=== PATIENT | female | born 1940 | race Caucasian/White ===

== ENCOUNTER → 2017-11-16 11:04 | Outpatient (CLI) | payer MEDICARE, SELFPAY ==
[2017-11-16 13:13] LABS: Absolute Lymphocyte Count 2.13 X10^3/ul (0.83-4.51); Absolute Neutrophil Count 4.1 X10^3/uL (2.0-7.7); Basophil# 0.04 X10^3/uL; Basophil% 0.5 % (0-1); Eosinophil# 0.12 X10^3/uL; Eosinophils% 1.6 % (0-5); Hemoglobin 11.5 g/dl (12.0-15.0); Lymphocyte # 2.13 X10^3/ul (4.0); Lymphocyte % 29.1 % (19-41); Mean Corp Hgb Conc 32.9 g/gl (32-36); Mean Corpuscular Volume 97.5 fL (81-99); Mean Platelet Vol. 11.9 fl (6.2-12.0); Monocyte# 0.92 X10^3/uL; Monocyte% 12.6 % (0-10); Neutrophil # 4.11 X10^3/uL (2.7-7.7); Neutrophil % 56.1 % (47-70); POSITIVE COUNT NO; POSITIVE DIFFERENTIAL NO; POSITIVE MORPHOLOGY NO; Platelet Count 249 K/mm3 (150-450); RBC Distribution Width CV 14.3 % (11.6-14.6); RBC Distribution Width SD 48.7 fl (35.1-43.9); Red Blood Count 3.59 M/mm3 (4.2-5.4); White Blood Count 7.3 K/mm3 (4.4-11.0)
[2017-11-16 13:33] LABS: Vitamin D,25 Hydroxy 34.5 ng/mL (29.95-100.01)
[2017-11-16 13:54] LABS: ALB/GLOB Ratio 0.9 RATIO (0.9-2.4); AST(SGOT) 23 U/L (15-37); Alanine Aminotransfer ALT/SGPT 26 U/L (13-56); Alkaline Phosphatase 107 U/L (45-117); Anion Gap 9 (5-15); BUN 18 mg/dL (7-18); BUN/Creat Ratio 14.1 RATIO (10-20); Calcium,Total 9.4 mg/dL (8.5-10.1); Chloride 103 mmol/L (98-107); Creatinine, Serum 1.28 mg/dL (0.55-1.02); EST Glomerular Filtration Rate 43 mL/min (>60); Est Glom Filt Rate - Afr Amer 52 mL/min (>60); Globulin 3.3 g/dL (2.2-4.2); Glucose 96 mg/dL (74-106); Potassium 3.9 mmol/L (3.5-5.1); Protein, Total 6.3 g/dL (6.4-8.2); Sodium Level 137 mmol/L (136-145); Thyroid Stim Hormone (TSH) 0.59 uIU/mL (0.358-3.74); Uric Acid 3.8 mg/dL (2.6-6.0)
== END ==
PROVIDERS: Family Provider Family Medicine Geriatric Medicine; PCP Family Medicine Geriatric Medicine; Visit Provider Family Medicine Geriatric Medicine
DX: E55.9 Vitamin D deficiency, unspecified (principal); I10 Essential (primary) hypertension
CPT/HCPCS: 36415; 80053; 82306; 84443; 84550; 85025

== ENCOUNTER → 2017-12-21 09:26 | Outpatient (CLI) | payer MEDICARE, SELFPAY ==
--- NOTE | 2017-12-21 09:30 | BI_ITS ---
MAMMOGRAPHY - BILATERAL SCREENING REASON FOR EXAM: Female, 77 years old. Routine annual screening examination. PERTINENT HISTORY: Non-contributory. History of prior left stereotactic breast biopsy. TECHNIQUE: Digital bilateral breast christina (3D mammographic acquisition) in the CC and MLO projections. 2-D mediolateral oblique (MLO) and craniocaudad (CC) views of both breasts were obtained. CAD: Full Field Digital Mammography with Computer Added Detection was performed. COMPARISON: Comparison is made with prior study dated November 04, 2015 and October 30, 2013. FINDINGS: Breast Composition: There are scattered areas of fibroglandular density. There are no dominant masses or suspicious calcifications. Stable benign-appearing bilateral axillary lymph nodes. Stable bilateral calcifications. A tissue clip marker is seen in the upper lateral portion of the left breast. No other significant abnormalities are identified. There has been no significant change since the prior study. BI/SCREENING MAMM (CAD), BILAT IMPRESSION: Stable bilateral screening mammogram. Yearly follow-up mammogram recommended. (A) ASSESSMENT CATEGORY: BIRADS Category 2: Benign. A letter regarding these results will be sent to the patient by the facility within 30 days. Approximately 10% of breast cancers are not detected by mammography. A normal mammogram should not delay biopsy of a clinically suspicious abnormality. [id number] Electronically Signed: Xander Medina MD at 12:36 EDT Tel [phone], Service support ,
--- NOTE | 2017-12-21 09:34 | BD_ITS ---
STUDY: DUAL ENERGY X-RAY ABSORPTIOMETRY / DXA REASON FOR EXAM: Female, 77 years old. The patient is postmenopausal. Loss of height. Prior left total hip replacement. TECHNIQUE: Bone Mineral Density (BMD) measurements of lumbar spine and both forearms were obtained. COMPARISON: Comparison is made with prior study dated November 04, 2015. FINDINGS: Lumbar Spine (L1-L4): g/cm2 (1.130) / T-score (-0.3) / Z-score (1.5) Findings are suggestive of normal bone density with a low fracture risk. Right Forearm: g/cm2 (0.695) / T-score (-2.2) / Z-score (0.1) Left Forearm: g/cm2 (0.638) / T-score (-2.7) / Z-score (-0.4) The T-Scores on the most recent prior examination were: Lumbar Spine (L1-L4): There has been improvement of bone density since the previous examination. There has been worsening of the bone density at the level of both forearms. BD/Dexa Bone Density Study IMPRESSION: The patient is considered osteoporotic as outlined below according to World Mikey Organization (WHO) criteria with a high fracture risk. There has been worsening of bone density since the previous examination. Reference Information: The T-score is the number of standard deviations above or below the standard which is normal for young adults at their peak bone mineral density. The World Health Organization (WHO) interprets the T-scores as follows: Above -1 Normal bone density Between -1 and -2.5 Osteopenia Equal to / or below -2.5 Osteoporosis As a practical clinical guideline, osteopenia may be graded as follows: Mild -1 through -1.5 Moderate -1.6 through -2.0 Severe -2.1 through -2.4 The Z-score is the number of standard deviations above or below age-matched controls. A Z-score of less than -1.5 would be considered abnormal. References: 1. NIH Osteoporosis and Related Bone Diseases http://www.osteo.org 2. International Society for Clinical Densitometry http://www.iscd.org 3. National Osteoporosis Foundation http://www.nof.org Electronically Signed: Xander Medina MD at 9:23 EDT Tel [phone], Service support ,
== END ==
PROVIDERS: Family Provider Family Medicine Geriatric Medicine; PCP Family Medicine Geriatric Medicine; Visit Provider Family Medicine Geriatric Medicine
DX: Z12.31 Encounter for screening mammogram for malignant neoplasm of breast (principal); Z78.0 Asymptomatic menopausal state
CPT/HCPCS: 77063; 77067; 77080

== ENCOUNTER → 2018-05-18 10:24 | Outpatient (CLI) | payer MEDICARE, SELFPAY ==
[2018-05-18 11:22] LABS: Hemoglobin 10.4 g/dl (12.0-15.0)
[2018-05-18 11:25] LABS: Absolute Neutrophil Count 4.6 X10^3/uL (2.0-7.7); Basophil% 0.5 % (0-1); Eosinophil# 0.13 X10^3/uL; Eosinophils% 1.7 % (0-5); Lymphocyte % 32.4 % (19-41); Monocyte# 0.47 X10^3/uL; Monocyte% 6.1 % (0-10); Neutrophil # 4.57 X10^3/uL (2.7-7.7); Neutrophil % 59.2 % (47-70)
[2018-05-18 11:26] LABS: Mean Corp Hgb Conc 32.5 g/gl (32-36); Mean Corpuscular Hgb 30.9 pg (27.0-32.0); Mean Platelet Vol. 11.5 fl (6.2-12.0); POSITIVE COUNT NO; POSITIVE DIFFERENTIAL NO; POSITIVE MORPHOLOGY NO; Platelet Count 250 K/mm3 (150-450); RBC Distribution Width CV 15.1 % (11.6-14.6); RBC Distribution Width SD 51.5 fl (35.1-43.9); Red Blood Count 3.37 M/mm3 (4.2-5.4); White Blood Count 7.7 K/mm3 (4.4-11.0)
[2018-05-18 11:40] LABS: Vitamin D,25 Hydroxy 34.8 ng/mL (29.95-100.01)
[2018-05-18 11:42] LABS: AST(SGOT) 21 U/L (15-37); Alanine Aminotransfer ALT/SGPT 21 U/L (13-56); Albumin, Serum 3.2 g/dL (3.2-5.0); Alkaline Phosphatase 105 U/L (45-117); Anion Gap 7 (5-15); BUN 22 mg/dL (7-18); BUN/Creat Ratio 18.6 RATIO (10-20); Chloride 108 mmol/L (98-107); Creatinine, Serum 1.18 mg/dL (0.55-1.02); EST Glomerular Filtration Rate 47 mL/min (>60); Est Glom Filt Rate - Afr Amer 57 mL/min (>60); Globulin 3.2 g/dL (2.2-4.2); Glucose 103 mg/dL (74-106); Potassium 3.7 mmol/L (3.5-5.1); Protein, Total 6.4 g/dL (6.4-8.2); Sodium Level 141 mmol/L (136-145); Thyroid Stim Hormone (TSH) 1.68 uIU/mL (0.358-3.74); Uric Acid 3.4 mg/dL (2.6-6.0)
== END ==
PROVIDERS: Family Provider Family Medicine Geriatric Medicine; PCP Family Medicine Geriatric Medicine; Visit Provider Family Medicine Geriatric Medicine
DX: E55.9 Vitamin D deficiency, unspecified (principal); I10 Essential (primary) hypertension; M10.9 Gout, unspecified
CPT/HCPCS: 36415; 80053; 82306; 84443; 84550; 85025

== ENCOUNTER → 2018-05-24 08:57 | Outpatient (CLI) | payer MEDICARE, SELFPAY | PROVIDERS: Family Provider Family Medicine Geriatric Medicine; PCP Family Medicine Geriatric Medicine; Referring Provider Internal Medicine Medical Oncology; Visit Provider Internal Medicine Medical Oncology | DX: D64.9 Anemia, unspecified (principal) | CPT/HCPCS: 82274 ==

== ENCOUNTER 2018-05-26 10:00 | Outpatient (RCR) | payer MEDICARE, SELFPAY ==
--- NOTE | 2018-04-17 11:52 | HP.PTEVAL ---
Patient's Visit Information YAMIL MELGOZA is a 77 year old F referred to Physical Therapy by CHINYERE SAEED with a diagnosis of Gait Disturbance. Date of Evaluation: 04/17/18 Physical Therapist: Kaila Alcala - Visit Plan Frequency: 3x /Week Duration: 3 Weeks Plan: Focus on LE and core s/s with functional mobility. - Subjective Subjective: Dr. Alvarado ordered a bone density test- this one came back with severe osteoporosis- put her on a medication 1x a week- since she started taking it in December she has noticed different things. 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 She has noticed that she has decreased strength doing stairs and can't go very far with ambulation. She also has COPD which limits her. She does not exercises but does her own housework. She vaccums which causes LBP. She goes to the library 3x a week 4 hours and does geneology- she has muscle pain in the right shoulder. Has seen Dr. Lovett which is making her better but not 100% better. Left hip is more sore than anything else when she is walking. Can only walk .1 of a mile- she has to rest and then she can go on. Worst: 07/03 Agg: walking a distance, stairs Eases: laying in bed with a heating pad Best: 10/01. Describes the pain as shooting and dull. Feels like someone is squeezing her really hard. Sleep: distrurbed when she rolls over- hard to get comfortable. Fears falling when she does a sit to stand- and has to use her arms to get upright. PMHx: osteoporiss, gout, COPD, hysterectomy, recovering alcoholic, HTN, high cholesterol, cateracts. Meds: allopurinol, prevatstatin, famotyodine, magnesium, potassium chol, synthroid, vit b 1, folic acid, cardisam, cozar. - Objective Posture: FH, RS, Increased kyphosis- can correct but does not maintain. Gait: slight deviation- no assistive device- increased JOSE JUAN with poor heel/toe pattern- decreased trunk rotation and arm swing. Stairs: asc/desc 8 recip with 2 HR- more UE use on ascend but poor control with descent. Slow cirilo. HR/TR: able but reports discomfort. SLS: WS but unable to SLS without UE and pain left>right. Palpation: tender to touch throughout LE. ROM: WFL in all planes. Strength: Core: poor, Hip: 4-/5 throughout, Knee: 4+/5, Ankle: 4+/5 all with discomfort. 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: 7 with UE a on thighs - Goals Goal 1:: Patient will be I with HEP and progression Goal Time Frame: 4-6 Weeks Goal 2:: Patient will asc/desc 8 stairs recip with 1 HR and good control Goal Time Frame: 4-6 Weeks Goal 3:: Patient will demo 12 sit to stands to increase functional performance Goal Time Frame: 4-6 Weeks Goal 4:: Patient will ambualte >300 feet with a normalized gait pattern Goal Time Frame: 4-6 Weeks Goal 5:: Patient will SLS for 5 seconds bilateal without UE A Goal Time Frame: 4-6 Weeks - Rehabilitation Potential Physical Therapy Diagnosis: Patient presents with hypomobiliy- she has decreased strength and muscular endurance leading to poor posture and increased pain with ADL's. Rehabilitation Potential: Fair - Anticipated Interventions Patient/Client Instruction: Educate patient on: Benefits of Fitness Program Therapeutic Exercise to Include: Strength training, Endurance training, Balance training, Body mechanics, Postural training, Flexibilty training, Gait and locomotor training, Passive ROM, Active ROM, Dynamic Lumbar Stabilization For the Purpose of:: To improve muscle performance and motor function Functional Training to Include: Gait training Thermo therapy (hot pack): Yes Ultrasound (thermal/non thermal): No Thank you for the opportunity to evaluate your patient. For Medicare and Medicare HMO plans, please review the plan of care and approve it. It will need to be FAXED BACK to us at [phone] for Medicare purposes. Please let me know if there are questions or concerns regarding this plan of care. Physician Signature: Date:
--- NOTE | 2018-05-08 07:21 | HP.PTREVAL_ITS ---
Joe Chi Christiano, It has been my pleasure to treat YAMIL MELGOZA over the last 9 visits for Gait Disturbance. Please see the progress note below for an update on the physical therapy plan of care! Subjective: Overall there has been improvement, feeling good about it. Still want hip corrected so can walk greater distances. Cannot walk from front of [employer] to back. Still having pain, but legs are stronger and noticed can do more. Current pain 0/10, worst 7-8/10. Can walk 1/10th of mile before leg starts to hurt and need to rest, which has been this way for a few years. Pain in L hip where replaced. Described as sharp. As walking gradually feel it start. 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 Roommate does cooking normally. Laundry up and down stairs, vaccuum, dust, take time but able to get done. Get in to car have to sit in chair on R side first and physically L L leg into car. Driving and get out of car okay. Goals: walking assisted through [employer] without having stop. Pt. thinks reason cannot walk long distances is due to leg fatigue and painful. Pain spreads from hip to low back. Physician 6 month checkup May 19. Objective/Function: Gait: WFL. Stair: ascend/descend reciprocally 1 HR with good form and speed. AROM: LE WFL. Heel and toes raise with minimal UE support. Balance: SL on R 10 seconds, SL L 3 seconds. Strength: R hip flex. ext. 4+/5, L hip flex. ext. 3+/5 and pain, R knee 5/5 L knee ext 4/5 flex 3+/5, R IR/ER 4+/5, L ER hip 3+/5, IR 4/5. Sit to stand no UE 9 in 30 seconds Plan Plan: Cont with PT services 2 times a week for 3 weeks. Focus on endurance and pain free gait for greater than 600', continue to focus on LE strength. Goals Goal 1:: Patient will be I with HEP and progression Goal Time Frame: 4-6 Weeks Goal Progress: Goal Met Goal 2:: Patient will asc/desc 8 stairs recip with 1 HR and good control Goal Time Frame: 4-6 Weeks Goal Progress: Goal Met Goal 3:: Patient will demo 12 sit to stands to increase functional performance Goal Time Frame: 4-6 Weeks Goal Progress: Progressing Goal 4:: Patient will ambualte >300 feet with a normalized gait pattern Goal Time Frame: 4-6 Weeks Goal Progress: Goal Met Goal 5:: Patient will SLS for 5 seconds bilateal without UE A Goal Time Frame: 4-6 Weeks Goal Progress: Progressing Anticipated Interventions Patient/Client Instruction: Educate patient on: Benefits of Fitness Program Therapeutic Exercise to Include: Strength training, Endurance training, Balance training, Body mechanics, Postural training, Flexibilty training, Gait and locomotor training, Passive ROM, Active ROM, Dynamic Lumbar Stabilization For the Purpose of:: To improve muscle performance and motor function Functional Training to Include: Gait training Thermo therapy (hot pack): Yes Ultrasound (thermal/non thermal): No Please do not hesitate to contact me at [phone] by phone or if you have questions or concerns regarding this new plan of care! Sincerely, Kaila Alcala
--- NOTE | 2018-05-26 10:19 | HP.PTDCSUM ---
HP - PT D/C Summary It has been my pleasure to treat YAMIL MELGOZA under orders from Joe Alvarado, for the diagnosis of Gait Disturbance for a total of 18 visit(s). Discharge Date: Please see the following information for a summary of their discharge status. - Subjective Subjective: Patient reports that her legs are much better. If she walks any distance the left really bothers her. Does not have as much problems getting up/down. Not as wobbly in the shower- and does feel the therapy was helpful. Worst: 8/10 Best: painfree when sitting. - Pain left hip Pain Intensity (Out of 10): 6 - Overall Improvement % Improvement: 75 - Objective Objective/Function: Gait: decreased stance on the left LE. Stair: ascend/descend reciprocally 1 HR with good form and speed. AROM: LE WFL. Heel and toes raise with minimal UE support. Balance: SL on R 30 seconds, SL L 10 seconds. Strength: R hip flex. ext. 4+/5, L hip flex. ext. 4/5 and pain, R knee 5/5 L knee ext 4+/5 flex 4/5, R IR/ER 4+/5, L ER hip 4/5, IR 4/5. Sit to stand no UE 10 in 30 seconds - Goals Goal 1:: Patient will be I with HEP and progression Goal Progress: Goal Met Goal 2:: Patient will asc/desc 8 stairs recip with 1 HR and good control Goal Progress: Goal Met Goal 3:: Patient will demo 12 sit to stands to increase functional performance Goal Progress: Progressing Goal 4:: Patient will ambualte >300 feet with a normalized gait pattern Goal Progress: Goal Met Goal 5:: Patient will SLS for 5 seconds bilateal without UE A Goal Progress: Goal Met - Plan Plan: Discharge to HEP - D/C Information If there are questions or concerns regarding this patient's physical therapy, please feel free to call me at [phone]. Thank you for the referral of this patient. Sincerely, Kaila Alcala
== END 2018-05-26 19:00 | disposition home or self-care (01) ==
LOC: PT 10:00
PROVIDERS: Family Provider Family Medicine Geriatric Medicine; PCP Family Medicine Geriatric Medicine; Visit Provider Family Medicine Geriatric Medicine
DX: R26.9 Unspecified abnormalities of gait and mobility (principal)
CPT/HCPCS: 97110; 97161; 97164

== ENCOUNTER → 2018-07-05 14:46 | Outpatient (CLI) | payer MEDICARE, SELFPAY ==
[2018-05-30 11:28] VITALS: BMI 54.7
[2018-07-05 15:51] LABS: Absolute Lymphocyte Count 2.33 X10^3/ul (0.83-4.51); Absolute Neutrophil Count 4.6 X10^3/uL (2.0-7.7); Basophil# 0.04 X10^3/uL; Basophil% 0.5 % (0-1); Eosinophil# 0.08 X10^3/uL; Eosinophils% 1.1 % (0-5); Lymphocyte # 2.33 X10^3/ul (4.0); Lymphocyte % 30.6 % (19-41); Mean Corp Hgb Conc 32.4 g/gl (32-36); Mean Corpuscular Volume 95.8 fL (81-99); Mean Platelet Vol. 11.9 fl (6.2-12.0); Monocyte# 0.57 X10^3/uL; Monocyte% 7.5 % (0-10); Neutrophil # 4.58 X10^3/uL (2.7-7.7); Neutrophil % 60.2 % (47-70); Platelet Count 247 K/mm3 (150-450); RBC Distribution Width CV 14.7 % (11.6-14.6); RBC Distribution Width SD 51.5 fl (35.1-43.9); Red Blood Count 3.55 M/mm3 (4.2-5.4); White Blood Count 7.6 K/mm3 (4.4-11.0)
[2018-07-05 16:13] LABS: POSITIVE COUNT NO; POSITIVE DIFFERENTIAL NO; POSITIVE MORPHOLOGY NO
[2018-07-05 16:40] LABS: Anion Gap 8 (5-15); BUN 17 mg/dL (7-18); BUN/Creat Ratio 12.7 RATIO (10-20); Calcium,Total 9.6 mg/dL (8.5-10.1); Chloride 107 mmol/L (98-107); Creatinine, Serum 1.34 mg/dL (0.55-1.02); EST Glomerular Filtration Rate 41 mL/min (>60); Est Glom Filt Rate - Afr Amer 49 mL/min (>60); Glucose 100 mg/dL (74-106); Potassium 4.2 mmol/L (3.5-5.1); Sodium Level 139 mmol/L (136-145)
--- OUTSIDE RECORDS SUMMARY | 2018-08-21 19:53 | XMS RPT_ITS ---
:1940 Author Organization OHIP Support Name Relationship Address Phone TATE GAY Unavailable [address] + [place] [address] R Unavailable Unavailable Unavailable TATE, GAY Unavailable [address] + [place] [address] R Unavailable Unavailable Unavailable TATE GAY Unavailable [address] + [place] [address] R Unavailable Unavailable Unavailable TATE, GAY Unavailable [address] + [place] [address] R Unavailable Unavailable Unavailable TATE, GAY Unavailable [address] + [place] [address] R Unavailable Unavailable Unavailable TATE, GAY Unavailable [address] + [place] [address] R Unavailable Unavailable Unavailable TATE, GAY Unavailable [address] + [place] [address] R Unavailable Unavailable Unavailable TATE, GAY Unavailable [address] + [place] [address] R Unavailable Unavailable Unavailable TATE, GAY Unavailable [address] + [place] [address] R Unavailable Unavailable Unavailable TATE, GAY Unavailable [address] + [place] [address] R Unavailable Unavailable Unavailable TATE, GAY Unavailable [address] + [place] [address] R Unavailable Unavailable Unavailable TATE, GAY Unavailable [address] + [place] [address] R Unavailable Unavailable Unavailable TATE, GAY Unavailable [address] + [place] [address] R Unavailable Unavailable Unavailable TATE, GAY Unavailable [address] + [place] [address] R Unavailable Unavailable Unavailable TATE, GAY Unavailable [address] + [place] [address] R Unavailable Unavailable Unavailable TATEWILBERTE Unavailable [address] + [place] [address] R Unavailable Unavailable Unavailable TATEGAY Unavailable [address] + [place] [address] R Unavailable Unavailable Unavailable TATEWILBERTE Unavailable [address] + [place] [address] R Unavailable Unavailable Unavailable TATEGAY Unavailable [address] + [place] [address] R Unavailable Unavailable Unavailable TATEWILBERTE Unavailable [address] + [place] [address] R Unavailable Unavailable Unavailable GAY TATE Unavailable [address] + [place] [address] R Unavailable Unavailable Unavailable WILBERT TATEE Unavailable [address] + [place] [address] R Unavailable Unavailable Unavailable Care Team Providers Name Role Phone Christiano, Joe Chi Attending Unavailable Christiano, Joe Chi Primary Care Unavailable Christiano, Joe Chi Attending Unavailable Christiano, Joe Chi Referring Unavailable Christiano, Joe Chi Primary Care Unavailable Christiano, Joe Chi Attending Unavailable Christiano, Joe Chi Referring Unavailable Christiano, Joe Chi Primary Care Unavailable Cebul Nathan Attending Unavailable Christiano, Joe Chi Referring Unavailable Cebul Nathan Attending Unavailable Christiano, Joe Chi Referring Unavailable Cebul Nathan Attending Unavailable Cebul, Nathan Referring Unavailable Christiano, Joe Chi Primary Care Unavailable Adia Mcpherson Attending Unavailable Yefri Noe Attending Unavailable Christiano, Joe Chi Referring Unavailable Christiano, Joe Chi Primary Care Unavailable Dos[facility] Attending Unavailable Christiano, Joe Chi Referring Unavailable Christiano, Joe Chi Primary Care Unavailable [facility] Attending Unavailable Christiano, Joe Chi Referring Unavailable Christiano, Joe Chi Primary Care Unavailable Christiano, Joe Chi Attending Unavailable Christiano, Joe Chi Primary Care Unavailable Christiano, Jeo Chi Attending Unavailable Christiano, Joe Chi Referring Unavailable Christiano, Joe Chi Primary Care Unavailable Adia Mcpherson Attending Unavailable Adia Mcpherson Attending Unavailable Yefri Noe Attending Unavailable Christiano, Joe Chi Referring Unavailable Christiano, Joe Chi Primary Care Unavailable Christiano, Joe Chi Primary Care Unavailable ARIS ASHBY Consulting Unavailable Christiano, Joe Chi Attending Unavailable Christiano, Joe Chi Referring Unavailable Christiano, Joe Chi Attending Unavailable Christiano, Joe Chi Primary Care Unavailable Prah, Nicola Attending Unavailable Christiano, Joe Chi Primary Care Unavailable Prah, Nicola Attending Unavailable Christiano, Joe Chi Primary Care Unavailable Prah, Nicola Consulting Unavailable Prah, Nicola Attending Unavailable Prah, Nicola Referring Unavailable Christiano, Joe Chi Primary Care Unavailable Prajoe, [place] Attending Unavailable Christiano, Joe Chi Primary Care Unavailable Prajoe, Nciola Consulting Unavailable Christiano, Joe Chi Attending Unavailable Christiano, Joe Chi Referring Unavailable Christiano, Joe Chi Primary Care Unavailable PROBLEMS PROBLEMS DATE TYPE CONDITION / CODE ATTENDING STATUS SOURCE 08/09/2018 Unknown M79.10 - Myalgia, Christiano, Joe Chi Active [place] unspecified site / Community M79.10(ICD-10) Hospital Repository 08/09/2018 Unknown M25.519 - Pain in Christiano, Joe Chi Active [place] unspecified shoulder Community / M25.519(ICD-10) Hospital Repository 08/09/2018 Unknown H81.10 - Benign Christiano, Joe Chi Active [facility] paroxysmal vertigo, Community unspecified ear / Hospital H81.10(ICD-10) Repository 08/09/2018 Unknown 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, Nathan Active [facility] artery / Community I77.1(ICD-10) Hospital Repository 08/09/2018 Unknown I77.9 - Disorder of Cebul, Nathan Active [facility] arteries and Community arterioles, Hospital unspecified / Repository I77.9(ICD-10) 08/09/2018 Unknown I65.23 - Occlusion Cebul, Nathan Active [facility] and stenosis of Community bilateral carotid Hospital arteries / Repository I65.23(ICD-10) 08/09/2018 Unknown E04.2 - Nontoxic Cebul, Nathan Active [facility] multinodular goiter Community / E04.2(ICD-10) Hospital Repository 05/29/2018 Unknown D64.9 - Anemia, PraNicola diaz Active [place] unspecified / Community D64.9(ICD-10) Hospital Repository 05/30/2018 Unknown R26.9 - Unspecified Christiano, Joe Chi Active [place] abnormalities of Community gait and mobility / Hospital R26.9(ICD-10) Repository 04/10/2018 Unknown I51.7 - Cardiomegaly Noe, Yefri Active [facility] / I51.7(ICD-10) [facility] Repository 04/10/2018 Unknown E78.5 - Yefri Noe Active [place] Hyperlipidemia, Community unspecified / Hospital E78.5(ICD-10) Repository 12/21/2017 Unknown Z78.0 - Asymptomatic Christiano, Joe Chi Active [facility] menopausal state / Community Z78.0(ICD-10) Hospital Repository 12/21/2017 Unknown Z12.31 - Encounter Christiano, Joe Chi Active [facility] for screening Community mammogram for Hospital malignant neoplasm Repository of breast / Z12.31(ICD-10) 10/12/2017 Unknown M51.36 - Other Dossie, Dawn Active [place] intervertebral disc [facility]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 Community dysfunction of Hospital cervical region / Repository M99.01(ICD-10) 10/12/2017 Unknown M99.02 - Segmental Dossie, Dawn Active [place] and somatic [facility] Community dysfunction of Hospital thoracic region / Repository M99.02(ICD-10) 10/12/2017 Unknown M99.03 - Segmental Dossie, Dawn Active [place] and somatic [facility] 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 Community scoliosis, site Hospital unspecified / Repository M41.00(ICD-10) PROCEDURES PROCEDURES No Procedure Records FoundRESULTS RESULTS CTA NECK W/WO Observed: 08/09/2018 Status: F Source: [facility] CONTRAST 12:38 PM ON LICENSE OF [facility] REPOSITORY [facility] Imaging Services [address] [place] [address] CTA Neck W/WO Contrast MR#: [id number] Acct: [id number] Name: JESS MELGOZA Rep #: [id number] : 1940 F 78 From: Royer Nance MD PCP: Christiano WHITE,Joe Salas Status: REG CLI Study: CTA Neck W/WO Contrast Date of Exam: 08/09/18 Exam# [id number] Ordering Dr: Nathan Zapata MD STUDY: CTA NECK WITH AND WITHOUT CONTRAST REASON FOR EXAM: Female, 78 years old. Carotid stenosis, thyroid nodule, biopsy done today. RADIATION DOSAGE (If Supplied By Facility): CTDIvol = ( 15.20 ) mGy, DLP = ( 1121.24 ) mGycm TECHNIQUE: CT angiography with multi-detector data acquisition was performed from the aortic arch to the skull base prior to and after intravenous administration of 100 ml of Isovue 370 contrast. MIP images were reconstructed from the axial data set. Post-processing of the angiographic images was performed, with multiplanar reformation and 3D reconstruction. Individualized dose optimization techniques were used for this CT. COMPARISON: CTA chest same date. Carotid duplex imaging 07/12/2018. FINDINGS: Right dominant thyroid nodule with no evidence of biopsy consultation, no hematoma. Apical lungs acutely clear with features of centrilobular emphysema. There is evidence of coronary atherosclerosis. The central pulmonary arteries are dilated up to 3 cm. Nondilated aortic arch with moderate arch atherosclerosis with plaque extending into the brachiocephalic artery, common carotid artery on the left, subclavian artery bilaterally. Cervical facial, pharyngeal soft tissues and visualized portions of the brain parenchyma exhibits no acute process. Prominent multilevel cervical spondylosis with uncovertebral joint hypertrophy and facet hypertrophy contributing to multilevel mild to moderate foraminal stenosis. Right carotid artery: Moderately prominent multifocal calcification of the wall the common carotid artery. Difficult to discern if there may be some stenosis at the origin of the common carotid artery due to motion artifact. There is no other significant stenosis along its course. Moderate plaque of the carotid bulb without stenosis. Moderate calcified plaque of the origin of the external carotid artery with moderate stenosis. Dense plaque of the proximal ICA, least luminal diameter 2.5 mm, widening thereafter to a diameter of 3.5 mm, moderate stenosis. Moderate calcified plaque of the wall of the cavernous segment transcranial ICA. Left carotid artery: Patent origin, mild scattered calcified plaque of the common carotid artery without stenosis. Moderate calcified plaque in the wall of the bulb without stenosis. Mild calcified plaque at the origin of the ECA without significant stenosis. Minimal plaque proximal ICA without stenosis. Moderate calcified plaque of the wall of the transcranial left ICA. Vertebral arteries: Minimal calcified plaque of the cervical segment bilaterally, without stenosis or dissection. Trace plaque intracranial segments. Intracranial vasculature: Limited evaluation about the saxman of [place] reveals no acute abnormality. CT/CTA Neck W/WO Contrast IMPRESSION: 1. Severe calcified plaque of the proximal right ICA with stenosis. The density of the calcified plaque partially obscures the lumen, which measures a least caliber of approximately 2.5 mm but may be slightly smaller. Stenosis is estimated between 50 and 70%. 2. There is no apparent stenosis of the left internal carotid artery. 3. Normal vertebral arteries. 4. Centrilobular emphysema. 5. Prominent plaque of the aortic arch extending into the brachycephalic artery, subclavian arteries, and common carotid arteries. Difficult to discern if there may be some stenosis at the origin of the right common carotid artery due to motion artifact at the level. There is no apparent stenosis of the origin of the left common carotid artery. Carotid stenosis assessment: Type Disk Quality Control Supervisor H, et al. Quantitative Vascular Measurements in Arterial Occlusive Disease. [employer] 2005;25:0455-4748. The [place] Symptomatic Carotid Endarterectomy Trial (NASCET) Electronically Signed: Royer Nance MD at 17:54 EST Tel , Service support , CC: Nathan Zapata MD; Joe Alvarado MD Laboratory Administrative Director: Signed CTA CHEST W/WO Observed: 08/09/2018 Status: F Source: [facility] CONTRAST 12:38 PM ON LICENSE OF [facility] REPOSITORY [facility] Imaging Services [address] [place] [id number] CTA Chest W/WO Contrast MR#: [id number] Acct: [id number] Name: JESS MELGOZA Rep #: [id number] : 1940 F 78 From: Royer Nance MD PCP: Christiano WHITE,Joe Salas Status: REG CLI Study: CTA Chest W/WO Contrast Date of Exam: 08/09/18 Exam# [id number] Ordering Dr: Nathan Zapata MD STUDY: CTA CHEST REASON FOR EXAM: Female, 78 years old. Carotid stenosis. Thyroid nodule biopsy performed today. RADIATION DOSAGE (If Supplied By Facility): DLP = ( 1121.24 ) mGycm TECHNIQUE: The examination was performed with the intravenous administration of 100 ml of Isovue 370 contrast material. Post-processing of the angiographic images was performed, with multiplanar reformation and 3D reconstruction. Individualized dose optimization techniques were used for this CT. COMPARISON: CTA neck same date. Ultrasound carotid duplex 07/12/2018. FINDINGS: Supraclavicular: Dominant right thyroid nodule. No evidence of biopsy complication. No hematoma. Left thyroid unremarkable. No supraclavicular mass or lymphadenopathy. Body wall soft tissues: No acute process. Osseous structures: No acute process. Mild kyphoscoliosis. Minimal thoracic spondylosis. Within the right lateral recess of the spinal canal at the level of T11, there is a sharply circumscribed oval dense focus with a maximum dimension of 5 mm, likely calcified. Precise etiology unknown. Upper abdomen: No acute process in limited evaluation. There is severe calcification of the wall of the proximal abdominal aorta with prominent calcification at the origins of the celiac artery. 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 There are prominent calcifications at the origins of the renal arteries bilaterally. Mediastinum: Normal esophagus. There is no mediastinal or hilar mass or lymphadenopathy. Lungs: Moderate features of centrilobular emphysema. No visible pulmonary nodules. Unremarkable airways. Postsurgical changes left superior hilum. Cardiothoracic surgical history. Aorta: Nondilated aortic root. Nondilated aortic arch and descending thoracic aorta. Prominent calcified plaque of the aortic arch, prominently extending into the brachiocephalic artery which appears to be severely stenotic and may be proximally occluded over the 1st 19 mm from its origin. Occlusion is most likely. The origin of the right common carotid artery appears to be stenotic, constituted retrograde via the subclavian artery. The proximal right CCA is mildly stenotic with circumferential calcified plaque of the wall. The origin of the right vertebral artery is moderately stenotic with calcified plaque. There is gas 5 plaque in the mid right subclavian artery and right axillary and brachial arteries without stenosis. Callus by plaque at the origin of the left common carotid artery without stenosis. Calcified plaque at the origin of the left subclavian artery. Subclavian artery calcified and soft atheroma at the takeoff of the left internal mammary artery, less than 50% stenosis. There is no evidence of stenosis of the internal mammary artery. There is moderate calcified plaque of the descending aorta, with soft atheroma, without stenosis. There is no aortic dissection. Pulmonary arteries: Ectatic central pulmonary arteries, main pulmonary artery 3.1 cm. There is no large central pulmonary embolus. There is no evidence of peripheral pulmonary embolus. Heart: Moderate cardiomegaly, with ectasia in particular of the left ventricle. Three-vessel coronary calcifications. CT/CTA Chest W/WO Contrast IMPRESSION: 1. No acute cardiopulmonary process is evident. There is no evidence of pulmonary embolus. There is no evidence of aortic dissection. 2. 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 Likely reconstitution of flow into the right common carotid artery retrograde from the subclavian artery. The origin and proximal 2 cm of the right common carotid artery are stenotic, probably less than 50%. There is motion artifact partially tearing detail. 3. 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 4. Prominent calcified plaque of the proximal abdominal aorta with prominent plaque at the origins of the celiac trunk and renal arteries. Degree of stenosis not assessed. 5. Cardiomegaly with three-vessel coronary atherosclerosis, enlargement in particular of the left ventricle. 6. Dominant right thyroid nodule. Reported biopsy today. No evidence of biopsy complication. 7. There is a homogeneously dense sharply circumscribed oval nodule within the spinal canal right lateral recess at T11, uncertain etiology. This may be a small chronic calcified neurofibroma or schwannoma. The maximum dimension is 5 mm. Electronically Signed: Royer Nance MD at 18:36 EST Tel , Service support , CC: Nathan Zapata MD; Joe Alvarado MD Laboratory Administrative Director: Signed SURGERY VISIT REPORT Observed: 08/09/2018 Status: F Source: [facility] 9:27 AM [facility] REPOSITORY [facility] [address] [place], [place] [address] OFFICE VISIT Date of Service: 08/09/18 MR#: [id number] Acct: [id number] Name: JESS MELGOZA Rep #: [id number] : 1940 Provider: Nathan Zapata MD Age/Sex: 78/F Location: [facility] Status: Signed Intake Vital Signs08/09/18 Body Mass Index (BMI) 25.5 Intake Visit Reasons: bilateral thyroid FNA Chief Complaint: bilateral thyroid nodules Supervisor Vat House Required: No Is patient in pain?: No Allergies adhesive tape Allergy (Verified 07/29/18 09:54) blisters diclofenac [From Arthrotec] Adverse Reaction (Unknown, Verified 07/29/18 09:54) unknown misoprostol [From Arthrotec] Adverse Reaction (Unknown, Verified 07/29/18 09:54) unknown NSAIDS (Non-Steroidal Anti-Inflamma Adverse Reaction (Unknown, Verified 07/29/18 09:54) unknown Medications Allopurinol [Zyloprim] 300 mg PO DAILY 10/11/14 [History Confirmed 07/29/18] Famotidine [Pepcid] 20 mg PO QHS 10/11/14 [History Confirmed 07/29/18] Levothyroxine [Synthroid] 50 mcg PO DAILY 10/11/14 [History Confirmed 07/29/18] Multivitamins,Therapeutic [Multivitamin] 1 tab PO DAILY 10/11/14 [History Confirmed 07/29/18] Pravastatin [Pravachol] 40 mg PO QHS 10/11/14 [History Confirmed 07/29/18] magnesium oxide 400 mg (241.3 mg magnesium) tablet 400 mg PO QDAY tab 09/14/17 [History Confirmed 07/29/18] potassium chloride ER 20 mEq tablet,extended release 20 meq PO QDAY 09/14/17 [History Confirmed 07/29/18] ibuprofen 600 mg tablet 600 mg PO PRN tab 09/15/17 [History Confirmed 07/29/18] diltiazem 60 mg tablet 60 mg PO BID tab 02/06/18 [History Confirmed 07/29/18] albuterol sulfate HFA 90 mcg/actuation aerosol inhaler 1 puff INHALATION Q6H PRN 04/05/18 [History Confirmed 07/29/18] Calcium Carbonate/Vitamin D3 [Calcium 600 with Vit D Chew Tb] 05/23/18 [History Confirmed 07/29/18] Folic Acid 1 mg PO DAILY@0800 05/23/18 [History Confirmed 07/29/18] Losartan Potassium [Cozaar] 50 mg PO 05/23/18 [History Confirmed 07/29/18] Thiamine HCl [Vitamin B-1] 05/23/18 [History Confirmed 07/29/18] sodium chloride 0.9 % intravenous solution 500 ml/hr CONTINUOUS IV INFUSION ONCE 0.042 Days #500 ml 07/31/18 [Rx Confirmed 07/31/18] Is last menstrual period known: No Post menopausal: Yes Patient : No PFSH Medical History Bilateral carotid artery stenosis (Acute) Multiple thyroid nodules (Acute) Lung cancer (Chronic) COPD (chronic obstructive pulmonary disease) (Chronic) Premature ventricular beat (Chronic) PAC (premature atrial contraction) (Chronic) LVH (left ventricular hypertrophy) (Chronic) Hypomagnesemia (Chronic) Bradycardia (Chronic) Orthostatic hypotension (Chronic) Hypertension (Chronic) Hypothyroidism (Chronic) Renal insufficiency (Chronic) Hyponatremia (Chronic) Macrocytic anemia (Chronic) Hyperlipidemia (Chronic) History of hysterectomy (Chronic) Scoliosis (Chronic) Surgical History Status post biopsy of thyroid gland (Acute 07/2018) History of cataract surgery (Chronic) History of left hip replacement (Chronic) History of lobectomy of lung (Chronic) Hx of cholecystectomy (Chronic) Family History Brother CAD (coronary artery disease) Mother CAD (coronary artery disease) CVA (cerebral vascular accident) Social History Smoking Status: Former smoker pack-years: 35 alcohol intake: former year quit: 2014 HPI HPI HPI: JESS MELGOZA, is a 78 F who presents to the office today for ultrasound-guided bilateral thyroid final aspiration Office Procedures Fine Needle Aspiration Provider Documentation Details: Ultrasound-guided final aspiration bilateral thyroid nodules There is a 2.2 cm upper pole solid nodule in the right and a 1.1 cm solid nodule in the left I am not informed consent was obtained. 78-year-old female was taken to procedure room placed on the table of the neck was prepped with Betadine. Ultrasound was performed initially of the left side of the neck. The smaller 1 cm diameter nodule in the mid left thyroid was identified. It had microcalcifications present. Under ultrasound guidance 1% lidocaine mixed 50-50 with 0.5% Marcaine was used as local anesthetic. A total of 1 cc was injected under ultrasound guidance. Then a 25-gauge needle was advanced into the lesion under ultrasound guidance. A rapid oipn-lav-prwsl motion was performed. Specimen was obtained and smeared out on slides. 3 separate passes were performed. The slides were treated with fixative. Attention now was made to the right thyroid lesion. This was suggested to be solid however on my visualization the right thyroid lesion clearly was mostly a cystic with some solid component to it. Again under ultrasound guidance local was instilled. A 22-gauge needle was initially advanced into the lesion and a dark brownish material emanated there from. I then switched up to a 18-gauge needle to aspirate the vast majority of the remaining fluid and any additional solid component adjacent to it. That tissue was sent within a syringe. She tolerated the procedure well. Small Band-Aids were applied. She was given activity wound care instructions. No apparent complication Nathan Zapata M.D., F.A.C.S. Alert [place] Alert Billing: Yes FNA 00382 Thyroid (Bilateral -50) Procedure Time Out Time Out Informed consent given: Yes Consent signed: Yes Time out checklist: patient, procedure, site marked/identified, positioning of patient, supplies available, allergies confirmed, team agrees on procedure Time out staff in room: Yes Time out verified: Yes Time out date: 08/09/18 Time out time: 08:00 Assessment AND Plan Problems 1. Multiple thyroid nodules E04.2 Plan Successful bilateral thyroid final aspiration Clinically this area appears to be benign. We will await cytology. At this point I am anticipating likely follow-up thyroid ultrasound at 1 year Nathan Zapata M.D., F.A.C.S. 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 reading/computer work Coding Level of Care Code Attention [place] Diagnoses Multiple thyroid nodules E04.2 Additional Codes FNA - Fine Needle Aspiration: 48110 Thyroid (79461) 08/09/18 0927 <Electronically signed by Nathan Zapata MD> Date Nathan Zapata MD Cosigner Signature: Date (if applicable) CC: FLUID/WASHING Observed: 08/09/2018 Status: F Source: [facility] 12:00 AM [facility] REPOSITORY Patient: JESS MELGOZA : 1940 (78/F) Acct Num: [id number] Phys: Benny WHITE,Nathan Unit Num: [id number] Loc: CT Specimen: [id number] Received: 08/09/18 - 1308 Spec Type: Fluid TISSUES 1 TISSUES: B. Thyroid gland, NOS A. Thyroid gland, NOS - SLIDES X 6 CYTOLOGY GROSS A - Received are six smears labeled with the patient's name and designated per the requisition as right thyroid. Submitted for staining. B - Received is 1 ml of red cloudy fluid labeled with the patient's name and and designated per the requisition as thyroid. Submitted for cytology preparation including cell block. / 08/09/18 TC:5 CPT: 37800, 50070, 94187 CYTOLOGY STUDY Slides are reviewed. DIAGNOSIS CYTOLOGY A. Right thyroid nodule, FNA (smears): Consistent with benign colloid nodule. Adequate for evaluation. B. Thyroid fluid for cytology (cytospin and cell block): Consistent with benign cystic colloid nodule. Adequate for evaluation. SJ:mary 08/10/18 HEADER OPERATION: Bilateral thyroid FNA PRE-OP DIAGNOSIS: Bilateral thyroid nodules TISSUE SUBMITTED: A - Right thyroid 6 slides, B - Thyroid fluid for cytology Signed Javon Crawford MD 08/10/18 <signature on file> Performed By: #### PFLU #### [facility] [address] [place], [place], [address] PT D/C SUMMARY (2) Observed: 08/03/2018 Status: F Source: [place] 8:58 AM [facility] REPOSITORY [facility] [address] [place] [address] / REHABILITATION SERVICES DISCHARGE SUMMARY MR#: [id number] Acct: [id number] Name: JESS MELGOZA Rep #: [id number] : 1940 78 From: Ayush Billingsley DPT, JORGE, CSCS Referring Dr.: Joe Alvarado MD Status: REG RCR Insurance: MEDICARE PART A B SELF PAY INSURANCE HP - PT D/C Summary (2) It has been my pleasure to treat JESS MELGOZA under orders from Joe Alvarado MD, for the diagnosis of BPPV for a total of 2 visit(s). Discharge Date: 08/02/18 Please see the following information for a summary of their discharge status. - Subjective Subjective: Run ragged by painful roommate. I think my dizzyness is gone. None in last week. Getting out of bed is good. hasn't helped neck pain any...01/01 today. - Objective Objective/Function/Assessment: Balance is good. - B hallpike and - roll test. Walking well. - Goals Patient Goals: Other Other Goals: rid vertigo Goal 1:: abolish vertigo Goal Progress: Goal Met Goal 2:: Pt feel 100% back to normal with steadiness adn dizzyness Goal Progress: Goal Met - Plan Plan: D/C vestibular chart, to continue with neck chart. - D/C Information Discharge Comments: No further vestibular needed. Will continue with neck POC. If there are questions or concerns regarding this patient's physical therapy, please feel free to call me at [phone]. Thank you for the referral of this patient. Sincerely, Ayush Billingsley DPT, OCS, CSCS <Electronically signed by Ayush Billingsley DPT, JORGE, CSCS> 08/03/18 0858 CC: Joe Alvarado MD EBG Signed SURGERY VISIT REPORT Observed: 07/29/2018 Status: F Source: [place] 10:13 AM [facility] REPOSITORY [facility] [address] [place] [address] OFFICE VISIT Date of Service: 07/29/18 MR#: [id number] Acct: [id number] Name: JESS MELGOZA Rep #: [id number] : 1940 Provider: Nathan Zapata MD Age/Sex: 78/F Location: [facility] Status: Signed Intake Vital Signs07/29/18 Height 5 ft 1 in 07/29/18 Weight: 135 lb 2 oz 07/29/18 Body Mass Index (BMI) 25.5 07/29/18 Blood Pressure 145/54 H Intake Visit Reasons: R Side Thyroid Nodules US 07/26/17 Chief Complaint: bilateral thyroid nodules Supervisor Vat House Required: No Is patient in pain?: No Allergies adhesive tape Allergy (Verified 07/29/18 09:54) blisters diclofenac [From [employer]] Adverse Reaction (Unknown, Verified 07/29/18 09:54) unknown misoprostol [From [employer]] Adverse Reaction (Unknown, Verified 07/29/18 09:54) unknown NSAIDS (Non-Steroidal Anti-Inflamma Adverse Reaction (Unknown, Verified 07/29/18 09:54) unknown iodine contrast Allergy (Uncoded 05/30/18 11:26) rash Medications Allopurinol [Zyloprim] 300 mg PO DAILY 10/11/14 [History Confirmed 07/29/18] Famotidine [Pepcid] 20 mg PO QHS 10/11/14 [History Confirmed 07/29/18] Levothyroxine [Synthroid] 50 mcg PO DAILY 10/11/14 [History Confirmed 07/29/18] Multivitamins,Therapeutic [Multivitamin] 1 tab PO DAILY 10/11/14 [History Confirmed 07/29/18] Pravastatin [Pravachol] 40 mg PO QHS 10/11/14 [History Confirmed 07/29/18] magnesium oxide 400 mg (241.3 mg magnesium) tablet 400 mg PO QDAY tab 09/14/17 [History Confirmed 07/29/18] potassium chloride ER 20 mEq tablet,extended release 20 meq PO QDAY 09/14/17 [History Confirmed 07/29/18] ibuprofen 600 mg tablet 600 mg PO PRN tab 09/15/17 [History Confirmed 07/29/18] diltiazem 60 mg tablet 60 mg PO BID tab 02/06/18 [History Confirmed 07/29/18] albuterol sulfate HFA 90 mcg/actuation aerosol inhaler 1 puff INHALATION Q6H PRN 04/05/18 [History Confirmed 07/29/18] Calcium Carbonate/Vitamin D3 [Calcium 600 with Vit D Chew Tb] 05/23/18 [History Confirmed 07/29/18] Folic Acid 1 mg PO DAILY@0800 05/23/18 [History Confirmed 07/29/18] Losartan Potassium [Cozaar] 50 mg PO 05/23/18 [History Confirmed 07/29/18] Thiamine HCl [Vitamin B-1] 05/23/18 [History Confirmed 07/29/18] Is last menstrual period known: No Post menopausal: Yes Patient : No PFSH Medical History Lung cancer (Chronic) COPD (chronic obstructive pulmonary disease) (Chronic) Premature ventricular beat (Chronic) PAC (premature atrial contraction) (Chronic) LVH (left ventricular hypertrophy) (Chronic) Hypomagnesemia (Chronic) Bradycardia (Chronic) Orthostatic hypotension (Chronic) Hypertension (Chronic) Hypothyroidism (Chronic) Renal insufficiency (Chronic) Hyponatremia (Chronic) Macrocytic anemia (Chronic) Hyperlipidemia (Chronic) History of hysterectomy (Chronic) Scoliosis (Chronic) Surgical History History of cataract surgery (Chronic) History of left hip replacement (Chronic) History of lobectomy of lung (Chronic) Hx of cholecystectomy (Chronic) Family History Brother CAD (coronary artery disease) Mother CAD (coronary artery disease) CVA (cerebral vascular accident) Social History Smoking Status: Former smoker pack-years: 35 alcohol intake: former year quit: 2014 HPI HPI HPI: JESS MELGOZA, is a 78 F who presents to the office today for abnormal thyroid U/S. The patient states that for at least 20 years she has required thyroid replacement medicine. She states that she was in [place] had some problems with dizziness and hypertension and that imaging was obtained. She said a chest x-ray but I suspect it might have been a CT scan. Local laboratory on July 05, 2018 demonstrates a white count of 7.6 with hemoglobin 11 hematocrit of 34 platelet count 247,000. BUN of 17 and a creatinine of 1.34. To evaluate her thyroid on July 26, 2018 to that the thyroid ultrasound. The results are as below. There is a 2.2 cm upper pole solid nodule in the right and a 1.1 cm solid nodule in the left. Now in addition the patient tells me that she is scheduled to see Dr. Lauri Gomez for carotid disease. She had carotid duplex imaging performed on July 12, 2018. That report follows as well. 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 Nodule felt by TECHNIQUE: Ultrasound evaluation of the thyroid was performed with real-time and static madrid-scale imaging. COMPARISON: None. FINDINGS: RIGHT LOBE: The right lobe of the thyroid gland measures 4.5 x 2.6 cm. There is a homogeneous echotexture. Dominant mid to upper pole solid nodule measuring 2.2 x 1.6 x 1.5 cm. LEFT LOBE: The left lobe of the thyroid gland measures 4. 1.4 x 1.3 cm. There is a homogeneous echotexture. Single lower pole solid nodule measuring 1.1 x 0.6 x 0.4 cm ISTHMUS: The isthmus measures 3 mm. The regional lymph nodes are normal. US/Thyroid IMPRESSION: Nodules noted bilaterally, otherwise unremarkable thyroid. Largest is on the right. Electronically Signed: Curt Harman DO at 8:46 EST Tel , Service support , [facility] Cardiovascular Services [address] [place] [address] Carotid Duplex Ultrasound 07/12/18 1231 MR#: [id number] Name: JESS MELGOZA [facility] #:[id number] : 1940 78From: Nathan Zapata MD Attending Dr: Joe Alvarado MD, ChiStatus: REG CLI Ordering Dr: Joe Alvarado. MDDate: 07/12/18 Location:CVSSex:FC Admitted: Reason For Study: Carotid stenosis Rt. Velocities/BP Lt. Velocities/BP Prox CCA 38.1/14.3 cm/sec. Prox CCA 76.2/11.1 cm/sec. Mid CCA 29.5/11.9 cm/sec. Mid CCA 101.0/13.5 cm/sec. Dist CCA 29.5/12.9 cm/sec. Dist CCA 95.6/16.4 cm/sec. Prox ICA 70.4/22.9 cm/sec. Prox ICA 116.0/18.8 cm/sec. Mid ICA 65.7/22.9 cm/sec. Mid ICA 114.0/17.0 cm/sec. Dist ICA 52.8/20.5 cm/sec. Dist ICA 71.5/15.8 cm/sec. Rt. ICA/CCA = 2.4. Lt. ICA/CCA = 1.2. Prox ECA 82.1/7.0 cm/sec. Prox ECA 247.0/0.0 cm/sec. Rt. Brachial BP = 120./68 mmHg. Lt. Vert. 133.0/22.8 cm/sec. Lt. Brachial BP = 160/78 mmHg. Right Extracranial There is heterogeneous, irregular atherosclerotic plaque noted in the right common carotid artery. There is heterogeneous, irregular atherosclerotic plaque noted in the right internal carotid artery. There is heterogeneous, irregular atherosclerotic plaque noted in the right external carotid artery. Rt Vertebral flow is RETROGRADE. Left Extracranial There is heterogeneous, irregular atherosclerotic plaque noted in the left common carotid artery. There is heterogeneous, irregular atherosclerotic plaque noted in the left internal carotid artery. There is heterogeneous, irregular atherosclerotic plaque noted in the left external carotid artery. Antegrade flow is noted in the left vertebral artery. Procedure Carotid Duplex 58340. Exam performed in department. Interpretation Summary Irregular calcific plague within the right proximal, mid and distal common carotid Extensive irregular plague within the proximal right internal carotid with <50% stenosis. Retrograde flow right vertebral with lower right upper extremity BP compared to the left consistent with proximal right subclavian stenosis. Right thyroid 1.28 x 1.95cm solid cystic nodule Calcific irregular plague within the left proximal, mid, and distal common carotid. Irregular calcific plague within the proximal left internal carotid with <50% stenosis Moderate diseaes left external carotid Patent and antegrade bilateral vertebrals with increased velocity on the left Ordering Physician: Joe Alvarado Referring Physician: Yefri Noe Performed By: Debi Randle RVT 07/12/182058 Date Nathan Zapata MD ROS General General: No weight change, appetite, fatigue, colon cancer, breast cancer or weakness HEENT HEENT: No difficulty swallowing, eye injury, eye surgery, swollen glands or hoarseness Endo Endocrine: Yes thyroid disease; no diabetes mellitus, thyroid cancer, Hair loss, heat intolerance or cold intolerance Musc Musculoskeletal: No back problems, arthritis, rheumatoid arthritis, gout or joint pain Cardio Cardiovascular: Yes murmur and high blood pressure; no pacemaker, heart disease, atrial fibrillation, heart attack, heart stent, palpitations, shortness of breat with exertion or chest pain Resp Respiratory: Yes shortness of breath, No sleep apnea, No cough, Yes COPD, No asthma, No emphysema, No wheezing Gastro Gastrointestinal: No abdominal pain, No nausea or vomiting, No diarrhea, No constipation, No blood in stool, Yes acid reflux, Yes hemorrhoids, No ulcers, No gallbladder problem, No black,tarry stools Jeff Hematologic: No blood thinners, No blood disorders, No bleeding, Yes anemia, No blood clots Neuro Neurologic: No weakness Exam Const General: cooperative, healthy appearing, no acute distress Neck Other: Thyroid is partially retrosternal. I do not detect any adenopathy. No tenderness. chvostek is negative Resp Effort AND Inspection: normal respiratory effort Auscultation: clear to auscultation bilaterally Cardio Rate: regular rate Rhythm: regular rhythm Heart Sounds: murmur Other: Soft 1/6 systolic ejection murmur Bilateral carotids are 2+. 2/6 bruits bilaterally Assessment AND Plan Problems 1. Multiple thyroid nodules E04.2 2. Bilateral carotid artery stenosis I65.23 Plan Very pleasant 78-year-old female is referred by Dr. Alvarado for surgical consultation regarding bilateral thyroid nodules and a written compromise surgical consult recommendations will be returned to him. Her clinical exam is not remarkable. I do recommend to her an ultrasound-guided bilateral thyroid final aspiration. I discussed the technique, benefit, risks and alternatives. She has had an opting to ask and have questions answered. We will schedule and proceed at her discretion. Regarding the patient's bilateral extracranial carotid artery occlusive disease and vertebral disease. She would appear to have an innominate stenosis as well as subclavian stenosis on the right. She has retrograde within the right vertebral. There is diminished antegrade flow within the right common carotid. The left vertebral has increased velocity flow as well. I do recommend to her a CTA of the carotids. We will confirmed with her her allergy reaction to IV dye. The patient may require steroid prophylaxis prior to the CTA. The patient states that she has a already scheduled appointment to see Dr. Lauri Gomez and I concur and this imaging should facilitate her management. I appreciate the opportunity of assisting with her surgical care Nathan Zapata M.D., F.A.C.S. Plan Detail Goals Decrease pain and spasm Barriers DDD Prolonged reading/computer work Coding Level of Care Code Detailed, Low Diagnoses Multiple thyroid nodules E04.2 Bilateral carotid artery stenosis I65.23 07/29/18 1013 <Electronically signed by Nathan Zapaat MD> Date Nathan Zapata MD Cosigner Signature: Date (if applicable) CC: Joe Alvarado MD INITIAL EVALUATION (2) Observed: 07/27/2018 Status: F Source: [facility] 9:26 AM [facility] REPOSITORY [facility] [address] [place] [address] Rd[address] [place] [address] / REHABILITATION SERVICES INITIAL EVALUATION MR#: [id number] Acct: [id number] Name: JESS MELGOZA Rep #: [id number] : 1940 78 From: Ayush Billingsley DPT, OCS, CSCS Referring Dr.: Joe Alvarado MD Status: REG RCR Insurance: MEDICARE PART A B SELF PAY INSURANCE Patient's Visit Information JESS MELGOZA is a 78 year old F referred to Physical Therapy by Joe Alvarado MD with a diagnosis of BPPV. Date of Evaluation: 07/26/18 Physical Therapist: Ayush Billingsley DPT, OCS, CSCS - Visit Plan Frequency: 1-2x /Week Duration: 4-6 Weeks Plan: 1-2x/week for positional tests adn treatments. - Subjective Findings: When I was down in [place](Jul 08), got up at night and room went around upon standing and legs got weak/unstable. Went to ER and had x rays and EKG adn cardio gram and US and catscan on chest adn found growth on thyroid and blockage in carotid artery and possibly vertigo. Back to [place] next couple days and vertigo symptoms have lessened. Only happens once in a while(one time per day). Went to Dr. Elizondo for thyroid and vertigo. Said she has vertigo. Will see carotid artery specialist on August 16. Dr. Elizondo told her that the thyroid was not invasive. Dr. Alvarado got all these reports and ordered US of thyroid this morning. Daily vertigo lasts a minute or less and not pinpointed to any activitiy but possibly standing up. Not noticed it at noght when going to bathroom. Feels steady in between episodes, no falls, no AD needed although she has them at home. Sleeping OK/normal for her. - Objective Objective: Walks and transfers normal. - R hallpike. + L hallpike up torsional nystagmus. Treated ith Katarina then - HD. FGA is normal for age. romberg is good. - Balance Scores Functional Gait Assessment Score: 26 % Disability: 13.3400 CATSIB Score (Max score 120 seconds): 120 - Goals Goal 1:: abolish vertigo Goal Time Frame: 4-6 Weeks Goal 2:: Pt feel 100% back to normal with steadiness adn dizzyness Goal Time Frame: 4-6 Weeks - Rehabilitation Potential Physical Therapy Diagnosis: L BPPV Rehabilitation Potential: Good - Anticipated Interventions Patient/Client Instruction: Educate patient on: Condition, Plan of Care For the Purpose of:: To increase tolerance to activity/condition/position For the Purpose of:: To increase tolerance to activity/condition/position Thank you for the opportunity to evaluate your patient. For Medicare and Medicare HMO plans, please review the plan of care and approve it. It will need to be FAXED BACK to us at [phone] for Medicare purposes. For Medicare only, by signing this I certify the plan of care. Please let me know if there are questions or concerns regarding this plan of care. Physician Signature: Date: <Electronically signed by Ayush Jose Cruz DPT, OCS, CSCS> 07/27/18 0926 CC: Joe Alvarado MD EBG Signed THYROID Observed: 07/26/2018 Status: F Source: [place] 7:47 AM [facility] REPOSITORY [facility] Imaging Services [address] [place] [address] Thyroid MR#: [id number] Acct: [id number] Name: JESS MELGOZA Rep #: [id number] : 1940 F 78 From: Curt Harman DO PCP: Joe Alvarado MD, Chi Status: REG CLI Study: Thyroid Date of Exam: 07/26/18 Exam# [id number] Ordering Dr: Joe Alvarado MD STUDY: THYROID ULTRASOUND REASON FOR EXAM: Female, 78 years old. Nodule felt by TECHNIQUE: Ultrasound evaluation of the thyroid was performed with real-time and static madrid-scale imaging. COMPARISON: None. FINDINGS: RIGHT LOBE: The right lobe of the thyroid gland measures 4.5 x 2.6 cm. There is a homogeneous echotexture. Dominant mid to upper pole solid nodule measuring 2.2 x 1.6 x 1.5 cm. LEFT LOBE: The left lobe of the thyroid gland measures 4. 1.4 x 1.3 cm. There is a homogeneous echotexture. Single lower pole solid nodule measuring 1.1 x 0.6 x 0.4 cm ISTHMUS: The isthmus measures 3 mm. The regional lymph nodes are normal. US/Thyroid IMPRESSION: Nodules noted bilaterally, otherwise unremarkable thyroid. Largest is on the right. Electronically Signed: Curt Harman DO at 8:46 EST Tel , Service support , CC: Joe Alvarado MD Laboratory Administrative Director: Signed CAROTID DUPLEX Observed: 07/12/2018 Status: F Source: [place] ULTRASOUND 8:59 PM [facility] REPOSITORY [facility] Cardiovascular Services [address] [place] [address] Carotid Duplex Ultrasound 07/12/18 1231 MR#: [id number] Acct: [id number] Name: JESS MELGOZA Rep #: [id number] : 1940 78 From: Nathan Zapata MD Attending Dr: Joe Alvarado MD, Chi Status: REG CLI Ordering Dr: Joe Alvarado MD Date: 07/12/18 Location: CVS Sex: F C Admitted: Reason For Study: Carotid stenosis Rt. Velocities/BP Lt. Velocities/BP Prox CCA 38.1/14.3 cm/sec. Prox CCA 76.2/11.1 cm/sec. Mid CCA 29.5/11.9 cm/sec. Mid CCA 101.0/13.5 cm/sec. Dist CCA 29.5/12.9 cm/sec. Dist CCA 95.6/16.4 cm/sec. Prox ICA 70.4/22.9 cm/sec. Prox ICA 116.0/18.8 cm/sec. Mid ICA 65.7/22.9 cm/sec. Mid ICA 114.0/17.0 cm/sec. Dist ICA 52.8/20.5 cm/sec. Dist ICA 71.5/15.8 cm/sec. Rt. ICA/CCA = 2.4. Lt. ICA/CCA = 1.2. Prox ECA 82.1/7.0 cm/sec. Prox ECA 247.0/0.0 cm/sec. Rt. Brachial BP = 120./68 mmHg. Lt. Vert. 133.0/22.8 cm/sec. Lt. Brachial BP = 160/78 mmHg. Right Extracranial There is heterogeneous, irregular atherosclerotic plaque noted in the right common carotid artery. There is heterogeneous, irregular atherosclerotic plaque noted in the right internal carotid artery. There is heterogeneous, irregular atherosclerotic plaque noted in the right external carotid artery. Rt Vertebral flow is RETROGRADE. Left Extracranial There is heterogeneous, irregular atherosclerotic plaque noted in the left common carotid artery. There is heterogeneous, irregular atherosclerotic plaque noted in the left internal carotid artery. There is heterogeneous, irregular atherosclerotic plaque noted in the left external carotid artery. Antegrade flow is noted in the left vertebral artery. Procedure Carotid Duplex 21228. Exam performed in department. Interpretation Summary Irregular calcific plague within the right proximal, mid and distal common carotid Extensive irregular plague within the proximal right internal carotid with <50% stenosis. Retrograde flow right vertebral with lower right upper extremity BP compared to the left consistent with proximal right subclavian stenosis. Right thyroid 1.28 x 1.95cm solid cystic nodule Calcific irregular plague within the left proximal, mid, and distal common carotid. Irregular calcific plague within the proximal left internal carotid with <50% stenosis Moderate diseaes left external carotid Patent and antegrade bilateral vertebrals with increased velocity on the left Ordering Physician: Joe Alvarado Referring Physician: Yefri Noe Performed By: Debi Randle RVT 07/12/182058 Date Nathan Zapata MD CC: Joe Alvarado MD Date Dictated: 07/12/18 1231 Date Transcribed: 07/12/182058 Laboratory Administrative Director: Signed INITAL EVALUATION (1) Observed: 07/07/2018 Status: F Source: [place] - PT 2:18 PM [facility] REPOSITORY [facility] [address] [place] [address] Fax REHABILITATION SERVICES INITIAL EVALUATION MR#: [id number] Acct: [id number] Name: JESS MELGOZA Rep #: [id number] : 1940 78 From: Mirna Costa MPT Referring Dr.: Joe Alvarado MD Status: REG RCR Insurance: MEDICARE PART A B SELF PAY INSURANCE Patient's Visit Information JESS MELGOZA is a 78 year old F referred to Physical Therapy by Joe Alvarado with a diagnosis of Muscle tension pain and shoulder pain. Date of Evaluation: 07/07/18 Physical Therapist: DEBORA Leon - Visit Plan Frequency: 2x /Week Duration: 3 Weeks Plan: 2X/ week for 3 weeks for c-spine manual therapy (especiall right sided upper cervical paraspinals and B mid trap region), postural exercises, c- spine stretches, with HEP and MH as needed with HEP - Subjective Findings: Pt was hospitalized in May and had a growth on her thyroid, blockage of carotid arteries, and vertigo. Her vertigo symptoms are that when she stands up she gets dizzy. Pt took baclofen and had unusual effects from it....it did help with her muscle aches while sleeping but still has pain and discomfort this morning. Current symptoms: the neck muscles (she has done some neck exercises that help the last time that she was in here ( ER behind her head)). Dr yesterday said that there was a knot in her neck and gave her baclofen. She has had neck pain for the last 2 months and it has gotten worse. She has not had any x-rays. She has no pain into arms and fingers. She is having some neck pain when laying on R side and goes to turn over and she gets a pinching pain in her neck mostly on the R side from her occiput to her mid trap region. She has a thicker pillow that she uses. - Pain R sided c-spine pain Pain Intensity (Out of 10): 2 Pain Intensity Range: 8 Comment: with movement - Objective c-spine AROM: extension 25%, flexion 75%, SB B 25%, Rot L 50% and Rot R 75%. UE AROM: WFL. UE MMT: shld flex B 4-/5, shld abd B 4-/5, ER B 4/5 and IR B 4-/5. Palpation: tender R sided occiput and R sided paraspinals. Tender B mid trap regions and B serratus anterior. Observation: pt tends hold herself with shoulder elevation and has FW head. Pt felt better after sub occiptal relase and c-spine distraction. - Goals Goal 1:: I HEP Goal Time Frame: 2-4 Weeks Goal 2:: Increase c-spine AROM by 25% each plane (at time of eval: extension 25%, flexion 75%, SB B 25%, Rot L 50% and Rot R 75%) Goal Time Frame: 2-4 Weeks Goal 3:: Decrease neck pain with movement to 4/10 and no neck pain when sitting still Goal Time Frame: 2-4 Weeks Goal 4:: Sit with upright posture during treatment sessions Goal Time Frame: 2-4 Weeks - Rehabilitation Potential Rehabilitation Potential: Good - Anticipated Interventions Patient/Client Instruction: Educate patient on: Plan of Care For the Purpose of:: To decrease pain, To increase ROM, To improve nutrient delivery to tissue, To improve muscle performance and motor function, To improve ability to perform ADL's, To increase tolerance to activity/condition/position, To improve performance and independence with ADL's, To improve ability of physical actions for home/community/work/leisure, To improve health of tissue, To decrease soft tissue restriction, To increase flexibility/ROM Therapeutic Exercise to Include: Strength training, Postural training, Flexibilty training, Passive ROM, Active ROM, Scapular Strength/Stabilization For the Purpose of:: To decrease pain, To increase ROM, To improve nutrient delivery to tissue, To improve muscle performance and motor function, To improve ability to perform ADL's, To increase tolerance to activity/condition/position, To improve performance and independence with ADL's, To improve health of tissue, To decrease soft tissue restriction, To increase flexibility/ROM Manual Therapy Techniques to Include: Passive ROM, Soft tissue mobilization For the Purpose of:: To decrease pain, To increase ROM, To improve nutrient delivery to tissue, To improve muscle performance and motor function, To improve ability to perform ADL's, To increase tolerance to activity/condition/position, To improve health of tissue, To decrease soft tissue restriction, To increase flexibility/ROM Thermo therapy (hot pack): Yes Ultrasound (thermal/non thermal): Yes For the Purpose of:: To decrease pain, To increase ROM, To improve nutrient delivery to tissue Thank you for the opportunity to evaluate your patient. For Medicare and Medicare HMO plans, please review the plan of care and approve it. It will need to be FAXED BACK to us at [phone] for Medicare purposes. For Medicare only, by signing this I certify the plan of care. Please let me know if there are questions or concerns regarding this plan of care. Physician Signature: Date: <Electronically signed by Mirna Costa MPT> 07/07/18 1418 CC: Joe Alvarado MD Signed CBC W/DIFF, AUTOMATED Collected: 07/05/2018 Status: F Source: [place] 2:47 PM [facility] REPOSITORY TYPE CODE TESTS RESULT OUT OF RANGE REFERENCE UNITS LAB L100.1000 4.4-11.0 K/mm3 Normal WBC 7.6 LAB L100.1200 4.2-5.4 M/mm3 Low RBC 3.55 LAB L100.1300 12.0-15.0 g/dl Low HGB 11.0 LAB L100.1400 37-47 % Low HCT 34.0 LAB L100.1500 81-99 fL Normal MCV 95.8 LAB L100.1600 27.0-32.0 pg Normal MCH 31.0 LAB L100.1700 32-36 g/gl Normal MCHC 32.4 LAB L100.1810 11.6-14.6 % High RDW CV 14.7 LAB L100.1820 35.1-43.9 fl High RDW SD 51.5 LAB L100.1900 150-450 K/mm3 Normal PLT 247 LAB L100.2000 6.2-12.0 fl Normal MPV 11.9 LAB L100.2100 47-70 % Normal NEUT% 60.2 LAB L100.2200 19-41 % Normal LY% 30.6 LAB L100.2300 0-10 % Normal MONO% 7.5 LAB L100.2400 0-5 % Normal EO% 1.1 LAB L100.2500 0-1 % Normal BASO% 0.5 LAB L100.2550 0.0-0.9 % Normal IM GRAN % 0.100 Result Comment: IG% - Immature Granulocytes (promyelocytes, myelocytes and metamyelocytes) > 1% indicates that a LEFT SHIFT is Present. LAB L100.2620 2.0-7.7 X10 3/uL Normal Absolute Neut 4.6 LAB L100.2720 0.83-4.51 X10 3/ul Normal Absolute Lymph 2.33 Performed By: #### L100.0100 #### [facility] [address] [place], [place], [address] BASIC METABOLIC Collected: 07/05/2018 Status: F Source: [place] PROFILE (BMP) 2:47 PM [facility] REPOSITORY TYPE CODE TESTS RESULT OUT OF RANGE REFERENCE UNITS LAB L501.0100 74-106 mg/dL Normal GLU 100 Result Comment: Fasting Glucose result from 100 to 125 mg/dL suggests IMPAIRED HOMEOSTASIS per A.D.A. criteria. Please note revised GLUCOSE reference range effective 2017. LAB L501.1000 7-18 mg/dL Normal BUN 17 LAB L501.1100 0.55-1.02 mg/dL High CREAT,SERUM 1.34 Result Comment: The validity of the calculated GFR AND GFRAA in patients over 70 years has not been determined. Clinical correlation is essential. LAB L501.1110 >60 mL/min Low EST GFR 41 Result Comment: Non- GFR Calc LAB L501.1115 >60 mL/min Low EST GFR - AA 49 Result Comment: GFR Calc LAB L501.1300 10-20 RATIO Normal BUN/CRE 12.7 LAB L501.2200 8.5-10.1 mg/dL CA Normal 9.6 LAB L501.5300 136-145 mmol/L NA Normal 139 LAB L501.5600 3.5-5.1 mmol/L K Normal 4.2 LAB L501.5900 98-107 mmol/L CL Normal 107 LAB L501.6100 21.0-32.0 mmol/L Normal CO2 24.0 LAB L501.6200 5-15 Normal GAP 8 Performed By: #### L500.2500 #### [facility] [address] [place], [address] ONCOLOGY VISIT REPORT Observed: 05/30/2018 Status: F Source: [place] 12:22 PM [facility] REPOSITORY [facility] [address] [place] [address] OFFICE VISIT Date of Service: 05/30/18 1211 MR#: [id number] Acct: [id number] Name: JESS MELGOZA Rep #: [id number] : 1940 From: Nicola El MD Age/Sex: 78/F Location: OMD Status: Signed Subjective - Date of Service Date of Service:: 05/30/18 - Chief Complaint F/U for anemia. - History of Present Illness 78y.o.woman with HTN, Hypothyroidism, OA was found to have Hgb of 10.5 on 05/18/2018 and referred for evaluation and management. She feels well, denies blood in the stools, bruises, epistaxis. She is eating well. She had blood work and comes for follow up. - Past Medical/Social History Social History Smoking Status Former smoker Review of Systems Constitutional:: Denies: Fever, Sweats, Weight loss, Appetite change, Chills Cardiovascular:: Denies: Chest pain, Palpitations, Dyspnea on exertion, Orthopnea, PND, Shortness of breath Respiratory: Denies: Cough, Hemoptysis, Shortness of Breath, Wheezing Gastrointestinal:: Denies: Abdominal pain, Nausea, Vomiting, Diarrhea, Constipation, Hematochezia Genitourinary: Denies: Dysuria, Hematuria, 15, Flank pain Musculoskeletal:: Denies: Back pain, Myalgia, Arthralgia Skin: Denies: Rash, Skin Changes, Wounds Neurological:: Denies: Headache, Dizziness, Visual changes, Tinnitus, Hearing loss Psychiatric: Denies: Anxiety, Depression, Homicidal Ideations, Suicidal Ideations Vital Signs Height 5 ft 1.81 in Weight: 134.9 kg Weight in Pounds 297.4 lbs Pulse Ox 97 - Physical Exam General: Alert, Oriented x3, No apparent distress Laboratory Data: Laboratory Tests WBC 8.0 Hgb 11.0 L Hct 33.1 L Plt Count 229 05/24/2018 Stool occult blood negative. Laboratory Tests WBC 8.0 Hgb 11.0 L Hct 33.1 L Plt Count 229 Absolute Neuts (auto) 4.9 Absolute Lymphs (auto) 2.29 WBC Assessment and Plan Anemia, etiology is unclear at this time but improving. Fecal occult blood is negative. High blood Folate level. Plan is to decrease Folate supplement intake to avoid toxicity. Will reassess in 3 months. RTC 3 months with Labs. Medications: Prescriptions This Visit Medication Instructions Recorded Calcium Carbonate/Vitamin D3 05/23/18 Primary Care Provider: Joe Alvarado Referring Provider: - Problem List (1) Anemia Status: Chronic Qualifiers: Anemia type: unspecified type Qualified Code(s): D64.9 - Anemia, unspecified Code Visit Office Visits / Consults: 97115 OV L3 Est 05/30/18 1222 <Electronically signed by Nicola El MD> Date Nicola El MD Cosigner Signature: Date (if applicable) CC: Joe Alvarado MD PT D/C SUMMARY (1) Observed: 05/26/2018 Status: F Source: [place] 10:19 AM [facility] REPOSITORY [facility] [address] [place] [address] [address] [place], [place] [address] Fax REHABILITATION SERVICES DISCHARGE SUMMARY MR#: [id number] Acct: [id number] Name: JESS MELGOZA Rep #: [id number] : 1940 78 From: Kaila Alcala DPT Referring Dr.: Joe Alvarado MD Status: REG RCR Insurance: MEDICARE PART A B SELF PAY INSURANCE HP - PT D/C Summary It has been my pleasure to treat JESS MELGOZA under orders from Joe Alvarado, for the diagnosis of Gait Disturbance for a total of 18 visit(s). Discharge Date: Please see the following information for a summary of their discharge status. - Subjective Subjective: Patient reports that her legs are much better. If she walks any distance the left really bothers her. Does not have as much problems getting up/down. Not as wobbly in the shower- and does feel the therapy was helpful. Worst: 8/10 Best: painfree when sitting. - Pain left hip Pain Intensity (Out of 10): 6 - Overall Improvement % Improvement: 75 - Objective Objective/Function: Gait: decreased stance on the left LE. Stair: ascend/descend reciprocally 1 HR with good form and speed. AROM: LE WFL. Heel and toes raise with minimal UE support. Balance: SL on R 30 seconds, SL L 10 seconds. Strength: R hip flex. ext. 4+/5, L hip flex. ext. 4/5 and pain, R knee 5/5 L knee ext 4+/5 flex 4/5, R IR/ER 4+/5, L ER hip 4/5, IR 4/5. Sit to stand no UE 10 in 30 seconds - Goals Goal 1:: Patient will be I with HEP and progression Goal Progress: Goal Met Goal 2:: Patient will asc/desc 8 stairs recip with 1 HR and good control Goal Progress: Goal Met Goal 3:: Patient will demo 12 sit to stands to increase functional performance Goal Progress: Progressing Goal 4:: Patient will ambualte >300 feet with a normalized gait pattern Goal Progress: Goal Met Goal 5:: Patient will SLS for 5 seconds bilateal without UE A Goal Progress: Goal Met - Plan Plan: Discharge to I HEP - D/C Information If there are questions or concerns regarding this patient's physical therapy, please feel free to call me at [phone]. Thank you for the referral of this patient. Sincerely, Kaila Alcala <Electronically signed by Kaila Alcala DPT> 05/26/18 1019 CC: Joe Alvarado MD ELR Signed Observed: 05/24/2018 Status: F Source: [place] STOOL OCCULT BLOOD 9:00 AM [facility] IFOB REPOSITORY Reason for Laboratory Test . STOB iFOB Occult Blood Negative Performed By: #### M100.7900 #### [facility] [address] [place], [address] ONCOLOGY CONSULTATION Observed: 05/23/2018 Status: F Source: [place] 11:28 AM [facility] REPOSITORY [facility] [address] [place] [address] Oncology Consultation Date of Service: 05/23/18 1051 MR#: [id number] Acct: [id number] Name: JESS MELGOZA Rep #: [id number] : 1940 From: Nicola El MD Age/Sex: 78/F Location: D Status: Signed Consult Referring Physician: Dr. Alvarado Consult Results: Anemia Subjective Date of Service:: 05/23/18 Chief Complaint: Referred for anemia. History of Present Illness: 78y.o.woman with HTN, Hypothyroidism, OA was found to have Hgb of 10.5 on 05/18/2018 and referred for evaluation and management. She feels well, denies blood in the stools, bruises, epistaxis. She is eating well. 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 Living Will: Yes Health History: Past Medical History (Last Reviewed 05/23/18 @ 10:25 by Ayla Savage) Lung cancer (Chronic) COPD (chronic obstructive pulmonary disease) (Chronic) Premature ventricular beat (Chronic) PAC (premature atrial contraction) (Chronic) LVH (left ventricular hypertrophy) (Chronic) Hypomagnesemia (Chronic) Bradycardia (Chronic) Orthostatic hypotension (Chronic) Hypertension (Chronic) Hypothyroidism (Chronic) Renal insufficiency (Chronic) Hyponatremia (Chronic) Macrocytic anemia (Chronic) Hyperlipidemia (Chronic) History of hysterectomy (Chronic) Scoliosis (Chronic) Past Surgical History (Last Reviewed 05/23/18 @ 10:25 by Ayla Savage) History of cataract surgery (Chronic) History of left hip replacement (Chronic) History of lobectomy of lung (Chronic) Hx of cholecystectomy (Chronic) Family History (Last Reviewed 05/23/18 @ 10:25 by Ayla Savage) Brother CAD (coronary artery disease) Mother CAD (coronary artery disease) CVA (cerebral vascular accident) Allergies/Adverse Reactions: Allergy/AdvReac Type Severity Reaction Status Date / Time Review of Systems Constitutional:: Denies: Fever, Sweats, Weight loss, Appetite change, Chills Cardiovascular:: Denies: Chest pain, Palpitations, Dyspnea on exertion, Orthopnea, PND, Shortness of breath Respiratory: Denies: Cough, Hemoptysis, Shortness of Breath, Wheezing Gastrointestinal:: Denies: Abdominal pain, Nausea, Vomiting, Diarrhea, Constipation, Hematochezia Genitourinary: Denies: Dysuria, Hematuria, 15, Flank pain Musculoskeletal:: Denies: Back pain, Myalgia, Arthralgia Skin: Denies: Rash, Skin Changes, Wounds Neurological:: Denies: Headache, Dizziness, Visual changes, Tinnitus, Hearing loss Psychiatric: Denies: Anxiety, Depression, Homicidal Ideations, Suicidal Ideations Vital Signs Height 5 ft 1.81 in Weight: 61.235 kg Weight in Pounds 135.0 lbs Pulse Ox 97 - Physical Exam General: Alert, Oriented x3, No apparent distress HEENT: Atraumatic, PERRLA, EOMI, Normocephalic Oropharynx:: Dry mucosa Neck:: Supple, Trachea midline. Negative for: JVD, bilateral Cardiac:: Regular rate, Regular rhythm, Normal S1, Normal S2. Negative for: Murmur Lungs: Clear to auscultation, Excusion symmetrical. Negative for: Rhonchi, Wheezes Abdomen:: Bowel sounds x 4, Soft, Non-tender, Non-distended. Negative for: Hepatosplenomegaly Extremities:: Negative for: Cyanosis, Edema Neurological: Neuro grossly intact Skin:: Negative for: Lesions, Rash, Petechiae, Ecchymosis Psychiatric:: Appropriate affect, Euthymic Lymphatics:: Negative for: Cervical lymphadenopathy, Supraclavicular lymphadenopathy, Axillary lymphadenopathy Breast:: - - Deferred Assessment and Plan Anemia, etiology is unclear at this time. Needs further evaluation to determine cause. Plan is to obtain Iron studies, stool for occult blood, ESR, Erythropoietin level, CBC/CMP. RTC 1 week. Medications: Prescriptions This Visit Medication Instructions Recorded Calcium Carbonate/Vitamin D3 05/23/18 Primary Care Provider: Joe Alvarado Referring Provider: - Problem List (1) Anemia Status: Acute Qualifiers: Anemia type: unspecified type Qualified Code(s): D64.9 - Anemia, unspecified Code Visit Office Visits / Consults: 93328 OP Consult L5 05/23/18 1128 <Electronically signed by Nicola El MD> Date Nicola El MD Cosigner Signature: Date (if applicable) CC: Jeo Alvarado MD CBC W/DIFF, AUTOMATED Collected: 05/23/2018 Status: F Source: AV[place] 11:16 AM [facility] REPOSITORY Order Comment: Reason for Laboratory Test . TYPE CODE TESTS RESULT OUT OF RANGE REFERENCE UNITS LAB L100.1000 4.4-11.0 K/mm3 Normal WBC 8.0 LAB L100.1200 4.2-5.4 M/mm3 Low RBC 3.48 LAB L100.1300 12.0-15.0 g/dl Low HGB 11.0 LAB L100.1400 37-47 % Low HCT 33.1 LAB L100.1500 81-99 fL Normal MCV 95.1 LAB L100.1600 27.0-32.0 pg Normal MCH 31.6 LAB L100.1700 32-36 g/gl Normal MCHC 33.2 LAB L100.1810 11.6-14.6 % Normal RDW CV 14.5 LAB L100.1820 35.1-43.9 fl High RDW SD 47.5 LAB L100.1900 150-450 K/mm3 Normal PLT 229 LAB L100.2000 6.2-12.0 fl Normal MPV 11.1 LAB L100.2100 47-70 % Normal NEUT% 60.7 LAB L100.2200 19-41 % Normal LY% 28.7 LAB L100.2300 0-10 % Normal MONO% 8.8 LAB L100.2400 0-5 % Normal EO% 1.3 LAB L100.2500 0-1 % Normal BASO% 0.4 LAB L100.2550 0.0-0.9 % Normal IM GRAN % 0.100 Result Comment: IG% - Immature Granulocytes (promyelocytes, myelocytes and metamyelocytes) > 1% indicates that a LEFT SHIFT is Present. LAB L100.2620 2.0-7.7 X10 3/uL Normal Absolute Neut 4.9 LAB L100.2720 0.83-4.51 X10 3/ul Normal Absolute Lymph 2.29 Performed By: #### L100.0100, L101.9900 #### [facility] [address] [place], [address] ERYTHROCYTE SED RATE Collected: 05/23/2018 Status: F Source: [place] 11:16 AM [facility] REPOSITORY Order Comment: Reason for Laboratory Test . TYPE CODE TESTS RESULT OUT OF RANGE REFERENCE UNITS LAB L102.0000 0-30 mm/hr Normal SED RATE 28 Performed By: #### L100.0100, L101.9900 #### [facility] [address] [place], [address] VITAMIN B12 Collected: 05/23/2018 Status: F Source: [place] 11:16 AM [facility] REPOSITORY Order Comment: Reason for Laboratory Test . TYPE CODE TESTS RESULT OUT OF RANGE REFERENCE UNITS LAB L503.0105 211-911 pg/mL Normal Vitamin B12 687 Performed By: #### L503.0105 #### [facility] [address] [place], [address] COMPREHENSIVE METABOLIC Collected: 05/23/2018 Status: F Source: [facility] 11:16 AM [facility] REPOSITORY Order Comment: Reason for Laboratory Test . Is Patient Taking Vitamins or Folic Acid Supplements? N TYPE CODE TESTS RESULT OUT OF RANGE REFERENCE UNITS LAB L501.0100 74-106 mg/dL Normal GLU 91 Result Comment: Please note revised GLUCOSE reference range effective 2017. LAB L501.1000 7-18 mg/dL High BUN 21 LAB L501.1100 0.55-1.02 mg/dL High CREAT,SERUM 1.31 Result Comment: The validity of the calculated GFR AND GFRAA in patients over 70 years has not been determined. Clinical correlation is essential. LAB L501.1110 >60 mL/min Low EST GFR 42 Result Comment: Non- GFR Calc LAB L501.1115 >60 mL/min Low EST GFR - AA 51 Result Comment: GFR Calc LAB L501.1255 ml/min Normal Estimated CRCL 27.57 LAB L501.1300 10-20 RATIO Normal BUN/CRE 16.0 LAB L501.1500 6.4-8. g/dL Normal 2 T PROT 7.1 LAB L501.1800 3.2-5. g/dL Normal 0 ALB 3.6 LAB L501.1950 2.2-4. g/dL Normal 2 GLOB 3.5 LAB L501.2000 0.9-2. RATIO Normal 4 A/G 1.0 LAB L501.2200 8.5-10 mg/dL Normal .1 CA 9.4 LAB L501.4100 15-37 U/L Normal AST 25 LAB L501.4305 45-117 U/L Normal ALK P 113 LAB L501.4405 13-56 U/L Normal ALT 18 LAB L501.4600 0.20-1 mg/dL Normal .00 T BILI 0.60 LAB L501.5300 136-14 mmol/L Normal 5 NA 139 LAB L501.5600 3.5-5. mmol/L Normal 1 K 3.8 LAB L501.5900 98-107 mmol/L Normal CL 104 LAB L501.6100 21.0-3 mmol/L Normal 2.0 CO2 26.0 LAB L501.6200 5-15 Normal GAP 9 Performed By: #### L500.4050, L503.6030, L503.6550, L506.0250 #### [facility] [address] [place], [place], [address] IRON+IRON BINDING Collected: 05/23/2018 Status: F Source: [facility] 11:16 AM [facility] REPOSITORY Order Comment: Reason for Laboratory Test . Is Patient Taking Vitamins or Folic Acid Supplements? N TYPE CODE TESTS RESULT OUT OF RANGE REFERENCE UNITS LAB L503.6075 250-450 ug/dL TIBC Normal 336 LAB L503.6150 50-170 ug/dL IRON Normal 85 LAB L503.6250 15.0-55.0 % IRON Normal SATURATION 25.3 Performed By: #### L500.4050, L503.6030, L503.6550, L506.0250 #### [facility] [address] [place], [place], [address] FERRITIN Collected: 05/23/2018 Status: F Source: [place] 11:16 AM [facility] REPOSITORY Order Comment: Reason for Laboratory Test . Is Patient Taking Vitamins or Folic Acid Supplements? N TYPE CODE TESTS RESULT OUT OF RANGE REFERENCE UNITS LAB L503.6550 8-252 ng/mL Normal FERRITIN 84 Performed By: #### L500.4050, L503.6030, L503.6550, L506.0250 #### [facility] [address] [place], [place], [address] FOLATES, (FOLIC ACID) Collected: 05/23/2018 Status: F Source: [place] 11:16 AM [facility] REPOSITORY Order Comment: Reason for Laboratory Test . Is Patient Taking Vitamins or Folic Acid Supplements? N TYPE CODE TESTS RESULT OUT OF REFERENCE UNITS RANGE LAB L506.0250 3.1-55.4 ng/mL High FOLATES > 100.00 Performed By: #### L500.4050, L503.6030, L503.6550, L506.0250 #### [facility] [address] [place], [place], [address] ERYTHROPOIETIN Collected: 05/23/2018 Status: F Source: [place] 11:16 AM [facility] REPOSITORY Order Comment: Reason for Laboratory Test . TYPE CODE TESTS RESULT OUT OF RANGE REFERENCE UNITS LAB L3100.1350 2.6-18.5 mIU/mL Normal ERYTHROP 11.9 [id number] Result Comment: [facility] DxI 800 Immunoassay System Performed at: [facility] [id number] [employer] Leader: Aneudy Willis PhD, Phone: [phone] Performed By: #### L3100.1350 #### [facility] (refer to report for specific site) refer to report for address and phone number CBC W/DIFF, AUTOMATED Collected: 05/18/2018 Status: F Source: [place] 10:26 AM [facility] REPOSITORY TYPE CODE TESTS RESULT OUT OF RANGE REFERENCE UNITS LAB L100.1000 4.4-11.0 K/mm3 Normal WBC 7.7 LAB L100.1200 4.2-5.4 M/mm3 Low RBC 3.37 LAB L100.1300 12.0-15.0 g/dl Low HGB 10.4 LAB L100.1400 37-47 % Low HCT 32.0 LAB L100.1500 81-99 fL Normal MCV 95.0 LAB L100.1600 27.0-32.0 pg Normal MCH 30.9 LAB L100.1700 32-36 g/gl Normal MCHC 32.5 LAB L100.1810 11.6-14.6 % High RDW CV 15.1 LAB L100.1820 35.1-43.9 fl High RDW SD 51.5 LAB L100.1900 150-450 K/mm3 Normal PLT 250 LAB L100.2000 6.2-12.0 fl Normal MPV 11.5 LAB L100.2100 47-70 % Normal NEUT% 59.2 LAB L100.2200 19-41 % Normal LY% 32.4 LAB L100.2300 0-10 % Normal MONO% 6.1 LAB L100.2400 0-5 % Normal EO% 1.7 LAB L100.2500 0-1 % Normal BASO% 0.5 LAB L100.2550 0.0-0.9 % Normal IM GRAN % 0.100 Result Comment: IG% - Immature Granulocytes (promyelocytes, myelocytes and metamyelocytes) > 1% indicates that a LEFT SHIFT is Present. LAB L100.2620 2.0-7.7 X10 3/uL Normal Absolute Neut 4.6 LAB L100.2720 0.83-4.51 X10 3/ul Normal Absolute Lymph 2.50 Performed By: #### L100.0100 #### [facility] [address] [place] [address], [address] VITAMIN D,25 HYDROXY Collected: 05/18/2018 Status: F Source: [place] 10:26 AM [facility] REPOSITORY TYPE CODE TESTS RESULT OUT OF RANGE REFERENCE UNITS LAB L506.1000 29.95-100.01 ng/mL Normal Vitamin D 34.8 25-OH Result Comment: Vitamin D 25(OH) Status Range Deficiency <20 ng/mL (50nmol/L) Insuffciency 20 - 30 ng/mL (50 - 75 nmol/L) Sufficiency 30 - 100 ng/mL (75 - 250 nmol/L) Toxicity >100 ng/mL (>250 nmol/L) Performed By: #### L506.1000 #### [facility] [address] [place], [place], [address] COMPREHENSIVE METABOLIC Collected: 05/18/2018 Status: F Source: [place] 10:26 AM [facility] REPOSITORY TYPE CODE TESTS RESULT OUT OF RANGE REFERENCE UNITS LAB L501.0100 74-106 mg/dL Normal GLU 103 Result Comment: Fasting Glucose result from 100 to 125 mg/dL suggests IMPAIRED HOMEOSTASIS per A.D.A. criteria. Please note revised GLUCOSE reference range effective 2017. LAB L501.1000 7-18 mg/dL High BUN 22 LAB L501.1100 0.55-1.02 mg/dL High CREAT,SERUM 1.18 Result Comment: The validity of the calculated GFR AND GFRAA in patients over 70 years has not been determined. Clinical correlation is essential. LAB L501.1110 >60 mL/min Low EST GFR 47 Result Comment: Non- GFR Calc LAB L501.1115 >60 mL/min Low EST GFR - AA 57 Result Comment: GFR Calc LAB L501.1300 10-20 RATIO Normal BUN/CRE 18.6 LAB L501.1500 6.4-8.2 g/dL T Normal PROT 6.4 LAB L501.1800 3.2-5.0 g/dL Normal ALB 3.2 LAB L501.1950 2.2-4.2 g/dL Normal GLOB 3.2 LAB L501.2000 0.9-2.4 RATIO Normal A/G 1.0 LAB L501.2200 8.5-10.1 mg/dL CA Normal 9.0 LAB L501.4100 15-37 U/L Normal AST 21 LAB L501.4305 45-117 U/L Normal ALK P 105 LAB L501.4405 13-56 U/L Normal ALT 21 LAB L501.4600 0.20-1.00 mg/dL T Normal BILI 0.60 LAB L501.5300 136-145 mmol/L NA Normal 141 LAB L501.5600 3.5-5.1 mmol/L K Normal 3.7 LAB L501.5900 98-107 mmol/L High CL 108 LAB L501.6100 21.0-32.0 mmol/L Normal CO2 26.0 LAB L501.6200 5-15 Normal GAP 7 Performed By: #### L500.4050, L501.1400, L501.9520 #### [facility] [address] [place], [address] URIC ACID Collected: 05/18/2018 Status: F Source: [place] 10:26 AM [facility] REPOSITORY TYPE CODE TESTS RESULT OUT OF RANGE REFERENCE UNITS LAB L501.1400 2.6-6.0 mg/dL Normal URIC 3.4 Result Comment: The drugs N-Acetylcysteine and Metamizole may falsely depress this assay. Performed By: #### L500.4050, L501.1400, L501.9520 #### [facility] [address] [place], [address] THYROID STIM HORMONE Collected: 05/18/2018 Status: F Source: [place] (TSH) 10:26 AM [facility] REPOSITORY TYPE CODE TESTS RESULT OUT OF RANGE REFERENCE UNITS LAB L501.9520 0.358-3.74 uIU/mL Normal TSH 1.68 Performed By: #### L500.4050, L501.1400, L501.9520 #### [facility] [address] [place], [address] RE-EVALUATION - PT (1) Observed: 05/08/2018 Status: F Source: [place] 7:21 AM [facility] REPOSITORY [facility] [address] [place] [address] Fax REEVALUATION / MEDICARE RECERTIFICATION PHYSICAL THERAPY MR#: [id number] Acct: [id number] Name: JESS MELGOZA Rep #: [id number] : 1940 78 From: Kaila MCINTOSHT Referring Dr.: Joe Alvarado MD Status: REG RCR Insurance: MEDICARE PART A B SELF PAY INSURANCE Joe Alvarado, It has been my pleasure to treat JESS MELGOZA over the last 9 visits for Gait Disturbance. Please see the progress note below for an update on the physical therapy plan of care! Subjective: Overall there has been improvement, feeling good about it. Still want hip corrected so can walk greater distances. Cannot walk from front of [employer] to back. Still having pain, but legs are stronger and noticed can do more. Current pain 0/10, worst 7-8/10. Can walk 1/10th of mile before leg starts to hurt and need to rest, which has been this way for a few years. Pain in L hip where replaced. Described as sharp. As walking gradually feel it start. 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 Roommate does cooking normally. Laundry up and down stairs, vaccuum, dust, take time but able to get done. Get in to car have to sit in chair on R side first and physically L L leg into car. Driving and get out of car okay. Goals: walking group home through [facility] without having stop. Pt. thinks reason cannot walk long distances is due to leg fatigue and painful. Pain spreads from hip to low back. Physician 6 month checkup May 19. Objective/Function: Gait: WFL. Stair: ascend/descend reciprocally 1 HR with good form and speed. AROM: LE WFL. Heel and toes raise with minimal UE support. Balance: SL on R 10 seconds, SL L 3 seconds. Strength: R hip flex. ext. 4+/5, L hip flex. ext. 3+/5 and pain, R knee 5/5 L knee ext 4/5 flex 3+/5, R IR/ER 4+/5, L ER hip 3+/5, IR 4/5. Sit to stand no UE 9 in 30 seconds Plan Plan: Cont with PT services 2 times a week for 3 weeks. Focus on endurance and pain free gait for greater than 600', continue to focus on LE strength. Goals Goal 1:: Patient will be I with HEP and progression Goal Time Frame: 4-6 Weeks Goal Progress: Goal Met Goal 2:: Patient will asc/desc 8 stairs recip with 1 HR and good control Goal Time Frame: 4-6 Weeks Goal Progress: Goal Met Goal 3:: Patient will demo 12 sit to stands to increase functional performance Goal Time Frame: 4-6 Weeks Goal Progress: Progressing Goal 4:: Patient will ambualte >300 feet with a normalized gait pattern Goal Time Frame: 4-6 Weeks Goal Progress: Goal Met Goal 5:: Patient will SLS for 5 seconds bilateal without UE A Goal Time Frame: 4-6 Weeks Goal Progress: Progressing Anticipated Interventions Patient/Client Instruction: Educate patient on: Benefits of Fitness Program Therapeutic Exercise to Include: Strength training, Endurance training, Balance training, Body mechanics, Postural training, Flexibilty training, Gait and locomotor training, Passive ROM, Active ROM, Dynamic Lumbar Stabilization For the Purpose of:: To improve muscle performance and motor function Functional Training to Include: Gait training Thermo therapy (hot pack): Yes Ultrasound (thermal/non thermal): No Please do not hesitate to contact me at [phone] by phone or if you have questions or concerns regarding this new plan of care! Sincerely, Kaila Alcala <Electronically signed by Kaila Alcala DPT> 05/08/18 0721 CC: Joe Alvarado MD ELR Signed For Medicare only, by signing this I certify the plan of care. Physicians Signature Date INITAL EVALUATION (1) Observed: 04/17/2018 Status: F Source: [place] - PT 11:52 AM [facility] [place] REPOSITORY [facility] [address] [place] [address]. [address] [place] [address] Fax REHABILITATION SERVICES INITIAL EVALUATION MR#: [id number] Acct: [id number] Name: JESS MELGOZA Rep #: [id number] : 1940 77 From: Kaila Alcala DPT Referring : Status: REG RCR Insurance: MEDICARE PART A B SELF PAY INSURANCE Patient's Visit Information JESS MELGOZA is a 77 year old F referred to Physical Therapy by CHINYERE SAEED with a diagnosis of Gait Disturbance. Date of Evaluation: 04/17/18 Physical Therapist: Kaila Alcala - Visit Plan Frequency: 3x /Week Duration: 3 Weeks Plan: Focus on LE and core s/s with functional mobility. - Subjective Subjective: Dr. Alvarado ordered a bone density test- this one came back with severe osteoporosis- put her on a medication 1x a week- since she started taking it in December she has noticed different things. 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 She has noticed that she has decreased strength doing stairs and can't go very far with ambulation. She also has COPD which limits her. She does not exercises but does her own housework. She vaccums which causes LBP. She goes to the library 3x a week 4 hours and does geneology- she has muscle pain in the right shoulder. Has seen Dr. Lovett which is making her better but not 100% better. Left hip is more sore than anything else when she is walking. Can only walk .1 of a mile- she has to rest and then she can go on. Worst: 07/03 Agg: walking a distance, stairs Eases: laying in bed with a heating pad Best: 10/01. Describes the pain as shooting and dull. Feels like someone is squeezing her really hard. Sleep: distrurbed when she rolls over- hard to get comfortable. Fears falling when she does a sit to stand- and has to use her arms to get upright. PMHx: osteoporiss, gout, COPD, hysterectomy, recovering alcoholic, HTN, high cholesterol, cateracts. Meds: allopurinol, prevatstatin, famotyodine, magnesium, potassium chol, synthroid, vit b 1, folic acid, cardisam, cozar. - Objective Posture: FH, RS, Increased kyphosis- can correct but does not maintain. Gait: slight deviation- no assistive device- increased JOSE JUAN with poor heel/toe pattern- decreased trunk rotation and arm swing. Stairs: asc/desc 8 recip with 2 HR- more UE use on ascend but poor control with descent. Slow cirilo. HR/TR: able but reports discomfort. SLS: WS but unable to SLS without UE and pain left>right. Palpation: tender to touch throughout LE. ROM: WFL in all planes. Strength: Core: poor, Hip: 4-/5 throughout, Knee: 4+/5, Ankle: 4+/5 all with discomfort. Sit to business applications manager 30 seconds: 7 with UE a on thighs - Goals Goal 1:: Patient will be I with HEP and progression Goal Time Frame: 4-6 Weeks Goal 2:: Patient will asc/desc 8 stairs recip with 1 HR and good control Goal Time Frame: 4-6 Weeks Goal 3:: Patient will demo 12 sit to stands to increase functional performance Goal Time Frame: 4-6 Weeks Goal 4:: Patient will ambualte >300 feet with a normalized gait pattern Goal Time Frame: 4-6 Weeks Goal 5:: Patient will SLS for 5 seconds bilateal without UE A Goal Time Frame: 4-6 Weeks - Rehabilitation Potential Physical Therapy Diagnosis: Patient presents with hypomobiliy- she has decreased strength and muscular endurance leading to poor posture and increased pain with ADL's. Rehabilitation Potential: Fair - Anticipated Interventions Patient/Client Instruction: Educate patient on: Benefits of Fitness Program Therapeutic Exercise to Include: Strength training, Endurance training, Balance training, Body mechanics, Postural training, Flexibilty training, Gait and locomotor training, Passive ROM, Active ROM, Dynamic Lumbar Stabilization For the Purpose of:: To improve muscle performance and motor function Functional Training to Include: Gait training Thermo therapy (hot pack): Yes Ultrasound (thermal/non thermal): No Thank you for the opportunity to evaluate your patient. For Medicare and Medicare HMO plans, please review the plan of care and approve it. It will need to be FAXED BACK to us at [phone] for Medicare purposes. Please let me know if there are questions or concerns regarding this plan of care. Physician Signature: Date: <Electronically signed by Kaila Alcala DPT> 04/17/18 1152 CC: OUT OF TOWN DOCTOR; Joe Alvarado MD ELR Signed For Medicare only, by signing this I certify the plan of care. Physicians Signature Date CARDIOLOGY VISIT Observed: 04/10/2018 Status: F Source: [place] REPORT 1:30 PM [facility] [place] REPOSITORY [facility] [address] [place] [address] OFFICE VISIT Date of Service: 04/10/18 MR#: [id number] Acct: [id number] Name: JESS MELGOZA Rep #: [id number] : 1940 Provider: Yefri Noe MD Age/Sex: 77/F [place] [facility] [place] Status: Signed HPI HPI Chief Complaint: Routine f/u Details: is a very pleasant 77-year-old female with a history of hypertension, apparently nonobstructive coronary disease by previous catheterization 2003, hyperlipidemia, degenerative joint disease status post hip replacement surgery in 2009. She also has a history of tobacco abuse and quit in 1994 after a 25-kylk-ommg smoking history. The patient was originally referred to our office after developing lightheadedness and dizziness in seeking medical attention her PCPs office. At that time she was found to have significant bradycardia and hypotension. She was brought to the emergency room where she was found to be orthostatic. Potassium was low at 3.2 and her mag was very low at 0.8. Her HCTZ was discontinued, and her beta jeffery was changed to Cardizem CD 180mg mouth daily. Her symptoms completely resolved and she is here in follow-up. In addition she underwent a 2-D echo with Doppler which demonstrated normal LV function, trivial pericardial effusion, no evidence of tamponade. She had moderate concentric LVH as well. In addition she underwent a noninvasive stress on 11/21/14 which was negative for inducible ischemia. She has known moderate COPD by pulmonary function tests in 2011, and recently underwent repeat PFTs in 08/2014 which demonstrated mild COPD, and severe DLCO reduction. Patient returns today for routine follow-up and is doing fairly well. She expressed concern about possibly stopping her Cozaar, and reduced her Cardizem to 60 mg p.o. twice daily due to cost. Patient was recently diagnosed with osteoporosis and has recently been placed on alendronate. Ever since then she has had generalized bone aches, and some weakness getting up from a sitting position. she denies any chest pain, angina, shortness of breath or dyspnea on exertion. In our office today her blood pressure is 130/60, and pulse is 60 and regular. Her physical exam is a from 10/13/14 showing LDL of 52 and an HDL of 75. Intake Vital Signs04/10/18 Height 5 ft 0.5 in 04/10/18 Weight: 140 lb 04/10/18 Body Mass Index (BMI) 26.9 04/10/18 Blood Pressure 130/60 Intake Visit Reasons: 6 M Supervisor Vat House Required: No Is patient in pain?: Yes (states a 12 joint pain) Pain scale (1-10): 12 Allergies adhesive tape Allergy (Verified 04/10/18 13:19) blisters diclofenac [From [employer]] Adverse Reaction (Unknown, Verified 04/10/18 13:19) unknown misoprostol [From [employer]th[employer]] Adverse Reaction (Unknown, Verified 04/10/18 13:19) unknown NSAIDS (Non-Steroidal Anti-Inflamma Adverse Reaction (Unknown, Verified 04/10/18 13:19) unknown iodine contrast Allergy (Uncoded 09/15/17 15:22) rash Medications Allopurinol [Zyloprim] 300 mg PO DAILY 10/11/14 [History Confirmed 04/05/18] Famotidine [Pepcid] 20 mg PO QHS 10/11/14 [History Confirmed 04/05/18] Levothyroxine [Synthroid] 50 mcg PO DAILY 10/11/14 [History Confirmed 04/05/18] Multivitamins,Therapeutic [Multivitamin] 1 tab PO DAILY 10/11/14 [History Confirmed 04/05/18] Pravastatin [Pravachol] 40 mg PO QHS 10/11/14 [History Confirmed 04/05/18] magnesium oxide 400 mg tablet 400 mg PO QDAY tab 09/14/17 [History Confirmed 04/05/18] potassium chloride ER 20 mEq tablet,extended release 20 meq PO QDAY 09/14/17 [History Confirmed 04/05/18] ibuprofen 600 mg tablet 600 mg PO PRN tab 09/15/17 [History Confirmed 04/05/18] diltiazem 60 mg tablet 60 mg PO BID tab 02/06/18 [History Confirmed 04/05/18] losartan 25 mg tablet 25 mg PO QDAY #30 tab 02/06/18 [Rx Confirmed 04/05/18] albuterol sulfate HFA 90 mcg/actuation aerosol inhaler 1 puff INHALATION Q6H PRN 04/05/18 [History Confirmed 04/05/18] budesonide-formoterol HFA 160 mcg-4.5 mcg/actuation aerosol inhaler 2 puff INHALATION BID 04/05/18 [History Confirmed 04/05/18] alendronate 70 mg tablet 70 mg PO QWEEK 04/10/18 [History Confirmed 04/10/18] [facility] Medical History Lung cancer (Chronic) COPD (chronic obstructive pulmonary disease) (Chronic) Premature ventricular beat (Chronic) PAC (premature atrial contraction) (Chronic) LVH (left ventricular hypertrophy) (Chronic) Hypomagnesemia (Chronic) Bradycardia (Chronic) Orthostatic hypotension (Chronic) Hypertension (Chronic) Hypothyroidism (Chronic) Renal insufficiency (Chronic) Hyponatremia (Chronic) Macrocytic anemia (Chronic) Hyperlipidemia (Chronic) History of lobectomy of lung (Chronic) Scoliosis (Chronic) Surgical History History of cataract surgery (Chronic) History of hysterectomy (Chronic) History of left hip replacement (Chronic) Hx of cholecystectomy (Chronic) Family History Brother CAD (coronary artery disease) Mother CAD (coronary artery disease) CVA (cerebral vascular accident) Social History Smoking Status: Former smoker pack-years: 35 alcohol intake: former year quit: 2014 ROS Const Const: Positive for other (Found out has very low bone density from Dr. Alvarado. Feels well otherwise); negative for fatigue, weakness, body ache, fever(s), headache(s), chills, frequent falls, night sweats, daytime sleepiness, difficulty sleeping, excessive sweating, weight gain, weight loss, increased appetite, poor appetite or anorexia Eyes Eyes: Negative for blind spots, loss of peripheral vision, transient loss of vision, blurry vision, change in vision, double vision, floaters, tunnel vision or other ENT ENT: Negative for headache(s), dizziness, hearing loss, tinnitus, Nosebleed/epistaxis, balance problems, post nasal drip, lip swelling, tongue swelling, bleeding gums, hoarseness, neck pain, dry mouth or other Cardio Chest Pain: No Resp Respiratory: Negative for SOB with activity, SOB at rest, SOB orthopnea\SOB lying down, Coughing up blood/hemoptysis, chest congestion, pain on inspiration, snoring, stridor, wheezing, crackles, paroxysmal nocturnal dyspnea or other GI GI: Negative nausea, vomiting, heartburn, constipation, belching, bloating, cramping, vomiting blood/hematemesis, bright, red blood in stools, black,tarry stools, loose stools, Difficulty Swallowing or other : Negative for hematuria, frequent nighttime urination/ nocturia, erectile dysfunction or abnormal vaginal bleeding Musc Musc: Negative for balance problems, muscle aches/ myalgia, muscle weakness or joint pain Skin Skin: Negative redness, non-healing lesions, rash, unusual bruising, skin ulcer, wounds, jaundice or other Neuro Neuro: Negative for weakness, headache(s), frequent falls, blurry vision, double vision, dizziness, lightheadedness, near syncope, syncope, orthostatic symptoms, confusion, memory loss, restless legs, vertigo, seizures, lack of coordination or other Jeff Hematologic/Lymphatic: Negative for easy bleeding, easy bruising, enlarged lymph nodes or other Endo Endo: Negative for fatigue, excessive sweating, cold intolerance, heat intolerance, flushing, increased thirst/drinking, increased hunger, hair loss, hair growth or other Psych Psych: Negative for anxiety, depression, thoughts of harming anyone, thoughts of harming yourself, visual hallucinations, panic attacks or audible hallucinations Allergy Allergy/Immunology: Negative for lip swelling, Negative for tongue swelling, Negative for rash, Negative for throat swelling, Negative for hives Cardiology Exam Const Appearance: cooperative, healthy appearing and no acute distress Nutritional Appearance: well nourished Orientation: alert, oriented x3 and oriented to person Head Head: normal to inspection, atraumatic and normocephalic Nose: external nose normal Face and Sinus: face symmetric Mouth: oral mucosae normal Eyes General: appearance normal, both eyes and all related structures Eyelids: eyelids normal Conjunctivae: conjunctivae normal Pupils: PERRL and normal by confrontation EOM: EOM intact bilaterally Neck Neck: normal visual inspection and full ROM Carotids: normal carotid upstroke Chest Chest inspection: normal inspection of the chest Auscultation: Bilateral: Clear to Auscultation Cardio Palpation: normal PMI Rate: regular rate Rhythm: regular rhythm Heart sounds: S1 normal and S2 normal GI GI: normal to inspection, no hepatosplenomegaly and bowel sounds present Neuro General: alert, oriented x3, awake, CN's II-XI intact bilaterally and moves all extremities Skin Skin: no rashes or lesions noted Extremities Pulses: Normal: Right Femoral Pulse, Left Femoral Pulse, Right Dorsalis Pedis Pulse, Left Dorsalis Pedis Pulse, Right Posterior Tibial Pulse, Left Posterior Tibial Pulse, Right Radial Pulse, Left Radial Pulse Lower Extremity Edema: None: Bilateral Psych Psychological: normal affect Assessment AND Plan 1. LVH (left ventricular hypertrophy) I51.7 Plan 1. Left ventricular hypertrophy: Patient denies any chest pain, angina, shortness of breath or dyspnea on exertion. She is taking and tolerating her medicines well. No indication for repeat stress test or echo at this time. Her blood pressure is fairly well controlled. I recommended that she continue her diltiazem 60 mg p.o. twice daily and her losartan. She will also continue her magnesium and potassium. 2. Hyperlipidemia E78.5 Plan 2. Hyperlipidemia: This is managed by Dr. Sousa. Continue Pravachol. Repeat lipids are pending. 3. Return office in 6-month This note was generated using a voice recognition system and there may be incorrect words, spelling or punctuation that were not noted when reviewing the office note prior to saving. Plan Detail Other Medications New: Goals Decrease pain and spasm Barriers DDD Prolonged reading/computer work Follow Up +6M (Hasmukh) Coding Level of Care Code Off vis,est,level 3 Diagnoses LVH (left ventricular hypertrophy) I51.7 Hyperlipidemia E78.5 Coding Level of Care Code Off vis,est,level 3 Diagnoses LVH (left ventricular hypertrophy) I51.7 Hyperlipidemia E78.5 04/10/18 1330 <Electronically signed by Yefri Noe MD> Date Yefri Noe MD Cosigner Signature: Date (if applicable) CC: Joe Alvarado MD SCREENING MAMM (CAD), Observed: 12/21/2017 Status: F Source: [place] 9:30 AM [facility] [place] REPOSITORY [facility] Imaging Services [address] [place] [address] SCREENING MAMM (CAD), BILAT MR#: [id number] Acct: [id number] Name: JESS MELGOZA Rep #: [id number] : 1940 F 77 From: Xander Medina MD PCP: Joe Alvarado MD, Chi Status: REG CLI Study: SCREENING MAMM (CAD), BILAT Date of Exam: 12/21/17 Exam# [id number] Ordering Dr: Joe Alvarado MD MAMMOGRAPHY - BILATERAL SCREENING REASON FOR EXAM: Female, 77 years old. Routine annual screening examination. PERTINENT HISTORY: Non-contributory. History of prior left stereotactic breast biopsy. TECHNIQUE: Digital bilateral breast christina (3D mammographic acquisition) in the CC and MLO projections. 2-D mediolateral oblique (MLO) and craniocaudad (CC) views of both breasts were obtained. CAD: Full Field Digital Mammography with Computer Added Detection was performed. COMPARISON: Comparison is made with prior study dated November 04, 2015 and October 30, 2013. FINDINGS: Breast Composition: There are scattered areas of fibroglandular density. There are no dominant masses or suspicious calcifications. Stable benign-appearing bilateral axillary lymph nodes. Stable bilateral calcifications. A tissue clip marker is seen in the upper lateral portion of the left breast. No other significant abnormalities are identified. There has been no significant change since the prior study. BI/SCREENING MAMM (CAD), BILAT IMPRESSION: Stable bilateral screening mammogram. Yearly follow-up mammogram recommended. (A) ASSESSMENT CATEGORY: BIRADS Category 2: Benign. A letter regarding these results will be sent to the patient by the facility within 30 days. Approximately 10% of breast cancers are not detected by mammography. A normal mammogram should not delay biopsy of a clinically suspicious abnormality. [id number] Electronically Signed: Xander Medina MD at 12:36 EDT Tel [phone], Service support , CC: Joe Alvarado MD Laboratory Administrative Director: Signed DEXA BONE DENSITY Observed: 12/21/2017 Status: F Source: [place] STUDY 9:30 AM [facility] [place] REPOSITORY [facility] Imaging Services [address] [place] [address] Dexa Bone Density Study MR#: [id number] Acct: [id number] Name: JESS MELGOZA Rep #: [id number] : 1940 F 77 From: Xander Medina MD PCP: Joe Alvarado MD, Chi Status: REG CLI Study: Dexa Bone Density Study Date of Exam: 12/21/17 Exam# [id number] Ordering Dr: Joe Alvarado MD STUDY: DUAL ENERGY X-RAY ABSORPTIOMETRY / DXA REASON FOR EXAM: Female, 77 years old. The patient is postmenopausal. Loss of height. Prior left total hip replacement. TECHNIQUE: Bone Mineral Density (BMD) measurements of lumbar spine and both forearms were obtained. COMPARISON: Comparison is made with prior study dated November 04, 2015. FINDINGS: Lumbar Spine (L1-L4): g/cm2 (1.130) / T-score (-0.3) / Z-score (1.5) Findings are suggestive of normal bone density with a low fracture risk. Right Forearm: g/cm2 (0.695) / T-score (-2.2) / Z-score (0.1) Left Forearm: g/cm2 (0.638) / T-score (-2.7) / Z-score (-0.4) The T-Scores on the most recent prior examination were: Lumbar Spine (L1-L4): There has been improvement of bone density since the previous examination. There has been worsening of the bone density at the level of both forearms. BD/Dexa Bone Density Study IMPRESSION: The patient is considered osteoporotic as outlined below according to World Mikey Organization (WHO) criteria with a high fracture risk. There has been worsening of bone density since the previous examination. Reference Information: The T-score is the number of standard deviations above or below the standard which is normal for young adults at their peak bone mineral density. The World Health Organization (WHO) interprets the T-scores as follows: Above -1 Normal bone density Between -1 and -2.5 Osteopenia Equal to / or below -2.5 Osteoporosis As a practical clinical guideline, osteopenia may be graded as follows: Mild -1 through -1.5 Moderate -1.6 through -2.0 Severe -2.1 through -2.4 The Z-score is the number of standard deviations above or below age-matched controls. A Z-score of less than -1.5 would be considered abnormal. References: 1. NIH Osteoporosis and Related Bone Diseases http://www.osteo.org 2. International Society for Clinical Densitometry http://www.iscd.org 3. National Osteoporosis Foundation http://www.nof.org Electronically Signed: Xander Medina MD at 9:23 EDT Tel [phone], Service support , CC: Joe Alvarado MD Laboratory Administrative Director: Signed CBC W/DIFF, AUTOMATED Collected: 11/16/2017 Status: F Source: [place] 11:05 AM [facility] [place] REPOSITORY TYPE CODE TESTS RESULT OUT OF RANGE REFERENCE UNITS LAB L100.1000 4.4-11.0 K/mm3 Normal WBC 7.3 LAB L100.1200 4.2-5.4 M/mm3 Low RBC 3.59 LAB L100.1300 12.0-15.0 g/dl Low HGB 11.5 LAB L100.1400 37-47 % Low HCT 35.0 LAB L100.1500 81-99 fL Normal MCV 97.5 LAB L100.1600 27.0-32.0 pg Normal MCH 32.0 LAB L100.1700 32-36 g/gl Normal MCHC 32.9 LAB L100.1810 11.6-14.6 % Normal RDW CV 14.3 LAB L100.1820 35.1-43.9 fl High RDW SD 48.7 LAB L100.1900 150-450 K/mm3 Normal PLT 249 LAB L100.2000 6.2-12.0 fl Normal MPV 11.9 LAB L100.2100 47-70 % Normal NEUT% 56.1 LAB L100.2200 19-41 % Normal LY% 29.1 LAB L100.2300 0-10 % High MONO% 12.6 LAB L100.2400 0-5 % Normal EO% 1.6 LAB L100.2500 0-1 % Normal BASO% 0.5 LAB L100.2550 0.0-0.9 % Normal IM GRAN % 0.100 Result Comment: IG% - Immature Granulocytes (promyelocytes, myelocytes and metamyelocytes) > 1% indicates that a LEFT SHIFT is Present. LAB L100.2620 2.0-7.7 X10 3/uL Normal Absolute Neut 4.1 LAB L100.2720 0.83-4.51 X10 3/ul Normal Absolute Lymph 2.13 Performed By: #### L100.0100 #### [facility] [address] [place], [place], [address] VITAMIN D,25 HYDROXY Collected: 11/16/2017 Status: F Source: [place] 11:05 AM [facility] [place] REPOSITORY TYPE CODE TESTS RESULT OUT OF RANGE REFERENCE UNITS LAB L506.1000 29.95-100.01 ng/mL Normal Vitamin D 34.5 25-OH Result Comment: Vitamin D 25(OH) Status Range Deficiency <20 ng/mL (50nmol/L) Insuffciency 20 - 30 ng/mL (50 - 75 nmol/L) Sufficiency 30 - 100 ng/mL (75 - 250 nmol/L) Toxicity >100 ng/mL (>250 nmol/L) Performed By: #### L506.1000 #### [facility] [address] [place], [address] COMPREHENSIVE METABOLIC Collected: 11/16/2017 Status: F Source: [place] BU[place] 11:05 AM [facility] [place] REPOSITORY TYPE CODE TESTS RESULT OUT OF RANGE REFERENCE UNITS LAB L501.0100 74-106 mg/dL Normal GLU 96 Result Comment: Please note revised GLUCOSE reference range effective 2017. LAB L501.1000 7-18 mg/dL Normal BUN 18 LAB L501.1100 0.55-1.02 mg/dL High CREAT,SERUM 1.28 Result Comment: The validity of the calculated GFR AND GFRAA in patients over 70 years has not been determined. Clinical correlation is essential. LAB L501.1110 >60 mL/min Low EST GFR 43 Result Comment: Non- GFR Calc LAB L501.1115 >60 mL/min Low EST GFR - AA 52 Result Comment: GFR Calc LAB L501.1300 10-20 RATIO Normal BUN/CRE 14.1 LAB L501.1500 6.4-8.2 g/dL Low T PROT 6.3 LAB L501.1800 3.2-5.0 g/dL Low ALB 3.0 LAB L501.1950 2.2-4.2 g/dL Normal GLOB 3.3 LAB L501.2000 0.9-2.4 RATIO Normal A/G 0.9 LAB L501.2200 8.5-10.1 mg/dL CA Normal 9.4 LAB L501.4100 15-37 U/L Normal AST 23 LAB L501.4305 45-117 U/L Normal ALK P 107 LAB L501.4405 13-56 U/L Normal ALT 26 LAB L501.4600 0.20-1.00 mg/dL T Normal BILI 0.50 LAB L501.5300 136-145 mmol/L NA Normal 137 LAB L501.5600 3.5-5.1 mmol/L K Normal 3.9 LAB L501.5900 98-107 mmol/L CL Normal 103 LAB L501.6100 21.0-32.0 mmol/L Normal CO2 25.0 LAB L501.6200 5-15 Normal GAP 9 Performed By: #### L500.4050, L501.1400, L501.9520 #### [facility] [address] [place], [address] URIC ACID Collected: 11/16/2017 Status: F Source: AVERY 11:05 AM [facility] REPOSITORY TYPE CODE TESTS RESULT OUT OF RANGE REFERENCE UNITS LAB L501.1400 2.6-6.0 mg/dL Normal URIC 3.8 Result Comment: The drugs N-Acetylcysteine and Metamizole may falsely depress this assay. Performed By: #### L500.4050, L501.1400, L501.9520 #### [facility] [address] [place], [address] THYROID STIM HORMONE Collected: 11/16/2017 Status: F Source: AVERY (TSH) 11:05 AM [facility] [place] REPOSITORY TYPE CODE TESTS RESULT OUT OF RANGE REFERENCE UNITS LAB L501.9520 0.358-3.74 uIU/mL Normal TSH 0.59 Performed By: #### L500.4050, L501.1400, L501.9520 #### [facility] [address] [place], [address] CHIROPRACTIC REPORT Observed: 10/13/2017 Status: F Source: AVERY 11:23 AM [facility] [place] REPOSITORY [facility] [address] [place] [address] OFFICE VISIT Date of Service: 10/11/17 MR#: [id number] Acct: [id number] Name: SUZANNEKEIRAJESS Rep #: [id number] : 1940 Provider: Dawn Lovett D.C. Age/Sex: 77/F [place] [facility] [place]: Signed Intake Vital Signs10/11/17 Height 5 ft 10/11/17 Weight: 137 lb 10/11/17 Body Mass Index (BMI) 26.7 Intake Visit Reasons: back pain Chief Complaint: Routine F/u Is patient in pain?: Yes Allergies adhesive tape Allergy (Verified 09/15/17 15:23) blisters iodine contrast Allergy (Uncoded 09/15/17 15:22) rash Medications Allopurinol [Zyloprim] 300 mg PO DAILY 10/11/14 [History Confirmed 09/15/17] Famotidine [Pepcid] 20 mg PO QHS 10/11/14 [History Confirmed 09/15/17] Levothyroxine [Synthroid] 50 mcg PO DAILY 10/11/14 [History Confirmed 09/15/17] Multivitamins,Therapeutic [Multivitamin] 1 tab PO DAILY 10/11/14 [History Confirmed 09/15/17] Pravastatin [Pravachol] 40 mg PO QHS 10/11/14 [History Confirmed 09/15/17] losartan 25 mg tablet 25 mg PO QDAY 09/14/17 [History Confirmed 09/15/17] magnesium oxide 400 mg tablet 400 mg PO QDAY tab 09/14/17 [History Confirmed 09/15/17] potassium chloride ER 20 mEq tablet,extended release 20 meq PO QDAY 09/14/17 [History Confirmed 09/15/17] diltiazem 60 mg tablet 60 mg PO BID tab 09/15/17 [History Confirmed 09/15/17] ibuprofen 600 mg tablet 600 mg PO PRN tab 09/15/17 [History Confirmed 09/15/17] [facility] Medical History Premature ventricular beat (Chronic) PAC (premature atrial contraction) (Chronic) LVH (left ventricular hypertrophy) (Chronic) Hypomagnesemia (Chronic) Bradycardia (Chronic) Orthostatic hypotension (Chronic) Hypertension (Chronic) Hypothyroidism (Chronic) Renal insufficiency (Chronic) Hyponatremia (Chronic) Macrocytic anemia (Chronic) Hyperlipidemia (Chronic) COPD (chronic obstructive pulmonary disease) (Chronic) History of lobectomy of lung (Chronic) Lung cancer (Chronic) Scoliosis (Chronic) Surgical History History of cataract surgery (Chronic) History of hysterectomy (Chronic) History of left hip replacement (Chronic) Hx of cholecystectomy (Chronic) Family History Brother CAD (coronary artery disease) Mother CAD (coronary artery disease) CVA (cerebral vascular accident) Social History Smoking Status: Former smoker pack-years: 35 alcohol intake: former year quit: 2014 HPI back pain : Chief Complaint: back pain Visit Number: 2 Details: JESS MELGOZA is a 77 year old F who presents with low back pain. She states that after her last treatment her pain greatly decreased, although today she was very active causing increased pain. The patient rates her pain a 3/10 and describes it as a dull ache that comes and goes although it can be intense. Bending, lifting, and twisting at the waist increases the pain although she denies any numbness, tingling, or radiculopathy. Location: low back pain Duration: intermittant Aggravating or associated factors: bending, lifting, and twisting Pain Quality: aching, dull Exam Musc General: Yes joint tenderness (C4-C7, T1-T3, L3-L5) and decreased ROM; no normal posture (anterior head carriage) Cervical Spine: loss of normal cervical lordosis, pain with cervical ROM with lateral flexion to right, with lateral flexion to left, with rotation to left and with extension, cervical spasm left lower: trapezius and paracervical muscles, cervical ROM abnormal lateral flexion to the right decreased, lateral flexion to the left decreased, rotation to left decreased and extension decreased Thoracic/Lumbar Spine: thoracic and lumbar spine normal to inspection, pain with thoraco-lumbar ROM with forward flexion, with lateral flexion to the right and with lateral flexion to the left, paraspinal tenderness bilaterally in the mid lumbar, thoraco-lumbar ROM limited with forward flexion, with lateral flexion to the right and with lateral flexion to the left, thoraco-lumbar spasm bilaterally in the mid lumbar (QL) Sacroiliac joints: bilaterally Office Procedures Chiropractic Treatments Procedures Manipulation: 3-4 regions (C4, C7, T1,T3, L3, L5) Assessment AND Plan 1. Other intervertebral disc degeneration, lumbar region M51.36 Orders Orders: 2. Segmental and somatic dysfunction of cervical region M99.01 Orders Orders: 3. Segmental and somatic dysfunction of thoracic region M99.02 Orders Orders: 4. Segmental and somatic dysfunction of lumbar region M99.03 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 reading/computer work Follow Up PRN Coding Level of Care Code No Charge Diagnoses Other intervertebral disc degeneration, lumbar region M51.36 Segmental and somatic dysfunction of cervical region M99.01 Segmental and somatic dysfunction of thoracic region M99.02 Segmental and somatic dysfunction of lumbar region M99.03 Additional Codes Procedures - Manipulation: 3-4 regions (82497) 10/13/17 1123 <Electronically signed by Dawn Lovett D.C.> Date Dawn Lovett D.C. Cosigner Signature: Date (if applicable) CC: CHIROPRACTIC REPORT Observed: 10/06/2017 Status: F Source: [place] 9:14 AM [facility] [address] [place] [address] OFFICE VISIT Date of Service: 10/04/17 MR#: [id number] Acct: [id number] Name: JESS MELGOZA Shavonne Rep #: [id number] : 1940 Provider: Dawn Lovett D.C. Age/Sex: 77/F [place] [facility] [place] Status: Signed Intake Vital Signs10/04/17 Height 5 ft 10/04/17 Weight: 137 lb 10/04/17 Body Mass Index (BMI) 26.7 Intake Visit Reasons: low back pain Chief Complaint: Routine F/u Is patient in pain?: Yes Allergies adhesive tape Allergy (Verified 09/15/17 15:23) blisters iodine contrast Allergy (Uncoded 09/15/17 15:22) rash Medications Allopurinol [Zyloprim] 300 mg PO DAILY 10/11/14 [History Confirmed 09/15/17] Famotidine [Pepcid] 20 mg PO QHS 10/11/14 [History Confirmed 09/15/17] Levothyroxine [Synthroid] 50 mcg PO DAILY 10/11/14 [History Confirmed 09/15/17] Multivitamins,Therapeutic [Multivitamin] 1 tab PO DAILY 10/11/14 [History Confirmed 09/15/17] Pravastatin [Pravachol] 40 mg PO QHS 10/11/14 [History Confirmed 09/15/17] losartan 25 mg tablet 25 mg PO QDAY 09/14/17 [History Confirmed 09/15/17] magnesium oxide 400 mg tablet 400 mg PO QDAY tab 09/14/17 [History Confirmed 09/15/17] potassium chloride ER 20 mEq tablet,extended release 20 meq PO QDAY 09/14/17 [History Confirmed 09/15/17] diltiazem 60 mg tablet 60 mg PO BID tab 09/15/17 [History Confirmed 09/15/17] ibuprofen 600 mg tablet 600 mg PO PRN tab 09/15/17 [History Confirmed 09/15/17] [facility] Medical History Premature ventricular beat (Chronic) PAC (premature atrial contraction) (Chronic) LVH (left ventricular hypertrophy) (Chronic) Hypomagnesemia (Chronic) Bradycardia (Chronic) Orthostatic hypotension (Chronic) Hypertension (Chronic) Hypothyroidism (Chronic) Renal insufficiency (Chronic) Hyponatremia (Chronic) Macrocytic anemia (Chronic) Hyperlipidemia (Chronic) COPD (chronic obstructive pulmonary disease) (Chronic) History of lobectomy of lung (Chronic) Lung cancer (Chronic) Scoliosis (Chronic) Surgical History History of cataract surgery (Chronic) History of hysterectomy (Chronic) History of left hip replacement (Chronic) Hx of cholecystectomy (Chronic) Family History Brother CAD (coronary artery disease) Mother CAD (coronary artery disease) CVA (cerebral vascular accident) Social History Smoking Status: Former smoker pack-years: 35 alcohol intake: former year quit: 2014 HPI low back pain : Chief Complaint: back pain Visit Number: 1 Referral source: previous patient Details: JESS MELGOZA is a 77 year old F who presents with low back and R sided neck pain. The patient states that recently she has noticed a dull ache in the low back, with a catching sensation when transitioning from sitting to standing. Jess rates the pain a 4/10 and describes it as a tight ache. The patient also complains of R sided neck pain that radiates into the shoulder, the pain is described as a tight sharp ache that is constant. Raising the arm and lifting all cause increased pain, although she denies any numbness or tingling. Onset: 09/22/17 Location: neck and low back Duration: constant Aggravating or associated factors: transitioning to standing, raising the arm, and lifting Pain Quality: aching, dull, sharp Exam Musc General: Yes joint tenderness (C4-C7, T1-T3, L3-L5) and decreased ROM; no normal posture (anterior head carriage) Cervical Spine: loss of normal cervical lordosis, pain with cervical ROM with lateral flexion to right, with lateral flexion to left, with rotation to left and with extension, cervical spasm left lower: trapezius and paracervical muscles, cervical ROM abnormal lateral flexion to the right decreased, lateral flexion to the left decreased, rotation to left decreased and extension decreased Thoracic/Lumbar Spine: thoracic and lumbar spine normal to inspection, pain with thoraco-lumbar ROM with forward flexion, with lateral flexion to the right and with lateral flexion to the left, paraspinal tenderness bilaterally in the mid lumbar, thoraco-lumbar ROM limited with forward flexion, with lateral flexion to the right and with lateral flexion to the left, thoraco-lumbar spasm bilaterally in the mid lumbar (QL) Sacroiliac joints: bilaterally Neuro General: alert, awake, oriented x3, gait normal, normal light touch, pain and propioception, no focal motor deficits Ortho Test CERVICAL Compression pain: Negative Distraction pain: relief Davon's pain: Negative Valsalvas: Negative Shoulder depression pain: Right (bilateral) THORACIC Kemps: Negative Schepelmanns pain: Negative Noguera: Negative LUMBAR Kemps: Positive Valsalvas: Negative SLR: Negative Iliac Compression: Positive (bilateral) Office Procedures Chiropractic Treatments Procedures Manipulation: 3-4 regions (C5, T1, T3, L3, L5) Assessment AND Plan 1. Other intervertebral disc degeneration, lumbar region M51.36 Orders Orders: 2. Segmental and somatic dysfunction of cervical region M99.01 Orders Orders: 3. Segmental and somatic dysfunction of thoracic region M99.02 Orders Orders: 4. Segmental and somatic dysfunction of lumbar region M99.03 Orders Orders: Plan Detail Other Orders Orders: Goals Decrease pain and spasm Barriers DDD Prolonged reading/computer work Follow Up PRN Coding Level of Care Code Off vis,est,level 1 Diagnoses Other intervertebral disc degeneration, lumbar region M51.36 Segmental and somatic dysfunction of cervical region M99.01 Segmental and somatic dysfunction of thoracic region M99.02 Segmental and somatic dysfunction of lumbar region M99.03 Additional Codes Procedures - Manipulation: 3-4 regions (55220) 10/06/17 0914 <Electronically signed by Dawn Lovett D.C.> Date Dawn Dinhigner Signature: Date (if applicable) CC: CARDIOLOGY VISIT Observed: 09/15/2017 Status: F Source: [place] REPORT 3:43 PM [facility] [place] REPOSITORY [facility] [place] [address] OFFICE VISIT Date of Service: 09/15/17 MR#: [id number] Acct: [id number] Name: JESS MELGOZA Rep #: [id number] : 1940 Provider: Yefri Noe MD Age/Sex: 77/F Location: [facility] [place] Status: Signed HPI HPI Chief Complaint: Routine F/u Details: HPI Referring physician: Dr. Alvarado is a very pleasant 77-year-old female with a history of hypertension, apparently nonobstructive coronary disease by last catheterization 2003, hyperlipidemia, degenerative joint disease status post hip replacement surgery in 2009. She also has a history of tobacco abuse and quit in 1994 after a 23-cyim-wmnw smoking history. The patient was originally referred to our office after developing lightheadedness and dizziness in seeking medical attention her PCPs office. At that time she was found to have significant bradycardia and hypotension. She was brought to the emergency room where she was found to be orthostatic. Potassium was low at 3.2 and her mag was very low at 0.8. Her HCTZ was discontinued, and her beta jeffery was changed to Cardizem CD 180mg mouth daily. Her symptoms completely resolved and she is here in follow-up. In addition she underwent a 2-D echo with Doppler which demonstrated normal LV function, trivial pericardial effusion, no evidence of tamponade. She had moderate concentric LVH as well. In addition she underwent a noninvasive stress on 11/21/14 which was negative for inducible ischemia. She has known moderate COPD by pulmonary function tests in 2011, and recently underwent repeat PFTs in 08/2014 which demonstrated mild COPD, and severe DLCO reduction. Patient returns today for routine follow-up and is doing fairly well. She expressed concern about possibly stopping her Cozaar, and reduced her Cardizem to 60 mg p.o. twice daily due to cost. she denies any chest pain, angina, shortness of breath or dyspnea on exertion. In our office today her blood pressure is 132/70, and pulse is 80 and regular. Her physical exam is a from 10/13/14 showing LDL of 52 and an HDL of 75. Intake Vital Signs09/15/17 Height 5 ft 09/15/17 Weight: 137 lb 09/15/17 Body Mass Index (BMI) 26.7 09/15/17 Blood Pressure 132/70 09/15/17 Respiratory Rate 18 09/15/17 Pulse Rate 80 09/15/17 Pulse Ox 96 Intake Visit Reasons: 6 M FU Allergies adhesive tape Allergy (Verified 09/15/17 15:23) blisters iodine contrast Allergy (Uncoded 09/15/17 15:22) rash Medications Allopurinol [Zyloprim] 300 mg PO DAILY 10/11/14 [History Confirmed 09/15/17] Famotidine [Pepcid] 20 mg PO QHS 10/11/14 [History Confirmed 09/15/17] Levothyroxine [Synthroid] 50 mcg PO DAILY 10/11/14 [History Confirmed 09/15/17] Multivitamins,Therapeutic [Multivitamin] 1 tab PO DAILY 10/11/14 [History Confirmed 09/15/17] Pravastatin [Pravachol] 40 mg PO QHS 10/11/14 [History Confirmed 09/15/17] losartan 25 mg tablet 25 mg PO QDAY 09/14/17 [History Confirmed 09/15/17] magnesium oxide 400 mg tablet 400 mg PO QDAY tab 09/14/17 [History Confirmed 09/15/17] potassium chloride ER 20 mEq tablet,extended release 20 meq PO QDAY 09/14/17 [History Confirmed 09/15/17] diltiazem 60 mg tablet 60 mg PO BID tab 09/15/17 [History Confirmed 09/15/17] ibuprofen 600 mg tablet 600 mg PO PRN tab 09/15/17 [History Confirmed 09/15/17] [facility] Medical History Premature ventricular beat (Chronic) PAC (premature atrial contraction) (Chronic) LVH (left ventricular hypertrophy) (Chronic) Hypomagnesemia (Chronic) Bradycardia (Chronic) Orthostatic hypotension (Chronic) Hypertension (Chronic) Hypothyroidism (Chronic) Renal insufficiency (Chronic) Hyponatremia (Chronic) Macrocytic anemia (Chronic) Hyperlipidemia (Chronic) COPD (chronic obstructive pulmonary disease) (Chronic) History of lobectomy of lung (Chronic) Lung cancer (Chronic) Scoliosis (Chronic) Surgical History History of cataract surgery (Chronic) History of hysterectomy (Chronic) History of left hip replacement (Chronic) Hx of cholecystectomy (Chronic) Family History Brother CAD (coronary artery disease) Mother CAD (coronary artery disease) CVA (cerebral vascular accident) Social History Smoking Status: Former smoker pack-years: 35 alcohol intake: former year quit: 2014 ROS Const Const: Negative for fatigue, weakness, difficulty sleeping, frequent falls, headache(s) or excessive sweating Eyes Eyes: Negative for loss of peripheral vision, transient loss of vision, blurry vision or double vision ENT ENT: Negative for headache(s), Negative for dizziness, Negative for Nosebleed/epistaxis, Negative for balance problems Cardio Chest Pain: No Edema: None Muscle aches with walking: None Resp Respiratory: Positive for SOB with activity (When climbing stairs); negative for SOB at rest, SOB orthopnea\SOB lying down or paroxysmal nocturnal dyspnea GI GI: Negative nausea or heartburn : Negative for hematuria Musc Musc: Negative for muscle aches/ myalgia, muscle weakness, joint pain or balance problems Skin Skin: Negative non-healing lesions, unusual bruising or rash Neuro Neuro: Negative for weakness, Negative for frequent falls, Negative for blurry vision, Negative for headache(s), Negative for dizziness, Negative for lightheadedness, Negative for orthostatic symptoms, Negative for double vision Jeff Hematologic/Lymphatic: Negative for easy bruising Endo Endo: Negative for fatigue, excessive sweating or increased thirst/drinking Psych Psych: Negative for anxiety or depression Allergy Allergy/Immunology: Negative for hives, Negative for rash Cardiology Exam Const Appearance: cooperative, healthy appearing and no acute distress Nutritional Appearance: well nourished Orientation: alert, oriented x3 and oriented to person Head Head: normal to inspection, atraumatic and normocephalic Nose: external nose normal Face and Sinus: face symmetric Mouth: oral mucosae normal Eyes General: appearance normal, both eyes and all related structures Eyelids: eyelids normal Conjunctivae: conjunctivae normal Pupils: PERRL and normal by confrontation EOM: EOM intact bilaterally Neck Neck: normal visual inspection and full ROM Carotids: normal carotid upstroke Chest Chest inspection: normal inspection of the chest Auscultation: Bilateral: Clear to Auscultation Cardio Palpation: normal PMI Rate: regular rate Rhythm: regular rhythm Heart sounds: S1 normal and S2 normal GI GI: normal to inspection, no hepatosplenomegaly and bowel sounds present Neuro General: alert, oriented x3, awake, CN's II-XI intact bilaterally and moves all extremities Skin Skin: no rashes or lesions noted Extremities Pulses: Normal: Right Femoral Pulse, Left Femoral Pulse, Right Dorsalis Pedis Pulse, Left Dorsalis Pedis Pulse, Right Posterior Tibial Pulse, Left Posterior Tibial Pulse, Right Radial Pulse, Left Radial Pulse Lower Extremity Edema: None: Bilateral Psych Psychological: normal affect Assessment AND Plan Problems 1. Essential hypertension I10 2. Hyperlipidemia E78.5 Plan 1. Hypertension: Her blood pressure is much better controlled on combination Cardizem therapy and Cozaar. Recommend that she continue her Cardizem, and Cozaar. No indication for any additional testing at this time. 2. Hyperlipidemia: Her lipids are managed by her PCP. Continue Pravachol therapy. 3. Return office in 6 months. This note was generated using a voice recognition system and there may be incorrect words, spelling or punctuation that were not noted when reviewing the office note prior to saving. Plan Detail Follow Up 6 Months (Hasmukh) Coding Level of Care Code Off vis,est,level 3 Diagnoses Essential hypertension I10 Hypertension type: essential hypertension Hyperlipidemia E78.5 Coding Level of Care Code Off vis,est,level 3 Diagnoses Essential hypertension I10 Hypertension type: essential hypertension Hyperlipidemia E78.5 09/15/17 1543 <Electronically signed by Yefri Noe MD> Date Yefri Vargas Signature: Date (if applicable) CC: ALLERGIES ALLERGIES DATE TYPE / CODE NAME / CODE REACTION SEVERITY SOURCE 07/29/2018 Drug NSAIDS Unknown Unknown [place] Allergy/103066487(S (Non-Steroidal [facility] NOMED [facility]) Anti-Inflamma/F Hospital [id number](RXNOR Repository M) 07/29/2018 Drug misoprostol/F00 Unknown Unknown [place] [facility]/258339998(S 7177723(RXNORM) [facility]) Hospital Repository 07/29/2018 Drug adhesive blisters Unknown [place] [facility]/224490439(S tape/[id number] [facility]) (RXNORM) Hospital Repository 07/29/2018 Drug diclofenac/F006 Unknown Unknown [place] [facility]/867981654(S 787562(RXNORM) [facility]) Hospital Repository 05/30/2018 Miscellaneous iodine contrast Rash Unknown [place] [facility]505845477([facility] 10/11/2014 Drug diclofenac Upset Stomach Unknown [place] All[facility]/172364881(S sodium/[id number] [facility] 91(RXNORM) Hospital Repository 10/11/2014 Drug Iodine and Rash Unknown [place] Allergy/427351756(S Iodide [facility] Hospital Produc/[id number] Repository 75(RXNORM) 10/11/2014 Drug peanut/[id number] Diarrhea Unknown [place] Allergy/534265759(S 68(RXNORM) [facility] Repository 10/11/2014 Drug adhesive/M80071 Other Unknown [place] Allergy/745268223(S 3245(RXNORM) [facility] [place] Repository 10/11/2014 Drug corn/[id number] Upset Stomach Unknown [place] Allergy/461776678(S (RXNORM) [facility] Repository ENCOUNTERS ENCOUNTERS ADMIT/DISCHARGE ACCOUNT ADMITTING ENCOUNTER LOCATION SOURCE NUMBER CLASS 08/09/2018 [id number] Amb[place] [facility] [facility] Repository 08/09/2018 [id number] Ambulatory [place] [facility] [facility] ing:PT Repository 08/09/2018/ [id number] Ambulatory [facility] [place] [facility] 4 [facility] Repository 07/29/2018/ [id number] Ambulatory [facility] [place] [facility] 2 [facility] Repository 07/26/2018 [id number] [place] 6 [facility] ing:[place] Repository 07/12/2018 [id number] [place] 8 [facility] Repository 07/05/2018 [id number] Ambulatory [place] 2 [facility] ing:POLAB3 Repository 05/30/2018 [id number] Ambulatory BMSBuilding:B [place] 6 [place].[facility] Hospital Repository 05/30/2018 [id number] Ambulatory [place] [facility] 5 [facility] ing:OMD Repository 05/26/2018/ [id number] Ambulatory [place] [facility] 8 7 [facility] ing:PT Repository 05/24/2018 [id number] Ambulatory [place] [facility] 1 [facility] ing:LABSPEC Repository 05/23/2018 [id number] Ambulatory BMSBuilding:B [place] 6 [place] Hospital Repository 05/18/2018 [id number] Ambulatory [place] 0 [facility] ing:POLAB3 Repository 04/10/2018/ [id number] Ambulatory BMSBuilding:B [place] 8 0 [facility] Hospital Repository 02/06/2018 [id number] Ambulatory BMSBuilding:B [place] 0 [facility] Hospital Repository 02/06/2018 [id number] Ambulatory BMSBuilding:B [place] 1 [facility] Hospital Repository 12/21/2017 [id number] Ambulatory [place] 0 [facility] ing:OPBD Repository 11/16/2017 [id number] Ambulatory [place] 6 [facility] ing:POLAB3 Repository 10/11/2017/ [id number] Ambulatory BMSBuilding:B [place] 8 1 [facility] Repository 10/04/2017/ [id number] Ambulatory BMSBuilding:B [place] 8 4 [facility] Repository 09/15/2017/ [id number] Ambulatory BMSBuilding:B [place] 8 1 [facility] Repository 09/14/2017 [id number] Ambulatory BMSBuilding:B [place] 8 [facility] Repository PAYERS PAYERS ENCOUNTER GUARANTOR PAYER SUBSCRIBER SOURCE 08/09/2018 JESS KIRK2 Primary JESS ZURITA [address]AP[address] Insurance:[facility] [facility] [facility] [facility] [facility] [id number] [id number]: (330) Number: Repository [phone] () [id number] Date:2018-07-31 08/09/2018 Secondary NOT GIVENUNK [place] Insurance:SELF PAY [facility] Number: Effective Repository Date:2018-07-31 08/09/2018 JESS MELGOZA582 Primary JESS ZURITA [address]AP[address] Insurance:[place]IC[place] [facility] [facility] [facility] [facility] [id number] [id number]: (330) Number: Repository [phone] () [id number] Date:2018-06-12 08/09/2018 Secondary NOT GIVENUNK [place] Insurance:SELF PAY [facility] Number: Effective Repository Date:2018-06-12 08/09/2018 JESS MELGOZA582 Primary JESS ZURITA [address]AP[address] Insurance:MEDICARE [place]: [place] PART [place] [facility] [id number] [address]Tel: (330) Number: Repository [phone] () [id number] Date:2018-07-29 08/09/2018 Secondary NOT GIVENUNK [place] Insurance:SELF PAY [facility] Number: Effective Repository Date:2018-08-07 07/29/2018 JESS MELGOZA582 Primary JESS Marvin Avery [address] Insurance:MEDICARE [place]: [place] PART [place] [facility] [id number] Hospital [address]Xml: (330) Number: Repository [phone] () [id number] Date:2018-07-27 07/29/2018 Secondary NOT GIVENUNK [place] Insurance:SELF PAY [facility] Number: Effective Repository Date:2018-07-27 07/26/2018 JESS KIRK2 Primary JESS Shavonne [address]URITA [address]AP[address] Insurance:MEDICARE [place]: [place] PART [place] [facility] [id number] Hospital 65359Zgt: (330) Number: Repository [phone] () [id number] Date:2018-07-21 07/26/2018 Secondary NOT GIVENUNK [place] Insurance:SELF PAY [facility] Number: Effective Repository Date:2018-07-21 07/12/2018 JESS [id number] Primary JESS Shavonne [address]URITA [address]AP[address] Insurance:MEDICARE [place]AM[place]: [place] PART [place] [facility] [id number] Hospital [address]Avq: (330) Number: Repository [phone] () [id number] Date:2018-07-05 07/12/2018 Secondary NOT GIVENUNK [place] Insurance:SELF PAY [facility] Number: Effective Repository Date:2018-07-05 07/05/2018 JESS MELGOZA582 Primary JESS Marvin [place] [address]ITA [address] Insurance:MEDICARE TAM[place]ENDOB: [place] PART [place] [facility] [id number] Hospital [address]Vmo: (330) Number: Repository [phone] () [id number] Date:2018-07-05 07/05/2018 Secondary NOT GIVENUNK [place] Insurance:SELF PAY [facility] Number: Effective Repository Date:2018-07-05 05/30/2018 JESS [id number] Primary JESS Shavonne [address]URITA [address]AP[address] Insurance:MEDICARE TAM[place]: [place] PART [place] [facility] [id number] Hospital [address]Gcw: (330) Number: Repository [phone] () [id number] Date:2018-05-22 05/30/2018 Secondary NOT GIVENUNK [place] Insurance:SELF PAY [facility] Number: Effective Repository Date:2018-05-30 05/30/2018 JESS KIRK2 Primary JESS ZURITA [address]AP[address] Insurance:MEDICARE TAM[place]OB: [place] PART [place] [facility] [id number] Hospital [address]Cmz: (330) Number: Repository [phone] () [id number] Date:2018-05-22 05/30/2018 Secondary NOT GIVENUNK [place] Insurance:SELF PAY [facility] Number: Effective Repository Date:2018-05-22 05/26/2018 JESS [id number] Primary JESS [address] Insurance:MEDICARE TAM[place]ENDOB: [place] PART [place] [facility] [id number] Hospital [address]Zzd: (330) Number: Repository [phone] () [id number] Date:2007-03-25 05/26/2018 Secondary NOT GIVENUNK [place] Insurance:SELF PAY [facility] Number: Effective Repository Date:2018-04-17 05/24/2018 JESS [id number] Primary JESS [address] Insurance:MEDICARE [place]: [place] PART [place] [facility] [id number] Hospital [address]Cwo: (330) Number: Repository [phone] () [id number] Date:2018-05-24 05/24/2018 Secondary NOT GIVENUNK [place] Insurance:SELF PAY [facility] Number: Effective Repository Date:2018-05-24 05/23/2018 JESS VILLANUEVA Primary JESS ZURITA [address]APT Insurance:MEDICARE TAMMENDOB: [facility], [place] PART A [facility] [id number] Hospital 114[address]Eew: (330) Number: Repository [phone] () [id number] Date:2018-05-22 05/23/2018 Secondary NOT GIVENUNK [place] Insurance:SELF PAY [facility] Number: Effective Repository Date:2018-05-23 05/18/2018 JESS KIRK2 Primary JESS Marvin [place] [address]URITA [address] Insurance:MEDICARE TAMMENDOB: [place] olic[place] [id number] Hospital [address]Oit: (330) Number: Repository [phone] () [id number] Date:2018-05-18 05/18/2018 Secondary NOT GIVENUNK [place] Insurance:SELF PAY [facility] Number: Effective Repository Date:2018-05-18 04/10/2018 JESS KIRK2 Primary JESS Shavonne ZURITA [address]AP[address] Insurance:MEDICARE TAMMENDOB: [facility] PART A [facility] [id number] Hospital [address]Dva: (330) Number: Repository [phone] () [id number] Date:2017-09-15 04/10/2018 Secondary NOT GIVENUNK [place] Insurance:SELF PAY [facility] Number: Effective Repository Date:2018-04-10 02/06/2018 JESS [id number] Primary JESS J [place] ZURITA [address] Insurance:MEDICARE TAMMENDOB: [place] [id number] Hospital [address]Oed: (330) Number: Repository [phone] () [id number] Date:2018-02-06 02/06/2018 Secondary NOT GIVENUNK [place] Insurance:SELF PAY [facility] Number: Effective Repository Date:2018-02-06 02/06/2018 JESS [id number] Primary JESS Shavonne ZURITA [address]AP[address] Insurance:MEDICARE TAMMENDOB: [facility] PART A [facility] [id number] Hospital [address]Fno: (330) Number: Repository [phone] () [id number] Date:2018-02-06 02/06/2018 Secondary NOT GIVENUNK [place] Insurance:SELF PAY [facility] Number: Effective Repository Date:2018-02-06 12/21/2017 JESS [id number] Primary [address]ESS [address] Insurance:MEDICARE TAMMENDOB: [place] [facility] [id number] Hospital [address]Yiz: (330) Number: Repository [phone] () [id number] Date:2017-11-16 12/21/2017 Secondary NOT GIVENUNK [place] Insurance:SELF PAY [facility] Number: Effective Repository Date:2017-11-16 11/16/2017 JESS [id number] Primary [address]ESS [address] Insurance:MEDICARE TAMMENDOB: [place] [facility] [id number] [place] [id number]: (330) Number: Repository [phone] () [id number] Date:2017-11-16 11/16/2017 Secondary NOT GIVENUNK [place] Insurance:SELF PAY [facility] Number: Effective Repository Date:2017-11-16 10/11/2017 JESS [id number] Primary JESS [address] Insurance:MEDICARE TAMMENDOB: [place] [facility] [id number] [place] [id number]: (330) Number: Repository [phone] () [id number] Date:2017-10-04 10/11/2017 Secondary NOT GIVENUNK [place] Insurance:SELF PAY [facility] Number: Effective Repository Date:2017-10-04 10/04/2017 JESS [id number] Primary [address]ESS [address] Insurance:MEDICARE TAMMENDOB: [place] [facility] [id number] Hospital [address]Tgk: (330) Number: Repository [phone] () [id number] Date:2017-10-03 10/04/2017 Secondary NOT GIVENUNK [place] Insurance:SELF PAY [facility] Number: Effective Repository Date:2017-10-03 09/15/2017 JESS MELGOZA582 Primary JESS Marvin A[place] [address]UR[address] Insurance:MEDICARE TAMMENDOB: [place] [facility] [id number] Hospital [address]Vmp: (330) Number: Repository [phone] () [id number] Date:2017-06-30 09/15/2017 Secondary NOT GIVENUNK [place] Insurance:SELF PAY [facility] Number: Effective Repository Date:2017-06-30 09/14/2017 Jess Melgoza[address] Insurance:MEDICARE TammenDOB: [place] PART A [facility] [id number] Hospital [address]Plk: (330) Number: Repository [phone] () [id number] Date:2017-09-14 09/14/2017 Secondary NOT GIVENUNK [place] Insurance:SELF PAY [facility] Number: Effective Repository Date:2017-09-14
== END ==
PROVIDERS: Family Provider Family Medicine Geriatric Medicine; PCP Family Medicine Geriatric Medicine; Visit Provider Family Medicine Geriatric Medicine
DX: R42 Dizziness and giddiness (principal)
CPT/HCPCS: 36415; 80048; 85025

== ENCOUNTER → 2018-07-12 12:26 | Outpatient (CLI) | payer MEDICARE, SELFPAY ==
[2018-05-30 11:28] VITALS: BMI 54.7
--- NOTE | 2018-07-12 12:28 | CDU_ITS ---
Reason For Study: Carotid stenosis Rt. Velocities/BP Lt. Velocities/BP Prox CCA 38.1/14.3 cm/sec. Prox CCA 76.2/11.1 cm/sec. Mid CCA 29.5/11.9 cm/sec. Mid CCA 101.0/13.5 cm/sec. Dist CCA 29.5/12.9 cm/sec. Dist CCA 95.6/16.4 cm/sec. Prox ICA 70.4/22.9 cm/sec. Prox ICA 116.0/18.8 cm/sec. Mid ICA 65.7/22.9 cm/sec. Mid ICA 114.0/17.0 cm/sec. Dist ICA 52.8/20.5 cm/sec. Dist ICA 71.5/15.8 cm/sec. Rt. ICA/CCA = 2.4. Lt. ICA/CCA = 1.2. Prox ECA 82.1/7.0 cm/sec. Prox ECA 247.0/0.0 cm/sec. Rt. Brachial BP = 120./68 mmHg. Lt. Vert. 133.0/22.8 cm/sec. Lt. Brachial BP = 160/78 mmHg. Right Extracranial There is heterogeneous, irregular atherosclerotic plaque noted in the right common carotid artery. There is heterogeneous, irregular atherosclerotic plaque noted in the right internal carotid artery. There is heterogeneous, irregular atherosclerotic plaque noted in the right external carotid artery. Rt Vertebral flow is RETROGRADE. Left Extracranial There is heterogeneous, irregular atherosclerotic plaque noted in the left common carotid artery. There is heterogeneous, irregular atherosclerotic plaque noted in the left internal carotid artery. There is heterogeneous, irregular atherosclerotic plaque noted in the left external carotid artery. Antegrade flow is noted in the left vertebral artery. Procedure Carotid Duplex [id number]. Exam performed in department. Interpretation Summary Irregular calcific plague within the right proximal, mid and distal common carotid Extensive irregular plague within the proximal right internal carotid with <50% stenosis. Retrograde flow right vertebral with lower right upper extremity BP compared to the left consistent with proximal right subclavian stenosis. Right thyroid 1.28 x 1.95cm solid cystic nodule Calcific irregular plague within the left proximal, mid, and distal common carotid. Irregular calcific plague within the proximal left internal carotid with <50% stenosis Moderate diseaes left external carotid Patent and antegrade bilateral vertebrals with increased velocity on the left Ordering Physician: Joe Alvarado Referring Physician: Yefri Noe Performed By: Debi Randle RVT
--- OUTSIDE RECORDS SUMMARY | 2018-10-13 17:36 | XMS RPT_ITS ---
:1940 Author Organization OHIP Support Name Relationship Address Phone TATE GAY Unavailable [address] + [place] [address] R Unavailable Unavailable Unavailable TATE, GAY Unavailable [address] + [place] [address] R Unavailable Unavailable Unavailable TATE GAY Unavailable [address] + [place] [address] R Unavailable Unavailable Unavailable TATE, GAY Unavailable [address] + [place] [address] R Unavailable Unavailable Unavailable TATE, GAY Unavailable [address] + [place] [address] R Unavailable Unavailable Unavailable TATE, GAY Unavailable [address] + [place] [address] R Unavailable Unavailable Unavailable TATE, GAY Unavailable [address] + [place] [address] R Unavailable Unavailable Unavailable TATE, GAY Unavailable [address] + [place] [address] R Unavailable Unavailable Unavailable TATE, GAY Unavailable [address] + [place] [address] R Unavailable Unavailable Unavailable TATE, GAY Unavailable [address] + [place] [address] R Unavailable Unavailable Unavailable TATE, GAY Unavailable [address] + [place] [address] R Unavailable Unavailable Unavailable TATE, GAY Unavailable [address] + [place] [address] R Unavailable Unavailable Unavailable TATE, GAY Unavailable [address] + [place] [address] R Unavailable Unavailable Unavailable TATE, GAY Unavailable [address] + [place] [address] R Unavailable Unavailable Unavailable TATE, GAY Unavailable [address] + [place] [address] R Unavailable Unavailable Unavailable TATEWILBERTE Unavailable [address] + [place] [address] R Unavailable Unavailable Unavailable TATEGAY Unavailable [address] + [place] [address] R Unavailable Unavailable Unavailable TATEWILBERTE Unavailable [address] + [place] [address] R Unavailable Unavailable Unavailable TATEGAY Unavailable [address] + [place] [address] R Unavailable Unavailable Unavailable TATEWILBERTE Unavailable [address] + [place] [address] R Unavailable Unavailable Unavailable GAY TATE Unavailable [address] + [place] [address] R Unavailable Unavailable Unavailable WILBERT TATEE Unavailable [address] + [place] [address] R Unavailable Unavailable Unavailable Care Team Providers [...] Christiano, Joe Chi Primary Care Unavailable Prajoe, Nicola Attending Unavailable Christiano, Joe Chi Primary Care Unavailable Prajoe, Nicola Consulting Unavailable Christiano, Joe Chi Attending Unavailable Christiano, Joe Chi Referring Unavailable Christiano, Joe Chi Primary Care Unavailable PROBLEMS PROBLEMS DATE TYPE CONDITION / CODE ATTENDING STATUS SOURCE 08/17/2018 Unknown M79.10 - Myalgia, Christiano, Joe Chi Active [facility] unspecified site / Community M79.10(ICD-10) Hospital Repository 08/17/2018 Unknown M25.519 - Pain in Christiano, Joe Chi Active [facility] unspecified shoulder Community / M25.519(ICD-10) Hospital Repository 08/17/2018 Unknown H81.10 - Benign Christiano, Joe Chi [...] Unknown D64.9 - Anemia, PraNicola diaz Active [facility] unspecified / Community D64.9(ICD-10) Hospital Repository 05/30/2018 Unknown R26.9 - Unspecified Christiano, Joe Chi Active [facility] abnormalities of Community gait and mobility / Hospital R26.9(ICD-10) Repository 04/10/2018 Unknown I51.7 - Cardiomegaly Noe, Yefri Active [facility] / I51.7(ICD-10) [facility] Hospital Repository 04/10/2018 Unknown E78.5 - Yefri Noe Active [facility] Hyperlipidemia, Community unspecified / Hospital E78.5(ICD-10) Repository 12/21/2017 Unknown Z78.0 - Asymptomatic ChristianoJoe andrade Chi Active [facility] menopausal state / Community Z78.0(ICD-10) Hospital Repository 12/21/2017 Unknown Z12.31 - Encounter Christiano, Joe Chi Active [facility] for screening Community mammogram for Hospital malignant neoplasm Repository of breast / Z12.31(ICD-10) 10/12/2017 Unknown 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 Community dysfunction of Hospital cervical region / Repository M99.01(ICD-10) 10/12/2017 Unknown M99.02 - Segmental Dossie, Dawn Active [facility] and somatic D.C. Community dysfunction of Hospital thoracic region / Repository M99.02(ICD-10) 10/12/2017 Unknown M99.03 - Segmental Dossie, Dawn Active [facility] and somatic D.C. 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 Community scoliosis, site Hospital unspecified / Repository M41.00(ICD-10) PROCEDURES PROCEDURES No Procedure Records FoundRESULTS RESULTS PT D/C SUMMARY (1) Observed: 08/16/2018 Status: F Source: [place] 6:51 PM [facility] REPOSITORY [facility] [place] [address] / REHABILITATION SERVICES DISCHARGE SUMMARY MR#: [id number] Acct: [id number] Name: JESS MELGZOA Rep #: [id number] : 1940 78 From: Mirna CAZARES Referring Dr.: Joe Alvarado MD Status: REG RCR Insurance: MEDICARE PART A B SELF PAY INSURANCE HP - PT D/C Summary It has been my pleasure to treat JESS MELGOZA under orders from Joe Alvarado MD, for the diagnosis of Muscle tension pain and shoulder pain for a total of 11 visit(s). Discharge Date: 08/09/18 Please see the following information for a summary of their discharge status. - Subjective Subjective: Pt feels that for the most part her tension is much better and Vicky has done a great job. It has decreased in size and intensity. She occ gets a twinge. She sleeps better at night. She is conscious when she turns over. It pulls when looking certain directions. Pt was given some exercises to do at home and showed her how to use the cane at home for the major knot in question. Pt has been working on her posture at home. Pt has a CT scan at 1:00 today. - Pain R sided c-spine pain Pain Intensity (Out of 10): 1 - Overall Improvement % Improvement: 95 - Objective Objective/Function: C-spine AROM: flex 80%, ext 75%, R rotation 70% and L rotation 75% - Goals Goal 1:: I HEP Goal Progress: Goal Met Goal 2:: Increase c-spine AROM by 25% each plane (at time of eval: extension 25%, flexion 75%, SB B 25%, Rot L 50% and Rot R 75%) Goal Progress: Goal Met Goal 3:: Decrease neck pain with movement to 4/10 and no neck pain when sitting still Goal Progress: Goal Met Goal 4:: Sit with upright posture during treatment sessions Goal Progress: Goal Met - Plan Plan: DC PT to HEP - D/C Information Discharge Comments: DC PT to HEP If there are questions or concerns regarding this patient's physical therapy, please feel free to call me at [phone]. Thank you for the referral of this patient. Sincerely, DEBORA Leon <Electronically signed by Mirna Costa MPT> 08/16/18 0919 CC: Joe Alvarado MD Signed CTA NECK W/WO Observed: 08/09/2018 Status: F Source: [place] CONTRAST 12:38 PM [facility] REPOSITORY [facility] Imaging Services [address] [place] [address] CTA Neck W/WO Contrast MR#: [id number] Acct: [id number] Name: JESS MELGOZA Rep #: [id number] : 1940 F 78 From: Royer Nance MD PCP: Christiano WHITE,Joe Salas Status: REG CLI Study: CTA Neck W/WO Contrast Date of Exam: 08/09/18 Exam# [id number] Ordering Dr: Nathan Zapata MD STUDY: CTA [...] segments. Intracranial vasculature: Limited evaluation about the [place] of [place] reveals no acute abnormality. CT/CTA [...] left common carotid artery. Carotid stenosis assessment: Tay H, et al. Quantitative Vascular Measurements in Arterial Occlusive Disease. [employer] 2005;25:5937-5789. The [place] Symptomatic Carotid Endarterectomy Trial (NASCET) Electronically Signed: Royer Nance MD at 17:54 EST Tel , Service support , CC: Nathan Zapata MD; Joe Alvarado MD Outside Salesman: Signed CTA CHEST W/WO Observed: 08/09/2018 Status: F Source: [place] CONTRAST 12:38 PM [facility] REPOSITORY [facility] Imaging Services [address] [place] [address] CTA Chest W/WO Contrast MR#: [id number] Acct: [id number] Name: JESS MELGOZA Rep #: [id number] : 1940 F 78 From: Royer Nance MD PCP: Christiano WHITE,Joe Salas Status: REG CLI Study: CTA Chest W/WO Contrast Date of Exam: 08/09/18 Exam# [id number] Ordering Dr: Nathan Zapata MD STUDY: CTA [...] CC: Nathan Zapata MD; Joe Alvarado MD Outside Salesman: Signed SURGERY VISIT REPORT Observed: 08/09/2018 Status: F Source: [place] 9:27 AM [facility] [address] [place] [address]. [address] [place] [address] OFFICE VISIT Date of Service: 08/09/18 MR#: [id number] Acct: [id number] Name: JESS MELGOZA Rep #: [id number] : 1940 Provider: Nathna Zapata MD Age/Sex: 78/F Location: [facility] Status: Signed Intake Vital Signs08/09/18 Body Mass Index (BMI) 25.5 Intake Visit Reasons: bilateral thyroid FNA Chief Complaint: bilateral thyroid nodules Embedded Linux Developer Required: No Is patient in pain?: No [...] the lesion under ultrasound guidance. A rapid qovz-sfv-rgsiv motion was performed. Specimen was obtained and [...] F.A.C.S. 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 / 08/09/18 TC:5 CPT: 88356, 49669, 49486 CYTOLOGY STUDY Slides are reviewed. DIAGNOSIS CYTOLOGY [...] on file> Performed By: #### PFLU #### [facility] [address] [place], [address] PT D/C SUMMARY (2) Observed: 08/03/2018 Status: F Source: [place] 8:58 AM [facility] REPOSITORY [facility] [address] [place] [address]. [address] [place] [address] / REHABILITATION SERVICES DISCHARGE SUMMARY MR#: [id number] Acct: [id number] Name: JESS MELGOZA Rep #: [id number] : 1940 78 From: Ayush Billingsley DPT, [...] please feel free to call me at [phone]. Thank you for the referral of this patient. Sincerely, Ayush Billingsley, DPT, OCS, CSCS <Electronically signed by Ayush Billingsley DPT, OCS, CSCS> 08/03/18 0858 CC: Jeo Alvarado MD EBG Signed SURGERY VISIT REPORT Observed: 07/29/2018 Status: F Source: [place] 10:13 AM [facility] [address] [facility] [place] [address] OFFICE VISIT Date of Service: 07/29/18 MR#: [id number] Acct: [id number] Name: JESS MELGOZA Rep #: [id number] : 1940 Provider: Nathan Zapata MD Age/Sex: 78/F Location: [facility] Status: Signed Intake Vital Signs07/29/18 Height 5 ft 1 in 07/29/18 Weight: 135 lb 2 oz 07/29/18 Body Mass Index (BMI) 25.5 07/29/18 Blood Pressure 145/54 H Intake Visit Reasons: R Side Thyroid Nodules US 07/26/17 Chief Complaint: bilateral thyroid nodules Embedded Linux Developer Required: No Is patient in pain?: No [...] medicine. She states that she was in [place] had some problems with dizziness and hypertension [...] subclavian stenosis as well on the right [facility] Imaging Services [address] [place] [address] Thyroid MR#: [id number] Name: JESS MELGOZA JRep #:[id number] : 1940F 78 From: Curt Harman DO PCP:Joe Alvarado MD, Chi Status:REG CLI Study:Thyroid Date of Exam:07/26/18 Exam#[id number] Ordering Dr: Joe Alvarado MD STUDY: THYROID [...] 8:46 EST Tel , Service support , [facility] Cardiovascular Services [address] [place] [address] Carotid Duplex Ultrasound 07/12/18 1231 MR#: [id number]:[id number] Name: JESS MELGOZA [facility] #:[id number] : 1940 78From: Nathan Zapata MD Attending Dr: Christiano WHITE,Joe SalasStatus: REG CLI Ordering Dr: Joe Alvarado MDDate: 07/12/18 Location:CVSSex:FC Admitted: Reason For Study: [...] the left vertebral artery. Procedure Carotid Duplex 18163. Exam performed in department. Interpretation Summary Irregular [...] I65.23 07/29/18 1013 <Electronically signed by Nathan Zapata MD> Date Nathan Zapata MD Cosigner Signature: Date (if applicable) CC: Joe Alvarado MD INITIAL EVALUATION (2) Observed: 07/27/2018 Status: F Source: [facility] 9:26 AM [facility] Physical Therapy Health[address] [place] [address] / REHABILITATION SERVICES INITIAL EVALUATION MR#: [id number] Acct: [id number] Name: JESS MELGOZA Rep #: [id number] : 1940 78 From: Ayush Billingsley DPT, OCS, CSCS Referring Dr.: Joe Alvarado MD Status: REG RCR Insurance: MEDICARE PART A B SELF PAY INSURANCE Patient's Visit Information JESS MELGOZA is a 78 year old F referred to Physical Therapy by Joe Alvarado MD with a diagnosis of BPPV. Date of Evaluation: 01/02/19 Physical Therapist: Ayush Jsoe Cruz, DPT, OCS, CSCS - Visit Plan Frequency: [...] carotid artery and possibly vertigo. Back to [place] next couple days and vertigo symptoms have [...] + L hallpike up torsional nystagmus. Treated balbina Bray then - ROSALEE. FGA is normal for age. romberg is [...] to be FAXED BACK to us at [phone] for Medicare purposes. For Medicare only, by signing this I certify the plan of care. Please let me know if there are questions or concerns regarding this plan of care. Physician Signature: Date: <Electronically signed by Ayush Billingsley DPT, OCS, CSCS> 07/27/18 0926 CC: Joe Alvarado MD EBG Signed THYROID Observed: 07/26/2018 Status: F Source: [place] 7:47 AM [facility] REPOSITORY [facility] Imaging Services [address] [place] [address] [place] [address] Thyroid MR#: [id number] Acct: [id number] Name: JESS MELGOZA Rep #: [id number] : 1940 F 78 From: Curt Harman DO PCP: Joe Alvarado MD, Chi Status: REG CLI Study: Thyroid Date of Exam: 07/26/18 Exam# [id number] Ordering Dr: Joe Alvarado MD STUDY: THYROID [...] Service support , CC: Joe Alvarado MD Outside Salesman: Signed CAROTID DUPLEX Observed: 07/12/2018 Status: F Source: [place] ULTRASOUND 8:59 PM [facility] REPOSITORY [facility] Cardiovascular Services [address] [place] [address] Carotid Duplex Ultrasound 07/12/18 1231 MR#: [id number] Acct: [id number] Name: JESS MELGOZA Rep #: [id number] : 1940 78 From: Nathan Zapata MD Attending Dr: Christiano WHITE,Joe Salas Status: REG CLI Ordering Dr: Joe Alvarado [...] the left vertebral artery. Procedure Carotid Duplex 52166. Exam performed in department. Interpretation Summary Irregular [...] Date Dictated: 07/12/18 1231 Date Transcribed: 07/12/182058 Outside Salesman: Signed INITAL EVALUATION (1) Observed: 07/07/2018 Status: F Source: [place] - PT 2:18 PM [facility] REPOSITORY [facility] [address] [place] [address] Fax REHABILITATION SERVICES INITIAL EVALUATION MR#: [id number] Acct: [id number] Name: JESS MELGOZA Rep #: [id number] : 1940 78 From: Mirna CAZARES Referring Dr.: Joe Alvarado MD Status: REG [...] in here ( ER behind her head)). yesterday said that there was a knot [...] to be FAXED BACK to us at [phone] for Medicare purposes. For Medicare only, by signing this I certify the plan of care. Please let me know if there are questions or concerns regarding this plan of care. Physician Signature: Date: <Electronically signed by Mirna Costa MPT> 07/07/18 1418 CC: Joe Alvarado MD Signed CBC W/DIFF, AUTOMATED Collected: 07/05/2018 Status: F Source: [place] 2:47 PM [facility] REPOSITORY TYPE CODE TESTS RESULT OUT OF [...] Lymph 2.33 Performed By: #### L100.0100 #### [facility] [address] [place], [address] BASIC METABOLIC Collected: 07/05/2018 Status: F Source: [place] PROFILE ([facility]) 2:47 PM [facility] REPOSITORY TYPE CODE TESTS RESULT OUT OF [...] GAP 8 Performed By: #### L500.2500 #### [facility] [address] [place], [address] ONCOLOGY VISIT REPORT Observed: 05/30/2018 Status: F Source: [place] 12:22 PM [facility] REPOSITORY [facility] [address] [place] [address] OFFICE VISIT Date of Service: 05/30/18 1211 MR#: [id number] Acct: [id number] Name: JESS MELGOZA Rep #: [id number] : 1940 From: Nicola El MD Age/Sex: [...] unspecified Code Visit Office Visits / Consults: 89727 OV L3 Est 05/30/18 1222 <Electronically signed by Nicola El MD> Date Nicola El MD Cosigner Signature: Date (if applicable) CC: Joe Alvarado MD PT D/C SUMMARY (1) Observed: 05/26/2018 Status: F Source: [place] 10:19 AM [facility] REPOSITORY [facility] [place], [place] [address] Fax REHABILITATION SERVICES DISCHARGE SUMMARY MR#: [id number] Acct: [id number] Name: JESS MELGOZA Rep #: [id number] : 1940 78 From: Kaila Alcala DPNae Referring Dr.: Joe Alvarado MD Status: REG [...] please feel free to call me at [phone]. Thank you for the referral of this patient. Sincerely, Kaila Alcala <Electronically signed by Kaila Alcala DPT> 05/26/18 1019 CC: Joe Alvarado MD ELR Signed Observed: 05/24/2018 Status: F Source: [place] STOOL OCCULT BLOOD 9:00 AM [facility] IFOB REPOSITORY Reason for Laboratory Test . STOB iFOB Occult Blood Negative Performed By: #### M100.7900 #### [facility] [address] [place], [address] ONCOLOGY CONSULTATION Observed: 05/23/2018 Status: F Source: [place] 11:28 AM [facility] REPOSITORY [facility] [address] [place] [address] Oncology Consultation Date of Service: 05/23/18 1051 MR#: [id number] Acct: [id number] Name: JESS MELGOZA Rep #: [id number] : 1940 From: Nicola El MD Age/Sex: 78/F Location: [facility] Status: Signed Consult Referring Physician: Dr. Alvarado Consult Results: Anemia Subjective Date of Service:: 05/23/18 Chief Complaint: Referred for anemia. History of Present Illness: 78y.o.woman with HTN, Hypothyroidism, OA was found to have Hgb of 10.5 on 05/18/2018 and referred for evaluation and management. She feels well, denies blood in the stools, bruises, epistaxis. She is eating well. Power of Business Affairs Manager: Yes Living Will: Yes Health History: Past [...] unspecified Code Visit Office Visits / Consults: 31702 OP Consult L5 05/23/18 1128 <Electronically signed by Nicola El MD> Date Nicola El MD Cosigner Signature: Date (if applicable) CC: Joe Alvarado MD CBC W/DIFF, AUTOMATED Collected: 05/23/2018 Status: F Source: [place] 11:16 AM [facility] REPOSITORY Order Comment: Reason for Laboratory Test [...] 2.29 Performed By: #### L100.0100, L101.9900 #### [facility] [address] [place], [address] ERYTHROCYTE SED RATE Collected: 05/23/2018 Status: F Source: [place] 11:16 AM [facility] REPOSITORY Order Comment: Reason for Laboratory Test . TYPE CODE TESTS RESULT OUT OF RANGE REFERENCE UNITS LAB L102.0000 0-30 mm/hr Normal SED RATE 28 Performed By: #### L100.0100, L101.9900 #### [facility] [address] [place], [address] VITAMIN B12 Collected: 05/23/2018 Status: F Source: [place] 11:16 AM [facility] REPOSITORY Order Comment: Reason for Laboratory Test . TYPE CODE TESTS RESULT OUT OF RANGE REFERENCE UNITS LAB L503.0105 211-911 pg/mL Normal Vitamin B12 687 Performed By: #### L503.0105 #### [facility] [address] [place], [address] COMPREHENSIVE METABOLIC Collected: 05/23/2018 Status: F Source: [facility] 11:16 AM [facility] REPOSITORY Order Comment: Reason for Laboratory Test [...] By: #### L500.4050, L503.6030, L503.6550, L506.0250 #### [facility] [address] [place], [address] IRON+IRON BINDING Collected: 05/23/2018 Status: F Source: [facility] 11:16 AM [facility] REPOSITORY Order Comment: Reason for Laboratory Test . Is Patient Taking Vitamins or Folic Acid Supplements? N TYPE CODE TESTS RESULT OUT OF RANGE REFERENCE UNITS LAB L503.6075 250-450 ug/dL TIBC Normal 336 LAB L503.6150 50-170 ug/dL IRON Normal 85 LAB L503.6250 15.0-55.0 % IRON Normal SATURATION 25.3 Performed By: #### L500.4050, L503.6030, L503.6550, L506.0250 #### [facility] [address] [place], [place], [address] FERRITIN Collected: 05/23/2018 Status: F Source: [place] 11:16 AM [facility] REPOSITORY Order Comment: Reason for Laboratory Test . Is Patient Taking Vitamins or Folic Acid Supplements? N TYPE CODE TESTS RESULT OUT OF RANGE REFERENCE UNITS LAB L503.6550 8-252 ng/mL Normal FERRITIN 84 Performed By: #### L500.4050, L503.6030, L503.6550, L506.0250 #### [facility] [address] [place], [place], [address] FOLATES, (FOLIC ACID) Collected: 05/23/2018 Status: F Source: [place] 11:16 AM [facility] REPOSITORY Order Comment: Reason for Laboratory Test . Is Patient Taking Vitamins or Folic Acid Supplements? N TYPE CODE TESTS RESULT OUT OF REFERENCE UNITS RANGE LAB L506.0250 3.1-55.4 ng/mL High FOLATES > 100.00 Performed By: #### L500.4050, L503.6030, L503.6550, L506.0250 #### [facility] [address] [place], [place], [address] ERYTHROPOIETIN Collected: 05/23/2018 Status: F Source: [place] 11:16 AM [facility] REPOSITORY Order Comment: Reason for Laboratory Test . TYPE CODE TESTS RESULT OUT OF RANGE REFERENCE UNITS LAB L3100.1350 2.6-18.5 mIU/mL Normal ERYTHROP 11.9 222104 Result Comment: 7billionideasel DxI 800 Immunoassay System Performed at: - [facility] [address] [id number] Professor Of Art History: Aneudy Willis PhD, Phone: [phone] Performed By: #### L3100.1350 #### [facility] (refer to report for specific site) refer to report for address and phone number CBC W/DIFF, AUTOMATED Collected: 05/18/2018 Status: F Source: [place] 10:26 AM [facility] REPOSITORY TYPE CODE TESTS RESULT OUT OF [...] Lymph 2.50 Performed By: #### L100.0100 #### [facility] [address] [place], [address] VITAMIN D,25 HYDROXY Collected: 05/18/2018 Status: F Source: [place] 10:26 AM [facility] REPOSITORY TYPE CODE TESTS RESULT OUT OF RANGE REFERENCE UNITS LAB L506.1000 29.95-100.01 ng/mL Normal Vitamin D 34.8 25-OH Result Comment: Vitamin D 25(OH) Status Range Deficiency <20 ng/mL (50nmol/L) Insuffciency 20 - 30 ng/mL (50 - 75 nmol/L) Sufficiency 30 - 100 ng/mL (75 - 250 nmol/L) Toxicity >100 ng/mL (>250 nmol/L) Performed By: #### L506.1000 #### [facility] [place], [address] COMPREHENSIVE METABOLIC Collected: 05/18/2018 Status: F Source: [place] [facility] 10:26 AM [facility] REPOSITORY TYPE CODE TESTS RESULT OUT OF [...] Performed By: #### L500.4050, L501.1400, L501.9520 #### [facility] [address] [place], [address] URIC ACID Collected: 05/18/2018 Status: F Source: [place] 10:26 AM [facility] REPOSITORY TYPE CODE TESTS RESULT OUT OF RANGE REFERENCE UNITS LAB L501.1400 2.6-6.0 mg/dL Normal URIC 3.4 Result Comment: The drugs N-Acetylcysteine and Metamizole may falsely depress this assay. Performed By: #### L500.4050, L501.1400, L501.9520 #### [facility] [facility] [address] [place], [address] THYROID STIM HORMONE Collected: 05/18/2018 Status: F Source: [place] (TSH) 10:26 AM [facility] REPOSITORY TYPE CODE TESTS RESULT OUT OF RANGE REFERENCE UNITS LAB L501.9520 0.358-3.74 uIU/mL Normal TSH 1.68 Performed By: #### L500.4050, L501.1400, L501.9520 #### [facility] [address] [place], [place], [address] RE-EVALUATION - PT (1) Observed: 05/08/2018 Status: F Source: [place] 7:21 AM [facility] REPOSITORY [facility] [address] [place], [place] [address] Fax REEVALUATION / MEDICARE RECERTIFICATION PHYSICAL THERAPY MR#: [id number] Acct: [id number] Name: JESS MELGOZA Rep #: [id number] : 1940 78 From: Kaila MCINTOSHT Referring DrIsrael: Joe Alvarado MD Status: REG RCR Insurance: [...] get out of car okay. Goals: walking retirement through [employer] without having stop. Pt. thinks reason cannot [...] do not hesitate to contact me at [phone] by phone or if you have questions or concerns regarding this new plan of care! Sincerely, Kaila Alcala <Electronically signed by Kaila Alcala DPT> 05/08/18 0721 CC: Joe Alvarado MD ELR Signed For Medicare only, by signing this I certify the plan of care. Physicians Signature Date INITAL EVALUATION (1) Observed: 04/17/2018 Status: F Source: AVERY - PT 11:52 AM [facility] REPOSITORY [facility] [address] [place], [place] [address] Fax REHABILITATION SERVICES INITIAL EVALUATION MR#: [id number] Acct: [id number] Name: JESS MELGOZA Rep #: [id number] : 1940 77 From: Kaila MCINTOSHT Referring DrIsrael: Status: REG RCR Insurance: MEDICARE PART A [...] different things. Creaking in her neck, decreased inspector hot forgings strength, aches all over like she has [...] in bed with a heating pad Best: 10. Describes the pain as shooting and dull. [...] Ankle: 4+/5 all with discomfort. 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 Please let me know if there are questions or concerns regarding this plan of care. Physician Signature: Date: <Electronically signed by Kaila Alcala DPT> 04/17/18 1154 CC: OUT OF TOWN DOCTOR; Joe Alvarado MD ELR Signed For Medicare only, by signing this I certify the plan of care. Physicians Signature Date CARDIOLOGY VISIT Observed: 04/10/2018 Status: F Source: [place] REPORT 1:30 PM [facility] REPOSITORY [facility] [address] [place] [address] OFFICE VISIT Date of Service: 04/10/18 MR#: [id number] Acct: [id number] Name: JESS MELGOZA Rep #: [id number] : 1940 Provider: Yefri Noe MD Age/Sex: 77/F Location: [facility] Status: Signed HPI HPI Chief Complaint: Routine f/u Details: is a very pleasant 77-year-old female with a history of hypertension, apparently nonobstructive coronary disease by previous catheterization 2003, hyperlipidemia, degenerative joint disease status post hip replacement surgery in 2009. She also has a history of tobacco abuse and quit in 1994 after a 18-rkcm-xtxp smoking history. 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 Is patient in pain?: Yes [...] mg PO QWEEK 04/10/18 [History Confirmed 04/10/18] [facility] Medical History Lung cancer (Chronic) COPD [...] Yefri Noe MD> Date Yefri Noe MD [facility] Signature: Date (if applicable) CC: Joe Alvarado MD SCREENING MAMM (CAD), Observed: 12/21/2017 Status: F Source: [place] BILAT 9:30 AM [facility] REPOSITORY [facility] Imaging Services [address] [place] [address] SCREENING MAMM (CAD), BILAT MR#: [id number] Acct: [id number] Name: JESS MELGOZA Rep #: [id number] : 1940 F 77 From: Xander Medina MD PCP: Joe Alvarado MD, Chi Status: REG CLI Study: SCREENING MAMM (CAD), BILAT Date of Exam: 12/21/17 Exam# [id number] Ordering Dr: Joe Alvarado MD MAMMOGRAPHY - [...] delay biopsy of a clinically suspicious abnormality. [id number] Electronically Signed: Xander Medina MD at 12:36 EDT Tel [phone], Service support , CC: Joe Alvarado MD Outside Salesman: Signed DEXA BONE DENSITY Observed: 12/21/2017 Status: F Source: [place] STUDY 9:30 AM [facility] REPOSITORY [facility] Imaging Services [address] [place] [address] Dexa Bone Density Study MR#: [id number] Acct: [id number] Name: JESS MELGOZA Rep #: [id number] : 1940 F 77 From: Xander Medina MD PCP: Joe Alvarado MD, Chi Status: REG CLI Study: Dexa Bone Density Study Date of Exam: 12/21/17 Exam# [id number] Ordering Dr: Joe Alvarado MD STUDY: DUAL [...] Xander Medina MD at 9:23 EDT Tel [phone], Service support , CC: Joe Alvarado MD Outside Salesman: Signed CBC W/DIFF, AUTOMATED Collected: 11/16/2017 Status: F Source: [place] 11:05 AM [facility] REPOSITORY TYPE CODE TESTS RESULT OUT OF [...] Lymph 2.13 Performed By: #### L100.0100 #### [facility] [address] [place], [place], [address] VITAMIN D,25 HYDROXY Collected: 11/16/2017 Status: F Source: [place] 11:05 AM [facility] REPOSITORY TYPE CODE TESTS RESULT OUT OF RANGE REFERENCE UNITS LAB L506.1000 29.95-100.01 ng/mL Normal Vitamin D 34.5 25-OH Result Comment: Vitamin D 25(OH) Status Range Deficiency <20 ng/mL (50nmol/L) Insuffciency 20 - 30 ng/mL (50 - 75 nmol/L) Sufficiency 30 - 100 ng/mL (75 - 250 nmol/L) Toxicity >100 ng/mL (>250 nmol/L) Performed By: #### L506.1000 #### [facility] [place], [address] COMPREHENSIVE METABOLIC Collected: 11/16/2017 Status: F Source: [facility] 11:05 AM [facility] REPOSITORY TYPE CODE TESTS RESULT OUT OF [...] Performed By: #### L500.4050, L501.1400, L501.9520 #### [facility] [address] [place], [address] URIC ACID Collected: 11/16/2017 Status: F Source: [place] 11:05 AM [facility] REPOSITORY TYPE CODE TESTS RESULT OUT OF RANGE REFERENCE UNITS LAB L501.1400 2.6-6.0 mg/dL Normal URIC 3.8 Result Comment: The drugs N-Acetylcysteine and Metamizole may falsely depress this assay. Performed By: #### L500.4050, L501.1400, L501.9520 #### [facility] [address] [place], [address] THYROID STIM HORMONE Collected: 11/16/2017 Status: F Source: [place] (TSH) 11:05 AM [facility] REPOSITORY TYPE CODE TESTS RESULT OUT OF RANGE REFERENCE UNITS LAB L501.9520 0.358-3.74 uIU/mL Normal TSH 0.59 Performed By: #### L500.4050, L501.1400, L501.9520 #### [facility] [address] [place], [address] CHIROPRACTIC REPORT Observed: 10/13/2017 Status: F Source: [place] 11:23 AM [facility] REPOSITORY [facility] [address] [place] [address]2441 OFFICE VISIT Date of Service: 10/11/17 MR#: [id number] Acct: [id number] Name: JESS MELGOZA Rep #: [id number] : 1940 Provider: Dawn Lovett D.C. Age/Sex: 77/F Location: [facility] Status: Signed Intake Vital Signs03/20/18 Height 5 ft 10/11/17 Weight: 137 lb [...] PO PRN tab 09/15/17 [History Confirmed 09/15/17] [facility] Medical History Premature ventricular beat (Chronic) [...] Additional Codes Procedures - Manipulation: 3-4 regions (75487) 10/13/17 1123 <Electronically signed by Dawn Lovett D.C.> Date Dawn Lovett D.C. Cosigner Signature: Date (if applicable) CC: CHIROPRACTIC REPORT Observed: 10/06/2017 Status: F Source: [place] 9:14 AM [facility] [address] [place] [address] OFFICE VISIT Date of Service: 10/04/17 MR#: [id number] Acct: [id number] Name: JESS MELGOZA Rep #: [id number] : 1940 Provider: Dawn Lovett D.C. Age/Sex: 77/F Location: [facility] Status: Signed Intake Vital Signs10/04/17 Height 5 [...] PO PRN tab 09/15/17 [History Confirmed 09/15/17] PFS Medical History Premature ventricular beat (Chronic) PAC [...] Additional Codes Procedures - Manipulation: 3-4 regions (23393) 10/06/17 0914 <Electronically signed by Dawn Lovtet D.C.> Date Dawn Lovett D.C. Cosigner Signature: Date (if applicable) CC: CARDIOLOGY VISIT Observed: 09/15/2017 Status: F Source: [place] REPORT 3:43 PM [facility] REPOSITORY [facility] [address] [place] [address] OFFICE VISIT Date of Service: 09/15/17 MR#: [id number] Acct: [id number] Name: JESS MELGOZA Rep #: [id number] : 1940 Provider: Yefri Noe MD Age/Sex: 77/F Location: [facility] Status: Signed HPI HPI Chief Complaint: Routine F/u Details: HPI Referring physician: Dr. Avlarado is a very pleasant 77-year-old female with a history of hypertension, apparently nonobstructive coronary disease by last catheterization 2003, hyperlipidemia, degenerative joint disease status post hip replacement surgery in 2009. She also has a history of tobacco abuse and quit in 1994 after a 50-omxa-vdgg smoking history. The patient was originally referred [...] PO PRN tab 09/15/17 [History Confirmed 09/15/17] [facility] Medical History Premature ventricular beat (Chronic) PAC [...] MD Cosigner Signature: Date (if applicable) CC: ALLERGIES ALLERGIES DATE TYPE / CODE NAME / CODE REACTION SEVERITY SOURCE 07/29/2018 Drug NSAIDS Unknown Unknown [place] [facility]/984021351(S [facility]F [facility] 044437754(RXNOR Repository M) 07/29/2018 Drug misoprostol/F00 Unknown Unknown [place] Allergy/106725393(S 5609313(RXNORM) [facility]) Hospital Repository 07/29/2018 Drug adhesive blisters Unknown [place] Allergy/005527640(S tape/[id number] [facility]) (RXNORM) Hospital Repository 07/29/2018 Drug diclofenac/F006 Unknown Unknown [place] Allergy/107663018(S 697597(RXNORM) [facility]) Hospital Repository 05/30/2018 Miscellaneous iodine contrast Rash Unknown [place] Allergy/416190534(S [facility]) Hospital Repository 10/11/2014 Drug diclofenac Upset Stomach Unknown [place] Allergy/513356392(S sodium/W5537199 [facility](RXNORM) Hospital Repository 10/11/2014 Drug Iodine and Rash Unknown [place] Allergy/062090173(S Iodide [facility]) [facility] Hospital Produc/P7103766 Repository 75(RXNORM) 10/11/2014 Drug peanut/H5649790 Diarrhea Unknown [place] Allergy/231053496(S 68(RXNORM) [facility]) Hospital Repository 10/11/2014 Drug adhesive/P66391 Other Unknown [place] Allergy/766783637(S 3245(RXNORM) [facility] NOMED CT) Hospital Repository 10/11/2014 Drug corn/[id number] Upset Stomach Unknown [place] Allergy/261302556(S (RXNORM) [facility] NOMED CT) Hospital Repository ENCOUNTERS ENCOUNTERS ADMIT/DISCHARGE ACCOUNT ADMITTING ENCOUNTER LOCATION SOURCE NUMBER CLASS 08/09/2018 [id number] Ambulatory [place] 3 [facility] Hospital ing:CT Repository 08/09/2018/ [id number] Ambulatory [place] 9 8 [facility] ing:PT Repository 08/09/2018/ [id number] Ambulatory BMSBuilding:B [place] 9 4 [facility] Repository 07/29/2018/ [id number] Ambulatory BMSBuilding:B [place] 9 2 [facility] Repository 07/26/2018 [id number] Ambulatory [place] 6 [facility] Hospital ing:US Repository 07/12/2018 [id number] Ambulatory [place] 8 [facility] Hospital ing:CVS Repository 07/05/2018 [id number] Ambulatory [place] 2 [facility] Hospital ing:POLAB3 Repository 05/30/2018 [id number] Ambulatory BMSBuilding:B [place] 6 [facility] Repository 05/30/2018 [id number] Ambulatory [place] 5 [facility] Hospital ing:OMD Repository 05/26/2018/ [id number] Ambulatory [place] 8 7 [facility] Hospital ing:PT Repository 05/24/2018 [id number] Ambulatory [place] 1 [facility] Hospital ing:LABSPEC Repository 05/23/2018 [id number] Ambulatory BMSBuilding:B [place] 6 [facility] Repository 05/18/2018 [id number] Ambulatory [place] 0 [facility] Hospital ing:POLAB3 Repository 04/10/2018/ [id number] Ambulatory BMSBuilding:B [place] 8 0 [facility] Repository 02/06/2018 [id number] Ambulatory BMSBuilding:B [place] 0 [facility] Repository 02/06/2018 [id number] Ambulatory BMSBuilding:B [place] 1 [facility] Repository 12/21/2017 [id number] Ambulatory [place] 0 [facility] Hospital ing:OPBD Repository 11/16/2017 [id number] Ambulatory [place] 6 [facility] ing:POLAB3 Repository 10/11/2017/ [id number] Ambulatory BMSBuilding:B [place] 8 [address] [facility] Repository 10/04/2017/ [id number] Ambulatory BMSBuilding:B [place] 8 [address] [facility] Repository 09/15/2017/ [id number] Ambulatory BMSBuilding:B [place] 8 1 [facility] Repository 09/14/2017 [id number] Ambulatory BMSBuilding:B [place] 8 [facility] Repository PAYERS PAYERS ENCOUNTER GUARANTOR PAYER SUBSCRIBER SOURCE 08/09/2018 JESS KIRK2 Primary JESS JETT CTAPT Insurance:MEDICARE TAMMENDOB: [place] PART A [facility] [id number] [address]Tel: (330) Number: Repository [phone] () [id number] Date:2018-07-31 08/09/2018 Secondary NOT GIVENUNK [place] Insurance:SELF PAY [facility] Number: Effective Repository Date:2018-07-31 08/09/2018 JESS MELGOZA582 Primary JESS JETT CTAPT Insurance:MEDICARE TAMMENDOB: [place] PART A [facility] [id number] Hospital [address]Seh: (330) Number: Repository [phone] (HP) [id number] Date:2018-06-12 08/09/2018 Secondary NOT GIVENUNK [place] Insurance:SELF PAY [facility] Number: Effective Repository Date:2018-06-12 08/09/2018 JESS MELGOZA582 Primary JESS JETT CTAPT Insurance:MEDICARE TAMMENDOB: [place] PART A olic [id number] Hospital [address]Exe: (330) Number: Repository [phone] () [id number] Date:2018-07-29 08/09/2018 Secondary NOT GIVENUNK [place] Insurance:SELF PAY [facility] Number: Effective Repository Date:2018-08-07 07/29/2018 JESS VILLANUEVA Primary JESS JETT CTAPT Insurance:MEDICARE TAMMENDOB: [place] PART A olicy [id number] Hospital [address]Urm: (330) Number: Repository [phone] () [id number] Date:2018-07-27 07/29/2018 Secondary NOT GIVENUNK [place] Insurance:SELF PAY [facility] Number: Effective Repository Date:2018-07-27 07/26/2018 JESS MELGOZA582 Primary JESS JETT CTAPT Insurance:MEDICARE TAMMENDOB: [place] PART A olic [id number] Hospital [address]Rzv: (330) Number: Repository [phone] () [id number] Date:2018-07-21 07/26/2018 Secondary NOT GIVENUNK [place] Insurance:SELF PAY [facility] Number: Effective Repository Date:2018-07-21 07/12/2018 JESS MELGOZA582 Primary JESS JETT CTAPT Insurance:MEDICARE TAMMENDOB: [place] PART A olic [id number] Hospital [address]Tfr: (330) Number: Repository [phone] () [id number] Date:2018-07-05 07/12/2018 Secondary NOT GIVENUNK [place] Insurance:SELF PAY [facility] Number: Effective Repository Date:2018-07-05 07/05/2018 JESS MELGOZA582 Primary JESS JETT CTAPT Insurance:MEDICARE [place]AMMENDOB: [facility] [place] [facility] [id number] Hospital [address]Hub: (330) Number: Repository [phone] () [id number] Date:2018-07-05 07/05/2018 Secondary NOT GIVENUNK [place] Insurance:SELF PAY [facility] Number: Effective Repository Date:2018-07-05 05/30/2018 JESS MELGOZA582 Primary JESS Shavonne JETT CTAPT Insurance:MEDICARE TAMMENDOB: [place] PART A [facility] [id number] Hospital [address]Jea: (330) Number: Repository [phone] () [id number] Date:2018-05-22 05/30/2018 Secondary NOT GIVENUNK [place] Insurance:SELF PAY [facility] Number: Effective Repository Date:2018-05-30 05/30/2018 JESS MELGOZA582 Primary JESS Shavonne JETT CTAPT Insurance:MEDICARE TAMMENDOB: [facility] [place] [facility] [id number] Hospital [address]Nvb: (330) Number: Repository [phone] () [id number] Date:2018-05-22 05/30/2018 Secondary NOT GIVENUNK [place] Insurance:SELF PAY [facility] Number: Effective Repository Date:2018-05-22 05/26/2018 JESS MELGOZA582 Primary JESS Shavonne JETT CTAPT Insurance:MEDICARE TAMMENDOB: [place] PART A [facility] [id number] Hospital 285[address]Chm: (330) Number: Repository [phone] () [id number] Date:2007-03-25 05/26/2018 Secondary NOT GIVENUNK [place] Insurance:SELF PAY [facility] Number: Effective Repository Date:2018-04-17 05/24/2018 JESS KIRK2 Primary JESS Shavonne JETT CTAPT Insurance:MEDICARE TAMMENDOB: [facility] [place] [facility] [id number] Hospital 160[address]Omv: (330) Number: Repository [phone] () [id number] Date:2018-05-24 05/24/2018 Secondary NOT GIVENUNK [place] Insurance:SELF PAY [facility] Hospital Number: Effective Repository Date:2018-05-24 05/23/2018 JESS VILLANUEVA Primary JESS JETT CTAPT Insurance:MEDICARE TAMMENDOB: [place] PART A olicy [id number] Hospital 100[address]Wgm: (330) Number: Repository [phone] () [id number] Date:2018-05-22 05/23/2018 Secondary NOT GIVENUNK [place] Insurance:SELF PAY [facility] Number: Effective Repository Date:2018-05-23 05/18/2018 JESS KIRK2 Primary JESS JETT CTAPT Insurance:MEDICARE [facility]AM[place]ENDOB[facility] [place] o[place] [id number] Hospital [address]Dud: (330) Number: Repository [phone] () [id number] Date:2018-05-18 05/18/2018 Secondary NOT GIVENUNK [place] Insurance:SELF PAY [facility] Number: Effective Repository Date:2018-05-18 04/10/2018 JESS MELGOZA582 Primary JESS JETT CTAPT Insurance:MEDICARE TAMMENDOB: [place] PART A olicy [id number] Hospital [address]Tkd: (330) Number: Repository [phone] () [id number] Date:2017-09-15 04/10/2018 Secondary NOT GIVENUNK [place] Insurance:SELF PAY [facility] Number: Effective Repository Date:2018-04-10 02/06/2018 JESS MELGOZA582 Primary JESS JETT CTAPT Insurance:MEDICARE TAMMENDOB: [place] PART A [facility] [id number] Hospital [address]Ido: (330) Number: Repository [phone] () [id number] Date:2018-02-06 02/06/2018 Secondary NOT GIVENUNK [place] Insurance:SELF PAY [facility] Number: Effective Repository Date:2018-02-06 02/06/2018 JESS MELGOZA582 Primary JESS JETT CTAPT Insurance:MEDICARE [place]OB[place] o[place] [id number] Hospital [address]Oau: (330) Number: Repository [phone] () [id number] Date:2018-02-06 02/06/2018 Secondary NOT GIVENUNK [place] Insurance:SELF PAY [facility] Number: Effective Repository Date:2018-02-06 12/21/2017 JESS MELGOZA582 Primary JESS JETT CTAPT Insurance:MEDICARE TAMMENDOB: [place] PART A o[place] [id number] Hospital [address]Coe: (330) Number: Repository [phone] () [id number] Date:2017-11-16 12/21/2017 Secondary NOT GIVENUNK [place] Insurance:SELF PAY [facility] Number: Effective Repository Date:2017-11-16 11/16/2017 JESS MELGOZA582 Primary JESS Varela [address] Insurance:MEDICARE TAMMENDOB: [place] o[place] [id number] Hospital [address]Qmo: (330) Number: Repository [phone] () [id number] Date:2017-11-16 11/16/2017 Secondary NOT GIVENUNK [place] Insurance:SELF PAY [facility] Number: Effective Repository Date:2017-11-16 10/11/2017 JESS MELGOZA582 Primary JESS JETT CTAPT Insurance:MEDICARE TAMMENDOB: [facility] [place] PART A olicy [id number] Hospital [address]Ysp: (330) Number: Repository [phone] () [id number] Date:2017-10-04 10/11/2017 Secondary NOT GIVENUNK [place] Insurance:SELF PAY [facility] Number: Effective Repository Date:2017-10-04 10/04/2017 JESS MELGOZA582 Primary JESS JETT CTAPT Insurance:MEDICARE TAMMENDOB: [place] [facility] [id number] Hospital [address]Twn: (330) Number: Repository [phone] () [id number] Date:2017-10-03 10/04/2017 Secondary NOT GIVENUNK [place] Insurance:SELF PAY [facility] Number: Effective Repository Date:2017-10-03 09/15/2017 JESS MELGOZA582 Primary JESS JETT CTAPT Insurance:[facility]ICARE [facility] [place] A [facility] [id number] Hospital [address]Mki: (330) Number: Repository [phone] () [id number] Date:2017-06-30 09/15/2017 Secondary NOT GIVENUNK [place] Insurance:SELF PAY [facility] Number: Effective Repository Date:2017-06-30 09/14/2017 Jess Melgoza582 Primary [address] Insurance:MEDICARE TammenDOB: [place] PART A [facility] [id number] Hospital [address]Wzw: (330) Number: Repository [phone] () [id number] Date:2017-09-14 09/14/2017 Secondary NOT GIVENUNK [place] Insurance:SELF PAY [facility] Number: Effective Repository Date:2017-09-14
== END ==
PROVIDERS: Family Provider Family Medicine Geriatric Medicine; PCP Family Medicine Geriatric Medicine; Referring Provider Family Medicine Geriatric Medicine; Visit Provider Family Medicine Geriatric Medicine
DX: I65.21 Occlusion and stenosis of right carotid artery (principal)
CPT/HCPCS: 93880

== ENCOUNTER → 2018-07-26 07:45 | Outpatient (CLI) | payer MEDICARE, SELFPAY ==
--- NOTE | 2018-07-26 07:47 | US_ITS ---
STUDY: THYROID ULTRASOUND REASON FOR EXAM: Female, 78 years old. Nodule felt by TECHNIQUE: Ultrasound evaluation of the thyroid was performed with real-time and static madrid-scale imaging. COMPARISON: None. FINDINGS: RIGHT LOBE: The right lobe of the thyroid gland measures 4.5 x 2.6 cm. There is a homogeneous echotexture. Dominant mid to upper pole solid nodule measuring 2.2 x 1.6 x 1.5 cm. LEFT LOBE: The left lobe of the thyroid gland measures 4. 1.4 x 1.3 cm. There is a homogeneous echotexture. Single lower pole solid nodule measuring 1.1 x 0.6 x 0.4 cm ISTHMUS: The isthmus measures 3 mm. The regional lymph nodes are normal. US/Thyroid IMPRESSION: Nodules noted bilaterally, otherwise unremarkable thyroid. Largest is on the right. Electronically Signed: Curt Harman DO at 8:46 EST Tel , Service support ,
== END ==
PROVIDERS: Family Provider Family Medicine Geriatric Medicine; PCP Family Medicine Geriatric Medicine; Referring Provider Family Medicine Geriatric Medicine; Visit Provider Family Medicine Geriatric Medicine
DX: E04.1 Nontoxic single thyroid nodule (principal)
CPT/HCPCS: 76536; 97140

== ENCOUNTER 2018-08-09 11:30 | Outpatient (RCR) | payer MEDICARE, SELFPAY ==
--- NOTE | 2018-07-07 14:14 | HP.PTEVAL_ITS ---
Patient's Visit Information YAMIL MELGOZA is a 78 year old F referred to Physical Therapy by Joe Alvarado with a diagnosis of Muscle tension pain and shoulder pain. Date of Evaluation: 07/07/18 Physical Therapist: DEBORA Leon - Visit Plan Frequency: 2x /Week Duration: 3 Weeks Plan: 2X/ week for 3 weeks for c-spine manual therapy (especiall right sided upper cervical paraspinals and B mid trap region), postural exercises, c-spine stretches, with HEP and MH as needed with HEP - Subjective Findings: Pt was hospitalized in May and had a growth on her thyroid, blockage of carotid arteries, and vertigo. Her vertigo symptoms are that when she stands up she gets dizzy. Pt took baclofen and had unusual effects from it....it did help with her muscle aches while sleeping but still has pain and discomfort this morning. Current symptoms: the neck muscles (she has done some neck exercises that help the last time that she was in here ( ER behind her head)). yesterday said that there was a knot in her neck and gave her baclofen. She has had neck pain for the last 2 months and it has gotten worse. She has not had any x-rays. She has no pain into arms and fingers. She is having some neck pain when laying on R side and goes to turn over and she gets a pinching pain in her neck mostly on the R side from her occiput to her mid trap region. She has a thicker pillow that she uses. - Pain R sided c-spine pain Pain Intensity (Out of 10): 2 Pain Intensity Range: 8 Comment: with movement - Objective c-spine AROM: extension 25%, flexion 75%, SB B 25%, Rot L 50% and Rot R 75%. UE AROM: WFL. UE MMT: shld flex B 4-/5, shld abd B 4-/5, ER B 4/5 and IR B 4- /5. Palpation: tender R sided occiput and R sided paraspinals. Tender B mid trap regions and B serratus anterior. Observation: pt tends hold herself with shoulder elevation and has FW head. Pt felt better after sub occiptal relase and c-spine distraction. - Goals Goal 1:: I HEP Goal Time Frame: 2-4 Weeks Goal 2:: Increase c-spine AROM by 25% each plane (at time of eval: extension 25%, flexion 75%, SB B 25%, Rot L 50% and Rot R 75%) Goal Time Frame: 2-4 Weeks Goal 3:: Decrease neck pain with movement to 4/10 and no neck pain when sitting still Goal Time Frame: 2-4 Weeks Goal 4:: Sit with upright posture during treatment sessions Goal Time Frame: 2-4 Weeks - Rehabilitation Potential Rehabilitation Potential: Good - Anticipated Interventions Patient/Client Instruction: Educate patient on: Plan of Care For the Purpose of:: To decrease pain, To increase ROM, To improve nutrient delivery to tissue, To improve muscle performance and motor function, To improve ability to perform ADL's, To increase tolerance to activity/condition/position, To improve performance and independence with ADL's, To improve ability of physical actions for home/community/work/leisure, To improve health of tissue, To decrease soft tissue restriction, To increase flexibility/ROM Therapeutic Exercise to Include: Strength training, Postural training, Flexibilty training, Passive ROM, Active ROM, Scapular Strength/Stabilization For the Purpose of:: To decrease pain, To increase ROM, To improve nutrient delivery to tissue, To improve muscle performance and motor function, To improve ability to perform ADL's, To increase tolerance to activity/condition/position, To improve performance and independence with ADL's, To improve health of tissue, To decrease soft tissue restriction, To increase flexibility/ROM Manual Therapy Techniques to Include: Passive ROM, Soft tissue mobilization For the Purpose of:: To decrease pain, To increase ROM, To improve nutrient delivery to tissue, To improve muscle performance and motor function, To improve ability to perform ADL's, To increase tolerance to activity/condition/position, To improve health of tissue, To decrease soft tissue restriction, To increase flexibility/ROM Thermo therapy (hot pack): Yes Ultrasound (thermal/non thermal): Yes For the Purpose of:: To decrease pain, To increase ROM, To improve nutrient delivery to tissue Thank you for the opportunity to evaluate your patient. For Medicare and Medicare HMO plans, please review the plan of care and approve it. It will need to be FAXED BACK to us at [phone] for Medicare purposes. For Medicare only, by signing this I certify the plan of care. Please let me know if there are questions or concerns regarding this plan of care. Physician Signature: Date:
--- NOTE | 2018-07-26 15:20 | HP.PTEVAL2 ---
Patient's Visit Information YAMIL MELGOZA is a 78 year old F referred to Physical Therapy by Joe Alvarado MD with a diagnosis of BPPV. Date of Evaluation: 07/26/18 Physical Therapist: Ayush Billingsley, ARNALDOT, OCS, CSCS - Visit Plan Frequency: 1-2x /Week Duration: 4-6 Weeks Plan: 1-2x/week for positional tests adn treatments. - Subjective Findings: When I was down in [place](Jul 08), got up at night and room went around upon standing and legs got weak/unstable. Went to ER and had x rays and EKG adn cardio gram and US and catscan on chest adn found growth on thyroid and blockage in carotid artery and possibly vertigo. Back to [place] next couple days and vertigo symptoms have lessened. Only happens once in a while(one time per day). Went to Dr. Elizondo for thyroid and vertigo. Said she has vertigo. Will see carotid artery specialist on August 16. Dr. Elizondo told her that the thyroid was not invasive. Dr. Alvarado got all these reports and ordered US of thyroid this morning. Daily vertigo lasts a minute or less and not pinpointed to any activitiy but possibly standing up. Not noticed it at noght when going to bathroom. Feels steady in between episodes, no falls, no AD needed although she has them at home. Sleeping OK/normal for her. - Objective Objective: Walks and transfers normal. - R hallpike. + L hallpike up torsional nystagmus. Treated ith Katarina then - HD. FGA is normal for age. romberg is good. - Balance Scores Functional Gait Assessment Score: 26 % Disability: 13.3400 CATSIB Score (Max score 120 seconds): 120 - Goals Goal 1:: abolish vertigo Goal Time Frame: 4-6 Weeks Goal 2:: Pt feel 100% back to normal with steadiness adn dizzyness Goal Time Frame: 4-6 Weeks - Rehabilitation Potential Physical Therapy Diagnosis: L BPPV Rehabilitation Potential: Good - Anticipated Interventions Patient/Client Instruction: Educate patient on: Condition, Plan of Care For the Purpose of:: To increase tolerance to activity/condition/position For the Purpose of:: To increase tolerance to activity/condition/position Thank you for the opportunity to evaluate your patient. For Medicare and Medicare HMO plans, please review the plan of care and approve it. It will need to be FAXED BACK to us at [phone] for Medicare purposes. For Medicare only, by signing this I certify the plan of care. Please let me know if there are questions or concerns regarding this plan of care. Physician Signature: Date:
--- NOTE | 2018-08-02 14:22 | HP.PTDCS(2) ---
HP - PT D/C Summary (2) It has been my pleasure to treat YAMIL MELGOZA under orders from Joe Alvarado MD, for the diagnosis of BPPV for a total of 2 visit(s). Discharge Date: 08/02/18 Please see the following information for a summary of their discharge status. - Subjective Subjective: Run ragged by painful roommate. I think my dizzyness is gone. None in last week. Getting out of bed is good. hasn't helped neck pain any...01/01 today. - Objective Objective/Function/Assessment: Balance is good. - B hallpike and - roll test. Walking well. - Goals Patient Goals: Other Other Goals: rid vertigo Goal 1:: abolish vertigo Goal Progress: Goal Met Goal 2:: Pt feel 100% back to normal with steadiness adn dizzyness Goal Progress: Goal Met - Plan Plan: D/C vestibular chart, to continue with neck chart. - D/C Information Discharge Comments: No further vestibular needed. Will continue with neck POC. If there are questions or concerns regarding this patient's physical therapy, please feel free to call me at [phone]. Thank you for the referral of this patient. Sincerely, Ayush Billingsley, DPT, OCS, CSCS
--- NOTE | 2018-08-09 12:05 | HP.PTDCSUM_ITS ---
HP - PT D/C Summary It has been my pleasure to treat YAMIL MELGOZA under orders from Joe Alvarado MD, for the diagnosis of Muscle tension pain and shoulder pain for a total of 11 visit(s). Discharge Date: 08/09/18 Please see the following information for a summary of their discharge status. - Subjective Subjective: Pt feels that for the most part her tension is much better and Vicky has done a great job. It has decreased in size and intensity. She occ gets a twinge. She sleeps better at night. She is conscious when she turns over. It pulls when looking certain directions. Pt was given some exercises to do at home and showed her how to use the cane at home for the major knot in question. Pt has been working on her posture at home. Pt has a CT scan at 1:00 today. - Pain R sided c-spine pain Pain Intensity (Out of 10): 1 - Overall Improvement % Improvement: 95 - Objective Objective/Function: C-spine AROM: flex 80%, ext 75%, R rotation 70% and L rota tion 75% - Goals Goal 1:: I HEP Goal Progress: Goal Met Goal 2:: Increase c-spine AROM by 25% each plane (at time of eval: extension 25%, flexion 75%, SB B 25%, Rot L 50% and Rot R 75%) Goal Progress: Goal Met Goal 3:: Decrease neck pain with movement to 4/10 and no neck pain when sitting still Goal Progress: Goal Met Goal 4:: Sit with upright posture during treatment sessions Goal Progress: Goal Met - Plan Plan: DC PT to HEP - D/C Information Discharge Comments: DC PT to HEP If there are questions or concerns regarding this patient's physical therapy, please feel free to call me at [phone]. Thank you for the referral of this patient. Sincerely, Mirna Costa, MPT
== END 2018-08-09 19:00 | disposition home or self-care (01) ==
LOC: PT 11:30
PROVIDERS: Family Provider Family Medicine Geriatric Medicine; PCP Family Medicine Geriatric Medicine; Referring Provider Family Medicine Geriatric Medicine; Visit Provider Family Medicine Geriatric Medicine
DX: M79.10 Myalgia, unspecified site (principal); M25.519 Pain in unspecified shoulder; H81.10 Benign paroxysmal vertigo, unspecified ear
CPT/HCPCS: 97110; 97140; 97161; 97530

== ENCOUNTER → 2018-08-09 12:37 | Outpatient (CLI) | payer MEDICARE, SELFPAY ==
[2018-07-29 09:53] VITALS: BMI 25.5
--- NOTE | 2018-08-09 | FLU_PTH ---
PATIENT: YAMIL MELGOZA LOC: CT U#:[id number] AGE/SX: 85/F ROOM: RE08/09/[address]: Dr. Nathan Zapata MD : 1940 BED: DIS: SPEC #: [id number] RECD: 08/09/18 13:08 STATUS: TAMIKO TRISTAN #: [id number] JOSE: 08/09/18 00:[address]: Nathan Zapata DEPT: CYTOLOGY RECD BY: Timo Gamble ENTERED: 08/09/18 13:09 SP TYPE: Fluid OTHR DR: Dr. Joe Alvarado MD Tissues: B - Thyroid gland, NOS A - Thyroid gland, NOS Procedures: Pap Stain (control) Special Stain Group II Surgery Specimen Level IV Cell Block Cytospin Fluid Cytology Other HEADER OPERATION: Bilateral thyroid FNA PRE-OP DIAGNOSIS: Bilateral thyroid nodules TISSUE SUBMITTED: A - Right thyroid 6 slides, B - Thyroid fluid for cytology DIAGNOSIS CYTOLOGY A. Right thyroid nodule, FNA (smears): Consistent with benign colloid nodule. Adequate for evaluation. B. Thyroid fluid for cytology (cytospin and cell block): Consistent with benign cystic colloid nodule. Adequate for evaluation. DAVID:mary 08/10/18 CYTOLOGY STUDY Slides are reviewed. CYTOLOGY GROSS A - Received are six smears labeled with the patient's name and designated per the requisition as right thyroid. Submitted for staining. B - Received is 1 ml of red cloudy fluid labeled with the patient's name and and designated per the requisition as thyroid. Submitted for cytology preparation including cell block. 08/09/18 TC:5 CPT: 66752, [id number], [id number]
[2018-08-09 07:51] VITALS: BMI 25.5
--- NOTE | 2018-08-09 12:38 | CT_ITS ---
STUDY: CTA NECK WITH AND WITHOUT CONTRAST REASON FOR EXAM: Female, 78 years old. Carotid stenosis, thyroid nodule, biopsy done today. RADIATION DOSAGE (If Supplied By Facility): CTDIvol = ( 15.20 ) mGy, DLP = ( 1121.24 ) mGycm TECHNIQUE: CT angiography with multi-detector data acquisition was performed from the aortic arch to the skull base prior to and after intravenous administration of 100 ml of Isovue 370 contrast. MIP images were reconstructed from the axial data set. Post-processing of the angiographic images was performed, with multiplanar reformation and 3D reconstruction. Individualized dose optimization techniques were used for this CT. COMPARISON: CTA chest same date. Carotid duplex imaging 07/12/2018. FINDINGS: Right dominant thyroid nodule with no evidence of biopsy consultation, no hematoma. Apical lungs acutely clear with features of centrilobular emphysema. There is evidence of coronary atherosclerosis. The central pulmonary arteries are dilated up to 3 cm. Nondilated aortic arch with moderate arch atherosclerosis with plaque extending into the brachiocephalic artery, common carotid artery on the left, subclavian artery bilaterally. Cervical facial, pharyngeal soft tissues and visualized portions of the brain parenchyma exhibits no acute process. Prominent multilevel cervical spondylosis with uncovertebral joint hypertrophy and facet hypertrophy contributing to multilevel mild to moderate foraminal stenosis. Right carotid artery: Moderately prominent multifocal calcification of the wall the common carotid artery. Difficult to discern if there may be some stenosis at the origin of the common carotid artery due to motion artifact. There is no other significant stenosis along its course. Moderate plaque of the carotid bulb without stenosis. Moderate calcified plaque of the origin of the external carotid artery with moderate stenosis. Dense plaque of the proximal ICA, least luminal diameter 2.5 mm, widening thereafter to a diameter of 3.5 mm, moderate stenosis. Moderate calcified plaque of the wall of the cavernous segment transcranial ICA. Left carotid artery: Patent origin, mild scattered calcified plaque of the common carotid artery without stenosis. Moderate calcified plaque in the wall of the bulb without stenosis. Mild calcified plaque at the origin of the ECA without significant stenosis. Minimal plaque proximal ICA without stenosis. Moderate calcified plaque of the wall of the transcranial left ICA. Vertebral arteries: Minimal calcified plaque of the cervical segment bilaterally, without stenosis or dissection. Trace plaque intracranial segments. Intracranial vasculature: Limited evaluation about the [place] reveals no acute abnormality. CT/CTA Neck W/WO Contrast IMPRESSION: 1. Severe calcified plaque of the proximal right ICA with stenosis. The density of the calcified plaque partially obscures the lumen, which measures a least caliber of approximately 2.5 mm but may be slightly smaller. Stenosis is estimated between 50 and 70%. 2. There is no apparent stenosis of the left internal carotid artery. 3. Normal vertebral arteries. 4. Centrilobular emphysema. 5. Prominent plaque of the aortic arch extending into the brachycephalic artery, subclavian arteries, and common carotid arteries. Difficult to discern if there may be some stenosis at the origin of the right common carotid artery due to motion artifact at the level. There is no apparent stenosis of the origin of the left common carotid artery. Carotid stenosis assessment: Advertiser H, et al. Quantitative Vascular Measurements in Arterial Occlusive Disease. [employer] 2005;25:7124-7688. The [place] Symptomatic Carotid Endarterectomy Trial (NASCET) Electronically Signed: Royer Nance MD at 17:54 EST Tel , Service support ,
--- NOTE | 2018-08-09 12:38 | CT_ITS ---
STUDY: CTA CHEST REASON FOR EXAM: Female, 78 years old. Carotid stenosis. Thyroid nodule biopsy performed today. RADIATION DOSAGE (If Supplied By Facility): DLP = ( 1121.24 ) mGycm TECHNIQUE: The examination was performed with the intravenous administration of 100 ml of Isovue 370 contrast material. Post-processing of the angiographic images was performed, with multiplanar reformation and 3D reconstruction. Individualized dose optimization techniques were used for this CT. COMPARISON: CTA neck same date. Ultrasound carotid duplex 07/12/2018. FINDINGS: Supraclavicular: Dominant right thyroid nodule. No evidence of biopsy complication. No hematoma. Left thyroid unremarkable. No supraclavicular mass or lymphadenopathy. Body wall soft tissues: No acute process. Osseous structures: No acute process. Mild kyphoscoliosis. Minimal thoracic spondylosis. Within the right lateral recess of the spinal canal at the level of T11, there is a sharply circumscribed oval dense focus with a maximum dimension of 5 mm, likely calcified. Precise etiology unknown. Upper abdomen: No acute process in limited evaluation. There is severe calcification of the wall of the proximal abdominal aorta with prominent calcification at the origins of the celiac artery. 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 There are prominent calcifications at the origins of the renal arteries bilaterally. Mediastinum: Normal esophagus. There is no mediastinal or hilar mass or lymphadenopathy. Lungs: Moderate features of centrilobular emphysema. No visible pulmonary nodules. Unremarkable airways. Postsurgical changes left superior hilum. Cardiothoracic surgical history. Aorta: Nondilated aortic root. Nondilated aortic arch and descending thoracic aorta. Prominent calcified plaque of the aortic arch, prominently extending into the brachiocephalic artery which appears to be severely stenotic and may be proximally occluded over the 1st 19 mm from its origin. Occlusion is most likely. The origin of the right common carotid artery appears to be stenotic, constituted retrograde via the subclavian artery. The proximal right CCA is mildly stenotic with circumferential calcified plaque of the wall. The origin of the right vertebral artery is moderately stenotic with calcified plaque. There is gas 5 plaque in the mid right subclavian artery and right axillary and brachial arteries without stenosis. Callus by plaque at the origin of the left common carotid artery without stenosis. Calcified plaque at the origin of the left subclavian artery. Subclavian artery calcified and soft atheroma at the takeoff of the left internal mammary artery, less than 50% stenosis. There is no evidence of stenosis of the internal mammary artery. There is moderate calcified plaque of the descending aorta, with soft atheroma, without stenosis. There is no aortic dissection. Pulmonary arteries: Ectatic central pulmonary arteries, main pulmonary artery 3.1 cm. There is no large central pulmonary embolus. There is no evidence of peripheral pulmonary embolus. Heart: Moderate cardiomegaly, with ectasia in particular of the left ventricle. Three-vessel coronary calcifications. CT/CTA Chest W/WO Contrast IMPRESSION: 1. No acute cardiopulmonary process is evident. There is no evidence of pulmonary embolus. There is no evidence of aortic dissection. 2. 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 Likely reconstitution of flow into the right common carotid artery retrograde from the subclavian artery. The origin and proximal 2 cm of the right common carotid artery are stenotic, probably less than 50%. There is motion artifact partially tearing detail. 3. 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 4. Prominent calcified plaque of the proximal abdominal aorta with prominent plaque at the origins of the celiac trunk and renal arteries. Degree of stenosis not assessed. 5. Cardiomegaly with three-vessel coronary atherosclerosis, enlargement in particular of the left ventricle. 6. Dominant right thyroid nodule. Reported biopsy today. No evidence of biopsy complication. 7. There is a homogeneously dense sharply circumscribed oval nodule within the spinal canal right lateral recess at T11, uncertain etiology. This may be a small chronic calcified neurofibroma or schwannoma. The maximum dimension is 5 mm. Electronically Signed: Royer Nance MD at 18:36 EST Tel , Service support ,
--- OUTSIDE RECORDS SUMMARY | 2018-10-14 08:48 | XMS RPT_ITS ---
:1940 Author Organization OHIP Support Name Relationship Address Phone TATE GAY Unavailable [address] + [place] [address] R Unavailable Unavailable Unavailable TATE, GAY Unavailable [address] + [place] [address] R Unavailable Unavailable Unavailable TATE GAY Unavailable [address] + [place] [address] R Unavailable Unavailable Unavailable TATE, GAY Unavailable [address] + [place] [address] R Unavailable Unavailable Unavailable TATE, GAY Unavailable [address] + [place] [address] R Unavailable Unavailable Unavailable TATE, GAY Unavailable [address] + [place] [address] R Unavailable Unavailable Unavailable TATE, GAY Unavailable [address] + [place] [address] R Unavailable Unavailable Unavailable TATE, GAY Unavailable [address] + [place] [address] R Unavailable Unavailable Unavailable TATE, GAY Unavailable [address] + [place] [address] R Unavailable Unavailable Unavailable TATE, GAY Unavailable [address] + [place] [address] R Unavailable Unavailable Unavailable TATE, GAY Unavailable [address] + [place] [address] R Unavailable Unavailable Unavailable TATE, GAY Unavailable [address] + [place] [address] R Unavailable Unavailable Unavailable TATE, GAY Unavailable [address] + [place] [address] R Unavailable Unavailable Unavailable TATE, GAY Unavailable [address] + [place] [address] R Unavailable Unavailable Unavailable TATE, GAY Unavailable [address] + [place] [address] R Unavailable Unavailable Unavailable TATEWILBERTE Unavailable [address] + [place] [address] R Unavailable Unavailable Unavailable TATEGAY Unavailable [address] + [place] [address] R Unavailable Unavailable Unavailable TATEWILBERTE Unavailable [address] + [place] [address] R Unavailable Unavailable Unavailable TATEGAY Unavailable [address] + [place] [address] R Unavailable Unavailable Unavailable TATEWILBERTE Unavailable [address] + [place] [address] R Unavailable Unavailable Unavailable GAY TATE Unavailable [address] + [place] [address] R Unavailable Unavailable Unavailable WILBERT TATEE Unavailable [address] + [place] [address] R Unavailable Unavailable Unavailable Care Team Providers [...] M79.10 - Myalgia, Christiano, Joe Chi [facility] unspecified site / Community M79.10(ICD-10) Hospital Repository 08/17/2018 Unknown M25.519 - Pain in Christiano, Joe Chi Active [facility] unspecified shoulder Community / M25.519(ICD-10) Hospital Repository 08/17/2018 Unknown H81.10 - Benign Christiano, Jeo Chi Active [facility] paroxysmal vertigo, Community unspecified [...] Unknown D64.9 - Anemia, PraNicola diaz Active [facility] unspecified / Community D64.9(ICD-10) Hospital Repository 05/30/2018 Unknown R26.9 - Unspecified Christiano, Joe Chi Active [facility] abnormalities of Community gait and mobility / Hospital R26.9(ICD-10) Repository 04/10/2018 Unknown I51.7 - Cardiomegaly Noe, Yefri Active [facility] / I51.7(ICD-10) [facility] Repository 04/10/2018 Unknown E78.5 - Yefri oNe Active [facility] Hyperlipidemia, Community unspecified / Hospital E78.5(ICD-10) Repository 12/21/2017 Unknown Z78.0 - Asymptomatic ChristianoJoe andrade Chi Active [facility] menopausal state / Community Z78.0(ICD-10) Hospital Repository 12/21/2017 Unknown Z12.31 - Encounter Christiano, Joe Chi [facility] for screening Community mammogram for Hospital malignant neoplasm Repository of breast / Z12.31(ICD-10) 10/12/2017 Unknown M51.36 - Other Dossie, Dawn [facility] intervertebral disc [facility]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 Community dysfunction of Hospital cervical region / Repository M99.01(ICD-10) 10/12/2017 Unknown M99.02 - Segmental Dossie, Dawn [facility] and somatic [facility] Community dysfunction of Hospital thoracic region / Repository M99.02(ICD-10) 10/12/2017 Unknown M99.03 - Segmental Dossie, Dawn [facility] and somatic [facility] 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 Community scoliosis, site Hospital unspecified / Repository M41.00(ICD-10) PROCEDURES PROCEDURES No Procedure Records FoundRESULTS RESULTS PT D/C SUMMARY (1) Observed: 08/16/2018 Status: F Source: [facility] 6:51 PM [facility] REPOSITORY [facility] Physical Therapy [facility] [place] [address] / REHABILITATION SERVICES DISCHARGE SUMMARY MR#: [id number] Acct: [id number] Name: JESS MELGOZA Rep #: [id number] : 1940 78 From: Mirna CAZARES Referring [...] please feel free to call me at [phone]. Thank you for the referral of this patient. Sincerely, DEBORA Leon <Electronically signed by Mirna Costa MPT> 08/16/18 8606 CC: Joe Alvarado MD Signed CTA NECK W/WO Observed: 08/09/2018 Status: F Source: [facility] CONTRAST 12:38 PM [facility] REPOSITORY [facility] Imaging Services [address] [place] [address] CTA Neck W/WO Contrast MR#: [id number] Acct: [id number] Name: JESS MELGOZA Rep #: [id number] : 1940 F 78 From: Royer Nance MD PCP: Christiano WHITE,Joe Salas Status: REG CLI Study: CTA Neck W/WO Contrast Date of Exam: 08/09/18 Exam# [id number] Ordering Dr: Nathan Zapata MD STUDY: CTA [...] segments. Intracranial vasculature: Limited evaluation about the qagan tay[place]ung[place] of [place] reveals no acute abnormality. CT/CTA [...] Vascular Measurements in Arterial Occlusive Disease. [employer] 2005;25:4795-9364. The [place] Symptomatic Carotid Endarterectomy Trial (NASCET) Electronically Signed: Royer Nance MD at 17:54 EST Tel , Service support , CC: Nathan Zapata MD; Joe Alvarado MD Microelectronics Technician: Signed CTA CHEST W/WO Observed: 08/09/2018 Status: F Source: [facility] CONTRAST 12:38 PM [facility] REPOSITORY [facility] Imaging Services [address] [place] [address] CTA Chest W/WO Contrast MR#: [id number] Acct: [id number] Name: JESS MELGOZA Rep #: [id number] : 1940 F 78 From: Royer Nance MD PCP: Christiano WHITE,Joe Salas Status: REG CLI Study: CTA Chest W/WO Contrast Date of Exam: 08/09/18 Exam# [id number] Ordering Dr: Nathan Zapata MD STUDY: CTA [...] CC: Nathan Zapata MD; Joe Alvarado MD Microelectronics Technician: Signed SURGERY VISIT REPORT Observed: 08/09/2018 Status: F Source: [facility] 9:27 AM [facility] [address] [place] [address]. [address] [place] [address] OFFICE VISIT Date of Service: 08/09/18 MR#: [id number] Acct: [id number] Name: JESS MELGOZA Rep #: [id number] : 1940 Provider: Nathan Zapata MD Age/Sex: 78/F Location: [facility] Status: Signed Intake Vital Signs08/09/18 Body Mass Index (BMI) 25.5 Intake Visit Reasons: bilateral thyroid FNA Chief Complaint: bilateral thyroid nodules Retail Delivery Driver Required: No Is patient in pain?: No [...] the lesion under ultrasound guidance. A rapid belv-hfk-mryoy motion was performed. Specimen was obtained and [...] F.A.C.S. Alert [place] Alert Billing: Yes FNA 04146 Thyroid (Bilateral -50) Procedure Time Out Time [...] work Coding Level of Care Code Attention Physical Medicine Specialist Diagnoses Multiple thyroid nodules E04.2 Additional Codes FNA - Fine Needle Aspiration: 34852 Thyroid (18290) 08/09/18 0927 <Electronically signed by Nathan Zapata MD> Date Nathan Zapata MD Cosigner Signature: Date (if applicable) CC: FLUID/WASHING Observed: 08/09/2018 Status: F Source: [facility] 12:00 AM [facility] REPOSITORY Patient: JESS MELGOZA : 1940 (78/F) Acct Num: [id number] Phys: Benny WHITE,Nathan Unit Num: [id number] Loc: CT Specimen: [id number] Received: 08/09/18 - [...] including cell block. / 08/09/18 TC:5 CPT: 49637, 20862, 82893 CYTOLOGY STUDY Slides are reviewed. DIAGNOSIS CYTOLOGY [...] on file> Performed By: #### PFLU #### [facility] [address] [place], [address] PT D/C SUMMARY (2) Observed: 08/03/2018 Status: F Source: [facility] 8:58 AM [facility] REPOSITORY [facility] [address] [place] [address]. [address] [place] [address] / REHABILITATION SERVICES DISCHARGE SUMMARY MR#: [id number] Acct: [id number] Name: JESS MELGOZA Rep #: [id number] : 1940 78 From: Ayush Billingsley DPT, [...] please feel free to call me at [phone]. Thank you for the referral of this patient. Sincerely, Ayush Billingsley, DPT, OCS, CSCS <Electronically signed by Ayush Billingsley DPT, OCS, CSCS> 08/03/18 0858 CC: Joe Alvarado MD EBG Signed SURGERY VISIT REPORT Observed: 07/29/2018 Status: F Source: [facility] 10:13 AM [facility] [address] [facility] [place] [address] OFFICE VISIT Date of Service: 07/29/18 MR#: [id number] Acct: [id number] Name: JESS MELGOZA Rep #: [id number] : 1940 Provider: Nathan Zapata MD Age/Sex: 78/F Location: [facility] Status: Signed Intake Vital Signs07/29/18 Height 5 ft 1 in 07/29/18 Weight: 135 lb 2 oz 07/29/18 Body Mass Index (BMI) 25.5 07/29/18 Blood Pressure 145/54 H Intake Visit Reasons: R Side Thyroid Nodules US 07/26/17 Chief Complaint: bilateral thyroid nodules Retail Delivery Driver Required: No Is patient in pain?: No [...] medicine. She states that she was in [place] had some problems with dizziness and hypertension [...] subclavian stenosis as well on the right [facility] [address] [place] [address] Thyroid MR#: [id number]:[id number] Name: JESS MELGOZA JRep #:[id number] : 1940F 78 From: Curt Harman DO PCP:Joe Alvarado MD, Chi Status:REG CLI Study:Thyroid Date of Exam:07/26/18 Exam#[id number] Ordering Dr: Joe Alvarado MD STUDY: THYROID [...] 8:46 EST Tel , Service support , [facility] Services [address] [place] [address] Carotid Duplex Ultrasound 07/12/18 1231 MR#: [id number] Name: JESS MELGOZA [facility] #:[id number] : 1940 78From: Nathan Zapata MD Attending [...] the left vertebral artery. Procedure Carotid Duplex 32269. Exam performed in department. Interpretation Summary Irregular [...] Performed By: Debi Randle RVT 07/12/182058 Date Nahtan Zapata MD ROS General General: No weight [...] EVALUATION (2) Observed: 07/27/2018 Status: F Source: [facility] 9:26 AM [facility] Physical Therapy Health[address] [place] [address] / REHABILITATION SERVICES INITIAL EVALUATION MR#: [id number] Acct: [id number] Name: JESS MELGOZA Rep #: [id number] : 1940 78 From: Ayush Billingsley DPT, OCS, CSCS Referring Dr.: Joe Alvarado MD Status: REG RCR Insurance: MEDICARE PART A B SELF PAY INSURANCE Patient's Visit Information JESS MELGOZA is a 78 year old F referred to Physical Therapy by Joe Alvarado MD with a diagnosis of BPPV. Date of Evaluation: 01/02/19 Physical Therapist: Ayush Jose Cruz, DPT, OCS, CSCS - Visit Plan [...] carotid artery and possibly vertigo. Back to [place] next couple days and vertigo symptoms have [...] to be FAXED BACK to us at [phone] for Medicare purposes. For Medicare only, by signing this I certify the plan of care. Please let me know if there are questions or concerns regarding this plan of care. Physician Signature: Date: <Electronically signed by Ayush Billingsley DPT, OCS, CSCS> 07/27/18 0926 CC: Joe Alvarado MD EBG Signed THYROID Observed: 07/26/2018 Status: F Source: [facility] 7:47 AM [facility] REPOSITORY [facility] Imaging Services [address] [place] [address] [place] [address] Thyroid MR#: [id number] Acct: [id number] Name: JESS MELGOZA Rep #: [id number] : 1940 F 78 From: Curt Harman DO PCP: Joe Alvarado MD, Chi Status: REG CLI Study: Thyroid Date of Exam: 07/26/18 Exam# [id number] Ordering Dr: Joe Alvarado MD STUDY: THYROID [...] Service support , CC: Joe Alvarado MD Microelectronics Technician: Signed CAROTID DUPLEX Observed: 07/12/2018 Status: F Source: [facility] ULTRASOUND 8:59 PM [facility] REPOSITORY [facility] Services [address] [place] [address] Carotid Duplex Ultrasound 07/12/18 1231 MR#: [id number] Acct: [id number] Name: JESS MELGOZA Rep #: [id number] : 1940 78 From: Nathan Zapata MD [...] the left vertebral artery. Procedure Carotid Duplex 16811. Exam performed in department. Interpretation Summary Irregular [...] Date Dictated: 07/12/18 1231 Date Transcribed: 07/12/182058 Microelectronics Technician: Signed INITAL EVALUATION (1) Observed: 07/07/2018 Status: F Source: [facility] - PT 2:18 PM [facility] REPOSITORY [facility] [address] [place] [address] Fax REHABILITATION SERVICES INITIAL EVALUATION MR#: [id number] Acct: [id number] Name: JESS MELGOZA Rep #: [id number] : 1940 78 From: Mirna CAZARES Referring [...] to be FAXED BACK to us at [phone] for Medicare purposes. For Medicare only, by signing this I certify the plan of care. Please let me know if there are questions or concerns regarding this plan of care. Physician Signature: Date: <Electronically signed by Mirna Costa MPT> 07/07/18 1418 CC: Joe Alvarado MD Signed CBC W/DIFF, AUTOMATED Collected: 07/05/2018 Status: F Source: [facility] 2:47 PM [facility] REPOSITORY TYPE CODE TESTS RESULT OUT OF [...] Lymph 2.33 Performed By: #### L100.0100 #### [facility] [address] [place], [address] BASIC METABOLIC Collected: 07/05/2018 Status: F Source: [facility] PROFILE ([facility]) 2:47 PM [facility] REPOSITORY TYPE CODE TESTS RESULT OUT OF [...] GAP 8 Performed By: #### L500.2500 #### [facility] [address] [place], [address] ONCOLOGY VISIT REPORT Observed: 05/30/2018 Status: F Source: [facility] 12:22 PM [facility] REPOSITORY [facility] [address] [place] [address] OFFICE VISIT Date of Service: 05/30/18 1211 MR#: [id number] Acct: [id number] Name: JESS MELGOZA Rep #: [id number] : 1940 From: Nicola El MD Age/Sex: [...] unspecified Code Visit Office Visits / Consults: 30047 OV L3 Est 05/30/18 1222 <Electronically signed by Nicola El MD> Date Nicola El MD Cosigner Signature: Date (if applicable) CC: Joe Alvarado MD PT D/C SUMMARY (1) Observed: 05/26/2018 Status: F Source: [facility] 10:19 AM [facility] REPOSITORY [facility] Physical Therapy [address] [place], [place] [address] Fax REHABILITATION SERVICES DISCHARGE SUMMARY MR#: [id number] Acct: [id number] Name: JESS MELGOZA Rep #: [id number] : 1940 78 From: Kaila Alcala DPNae Referring Dr.: Jeo Alvarado MD Status: REG RCR Insurance: MEDICARE [...] please feel free to call me at [phone]. Thank you for the referral of this patient. Sincerely, Kaila Alcala <Electronically signed by Kaila Alcala DPT> 05/26/18 1019 CC: Joe Alvarado MD ELR Signed Observed: 05/24/2018 Status: F Source: [facility] STOOL OCCULT BLOOD 9:00 AM [facility] IFOB REPOSITORY Reason for Laboratory Test . STOB iFOB Occult Blood Negative Performed By: #### M100.7900 #### [facility] [address] [place], [address] ONCOLOGY CONSULTATION Observed: 05/23/2018 Status: F Source: [facility] 11:28 AM [facility] REPOSITORY [facility] [address] [place] [address] Oncology Consultation Date of Service: 05/23/18 1051 MR#: [id number] Acct: [id number] Name: JESS MELGOZA Rep #: [id number] : 1940 From: Nicola El MD Age/Sex: 78/F Location: [facility] Status: Signed Consult Referring Physician: Dr. Alvarado Consult Results: Anemia Subjective Date of Service:: 05/23/18 Chief Complaint: Referred for anemia. History of Present Illness: 78y.o.woman with HTN, Hypothyroidism, OA was found to have Hgb of 10.5 on 05/18/2018 and referred for evaluation and management. She feels well, denies blood in the stools, bruises, epistaxis. She is eating well. Power of Foot And Ankle Surgeon: Yes Living Will: Yes Health History: Past [...] unspecified Code Visit Office Visits / Consults: 52470 OP Consult L5 05/23/18 1128 <Electronically signed by Nicola El MD> Date Nicola El MD Cosigner Signature: Date (if applicable) CC: Joe Alvarado MD CBC W/DIFF, AUTOMATED Collected: 05/23/2018 Status: F Source: [facility] 11:16 AM [facility] REPOSITORY Order Comment: Reason for Laboratory Test [...] 2.29 Performed By: #### L100.0100, L101.9900 #### [facility] [address] [place], [address] ERYTHROCYTE SED RATE Collected: 05/23/2018 Status: F Source: [facility] 11:16 AM [facility] REPOSITORY Order Comment: Reason for Laboratory Test . TYPE CODE TESTS RESULT OUT OF RANGE REFERENCE UNITS LAB L102.0000 0-30 mm/hr Normal SED RATE 28 Performed By: #### L100.0100, L101.9900 #### [facility] [address] [place], [address] VITAMIN B12 Collected: 05/23/2018 Status: F Source: [facility] 11:16 AM [facility] REPOSITORY Order Comment: Reason for Laboratory Test . TYPE CODE TESTS RESULT OUT OF RANGE REFERENCE UNITS LAB L503.0105 211-911 pg/mL Normal Vitamin B12 687 Performed By: #### L503.0105 #### [facility] [address] [place], [address] COMPREHENSIVE METABOLIC Collected: 05/23/2018 Status: F Source: [facility] 11:16 AM [facility] REPOSITORY Order Comment: Reason for Laboratory Test [...] By: #### L500.4050, L503.6030, L503.6550, L506.0250 #### [facility] [address] [place], [address] IRON+IRON BINDING Collected: 05/23/2018 Status: F Source: [facility] 11:16 AM [facility] REPOSITORY Order Comment: Reason for Laboratory Test . Is Patient Taking Vitamins or Folic Acid Supplements? N TYPE CODE TESTS RESULT OUT OF RANGE REFERENCE UNITS LAB L503.6075 250-450 ug/dL TIBC Normal 336 LAB L503.6150 50-170 ug/dL IRON Normal 85 LAB L503.6250 15.0-55.0 % IRON Normal SATURATION 25.3 Performed By: #### L500.4050, L503.6030, L503.6550, L506.0250 #### [facility] [address] [place], [place], [address] FERRITIN Collected: 05/23/2018 Status: F Source: [facility] 11:16 AM [facility] REPOSITORY Order Comment: Reason for Laboratory Test . Is Patient Taking Vitamins or Folic Acid Supplements? N TYPE CODE TESTS RESULT OUT OF RANGE REFERENCE UNITS LAB L503.6550 8-252 ng/mL Normal FERRITIN 84 Performed By: #### L500.4050, L503.6030, L503.6550, L506.0250 #### [facility] [address] [place], [place], [address] FOLATES, (FOLIC ACID) Collected: 05/23/2018 Status: F Source: [facility] 11:16 AM [facility] REPOSITORY Order Comment: Reason for Laboratory Test . Is Patient Taking Vitamins or Folic Acid Supplements? N TYPE CODE TESTS RESULT OUT OF REFERENCE UNITS RANGE LAB L506.0250 3.1-55.4 ng/mL High FOLATES > 100.00 Performed By: #### L500.4050, L503.6030, L503.6550, L506.0250 #### [facility] [address] [place], [place], [address] ERYTHROPOIETIN Collected: 05/23/2018 Status: F Source: [facility] 11:16 AM [facility] REPOSITORY Order Comment: Reason for Laboratory Test . TYPE CODE TESTS RESULT OUT OF RANGE REFERENCE UNITS LAB L3100.1350 2.6-18.5 mIU/mL Normal ERYTHROP 11.9 [id number] Result Comment: HashParadeel DxI 800 Immunoassay System Performed at: - [facility] [address] [id number] Production Crew Supervisor: Aneudy Willis PhD, Phone: [phone] Performed By: #### L3100.1350 #### [facility] (refer to report for specific site) refer to report for address and phone number CBC W/DIFF, AUTOMATED Collected: 05/18/2018 Status: F Source: [facility] 10:26 AM [facility] REPOSITORY TYPE CODE TESTS RESULT OUT OF [...] Lymph 2.50 Performed By: #### L100.0100 #### [facility] [address] [place], [address] VITAMIN D,25 HYDROXY Collected: 05/18/2018 Status: F Source: [facility] 10:26 AM [facility] REPOSITORY TYPE CODE TESTS RESULT OUT OF RANGE REFERENCE UNITS LAB L506.1000 29.95-100.01 ng/mL Normal Vitamin D 34.8 25-OH Result Comment: Vitamin D 25(OH) Status Range Deficiency <20 ng/mL (50nmol/L) Insuffciency 20 - 30 ng/mL (50 - 75 nmol/L) Sufficiency 30 - 100 ng/mL (75 - 250 nmol/L) Toxicity >100 ng/mL (>250 nmol/L) Performed By: #### L506.1000 #### [facility] [place], [address] COMPREHENSIVE METABOLIC Collected: 05/18/2018 Status: F Source: [facility] 10:26 AM [facility] REPOSITORY TYPE CODE TESTS RESULT OUT OF [...] Performed By: #### L500.4050, L501.1400, L501.9520 #### [facility] [address] [place], [address] URIC ACID Collected: 05/18/2018 Status: F Source: [facility] 10:26 AM [facility] REPOSITORY TYPE CODE TESTS RESULT OUT OF RANGE REFERENCE UNITS LAB L501.1400 2.6-6.0 mg/dL Normal URIC 3.4 Result Comment: The drugs N-Acetylcysteine and Metamizole may falsely depress this assay. Performed By: #### L500.4050, L501.1400, L501.9520 #### [facility] [address] [place], [address] THYROID STIM HORMONE Collected: 05/18/2018 Status: F Source: [facility] ([facility]) 10:26 AM [facility] REPOSITORY TYPE CODE TESTS RESULT OUT OF RANGE REFERENCE UNITS LAB L501.9520 0.358-3.74 uIU/mL Normal TSH 1.68 Performed By: #### L500.4050, L501.1400, L501.9520 #### [facility] [address] [place], [place], [address] RE-EVALUATION - PT (1) Observed: 05/08/2018 Status: F Source: [facility] 7:21 AM [facility] REPOSITORY [facility] [address] [place], [place] [address] Fax REEVALUATION / MEDICARE RECERTIFICATION PHYSICAL THERAPY MR#: [id number] Acct: [id number] Name: JESS MELGOZA Rep #: [id number] : 1940 78 From: Kaila MCINTOSHT Referring [...] get out of car okay. Goals: walking skilled nursing through [employer] without having stop. Pt. thinks [...] do not hesitate to contact me at [phone] by phone or if you have questions or concerns regarding this new plan of care! Sincerely, Kaila Alcala <Electronically signed by Kaila Alcala DPT> 05/08/18 0721 CC: Joe Alvarado MD ELR Signed For Medicare only, by signing this I certify the plan of care. Physicians Signature Date INITAL EVALUATION (1) Observed: 04/17/2018 Status: F Source: [facility] - PT 11:52 AM [facility] REPOSITORY [facility] [address] [place], [place] [address] Fax REHABILITATION SERVICES INITIAL EVALUATION MR#: [id number] Acct: [id number] Name: JESS MELGOZA Rep #: [id number] : 1940 77 From: Kaila MCINTOSHT Referring [...] different things. 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 Sit to manager fine 30 seconds: 7 with UE a on [...] to be FAXED BACK to us at [phone] for Medicare purposes. Please let me know if there are questions or concerns regarding this plan of care. Physician Signature: Date: <Electronically signed by Kaila Alcala DPT> 04/17/18 1158 CC: OUT OF TOWN DOCTOR; Joe Alvarado MD ELR Signed For Medicare only, by signing this I certify the plan of care. Physicians Signature Date CARDIOLOGY VISIT Observed: 04/10/2018 Status: F Source: [facility]TERPR[facility] REPORT 1:30 PM [facility] REPOSITORY [facility] [address] [place] [address] OFFICE VISIT Date of Service: 04/10/18 MR#: [id number] Acct: [id number] Name: JESS MELGOZA Rep #: [id number] : 1940 Provider: Yefri Noe MD Age/Sex: 77/F [place] [facility] [place] Signed HPI HPI Chief Complaint: Routine f/u Details: is a very pleasant 77-year-old female with a history of hypertension, apparently nonobstructive coronary disease by previous catheterization 2003, hyperlipidemia, degenerative joint disease status post hip replacement surgery in 2009. She also has a history of tobacco abuse and quit in 1994 after a 92-iepc-bvpi smoking history. The patient was originally referred [...] Pressure 130/60 Intake Visit Reasons: 6 M Retail Delivery Driver Required: No Is patient in pain?: Yes [...] QWEEK 04/10/18 [History Confirmed 04/10/18] [facility] Medical History Lung cancer (Chronic) COPD (chronic [...] Yefri Noe MD> Date Yefri Noe MD [facility] Signature: Date (if applicable) CC: Joe Alvarado MD SCREENING MAMM (CAD), Observed: 12/21/2017 Status: F Source: AVERY BILAT 9:30 AM [facility] REPOSITORY [facility] Imaging Services [address] [place] [address] SCREENING MAMM (CAD), BILAT MR#: [id number] Acct: [id number] Name: JESS MELGOZA Rep #: [id number] : 1940 F 77 From: Xander Medina MD PCP: oJe Alvarado MD, Chi Status: REG CLI Study: SCREENING MAMM (CAD), BILAT Date of Exam: 12/21/17 Exam# [id number] Ordering Dr: Joe Alvarado MD MAMMOGRAPHY - [...] delay biopsy of a clinically suspicious abnormality. [id number] Electronically Signed: Xander Medina MD at 12:36 EDT Tel [phone], Service support , CC: Joe Alvarado MD Microelectronics Technician: Signed DEXA BONE DENSITY Observed: 12/21/2017 Status: F Source: ENTERPRISE STUDY 9:30 AM [facility] REPOSITORY [facility] Imaging Services [address] [place] [address] Dexa Bone Density Study MR#: [id number] Acct: [id number] Name: JESS MELGOZA Rep #: [id number] : 1940 F 77 From: Xander Medina MD PCP: Joe Alvarado MD, Chi Status: REG CLI Study: Dexa Bone Density Study Date of Exam: 12/21/17 Exam# [id number] Ordering Dr: Joe Alvarado MD STUDY: DUAL [...] Xander Medina MD at 9:23 EDT Tel [phone], Service support , CC: Joe Alvarado MD Microelectronics Technician: Signed CBC W/DIFF, AUTOMATED Collected: 11/16/2017 Status: F Source: AVERY 11:05 AM [facility] REPOSITORY TYPE CODE TESTS RESULT OUT OF [...] Lymph 2.13 Performed By: #### L100.0100 #### [facility] [address] [place], [place], [address] VITAMIN D,25 HYDROXY Collected: 11/16/2017 Status: F Source: AVERY 11:05 AM [facility] REPOSITORY TYPE CODE TESTS RESULT OUT OF RANGE REFERENCE UNITS LAB L506.1000 29.95-100.01 ng/mL Normal Vitamin D 34.5 25-OH Result Comment: Vitamin D 25(OH) Status Range Deficiency <20 ng/mL (50nmol/L) Insuffciency 20 - 30 ng/mL (50 - 75 nmol/L) Sufficiency 30 - 100 ng/mL (75 - 250 nmol/L) Toxicity >100 ng/mL (>250 nmol/L) Performed By: #### L506.1000 #### [facility] [place], [address] COMPREHENSIVE METABOLIC Collected: 11/16/2017 Status: F Source: AVERY [facility] 11:05 AM [facility] REPOSITORY TYPE CODE TESTS RESULT OUT OF [...] Performed By: #### L500.4050, L501.1400, L501.9520 #### [facility] [address] [place], [address] URIC ACID Collected: 11/16/2017 Status: F Source: AVERY 11:05 AM [facility] REPOSITORY TYPE CODE TESTS RESULT OUT OF RANGE REFERENCE UNITS LAB L501.1400 2.6-6.0 mg/dL Normal URIC 3.8 Result Comment: The drugs N-Acetylcysteine and Metamizole may falsely depress this assay. Performed By: #### L500.4050, L501.1400, L501.9520 #### [facility] [address] [place], [address] THYROID STIM HORMONE Collected: 11/16/2017 Status: F Source: AVERY (TSH) 11:05 AM [facility] REPOSITORY TYPE CODE TESTS RESULT OUT OF RANGE REFERENCE UNITS LAB L501.9520 0.358-3.74 uIU/mL Normal TSH 0.59 Performed By: #### L500.4050, L501.1400, L501.9520 #### [facility] [address] [place], [address] CHIROPRACTIC REPORT Observed: 10/13/2017 Status: F Source: AVERY 11:23 AM [facility] REPOSITORY [facility] [address] [place] [address] OFFICE VISIT Date of Service: 10/11/17 MR#: [id number] Acct: [id number] Name: JESS MELGOZA Rep #: [id number] : 1940 Provider: Dawn Lovett D.C. Age/Sex: 77/F Location: [facility] [place] Status: Signed Intake Vital [...] tab 09/15/17 [History Confirmed 09/15/17] [facility] Medical History Premature ventricular beat (Chronic) PAC [...] Additional Codes Procedures - Manipulation: 3-4 regions (46296) 10/13/17 1123 <Electronically signed by Dawn Lovett D.C.> Date Dawn Lovett D.C. Cosigner Signature: Date (if applicable) CC: CHIROPRACTIC REPORT Observed: 10/06/2017 Status: F Source: ENTERPRISE 9:14 AM [facility] [address] [place] [address] OFFICE VISIT Date of Service: 10/04/17 MR#: [id number] Acct: [id number] Name: JESS MELGOZA Rep #: [id number] : 1940 Provider: Dawn Lovett D.C. Age/Sex: 77/F Location: [facility] [place] Status: Signed Intake Vital [...] Additional Codes Procedures - Manipulation: 3-4 regions (38464) 10/06/17 0914 <Electronically signed by Dawn Lovett D.C.> Date Dawn Lovett D.C. Cosigner Signature: Date (if applicable) CC: CARDIOLOGY VISIT Observed: 09/15/2017 Status: F Source: ENTERPRISE REPORT 3:43 PM [facility] REPOSITORY [facility] [address] [place] [address] OFFICE VISIT Date of Service: 09/15/17 MR#: [id number] Acct: [id number] Name: JESS MELGOZA Rep #: [id number] : 1940 Provider: Yefri Noe MD Age/Sex: 77/F [place] [facility] [place]: Signed HPI HPI Chief Complaint: Routine F/u Details: HPI Referring physician: Dr. Alvarado is a very pleasant 77-year-old female with a history of hypertension, apparently nonobstructive coronary disease by last catheterization 2003, hyperlipidemia, degenerative joint disease status post hip replacement surgery in 2009. She also has a history of tobacco abuse and quit in 1994 after a 47-vgjk-hvia smoking history. The patient was originally referred [...] SEVERITY SOURCE 07/29/2018 Drug NSAIDS Unknown Unknown [facility]/87[facility]1993([facility] 202745353(RXNOR Repository M) 07/29/2018 Drug misoprostol/F00 Unknown Unknown [facility]/145982857(S 1728322(RXNORM) [facility]) Hospital Repository 07/29/2018 Drug adhesive blisters Unknown [place] Allergy/218120332(S tape/[id number] [facility]) (RXNORM) Hospital Repository 07/29/2018 Drug diclofenac/F006 Unknown Unknown [facility]/832371345(S 724070(RXNORM) [facility]) Hospital Repository 05/30/2018 Miscellaneous iodine contrast Rash Unknown [place] Allergy/311112413(S [facility]) Hospital Repository 10/11/2014 Drug diclofenac Upset Stomach Unknown [facility]/204403002(S [facility]6372[facility] Repository 10/11/2014 Drug Iodine and Rash Unknown [facility]/662439328(S Iodide [facility]) [facility] Hospital Produc/B4388532 Repository 75(RXNORM) 10/11/2014 Drug peanut/C8671008 Diarrhea Unknown [facility]/784835189(S 68(RXNORM) [facility]) Hospital Repository 10/11/2014 Drug adhesive/F76849 Other Unknown [place] Allergy/816650058(S 3245(RXNORM) [facility]) Hospital Repository 10/11/2014 Drug corn/V278513156 Upset Stomach Unknown [facility]/057775131(S (RXNORM) [facility]) Hospital Repository ENCOUNTERS ENCOUNTERS ADMIT/DISCHARGE ACCOUNT ADMITTING ENCOUNTER LOCATION SOURCE NUMBER CLASS 08/09/2018 [id number] Ambulatory [place] 3 [facility] Hospital ing:CT Repository 08/09/2018/ [id number] Ambulatory [place] 9 8 [facility] ing:PT Repository 08/09/2018/ [id number] Ambulatory BMSBuilding:B [place] [facility] 4 [facility] Repository 07/29/2018/ [id number] Ambulatory BMSBuilding:B [facility] 2 [facility] Repository 07/26/2018 [id number] Ambulatory [place] 6 [facility] Hospital ing:US Repository 07/12/2018 [id number] Ambulatory [place] 8 [facility] Hospital ing:CVS Repository 07/05/2018 [id number] Ambulatory [place] 2 [facility] Hospital ing:POLAB3 Repository 05/30/2018 [id number] Ambulatory BMSBuilding:B [place] 6 [facility] Repository 05/30/2018 [id number] Ambulatory [place] 5 [facility] Hospital ing:OMD Repository 05/26/2018/ [id number] Ambulatory [place] 8 7 [facility] Hospital ing:PT Repository 05/24/2018 [id number] Ambulatory [place] 1 [facility] Hospital ing:LABSPEC Repository 05/23/2018 [id number] Ambulatory BMSBuilding:B [place] 6 [facility] Repository 05/18/2018 [id number] Ambulatory [place] 0 [facility] Hospital ing:POLAB3 Repository 04/10/2018/ [id number] Ambulatory BMSBuilding:B [place] 8 0 [facility] Repository 02/06/2018 [id number] Ambulatory BMSBuilding:B [place] 0 [facility] Repository 02/06/2018 [id number] Ambulatory BMSBuilding:B [place] 1 [facility] Repository 12/21/2017 [id number] Ambulatory [place] 0 [facility] Hospital ing:OPBD Repository 11/16/2017 [id number] Ambulatory [place] 6 [facility] ing:POLAB3 Repository 10/11/2017/ [id number] [place]:[place] [facility] [place] 10/04/2017/ [id number] [place]ulatory [facility]B [place] [facility] [place] 09/15/2017/ [id number] Ambulatory BMSBuilding:B [place] 8 1 [facility] Repository 09/14/2017 [id number] Ambulatory BMSBuilding:B [place] 8 [facility] Repository PAYERS PAYERS ENCOUNTER GUARANTOR PAYER SUBSCRIBER SOURCE 08/09/2018 JESS KIRK2 Primary JESS JETT CTAPT Insurance:MEDICARE TAMMENDOB: [place] [facility] [id number] [address]Tel: (330) Number: Repository [phone] () [id number] Date:2018-07-31 08/09/2018 Secondary NOT GIVENUNK [facility] Insurance:SELF PAY [facility] Number: Effective Repository Date:2018-07-31 08/09/2018 JESS MELGOZA582 Primary JESS JETT [address]AP[address] Insurance:MEDICARE TAMMENDOB: [place] [facility] [id number] [facility] [address]Dyy: (330) Number: Repository [phone] (HP) [id number] Date:2018-06-12 08/09/2018 Secondary NOT GIVENUNK [facility] Insurance:SELF PAY [facility] Number: Effective Repository Date:2018-06-12 08/09/2018 JESS MELGOZA582 Primary JESS JETT [address]AP[address] Insurance:MEDICARE TAMMENDOB: [place] [id number] [facility] [address]Hes: (330) Number: Repository [phone] () [id number] Date:2018-07-29 08/09/2018 Secondary NOT GIVENUNK [place] Insurance:SELF PAY [facility] Number: Effective Repository Date:2018-08-07 07/29/2018 JESS VILLANUEVA Primary JESS JETT CTAPT Insurance:MEDICARE TAMMENDOB: [place]lic[place] [id number] [facility] [address]Ete: (330) Number: Repository [phone] () [id number] Date:2018-07-27 07/29/2018 Secondary NOT GIVENUNK [place] Insurance:SELF PAY [facility] Number: Effective Repository Date:2018-07-27 07/26/2018 JESS MELGOZA582 Primary JESS JETT [address] Insurance:MEDICARE TAMMENDOB: [place] PART [place] olic [id number] Hospital [address]Ddx: (330) Number: Repository [phone] () [id number] Date:2018-07-21 07/26/2018 Secondary NOT GIVENUNK [place] Insurance:SELF PAY [facility] Number: Effective Repository Date:2018-07-21 07/12/2018 JESS MELGOZA582 Primary JESS [address]T [address] Insurance:MEDICARE TAMMENDOB: [place] PART A olic [id number] [facility] [address]Fmj: (330) Number: Repository [phone] () [id number] Date:2018-07-05 07/12/2018 Secondary NOT GIVENUNK [facility] Insurance:SELF PAY [facility] Number: Effective Repository Date:2018-07-05 07/05/2018 JESS MELGOZA582 Primary JESS JETT CTAPT Insurance:MEDICARE TAMMENDOB: [facility] [place] [facility] [id number] [facility] [address]Wyz: (330) Number: Repository [phone] () [id number] Date:2018-07-05 07/05/2018 Secondary NOT GIVENUNK [facility] Insurance:SELF PAY [facility] Number: Effective Repository Date:2018-07-05 05/30/2018 JESS MELGOZA582 Primary JESS Shavonne JETT CTAPT Insurance:MEDICARE TAMMENDOB: [place] [facility] [id number] Hospital [address]Vkx: (330) Number: Repository [phone] () [id number] Date:2018-05-22 05/30/2018 Secondary NOT GIVENUNK [place] Insurance:SELF PAY [facility] Number: Effective Repository Date:2018-05-30 05/30/2018 JESS MELGOZA582 Primary JESS Shavonne JETT CTAPT Insurance:MEDICARE TAMMENDOB: [facility] [place] [facility] [id number] Hospital [address]Kii: (330) Number: Repository [phone] () [id number] Date:2018-05-22 05/30/2018 Secondary NOT GIVENUNK [place] Insurance:SELF PAY [facility] Number: Effective Repository Date:2018-05-22 05/26/2018 JESS MELGOZA582 Primary JESS Shavonne JETT CTAPT Insurance:MEDICARE TAMMENDOB: [place] [facility] [id number] Hospital [address]Oym: (330) Number: Repository [phone] () [id number] Date:2007-03-25 05/26/2018 Secondary NOT GIVENUNK [place] Insurance:SELF PAY [facility] Number: Effective Repository Date:2018-04-17 05/24/2018 JESS KIRK2 Primary JESS Shavonne JETT CTAPT Insurance:MEDICARE TAMMENDOB: [facility] [place] [facility] [id number] Hospital [address]Hjj: (330) Number: Repository [phone] () [id number] Date:2018-05-24 05/24/2018 Secondary NOT GIVENUNK [facility] Insurance:SELF PAY [facility] Number: Effective Repository Date:2018-05-24 05/23/2018 JESS VILLANUEVA Primary JESS JETT CTAPT Insurance:MEDICARE TAMMENDOB: [place] PART [place] olicy [id number] Hospital [address]Qpv: (330) Number: Repository [phone] () [id number] Date:2018-05-22 05/23/2018 Secondary NOT GIVENUNK [facility] Insurance:SELF PAY [facility] Number: Effective Repository Date:2018-05-23 05/18/2018 JESS KIRK2 Primary JESS JETT CTAPT Insurance:MEDICARE TAMMENDOB: [facility] [place] [id number] Hospital [address]Fcq: (330) Number: Repository [phone] () [id number] Date:2018-05-18 05/18/2018 Secondary NOT GIVENUNK [facility] Insurance:SELF PAY [facility] Number: Effective Repository Date:2018-05-18 04/10/2018 JESS MELGOZA582 Primary JESS JETT [address]AP[address] Insurance:MEDICARE TAMMENDOB: [place] [id number] Hospital [address]Pzb: (330) Number: Repository [phone] () [id number] Date:2017-09-15 04/10/2018 Secondary NOT GIVENUNK [facility] Insurance:SELF PAY [facility] Number: Effective Repository Date:2018-04-10 02/06/2018 JESS MELGOZA582 Primary JESS [address]T [address] Insurance:MEDICARE TAMMENDOB: [place] [facility] [id number] Hospital [address]Aks: (330) Number: Repository [phone] () [id number] Date:2018-02-06 02/06/2018 Secondary NOT GIVENUNK [place] Insurance:SELF PAY [facility] Number: Effective Repository Date:2018-02-06 02/06/2018 JESS MELGOZA582 Primary JESS JETT [address]APT Insurance:MEDICARE [place] [id number] Hospital [address]Vnd: (330) Number: Repository [phone] () [id number] Date:2018-02-06 02/06/2018 Secondary NOT GIVENUNK [place] Insurance:SELF PAY [facility] Number: Effective Repository Date:2018-02-06 12/21/2017 JESS MELGOZA582 Primary JESS JETT [address] Insurance:MEDICARE TAMMENDOB: [place] [id number] Hospital [address]Kqe: (330) Number: Repository [phone] () [id number] Date:2017-11-16 12/21/2017 Secondary NOT GIVENUNK [place] Insurance:SELF PAY [facility] Number: Effective Repository Date:2017-11-16 11/16/2017 JESS MELGOZA582 Primary JESS Varela [address] Insurance:MEDICARE TAMMENDOB: [place] [id number] Hospital [address]Xne: (330) Number: Repository [phone] () [id number] Date:2017-11-16 11/16/2017 Secondary NOT GIVENUNK [place] Insurance:SELF PAY [facility] Number: Effective Repository Date:2017-11-16 10/11/2017 JESS MELGOZA582 Primary JESS JETT [address]APT Insurance:MEDICARE TAMMENDOB: [facility] [place] [id number] Hospital [address]Rna: (330) Number: Repository [phone] () [id number] Date:2017-10-04 10/11/2017 Secondary NOT GIVENUNK [place] Insurance:SELF PAY [facility] Number: Effective Repository Date:2017-10-04 10/04/2017 JESS [id number] Primary JESS JETT [address]APT Insurance:MEDICARE TAMMENDOB: [place] [facility] [id number] Hospital [address]Ytu: (330) Number: Repository [phone] () [id number] Date:2017-10-03 10/04/2017 Secondary NOT GIVENUNK [place] Insurance:SELF PAY [facility] Number: Effective Repository Date:2017-10-03 09/15/2017 JESS [id number] Primary JESS JETT CTAPT [facility] [place] [facility] [id number] Hospital [address]Tuj: (330) Number: Repository [phone] () [id number] Date:2017-06-30 09/15/2017 Secondary NOT GIVENUNK [facility] Insurance:SELF PAY [facility] Number: Effective Repository Date:2017-06-30 09/14/2017 Jess Melgoza582 Primary Jess [address] Insurance:MEDICARE TammenDOB: [place] [facility] [id number] Hospital [address]Gth: (330) Number: Repository [phone] () [id number] Date:2017-09-14 09/14/2017 Secondary NOT GIVENUNK [place] Insurance:SELF PAY [facility] Number: Effective Repository Date:2017-09-14
== END ==
PROVIDERS: Family Provider Family Medicine Geriatric Medicine; PCP Family Medicine Geriatric Medicine; Referring Provider Surgery; Visit Provider Surgery
DX: I65.23 Occlusion and stenosis of bilateral carotid arteries (principal); I77.9 Disorder of arteries and arterioles, unspecified; I77.1 Stricture of artery; E04.2 Nontoxic multinodular goiter
CPT/HCPCS: 70498; 71275; 88108; 88161; 88305; 88313; Q9967

== ENCOUNTER → 2018-08-25 11:12 | Outpatient (CLI) | payer MEDICARE, SELFPAY ==
[2018-08-09 07:51] VITALS: BMI 25.5
[2018-08-25 12:43] LABS: Absolute Neutrophil Count 4.5 X10^3/uL (2.0-7.7); Basophil# 0.04 X10^3/uL; Basophil% 0.5 % (0-1); Eosinophil# 0.13 X10^3/uL; Eosinophils% 1.7 % (0-5); Hematocrit 34.2 % (37-47); Hemoglobin 11.4 g/dl (12.0-15.0); Lymphocyte % 29.3 % (19-41); Mean Corp Hgb Conc 33.3 g/gl (32-36); Mean Corpuscular Hgb 32.3 pg (27.0-32.0); Mean Corpuscular Volume 96.9 fL (81-99); Mean Platelet Vol. 12.2 fl (6.2-12.0); Monocyte# 0.64 X10^3/uL; Monocyte% 8.5 % (0-10); Neutrophil % 59.9 % (47-70); Platelet Count 206 K/mm3 (150-450); RBC Distribution Width CV 14.2 % (11.6-14.6); RBC Distribution Width SD 47.8 fl (35.1-43.9); Red Blood Count 3.53 M/mm3 (4.2-5.4); White Blood Count 7.5 K/mm3 (4.4-11.0)
[2018-08-25 12:45] LABS: POSITIVE COUNT NO; POSITIVE DIFFERENTIAL NO; POSITIVE MORPHOLOGY NO
[2018-08-25 13:17] LABS: Vitamin B12 530 pg/mL (211-911)
[2018-08-25 13:50] LABS: ALB/GLOB Ratio 0.9 RATIO (0.9-2.4); AST(SGOT) 25 U/L (15-37); Alanine Aminotransfer ALT/SGPT 18 U/L (13-56); Albumin, Serum 3.2 g/dL (3.2-5.0); Alkaline Phosphatase 97 U/L (45-117); Anion Gap 13 (5-15); BUN 20 mg/dL (7-18); Calcium,Total 9.8 mg/dL (8.5-10.1); Chloride 108 mmol/L (98-107); Creatinine, Serum 1.25 mg/dL (0.55-1.02); EST Glomerular Filtration Rate 44 mL/min (>60); Est Glom Filt Rate - Afr Amer 54 mL/min (>60); Ferritin 86 ng/mL (8-252); Globulin 3.5 g/dL (2.2-4.2); Glucose 72 mg/dL (74-106); Iron 106 ug/dL (50-170); Iron Binding Capacity,Total 442 ug/dL (250-450); Potassium 3.9 mmol/L (3.5-5.1); Protein, Total 6.7 g/dL (6.4-8.2); Sodium Level 143 mmol/L (136-145)
== END ==
PROVIDERS: Family Provider Family Medicine Geriatric Medicine; PCP Family Medicine Geriatric Medicine; Referring Provider Internal Medicine Medical Oncology; Visit Provider Internal Medicine Medical Oncology
DX: D64.9 Anemia, unspecified (principal); D53.9 Nutritional anemia, unspecified
CPT/HCPCS: 36415; 80053; 82607; 82728; 82746; 83540; 83550; 85025

== ENCOUNTER → 2018-11-21 | Outpatient (CLI) | payer MEDICARE, SELFPAY ==
[2018-10-23 13:41] VITALS: BMI 25.1
--- NOTE | 2018-11-21 11:15 | RAD_ITS ---
STUDY: X-RAY - CERVICAL SPINE REASON FOR EXAM: Female, 78 years old. Pain TECHNIQUE: 3 view(s) of the cervical spine were obtained. COMPARISON: 05/30/2017. FINDINGS: There is no evidence of fracture or dislocation in the cervical spine. The dens is intact. Dictation There are stable degenerative changes with disc space narrowing in the lower cervical spine. The prevertebral soft tissues are unremarkable. There is no radiodense foreign body. RAD/Cerv Spine 2 or 3 Views IMPRESSION: No fracture or dislocation in the cervical spine. Stable degenerative changes in the lower cervical spine. Electronically Signed: Kalen Weldon, at 18:45 EDT Tel , Service support ,
[2018-11-21 12:36] LABS: Absolute Lymphocyte Count 2.17 X10^3/ul (0.83-4.51); Absolute Neutrophil Count 6.7 X10^3/uL (2.0-7.7); Basophil# 0.04 X10^3/uL; Basophil% 0.4 % (0-1); Eosinophil# 0.18 X10^3/uL; Eosinophils% 1.8 % (0-5); Hematocrit 32.7 % (37-47); Hemoglobin 10.5 g/dl (12.0-15.0); Lymphocyte # 2.17 X10^3/ul (4.0); Mean Corp Hgb Conc 32.1 g/gl (32-36); Mean Corpuscular Hgb 30.5 pg (27.0-32.0); Mean Corpuscular Volume 95.1 fL (81-99); Mean Platelet Vol. 11.9 fl (6.2-12.0); Monocyte# 0.82 X10^3/uL; Monocyte% 8.3 % (0-10); Neutrophil # 6.65 X10^3/uL (2.7-7.7); Neutrophil % 67.3 % (47-70); Platelet Count 251 K/mm3 (150-450); RBC Distribution Width CV 14.3 % (11.6-14.6); RBC Distribution Width SD 46.6 fl (35.1-43.9); Red Blood Count 3.44 M/mm3 (4.2-5.4); White Blood Count 9.9 K/mm3 (4.4-11.0)
[2018-11-21 12:38] LABS: POSITIVE COUNT NO; POSITIVE DIFFERENTIAL NO; POSITIVE MORPHOLOGY NO
[2018-11-21 13:21] LABS: ALB/GLOB Ratio 0.9 RATIO (0.9-2.4); AST(SGOT) 23 U/L (15-37); Alanine Aminotransfer ALT/SGPT 15 U/L (13-56); Alkaline Phosphatase 91 U/L (45-117); Anion Gap 10 (5-15); BUN 17 mg/dL (7-18); BUN/Creat Ratio 10.9 RATIO (10-20); Calcium,Total 9.4 mg/dL (8.5-10.1); Chloride 105 mmol/L (98-107); Creatinine, Serum 1.56 mg/dL (0.55-1.02); EST Glomerular Filtration Rate 34 mL/min (>60); Est Glom Filt Rate - Afr Amer 41 mL/min (>60); Globulin 3.5 g/dL (2.2-4.2); Glucose 93 mg/dL (74-106); Potassium 4.1 mmol/L (3.5-5.1); Protein, Total 6.5 g/dL (6.4-8.2); Sodium Level 141 mmol/L (136-145); Thyroid Stim Hormone (TSH) 1.69 uIU/mL (0.358-3.74)
== END | disposition home or self-care (01) ==
LOC: POLAB3 10:29 → RAD 11:03
PROVIDERS: Family Provider Family Medicine Geriatric Medicine; PCP Family Medicine Geriatric Medicine; Referring Provider Family Medicine Geriatric Medicine; Visit Provider Family Medicine Geriatric Medicine
DX: M54.2 Cervicalgia (principal); E55.9 Vitamin D deficiency, unspecified; I10 Essential (primary) hypertension; M10.9 Gout, unspecified
CPT/HCPCS: 36415; 72040; 80053; 82306; 84443; 84550; 85025

== ENCOUNTER → 2019-01-04 | Outpatient (CLI) | payer MEDICARE, SELFPAY ==
[2018-10-23 13:41] VITALS: BMI 25.1
--- NOTE | 2019-01-04 10:16 | MRI_ITS ---
STUDY: MRI CERVICAL SPINE WITHOUT CONTRAST REASON FOR EXAM: Female, 78 years old. Neck and right shoulder pain TECHNIQUE: Standardized fat and water weighted pulse sequences were obtained in the sagittal and axial planes. COMPARISON: Cervical spine x-ray 11/21/2018 FINDINGS: Normal foramen magnum and brainstem-cervical cord junction. Normal craniovertebral junction. Normal anterior atlantoaxial articulation. Normal odontoid process. Normal cervical lordosis. Normal vertebral bodies and posterior osseous elements. C2-3: Normal endplates. There is left asymmetric disc bulge. Normal central canal and intervertebral neural foramina. C3-4: Normal endplates. There is mild posterior disc bulge and ventral thecal sac narrowing without significant canal narrowing. Normal intervertebral neural foramina. C4-5: There is grade 1 anterolisthesis of C4 on C5. Mild disc space narrowing and degenerative changes of the endplates. There is posterior disc bulge abutting the ventral spinal cord and causing mild central canal narrowing. There is marked bilateral foraminal narrowing.. C5-6: Normal endplates. Mild disc space narrowing. There is posterior disc bulge/disc osteophyte complex abutting the ventral spinal cord and causing moderate central canal narrowing. There is marked left and moderate right foraminal narrowing.. C6-7: Normal endplates. There is moderate disc space narrowing. There is posterior disc osteophyte complex abutting the ventral spinal cord and causing mild central canal narrowing. Moderate bilateral foraminal narrowing C7-T1: Normal endplates. Normal disc height, signal and morphology. Normal central canal and intervertebral neural foramina. Normal cervical cord. Normal visualized soft tissue structures. MRI/Spine Cervical (Routine) IMPRESSION: Multilevel degenerative disc disease most prominent at C4-C5, C5-C6 and C6-C7 as described above. Electronically Signed: Julia Jordan, at 14:09 EDT Tel , Service support ,
== END | disposition home or self-care (01) ==
LOC: MRI 10:10
PROVIDERS: Family Provider Family Medicine Geriatric Medicine; PCP Family Medicine Geriatric Medicine; Referring Provider Anesthesiology Pain Medicine; Visit Provider Anesthesiology Pain Medicine
DX: M54.2 Cervicalgia (principal)
CPT/HCPCS: 72141

== ENCOUNTER → 2019-02-05 | Outpatient (CLI) | payer MEDICARE, SELFPAY ==
[2018-10-23 13:41] VITALS: BMI 25.1
--- NOTE | 2019-02-05 11:02 | RAD_ITS ---
STUDY: X-RAY - LUMBAR SPINE REASON FOR EXAM: Female, 78 years old. Back pain since 2000, increased in severity over the last several years. TECHNIQUE: 3 view(s) of the lumbar spine were obtained. COMPARISON: Prior study of 05/30/2017 FINDINGS: Normal lumbar lordosis. There is no substantial scoliosis. There is a normal alignment of the vertebrae. There is diffuse endplate spondylosis of the lumbar vertebrae. There is multi-level degenerative disc disease with multi-level disc space narrowing. There is no demonstrated fracture. There are densely calcified plaques of the abdominal aorta and common iliac arteries. Status post total left hip replacement changes are noted. RAD/Lumbar Spine 2 or 3 Views IMPRESSION: Degenerative changes of the spine, as detailed above. Findings are similar to the previous study. Electronically Signed: Pramod Judge MD at 20:11 EDT , Service support ,
== END | disposition home or self-care (01) ==
LOC: RAD 10:38
PROVIDERS: Family Provider Family Medicine Geriatric Medicine; PCP Family Medicine Geriatric Medicine; Referring Provider Family Medicine Geriatric Medicine; Visit Provider Family Medicine Geriatric Medicine
DX: M54.9 Dorsalgia, unspecified (principal)
CPT/HCPCS: 72100

== ENCOUNTER → 2019-03-14 | Outpatient (CLI) | payer MEDICARE, SELFPAY ==
[2019-03-13 13:56] VITALS: BMI 23.3
[2019-03-14 16:25] LABS: Protein, Urine (Random) 1209.5 mg/dL (<11.9); Protein:Creat Ratio 5352 mg/g CRE (0-200)
== END | disposition home or self-care (01) ==
LOC: POLAB3 12:06
PROVIDERS: Family Provider Family Medicine Geriatric Medicine; PCP Family Medicine Geriatric Medicine; Visit Provider Family Medicine Geriatric Medicine
DX: N18.3 Chronic kidney disease, stage 3 (moderate) (principal)
CPT/HCPCS: 82570; 84156

== ENCOUNTER → 2019-03-20 | Outpatient (CLI) | payer MEDICARE, SELFPAY ==
[2019-03-13 13:56] VITALS: BMI 23.3
[2019-03-20 09:38] LABS: 24 Hour Urine Protein 3448.5 mg/24HR (<150 MG/24HR); 24HR. UA Prot. Total Volume 1425 mL
[2019-03-20 09:54] LABS: EST Glomerular Filtration Rate 39 mL/min (>60); Est Glom Filt Rate - Afr Amer 47 mL/min (>60)
[2019-03-20 10:09] LABS: Creat.Clear Total Volume 1425 mL; Creatinine Clearance 24 ml/min (100-200); Creatinine Serum Creat 1.4 mg/dL (0.6-1.0); Creatinine Urine 33.4 mg/dL (NO RANGE EST.); EST Glomerular Filtration Rate 39 mL/min (>60); Est Glom Filt Rate - Afr Amer 47 mL/min (>60)
[2019-03-21 16:53] LABS: ANTINUCLEAR ANTIBODIES DIRECT Negative (Negative)
== END | disposition home or self-care (01) ==
PROVIDERS: Family Provider Family Medicine Geriatric Medicine; PCP Family Medicine Geriatric Medicine; Referring Provider Family Medicine Geriatric Medicine; Visit Provider Family Medicine Geriatric Medicine
DX: N18.3 Chronic kidney disease, stage 3 (moderate) (principal)
CPT/HCPCS: 36415; 82565; 82575; 82784; 84156; 84165; 84166; 86038; 86334

== ENCOUNTER → 2019-03-21 | Outpatient (CLI) | payer MEDICARE, SELFPAY ==
[2019-03-13 13:56] VITALS: BMI 23.3
--- NOTE | 2019-03-21 10:52 | US_ITS ---
STUDY: RENAL ULTRASOUND - COMPLETE REASON FOR EXAM: Female, 78 years old. CKG 3 TECHNIQUE: Ultrasound evaluation of the kidneys was performed with real-time and static chadwick-scale imaging. COMPARISON: None. FINDINGS: RIGHT KIDNEY: Normal location of the right kidney, which is normal in size. The right kidney measures 9.3 x 4.6 x 5.0 cm. Mild increased cortical echogenicity. The renal cortex measures 1.2 cm. There is no right renal mass or cyst. There are no right renal calculi. There is no right hydronephrosis. DISTAL RIGHT URETER: There is non-visualization of the distal right ureter. There is no demonstrated right ureterovesical junction calculus. There is a visualized right ureteral jet. LEFT KIDNEY: Normal location of the left kidney, which is normal in size. The left kidney measures 9.2 x 4.3 x 4.9 cm. Mild increased cortical echogenicity. The renal cortex measures 1.1 cm. There is no left renal mass or cyst. There are no left renal calculi. There is no left hydronephrosis. DISTAL LEFT URETER: There is non-visualization of the distal left ureter. There is no demonstrated left ureterovesical junction calculus. There is a visualized left ureteral jet. BLADDER: The distended urinary bladder has a volume of 15 ml. There is a normal wall thickness of the distended urinary bladder. There is no demonstrated mass within the urinary bladder. There are no demonstrated bladder calculi. US/Kidney and Bladder IMPRESSION: Increased cortical echogenicity of the bilateral kidneys which may associate with medical renal disease. No evidence of renal obstruction. Electronically Signed: Carla Dumont MD at 11:47 EDT , Service support ,
== END | disposition home or self-care (01) ==
LOC: US 10:50
PROVIDERS: Family Provider Family Medicine Geriatric Medicine; PCP Family Medicine Geriatric Medicine; Referring Provider Family Medicine Geriatric Medicine; Visit Provider Family Medicine Geriatric Medicine
DX: N18.3 Chronic kidney disease, stage 3 (moderate) (principal); N04.9 Nephrotic syndrome with unspecified morphologic changes
CPT/HCPCS: 76770

== ENCOUNTER → 2019-04-05 10:07 | Outpatient (CLI) | payer MEDICARE, SELFPAY ==
[2019-03-13 13:56] VITALS: BMI 23.3
[2019-04-05 10:12] LABS: Bacteria 0 SEEN /hpf (None Seen); Red Blood Cells-Urine 0 SEEN /hpf (0-5)
[2019-04-05 13:17] LABS: Color, Urine Yellow (Yellow); Glucose, Dipstick 100 mg/dl (Normal); Ketone-Dipstick 5 mg/dl (Negative); Leukocyte Esterase-Dipstick 25 /ul (Negative); Nitrite-Dipstick Negative (Negative); Occult Blood-Urine 10 /ul (Negative); Protein-Dipstick 500 mg/dl (Negative); Specific Gravity, Urine 1.015 (1.002-1.030); Urine Bilirubin Dipstick Negative (Negative); Urine Clarity Clear (Clear); Urine Urobilinogen Normal (Normal)
[2019-04-05 13:26] LABS: Squamous Epithelial Cells - UA 0-5 SEEN /hpf (5-10); White Blood Cells 10-25 SEEN /hpf (0-5)
[2019-04-05 13:27] LABS: Fine Granular Cast- Urine 0-5 SEEN /lpf (0-5); Hyaline Cast 0-5 SEEN /lpf (0-5); Mucous, Urine RARE /hpf (<or=2+)
[2019-04-10 16:34] LABS: PROELU- Albumin, Urine 68.3 % (.); PROELU- Alpha-1-Globulin,Ur 7.5 % (.); PROELU- Alpha-2-Globulin,Ur 5.8 % (.); PROELU- Beta Globulin, Ur 11.8 % (.); PROELU- Gamma Globulin, Ur 6.7 % (.)
[2019-04-11 12:51] LABS: Total Protein, Ur 347.5 mg/dL (Not Estab.)
== END ==
PROVIDERS: Family Provider Family Medicine Geriatric Medicine; PCP Family Medicine Geriatric Medicine; Visit Provider Internal Medicine Nephrology
DX: N18.3 Chronic kidney disease, stage 3 (moderate) (principal); R80.8 Other proteinuria
CPT/HCPCS: 81001; 84166

== ENCOUNTER 2019-04-25 08:42 | Outpatient (RCR) | payer MEDICARE, SELFPAY ==
[2019-04-10 09:57] VITALS: BMI 23.0
--- NOTE | 2019-04-25 09:47 | HP.PTEVAL ---
Patient's Visit Information YAMIL MELGOZA is a 79 year old F referred to Physical Therapy by Joe Alvarado MD with a diagnosis of BPPV. Date of Evaluation: 04/25/19 Physical Therapist: Ayush Billingsley, DPT, OCS, CSCS - Visit Plan Plan: Pt has no signs of vestibular deficits or BPPV leading to her symptoms. I have recommeneded she consult with doctor regarding other possibilities as her vestibular examination is unremarkable for these new symptoms. No skilled PT required at this point. - Subjective Findings: Was here in September for therapy for vertigo which helped. They worked on neck and positional. Went to [facility] for pain management. Had injections and meds and helped a great deal. Has also been diagnosed with stage 4 kidney failure. This disallows some of the pain management. Will see optimization analyst int he next month. Meantime standing and drying dishes and got an aura that came on suddenly. It was a quick 10 second deal and then was OK. That was 3 weeks ago. Also gets it at night lying down for 10 seconds. Feels good in between. Balance is pretty good and uses cane much of time but this is normal for her. Sleep is OK due to vertigo. Not employed. Spends time sitting reading, puzzles, library and these are not effected. - Objective Walks with cane safe adn I today, steps with rails reciprocally with rail. Trasnfers I with UE and without but slower. c/s aROM WFL with pain end range of L rotation, 50 adn R rotation 55, has 40 extension. Sensation UE WNL to gross light touch. reflexes bi and tri 2/3. Tender in R UT to moderate pressure with slight knot that has been worked on in the past and not improved. - B hallpike kaitlin, no dizzyness, no aura, no nystagmus. - roll test. Oculomotor: no nystagmus with gaze or head shake. - head thrust. - skew eye deviation. - ocular tilt. pursuit adn saccades are normal. VOR normal horiz and vertical withotu symptoms. MSQ psoitions show no creation of dizzyness or aura. - Balance Scores Functional Gait Assessment Score: 23 % Disability: 23.3400 - Rehabilitation Potential Physical Therapy Diagnosis: aura feeling intermittently of unknown etiology. - Anticipated Interventions Thank you for the opportunity to evaluate your patient. For Medicare and Medicare HMO plans, please review the plan of care and approve it. It will need to be FAXED BACK to us at [phone] for Medicare purposes. For Medicare only, by signing this I certify the plan of care. Please let me know if there are questions or concerns regarding this plan of care. Physician Signature: Date:
== END 2019-04-25 19:00 | disposition home or self-care (01) ==
LOC: PT 08:42
PROVIDERS: Family Provider Family Medicine Geriatric Medicine; PCP Family Medicine Geriatric Medicine; Referring Provider Family Medicine Geriatric Medicine; Visit Provider Family Medicine Geriatric Medicine
DX: H81.10 Benign paroxysmal vertigo, unspecified ear (principal)
CPT/HCPCS: 97162

== ENCOUNTER → 2019-05-07 07:57 | Outpatient (CLI) | payer MEDICARE, SELFPAY ==
[2019-05-03 15:11] VITALS: BMI 23.7
[2019-05-07 09:25] LABS: Protein, Urine (Random) 794.8 mg/dL (<11.9); Protein:Creat Ratio 13030 mg/g CRE (0-200)
[2019-05-07 09:47] LABS: AST(SGOT) 26 U/L (15-37); Alanine Aminotransfer ALT/SGPT 18 U/L (13-56); Albumin, Serum 2.7 g/dL (3.2-5.0); Alkaline Phosphatase 87 U/L (45-117); Anion Gap 8 (5-15); BUN 19 mg/dL (7-18); BUN/Creat Ratio 13.8 RATIO (10-20); Bilirubin, Direct 0.11 mg/dL (0.00-0.30); Calcium,Total 9.2 mg/dL (8.5-10.1); Chloride 103 mmol/L (98-107); Cholesterol 206 mg/dL (200); Creatinine, Serum 1.38 mg/dL (0.55-1.02); EST Glomerular Filtration Rate 39 mL/min (>60); Est Glom Filt Rate - Afr Amer 48 mL/min (>60); Globulin 3.6 g/dL (2.2-4.2); Glucose 105 mg/dL (74-106); High Density Lipoprotein 85 mg/dL; Phosphorus 3.6 mg/dL (2.5-4.9); Potassium 3.7 mmol/L (3.5-5.1); Protein, Total 6.3 g/dL (6.4-8.2); Sodium Level 137 mmol/L (136-145); Triglycerides 164 mg/dL; Very Low Density Lipoprotein 33 mg/dL (5-40)
== END ==
PROVIDERS: Internal Medicine Cardiovascular Disease; Family Provider Family Medicine Geriatric Medicine; PCP Family Medicine Geriatric Medicine; Referring Provider Internal Medicine Nephrology; Visit Provider Internal Medicine Nephrology
DX: E78.5 Hyperlipidemia, unspecified (principal); N18.3 Chronic kidney disease, stage 3 (moderate)
CPT/HCPCS: 36415; 80048; 80061; 80076; 82570; 84100; 84156

== ENCOUNTER → 2019-05-08 07:27 | Outpatient (CLI) | payer MEDICARE, SELFPAY ==
[2019-04-10 09:57] VITALS: BMI 23.0
[2019-05-03 15:11] VITALS: BMI 23.7
--- NOTE | 2019-05-08 07:31 | CT_ITS ---
STUDY: CT CHEST WITH CONTRAST REASON FOR EXAM: Female, 79 years old. Lung cancer follow-up, LLL removed RADIATION DOSAGE (If Supplied By Facility): CTDIvol = ( 11.41 ) mGy, DLP = ( 787.88 ) mGycm TECHNIQUE: Transaxial imaging was performed following intravenous administration of IV Isovue 300 100. Individualized dose optimization techniques were used for this CT. COMPARISON: 08/09/2018 FINDINGS: Mild emphysema. A new spiculated density is present in the right lower lobe on image 65 of series 6, measuring 9 x 8 mm. Left lower lobectomy. There is no demonstrated pleural abnormality. Normal heart and pericardium. An enlarging prevascular lymph node is present on image 40 of series 2 now measuring 11 x 10 mm. Normal hilar regions. Normal enhanced pulmonary arteries. Normal aorta arch and descending thoracic aorta. 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 Normal osseous structures. There is no demonstrated abnormality of the visualized upper abdomen. CT/Chest WITH Contrast IMPRESSION: A new spiculated density is present in the right lower lobe measuring 9 x 8 mm. Consider PET/CT evaluation versus CT guided biopsy. An enlarging prevascular lymph node is present. Electronically Signed: Dylan Hansen MD at 22:46 EDT Tel , Service support ,
--- NOTE | 2019-05-08 07:31 | CT_ITS ---
STUDY: CT ABDOMEN AND PELVIS WITH CONTRAST REASON FOR EXAM: Female, 79 years old. Lung cancer follow-up RADIATION DOSAGE (If Supplied By Facility): CTDIvol = ( 11.41 ) mGy, DLP = ( 787.88 ) mGycm TECHNIQUE: Transaxial images were obtained from the dome of the diaphragm to the symphysis pubis without oral contrast. IV 100mL Isovue-300 100 was administered. Sagittal and coronal images were reconstructed. Individualized dose optimization techniques were used for this CT. COMPARISON: None. FINDINGS: The visualized lung bases are unremarkable. The visualized portions of the heart are within normal limits. Normal liver. There is non-visualization of the gallbladder, which may be secondary to either contraction or a prior cholecystectomy. Normal spleen. Normal pancreas. Normal bilateral adrenal glands. Normal right kidney. Normal left kidney. Normal visualized stomach. Normal small intestine. There are multiple colonic diverticula consistent with diverticulosis. There is non-visualization of the appendix. Heavy vascular calcifications. Normal inferior vena cava. Normal retroperitoneum. Normal urinary bladder. Normal abdominal wall. There are diffuse degenerative changes of the visualized lumbar spine. [Arthroplasty. CT/Abdomen/Pelvis W IV Cont ONLY IMPRESSION: No metastatic lesions are detected. Electronically Signed: Dylan Hansen MD at 23:07 EDT Tel , Service support ,
== END ==
PROVIDERS: Family Provider Family Medicine Geriatric Medicine; PCP Family Medicine Geriatric Medicine; Referring Provider Internal Medicine Medical Oncology; Visit Provider Internal Medicine Medical Oncology
DX: Z85.118 Personal history of other malignant neoplasm of bronchus and lung (principal)
CPT/HCPCS: 71260; 74177; Q9967

== ENCOUNTER → 2019-05-14 09:27 | Outpatient (CLI) | payer MEDICARE, SELFPAY ==
[2019-05-03 15:11] VITALS: BMI 23.7
[2019-05-10 13:34] VITALS: BMI 24.3
--- NOTE | 2019-05-14 09:29 | ECHOD_ITS ---
Reason For Study: Arrhythmia Procedure This was a 2D Doppler, Color Flow transthoracic echocardiogram. 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 Noe being out of town. Patient wanted results ARIN. Exam performed in department. Left Ventricle Normal LV size. 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 Apical hypertrophic CMP. Severe concentric left ventricular hypertrophy. Left ventricular systolic function is normal. The estimated ejection fraction is 65 %. Stage 1 diastolic dysfunction. No regional wall motion abnormalities noted. Right Ventricle Normal RV size. Normal systolic function. Atria Normal left atrium. Normal right atrium. Mitral Valve Normal mitral valve. Tricuspid Valve Normal tricuspid valve. Mild (1+) tricuspid valve insufficiency. Pulmonary artery systolic pressure is 34 mmHg. Aortic Valve Trisinus/trileaflet aortic valve. Pulmonic Valve The pulmonic valve is not well visualized. Great Vessels Normal aortic root. The pulmonary artery is normal size. Normal inferior vena cava. Pericardium/Pleural No pericardial effusion. MMode/2D Measurements & Calculations LVIDd: 4.2 cm IVSd: 2.0 cm Ao root diam: 3.3 cm LVIDs: 2.7 cm LVPWd: 1.4 cm LA dimension: 4.5 cm RVDd: 3.0 cm FS: 36.1 % LAV(MOD-bp): 53.6 ml LA A4 area: 18.7 cm2 RA A4 area: 8.1 cm2 LAV(MOD-bp) Indexed: 34.5 ml/m2 LAV(MOD-sp2): 59.1 ml LAV(MOD-sp4): 46.6 ml Time Measurements MV dec time: 0.26 sec Doppler Measurements & Calculations MV E max dharmesh: 64.7 cm/sec Lat Peak E' Dharmesh: 5.9 cm/sec Med Peak E' Dharmesh: 3.8 cm/sec MV A max dharmesh: 111.1 cm/sec E/E' lat: 10.9 E/E' med: 17.0 MV E/A: 0.58 MV V2 max: 120.4 cm/sec MV P1/2t max dharmesh: 78.0 cm/sec Ao V2 max: 111.7 cm/sec MV max P.8 mmHg MV P1/2t: 70.9 msec Ao max P.0 mmHg MV V2 mean: 57.7 cm/sec MV dec slope: 322.2 cm/sec2 MV mean P.6 mmHg MVA(P1/2t): 3.1 cm2 MV V2 VTI: 28.7 cm LV V1 max: 82.5 cm/sec PA V2 max: 80.9 cm/sec TR max dharmesh: 264.0 cm/sec LV V1 max P.7 mmHg TR max P.9 mmHg Interpretation Summary Normal LV size. Apical hypertrophic CMP Left ventricular systolic function is normal. The estimated ejection fraction is 65 %. Stage 1 diastolic dysfunction. Compared to the previous no changes noted Severe concentric left ventricular hypertrophy. Ordering Physician: Yefri Noe Referring Physician: Joe Alvarado Chi Performed By: Nico Michel RCS
== END ==
PROVIDERS: Family Provider Family Medicine Geriatric Medicine; PCP Family Medicine Geriatric Medicine; Referring Provider Internal Medicine Cardiovascular Disease; Visit Provider Internal Medicine Cardiovascular Disease
DX: I49.3 Ventricular premature depolarization (principal)
CPT/HCPCS: 93306

== ENCOUNTER → 2019-05-22 | Outpatient (CLI) | payer MEDICARE, SELFPAY ==
[2019-05-10 13:34] VITALS: BMI 24.3
[2019-05-22 12:39] LABS: Absolute Lymphocyte Count 2.39 X10^3/uL (0.83-4.51); Absolute Neutrophil Count 6.3 X10^3/uL (2.0-7.7); Basophil# 0.08 X10^3/uL; Basophil% 0.8 % (0-1); Eosinophil# 0.11 X10^3/uL; Eosinophils% 1.1 % (0-5); Hematocrit 34.1 % (37-47); Hemoglobin 10.8 g/dL (12.0-15.0); Lymphocyte # 2.39 X10^3/ul (4.0); Lymphocyte % 24.1 % (19-41); Mean Corp Hgb Conc 31.7 g/dL (32-36); Mean Corpuscular Volume 101.2 fL (81-99); Mean Platelet Vol. 12.2 fl (6.2-12.0); Monocyte# 0.94 X10^3/uL; Monocyte% 9.5 % (0-10); NRBC Flagged by Analyzer 0 % (0-5); Neutrophil # 6.32 X10^3/uL (2.7-7.7); Neutrophil % 63.9 % (47-70); Platelet Count 252 K/mm3 (150-450); RBC Distribution Width SD 52.3 fl (35.1-43.9); Red Blood Count 3.37 M/mm3 (4.2-5.4); White Blood Count 9.9 K/mm3 (4.4-11.0)
[2019-05-22 12:59] LABS: Vitamin D,25 Hydroxy 23.8 ng/mL (29.95-100.01)
[2019-05-22 13:03] LABS: ALB/GLOB Ratio 0.7 RATIO (0.9-2.4); AST(SGOT) 27 U/L (15-37); Alanine Aminotransfer ALT/SGPT 23 U/L (13-56); Albumin, Serum 2.6 g/dL (3.2-5.0); Alkaline Phosphatase 89 U/L (45-117); Anion Gap 9 (5-15); BUN 17 mg/dL (7-18); BUN/Creat Ratio 11.4 RATIO (10-20); Calcium,Total 9.2 mg/dL (8.5-10.1); Chloride 102 mmol/L (98-107); Creatinine, Serum 1.49 mg/dL (0.55-1.02); EST Glomerular Filtration Rate 36 mL/min (>60); Est Glom Filt Rate - Afr Amer 44 mL/min (>60); Globulin 3.5 g/dL (2.2-4.2); Glucose 95 mg/dL (74-106); Potassium 3.6 mmol/L (3.5-5.1); Protein, Total 6.1 g/dL (6.4-8.2); Sodium Level 138 mmol/L (136-145); Thyroid Stim Hormone (TSH) 4.38 uIU/mL (0.358-3.74); Uric Acid 3.2 mg/dL (2.6-6.0)
== END | disposition home or self-care (01) ==
LOC: POLAB3 12:18
PROVIDERS: Family Provider Family Medicine Geriatric Medicine; PCP Family Medicine Geriatric Medicine; Visit Provider Family Medicine Geriatric Medicine
DX: E55.9 Vitamin D deficiency, unspecified (principal); I10 Essential (primary) hypertension; M10.9 Gout, unspecified
CPT/HCPCS: 36415; 80053; 82306; 84443; 84550; 85025

== ENCOUNTER → 2019-06-01 07:59 | Outpatient (CLI) | payer MEDICARE, SELFPAY ==
[2019-05-03 15:11] VITALS: BMI 23.7
[2019-05-10 13:34] VITALS: BMI 24.3
--- NOTE | 2019-06-01 08:09 | STEWCON_ITS ---
Reason For Study: [facility] Stress Results Protocol: Dobutamine with definity Maximum Predicted HR: 143 bpm Target HR: 122 bpm % Maximum Predicted HR: 96 % DurationHeart Rate Stage (mm:ss) (bpm) BP Dose Comment BASELINE 69 122/64 1 CC DEFINITY STAGE 1 3:07 92 126/7010.002 CC DEFINITY STAGE 2 3:00 115 152/6020.00 STAGE 3 3:00 98 148/6430.000.25 MG ATROPINE STAGE 4 1:56 137 / 40.002 CC DEFINITY, RIGHT ARM DISCOMFORT, NUMB RECOVERY 90 140/50 Stress Duration: 11:03 mm:ss Maximum Stress HR: 137 bpm Baseline Echocardiogram Findings The estimated ejection fraction is 65 %. Stress Echo Wall motion Data Resting WM Intermediate WM Stress WM Resting Wall Motion Wall Motion Stress No regional wall motion No regional wall motion abnormalities noted. abnormalities noted. EKG Data The baseline ECG displays normal sinus rhythm. The patient was titrated from 10 mcg to a maximum of 40 mcg of dobutamine during the stress. The maximum heart rate attained was 151 beats per minute. This was 105% of maximum predicted heart rate. During dobutamine infusion, there were no ST or T wave changes noted to suggest ischemia. No clinical angina was noted. Interpretation Summary The estimated ejection fraction is 65 %. Normal, adequate, dobutamine echocardiogram. Negative for ischemia by EKG and echocardiographic criteria. No anginal symptoms noted. Frequent PACs noted which is a nonspecific finding given dobutamine. Appropriate blood pressure response to dobutamine. Final LVEF of 75%. Test terminated due to the attainment target heart rate. Decreased sensitivity due to poor echo windows requiring Definity agent. Patient tolerated procedure well. No complications. The study was technically difficult. Contrast injection was performed. Ordering Physician: Yefri Noe MD Referring Physician: Yefri Noe Performed By: Yefri Noe MD
[2019-06-01 10:02] LABS: Prothrombin Time (Protime)PT. 12.6 SECONDS (11.7-14.9)
== END ==
PROVIDERS: Family Provider Family Medicine Geriatric Medicine; PCP Family Medicine Geriatric Medicine; Referring Provider Internal Medicine Cardiovascular Disease; Visit Provider Internal Medicine Cardiovascular Disease
DX: I49.1 Atrial premature depolarization (principal); R94.31 Abnormal electrocardiogram [ECG] [EKG]; I51.7 Cardiomegaly; E78.5 Hyperlipidemia, unspecified; I49.8 Other specified cardiac arrhythmias; R80.8 Other proteinuria; I12.9 Hypertensive chronic kidney disease with stage 1 through stage 4 chronic kidney disease, or unspecified chronic kidney disease; N18.3 Chronic kidney disease, stage 3 (moderate); I65.23 Occlusion and stenosis of bilateral carotid arteries
CPT/HCPCS: 36415; 85610; 93017; 93350; J7040; Q9957; A4216; C8928

== ENCOUNTER → 2019-06-04 08:37 | Outpatient (CLI) | payer MEDICARE, SELFPAY ==
[2019-05-10 13:34] VITALS: BMI 24.3
--- NOTE | 2019-06-02 10:30 | KI_PTH ---
PATIENT: YAMIL MELGOZA LOC: CT U#:[id number] AGE/SX: 85/F ROOM: RE06/04/[address]: Dr. Rashmi Whittington DO : [id number] BED: DIS: SPEC #: [id number] RECD: 06/04/19 10:45 STATUS: TAMIKO REMichelle #: [id number] JOSE: 06/02/19 10:[address]: Rashmi Whittington DEPT: SURGICAL PATHOLOGY RECD BY: Timo Gamble ENTERED: 06/04/19 10:58 SP TYPE: KIDNEY BX OTHR DR: Dr. Joe Alvarado MD Tissues: Kidney, NOS Procedures: Electron Microscopy (ACH) Fluorescent Antibody (ACH) Sp St Grp II Kidney (ACH) Kidney Biopsy (ACH) Fluorescent antibody (ACH) add'l HEADER OPERATION: CT-guided kidney biopsy PRE-OP DIAGNOSIS: Proteinuria TISSUE SUBMITTED: Kidney biopsy 18 gauge x4 MICROSCOPIC DIAGNOSIS Kidney, laterality not specified, CT-guided biopsies: Marked mesangial expansion and capillary thickening, global glomerulosclerosis, moderate interstitial inflammation and fibrosis, mild tubule injury and atrophy and severe arteriole thickening. See comment. COMMENT Correlate clinically with history and onset of symptoms. The findings are supportive of hypertensive changes and chronic arterionephrosclerosis, given the noted hyaline thickening of the glomerular vascular poles. There is no evidence of immune-mediated or inflammatory glomerulonephropathy. CLINICAL INFORMATION: Proteinuria. 18-gauge x4. CT-guided kidney biopsy. Nephrotic range proteinuria, chronic kidney disease stage III, anemia of chronic disease, hypertensive disorder, small cell carcinoma of lung status post lobectomy 2007, chronic obstructive lung disease, alcohol abuse, hyperlipidemia, gastroesophageal reflux disease, hypothyroidism, gout. Status post adenotonsillectomy, cholecystectomy, thoracic partial lobectomy of left lower lobe, hysterectomy, hip replacement, cataract surgery. Rule out membranous nephropathy due to occult malignancy. MICROSCOPIC DESCRIPTION Light microscopy examined with H & E, PAS, Denis silver and trichrome stains yields 32 glomeruli, of which 18 are globally sclerosed. The remaining glomeruli show diffuse thickening of the capillary loops and mesangial substance. There are foal micronodular changes. Silver stain shows no evidence of basement membrane splitting or deposits. Trichrome shows no evidence of fuchsinophilic deposits. PAS shows strong hyaline and thickening of the glomerular hilar vessels. There is no evidence of glomerular inflammation, crescent formation or segmental sclerosis. There is a moderate interstitial inflammatory infiltrate comprised of lymphocytes and showing mild early edema. There are focal lymphoid aggregates. There is moderate interstitial fibrosis noted with trichrome stain. Examination of the tubules shows mild acute tubular injury and mild to moderate tubular atrophy showing accumulation of [place] like proteinaceous material. Congo red is negative for evidence of amyloid accumulation. The vasculature shows moderate to severely thickened intima in the arterioles with some asymmetry. There is no evidence of a vasculitis. The medullary tissue shows mild edema. Special stain positive controls are reviewed and deemed adequate. IMMUNOFLUORESCENCE: Tissue frozen and submitted for immunofluorescence evaluation yields 6 glomeruli. There is minimal background signal with IgG and albumin. IgM, IgA, C3, C1q, fibrin, kappa and lambda are negative. Positive and negative immunofluorescence controls are reviewed and deemed adequate. ELECTRON MICROSCOPY: Toluidine blue semithin sections yields 4 glomeruli, of which 3 are globally sclerosed. Ultrastructure examination shows marked expansion of the mesangial matrix with mild hypercellularity changes. There is evidence of focal podocyte foot process effacement. There is no evidence of definitive glomerular basement membrane or mesangial deposits. There is rare subendothelial protein trapping. The basement membrane shows rare evidence of thickening. The tubules show mild degenerative changes. Examination of the capillaries show marked thickening. GROSS DESCRIPTION The specimen is sent entirely to [facility] for diagnosis. Received in poly-transport medium are four umana cores of renal tissue measuring 1.5 cm, 1.5 cm, 1.3 cm and 0.5 cm in length, each approximately 0.1 cm in width. Under the dissecting microscope, glomeruli are identified and the specimen is divided for immunofluorescence, electron microscopy and light microscopy.
[2019-06-04] VITALS (10 sets, daily range): BP systolic 97–180; BP diastolic 45–68; PULSE 61–86; RESP 13–19; TEMP 36.5; O2SAT 93–99; BMI 24.5
--- NOTE | 2019-06-04 08:39 | CT_ITS ---
PROCEDURE: CT GUIDED PERCUTANEOUS KIDNEY BIOPSY. DATE: June 04, 2019. INDICATION: Female, 79 years old. Proteinuria. PHYSICIAN: Xander eMdina M.D. MEDICATIONS: 2 mg of Versed and 50 mcg of fentanyl intravenously. Conscious sedation protocol was followed. Conscious sedation was started 10:23 AM and terminated at 10:33 AM. The patient was independently monitored by the department nurse. ACCESS SITE: Lower pole of the right kidney. NEEDLE: 18-gauge core biopsy needle. SPECIMEN: 4 18-gauge cores. EBL: None. COMPLICATIONS: None immediate. RADIATION DOSAGE (If Supplied By Facility): CTDIvol = ( 15 ) mGy, DLP = ( 336.42 ) mGycm The risks, benefits, and alternatives to the procedure and sedation were explained to the patient. The specific risk of hemorrhage requiring further treatment or intervention was detailed and accepted. Written informed consent was obtained. The patient was placed on the CT table in the prone position. Multiple axial images were obtained from the lung base through the caudal extent of the kidneys. An appropriate entry site was identified and a dc made on the skin. The skin overlying the [ lower pole right] posterior flank was prepped and draped in sterile fashion. 1% lidocaine was administered subcutaneously for local anesthesia. Initially, a 22 gauge needle was advanced and CT images confirmed good needle position. The 22 gauge needle was then exchanged for an 17 gauge introducer needle which was advanced. Repeat CT images confirmed good needle trajectory and tip position. The introducer needle was then advanced into the periphery of the inferior renal pole, and CT images were again obtained to confirm exact tip location. The inner stylet of the introducer needle was then removed and an 18 gauge coaxial needle was advanced thru the introducer needle and biopsy performed. A total of [4 ] passes were performed and the specimen collected was sent to Pathology for further evaluation. The needle was withdrawn. Hemostasis was achieved with manual compression and a sterile dressing was applied. Repeat CT images of the biopsy area was performed which demonstrated no gross bleeding or hematoma. The patient tolerated the procedure well without immediate complications. The patient was transported to the [floor/recovery area] in stable condition. CT/Biopsy/Inj or Needle Placement IMPRESSION: Successful CT guided percutaneous kidney biopsy. Electronically Signed: Xander Medina, at 12:22 EST , Service support ,
[2019-06-04] MEDS: Midazolam 2 MG/2 ML Syringe IV (10:23)
[2019-06-04] MEDS: fentaNYL 100 MCG/2 ML Ampul IV (10:25)
--- NOTE | 2019-06-04 11:34 | NURSING ---
Pt's blood pressure taken prior to procedure manually in left arm. During procedure pt's blood pressure is taken in left leg with blood pressure machine. Post procedure pt's blood pressure taken in left arm manually.
== END ==
PROVIDERS: Family Provider Family Medicine Geriatric Medicine; PCP Family Medicine Geriatric Medicine; Referring Provider Internal Medicine Nephrology; Visit Provider Internal Medicine Nephrology
DX: I12.9 Hypertensive chronic kidney disease with stage 1 through stage 4 chronic kidney disease, or unspecified chronic kidney disease (principal); N18.3 Chronic kidney disease, stage 3 (moderate); D63.1 Anemia in chronic kidney disease; E78.5 Hyperlipidemia, unspecified; K21.9 Gastro-esophageal reflux disease without esophagitis; E03.9 Hypothyroidism, unspecified; M10.9 Gout, unspecified; J44.9 Chronic obstructive pulmonary disease, unspecified; Z85.118 Personal history of other malignant neoplasm of bronchus and lung; Z90.2 Acquired absence of lung [part of]; Z79.82 Long term (current) use of aspirin; Z79.899 Other long term (current) drug therapy; Z87.891 Personal history of nicotine dependence
CPT/HCPCS: 50200; 77012; 88300; 88305; 88313; 88346; 88348; 88350; 99156; J7040; A4216

== ENCOUNTER → 2019-06-11 09:12 | Outpatient (CLI) | payer MEDICARE, SELFPAY ==
[2019-05-10 13:34] VITALS: BMI 24.3
[2019-06-04 08:51] VITALS: BMI 24.5
[2019-06-11 09:43] LABS: Hematocrit 33.7 % (37-47); Hemoglobin 10.9 g/dL (12.0-15.0); Mean Corp Hgb Conc 32.3 g/dL (32-36); Mean Corpuscular Hgb 32.2 pg (27.0-32.0); Mean Corpuscular Volume 99.4 fL (81-99); Mean Platelet Vol. 11.7 fl (6.2-12.0); Platelet Count 214 K/mm3 (150-450); RBC Distribution Width CV 13.7 % (11.6-14.6); RBC Distribution Width SD 49.9 fl (35.1-43.9); Red Blood Count 3.39 M/mm3 (4.2-5.4); White Blood Count 8.4 K/mm3 (4.4-11.0)
[2019-06-11 10:14] LABS: Albumin, Serum 2.3 g/dL (3.2-5.0); BUN 21 mg/dL (7-18); BUN/Creat Ratio 14.3 RATIO (10-20); Calcium,Total 8.7 mg/dL (8.5-10.1); Chloride 107 mmol/L (98-107); Creatinine, Serum 1.47 mg/dL (0.55-1.02); EST Glomerular Filtration Rate 37 mL/min (>60); Est Glom Filt Rate - Afr Amer 44 mL/min (>60); Glucose 98 mg/dL (74-106); Phosphorus 3.5 mg/dL (2.5-4.9); Potassium 3.1 mmol/L (3.5-5.1); Sodium Level 141 mmol/L (136-145)
== END ==
LOC: LAB.FUTURE 09:13 → LAB 09:22
PROVIDERS: Family Provider Family Medicine Geriatric Medicine; PCP Family Medicine Geriatric Medicine; Referring Provider Internal Medicine Nephrology; Visit Provider Internal Medicine Nephrology
DX: N18.3 Chronic kidney disease, stage 3 (moderate) (principal); R80.8 Other proteinuria
CPT/HCPCS: 36415; 80069; 85027

== ENCOUNTER → 2019-06-29 09:13 | Outpatient (CLI) | payer MEDICARE, SELFPAY ==
[2019-06-04 08:51] VITALS: BMI 24.5
[2019-06-29 10:23] LABS: Hematocrit 32.9 % (37-47); Hemoglobin 10.7 g/dL (12.0-15.0); Mean Corp Hgb Conc 32.5 g/dL (32-36); Mean Corpuscular Hgb 31.7 pg (27.0-32.0); Mean Corpuscular Volume 97.3 fL (81-99); Mean Platelet Vol. 11.8 fl (6.2-12.0); Platelet Count 253 K/mm3 (150-450); RBC Distribution Width SD 49.5 fl (35.1-43.9); Red Blood Count 3.38 M/mm3 (4.2-5.4)
[2019-06-29 10:38] LABS: Albumin, Serum 2.4 g/dL (3.2-5.0); BUN 27 mg/dL (7-18); BUN/Creat Ratio 15.2 RATIO (10-20); Calcium,Total 8.9 mg/dL (8.5-10.1); Chloride 104 mmol/L (98-107); Creatinine, Serum 1.78 mg/dL (0.55-1.02); EST Glomerular Filtration Rate 29 mL/min (>60); Est Glom Filt Rate - Afr Amer 36 mL/min (>60); Glucose 102 mg/dL (74-106); Phosphorus 3.7 mg/dL (2.5-4.9); Potassium 3.6 mmol/L (3.5-5.1); Sodium Level 138 mmol/L (136-145)
== END ==
LOC: LAB.FUTURE 09:14 → LAB 10:07
PROVIDERS: Family Provider Family Medicine Geriatric Medicine; PCP Family Medicine Geriatric Medicine; Referring Provider Internal Medicine Nephrology; Visit Provider Internal Medicine Nephrology
DX: N18.3 Chronic kidney disease, stage 3 (moderate) (principal); R80.8 Other proteinuria; D63.8 Anemia in other chronic diseases classified elsewhere
CPT/HCPCS: 36415; 80069; 85027

== ENCOUNTER → 2019-07-02 06:53 | Outpatient (CLI) | payer MEDICARE, SELFPAY ==
[2019-05-10 13:34] VITALS: BMI 24.3
[2019-06-04 08:51] VITALS: BMI 24.5
--- NOTE | 2019-07-02 06:59 | CT_ITS ---
STUDY: CT CHEST WITH CONTRAST REASON FOR EXAM: Female, 79 years old. Lung cancer with history of new lung nodule, prior left lower lobectomy, chemoradiation, former smoker, COPD. RADIATION DOSAGE (If Supplied By Facility): CTDIvol = ( 8.61 ) mGy, DLP = ( 282.46 ) mGycm TECHNIQUE: Transaxial 2.5 mm imaging was performed following intravenous administration of 100mL Isovue-370. Multiplanar coronal and sagittal images were reformatted. Individualized dose optimization techniques were used for this CT. COMPARISON: CT chest 05/08/2019. 08/09/2018. FINDINGS: Symmetric bilateral mild centrilobular emphysema. Prior left lower lobe ectomy. Previous spiculated density in the right lower lobe image 65 series 6 is barely visualized as hazy parenchymal distortion at the corresponding site with minimal anterior extension into the major fissure with tethering along the fissure. This cannot be measured on current examination, there is no nodularity. This area of interest is currently seen image 66-68 series 4, coronal image 126 series 602, image 79 series 601. No other parenchymal masses or nodules detected. There is no demonstrated pleural abnormality. There is mild stable cardiac enlargement. There are calcifications of the coronary arteries. Stable prevascular lymph node. No mediastinal lymphadenopathy or masses detected. Normal hilar regions. Normal enhanced pulmonary arteries. There is atherosclerotic calcification of the aortic arch , arch branches and descending thoracic aorta. The proximal brachiocephalic artery demonstrate no enhancement, high-grade stenosis or occlusion suspected. His appears unchanged. There are multi-level degenerative changes of the thoracic spine. There is demineralization of osseous structures. Extensive atherosclerosis of the upper abdominal aorta and greater branches with occlusion of the proximal superior mesenteric artery with retrograde filling, probably hemodynamically significant stenosis along the origin of the celiac artery. CT/Chest WITH Contrast IMPRESSION: Previously seen spiculated density in the right lower lobe superior segment has near completely resolved. Further follow-up examination 3-6 month to assess for resolution of finding is recommended. 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 No hilar lymphadenopathy, masses or acute airspace disease. Other nonacute findings as outlined above. Electronically Signed: Christine Holt MD at 6:50 EST , Service support ,
[2019-07-02 07:42] LABS: Protein, Urine (Random) 367.2 mg/dL (<11.9); Protein:Creat Ratio 15174 mg/g CRE (0-200)
== END ==
PROVIDERS: Family Provider Family Medicine Geriatric Medicine; PCP Family Medicine Geriatric Medicine; Referring Provider Internal Medicine Medical Oncology; Visit Provider Internal Medicine Medical Oncology
DX: R91.1 Solitary pulmonary nodule (principal); Z85.118 Personal history of other malignant neoplasm of bronchus and lung; N18.3 Chronic kidney disease, stage 3 (moderate); R80.8 Other proteinuria; D63.8 Anemia in other chronic diseases classified elsewhere
CPT/HCPCS: 71260; 82570; 84156; Q9967

== ENCOUNTER → 2019-07-16 10:01 | Outpatient (CLI) | payer MEDICARE, SELFPAY ==
[2019-07-05 10:30] VITALS: BMI 23.8
--- NOTE | 2019-07-16 10:02 | US_ITS ---
STUDY: THYROID ULTRASOUND REASON FOR EXAM: Female, 79 years old. N Nodule(s) US - Thyroid TECHNIQUE: Ultrasound evaluation of the thyroid was performed with real-time and static [place]-scale imaging. COMPARISON: 07/26/2018 FINDINGS: RIGHT LOBE: The right lobe of the thyroid gland measures 4.5 x 1.6 x 2.3 cm. There is a homogeneous echotexture. There is a stable complex 1.7 x 1.5 x 1.0 solid/cystic nodule LEFT LOBE: The left lobe of the thyroid gland measures 3.5 x 1.0 x 1.3 cm. There is a homogeneous echotexture. There is a cluster of cysts measuring 1.1 x 0.5 x 0.5 cm ISTHMUS: The isthmus measures 0.3 cm. The regional lymph nodes are normal. US/Thyroid IMPRESSION: Normal sized homogeneous thyroid gland. Stable 1.7 cm complex nodule in the right lobe. Cluster of cysts in the left lobe. Electronically Signed: Corey Pope MD at 17:51 EST , Service support ,
== END ==
PROVIDERS: Family Provider Family Medicine Geriatric Medicine; PCP Family Medicine Geriatric Medicine; Referring Provider Surgery; Visit Provider Surgery
DX: E04.2 Nontoxic multinodular goiter (principal)
CPT/HCPCS: 76536

== ENCOUNTER 2019-07-16 11:45 | Emergency (ER) | payer MEDICARE, SELFPAY ==
[2019-07-05 10:30] VITALS: BMI 23.8
[2019-07-16 11:49] VITALS: BP 185/69; PULSE 73; PULSE 74; RESP 13; RESP 15; TEMP 36.4; O2SAT 100; O2SAT 99; BMI 25.0
--- NOTE | 2019-07-16 12:28 | EKG12_ITS ---
Test Reason : SYNCOPE Blood Pressure : / mmHG Vent. Rate : 073 BPM Atrial Rate : 073 BPM P-R Int : 208 ms QRS Dur : 092 ms QT Int : 444 ms P-R-T Axes : 000 030 137 degrees QTc Int : 489 ms Sinus rhythm with Premature atrial complexes Minimal voltage criteria for LVH, may be normal variant Septal infarct , age undetermined T wave abnormality, consider lateral ischemia Abnormal ECG Confirmed by DERIC WHITE, MINAL ([id number]), editorial writer KARINA TATE ([id number]) on 07/19/2019 9:25:05 AM Referred By: Confirmed By:MINAL LEOS MD
[2019-07-16 13:03] LABS: Absolute Lymphocyte Count 1.41 X10^3/uL (0.83-4.51); Absolute Neutrophil Count 5.7 X10^3/uL (2.0-7.7); Basophil# 0.05 X10^3/uL; Basophil% 0.6 % (0-1); Eosinophil# 0.02 X10^3/uL; Eosinophils% 0.3 % (0-5); Hematocrit 32.5 % (37-47); Hemoglobin 10.8 g/dL (12.0-15.0); Lymphocyte # 1.41 X10^3/ul (4.0); Lymphocyte % 18.1 % (19-41); Mean Corp Hgb Conc 33.2 g/dL (32-36); Mean Corpuscular Hgb 31.7 pg (27.0-32.0); Mean Corpuscular Volume 95.3 fL (81-99); Mean Platelet Vol. 11.3 fl (6.2-12.0); Monocyte# 0.63 X10^3/uL; Monocyte% 8.1 % (0-10); NRBC Flagged by Analyzer 0 % (0-5); Neutrophil # 5.65 X10^3/uL (2.7-7.7); Neutrophil % 72.5 % (47-70); Platelet Count 250 K/mm3 (150-450); RBC Distribution Width CV 13.8 % (11.6-14.6); RBC Distribution Width SD 48.2 fl (35.1-43.9); Red Blood Count 3.41 M/mm3 (4.2-5.4); White Blood Count 7.8 K/mm3 (4.4-11.0)
[2019-07-16 13:13] LABS: Anion Gap 4 (5-15); BUN 26 mg/dL (7-18); BUN/Creat Ratio 14.9 RATIO (10-20); Calcium,Total 8.7 mg/dL (8.5-10.1); Chloride 106 mmol/L (98-107); Creatinine, Serum 1.75 mg/dL (0.55-1.02); EST Glomerular Filtration Rate 30 mL/min (>60); Est Glom Filt Rate - Afr Amer 36 mL/min (>60); Estimated Creatinine Clearance 19.34 ml/min; Glucose 118 mg/dL (74-106); Potassium 3.5 mmol/L (3.5-5.1); Sodium Level 139 mmol/L (136-145)
[2019-07-16 13:17] VITALS: BP 141/72; BP 189/79; BP 201/70; PULSE 64; PULSE 80; PULSE 83
[2019-07-16 15:20] VITALS: BP 192/54; PULSE 83; RESP 16; O2SAT 98
--- NOTE | 2019-07-16 15:47 | ED.VISSUMM ---
- ER Visit Summary Date of Service: 07/16/19 Chief Complaint: Near syncope History of Present Illness: The patient is a 79 F history of anemia, hypothyroidism, COPD, renal insufficiency, prior lung CA. Patient's had near syncopal events before. She was in the hospital today having test done and felt like she might pass out. No headache, chest pain, abdominal pain. No nausea or vomiting. She has intermittent diarrhea but not excessive lately. No melena. No fever. Physical Examination: Older female no acute distress vital signs are stable and afebrile. Initial blood pressure 185/69 pulse ox 90%. HEENT exam unremarkable. Moist mucous membranes. Neck nontender no lymphadenopathy. Lungs clear to auscultation bilaterally. Heart regular rate and rhythm no murmur rate about 75. Chest were nontender. Abdomen soft and nontender. Normal bowel sounds no peritoneal signs. Nondistended. Soft. Patient moving all 4 extremities. Calves are nontender without edema or cords. Back nontender. Skin is unremarkable. Neurologically she is awake alert with no focal motor deficits. Equal symmetrical business area director strength. Equal symmetrical dorsi plantarflexion. Test Results: EKG sinus rhythm rate of 73 with PACs. No signs of ischemia or AK. White count of 7. Hemoglobin 10.8 which is her baseline chronic anemia. Electrolytes unremarkable gap of 4. BUN of 26 creatinine 1.75 which is her baseline chronic renal insufficiency. Orthostatic vital signs were negative. Her pressure dropped but she had no symptoms. And her heart rate did not significantly change. Emergency Department Course and Treatment: Patient with acute on recurrent near syncope. Normal exam. Work-up was basically negative other than chronic conditions. On repeat exam at 1547 her and her daughter felt comfortable with her being discharged to home. Treatment Plan: Fluids and rest. Follow-up as needed. Return if worse. Disposition: Discharge Impression: Acute on recurrent near syncope Chronic anemia Chronic renal insufficiency This note was generated with [employer] dictation software. It may contain incorrect words, spelling, and punctuation that were not noted in review of the chart prior to signing ED Disposition - Plan for ED Patient: Disposition: Home or Assisted Living Instructions: NEAR SYNCOPE, Unknown Referrals: Joe Alvarado Chi, MD [Primary Care Provider] - 3-5 Days if not improving Additional Instructions: Return if feeling worse. Otherwise follow-up with your primary care physician. Plenty of fluids and rest. Labs were unremarkable today.
[2019-07-16 16:08] VITALS: BP 201/88; PULSE 73; RESP 15; O2SAT 96
== END 2019-07-16 16:08 | disposition home or self-care (01) ==
PROVIDERS: Emergency Provider Emergency Medicine; Family Provider Family Medicine Geriatric Medicine; PCP Family Medicine Geriatric Medicine
DX: R55 Syncope and collapse (principal); I12.9 Hypertensive chronic kidney disease with stage 1 through stage 4 chronic kidney disease, or unspecified chronic kidney disease; N18.9 Chronic kidney disease, unspecified; D63.1 Anemia in chronic kidney disease; E03.9 Hypothyroidism, unspecified; J44.9 Chronic obstructive pulmonary disease, unspecified; Z79.82 Long term (current) use of aspirin; Z79.899 Other long term (current) drug therapy; E04.2 Nontoxic multinodular goiter
CPT/HCPCS: 76536; 80048; 85025; 93005; 99285

== ENCOUNTER → 2019-07-20 10:02 | Outpatient (CLI) | payer MEDICARE, SELFPAY ==
[2019-06-04 08:51] VITALS: BMI 24.5
[2019-07-16 11:49] VITALS: BMI 25.0
[2019-07-20 11:15] LABS: Thyroid Stim Hormone (TSH) 0.14 uIU/mL (0.358-3.74)
== END ==
PROVIDERS: Family Provider Family Medicine Geriatric Medicine; PCP Family Medicine Geriatric Medicine; Referring Provider Family Medicine Geriatric Medicine; Visit Provider Family Medicine Geriatric Medicine
DX: E03.9 Hypothyroidism, unspecified (principal)
CPT/HCPCS: 36415; 84443

== ENCOUNTER → 2019-08-06 09:57 | Outpatient (CLI) | payer MEDICARE, SELFPAY ==
[2019-07-16 11:49] VITALS: BMI 25.0
[2019-08-06 10:22] LABS: Hematocrit 32.3 % (37-47); Hemoglobin 10.4 g/dL (12.0-15.0); Mean Corp Hgb Conc 32.2 g/dL (32-36); Mean Corpuscular Hgb 31.5 pg (27.0-32.0); Mean Corpuscular Volume 97.9 fL (81-99); Mean Platelet Vol. 11.3 fl (6.2-12.0); Platelet Count 264 K/mm3 (150-450); RBC Distribution Width SD 50.3 fl (35.1-43.9); White Blood Count 8.7 K/mm3 (4.4-11.0)
[2019-08-06 10:37] LABS: Albumin, Serum 2.1 g/dL (3.2-5.0); BUN 25 mg/dL (7-18); BUN/Creat Ratio 12.5 RATIO (10-20); Calcium,Total 9.1 mg/dL (8.5-10.1); Chloride 107 mmol/L (98-107); EST Glomerular Filtration Rate 26 mL/min (>60); Est Glom Filt Rate - Afr Amer 31 mL/min (>60); Glucose 103 mg/dL (74-106); Phosphorus 3.5 mg/dL (2.5-4.9); Potassium 3.5 mmol/L (3.5-5.1); Sodium Level 140 mmol/L (136-145)
[2019-08-06 11:34] LABS: Protein, Urine (Random) 2486.9 mg/dL (<11.9); Protein:Creat Ratio 13816 mg/g CRE (0-200)
== END ==
PROVIDERS: Family Provider Family Medicine Geriatric Medicine; PCP Family Medicine Geriatric Medicine; Referring Provider Internal Medicine Nephrology; Visit Provider Internal Medicine Nephrology
DX: N18.3 Chronic kidney disease, stage 3 (moderate) (principal); R80.8 Other proteinuria; D63.8 Anemia in other chronic diseases classified elsewhere
CPT/HCPCS: 36415; 80069; 82570; 84156; 85027

== ENCOUNTER → 2019-08-24 12:43 | Outpatient (CLI) | payer MEDICARE, SELFPAY ==
--- NOTE | 2019-08-24 12:47 | CDU_ITS ---
Reason For Study: Stenosis Rt. Velocities/BP Lt. Velocities/BP Subclavian artery 174.9 cm/sec. Prox CCA 70.4/10.2 cm/sec. Prox CCA 33.3/11.6 cm/sec. Mid CCA 97.9/10.1 cm/sec. Mid CCA 29.9/11.6 cm/sec. Dist CCA 95.7/12.3 cm/sec. Dist CCA 31.7/14.2 cm/sec. Prox ICA 91.3/12.3 cm/sec. Prox ICA 27.3/11.2 cm/sec. Mid ICA 101.6/15.7 cm/sec. Mid ICA 78.4/23.6 cm/sec. Dist ICA 99.7/21.2 cm/sec. Dist ICA 61.1/18.2 cm/sec. Lt. ICA/CCA = 1.06. Rt. ICA/CCA = 2.47. Prox ECA 198.5 cm/sec. Lt. Vert. 154.4/22.3 cm/sec. Right Extracranial There is heterogeneous, irregular atherosclerotic plaque noted in the right common carotid artery. Right subclavian artery origin flow is bidirectional. There is heterogeneous, irregular atherosclerotic plaque noted in the right internal carotid artery. There is heterogeneous, irregular atherosclerotic plaque noted in the right external carotid artery. Bidirectional flow noted in the right ECA. Known retrograde flow is noted in the right vertebral artery. Left Extracranial There is heterogeneous, irregular atherosclerotic plaque noted in the left common carotid artery. There is heterogeneous, irregular atherosclerotic plaque noted in the left internal carotid artery. The atherosclerotic plaque causes acoustic shadowing. There is heterogeneous, irregular atherosclerotic plaque noted in the left external carotid artery. Antegrade flow is noted in the left vertebral artery. Procedure Carotid Duplex [id number]. Exam performed in department. Interpretation Summary Mild (<50%) stenosis right extracranial internal carotid. Mild (<50%) stenosis left extracranial internal carotid. Flow within the right verterbral artery is retrograde, consistent with a subclavian steal phenomenon. Flow within the left verterbral artery is antegrade. Ordering Physician: Lauri Gomez Referring Physician: Joe Alvarado Chi Performed By: Sharon Bello RVT
== END ==
PROVIDERS: PCP Family Medicine Geriatric Medicine; Referring Provider Surgery Vascular Surgery; Visit Provider Surgery Vascular Surgery
DX: I65.23 Occlusion and stenosis of bilateral carotid arteries (principal)
CPT/HCPCS: 93880

== ENCOUNTER → 2019-09-06 13:21 | Outpatient (CLI) | payer MEDICARE, SELFPAY ==
[2019-09-06 14:24] LABS: Absolute Lymphocyte Count 1.99 X10^3/uL (0.83-4.51); Basophil# 0.04 X10^3/uL; Basophil% 0.6 % (0-1); Eosinophil# 0.07 X10^3/uL; Hematocrit 30.3 % (37-47); Hemoglobin 9.9 g/dL (12.0-15.0); Lymphocyte # 1.99 X10^3/ul (4.0); Lymphocyte % 29.8 % (19-41); Mean Corp Hgb Conc 32.7 g/dL (32-36); Mean Corpuscular Hgb 31.9 pg (27.0-32.0); Mean Corpuscular Volume 97.7 fL (81-99); Mean Platelet Vol. 11.9 fl (6.2-12.0); Monocyte# 0.53 X10^3/uL; Monocyte% 7.9 % (0-10); NRBC Flagged by Analyzer 0 % (0-5); Neutrophil # 4.02 X10^3/uL (2.7-7.7); Neutrophil % 60.4 % (47-70); Platelet Count 273 K/mm3 (150-450); RBC Distribution Width CV 14.6 % (11.6-14.6); RBC Distribution Width SD 51.9 fl (35.1-43.9); White Blood Count 6.7 K/mm3 (4.4-11.0)
[2019-09-06 14:52] LABS: Vitamin B12 357 pg/mL (211-911)
[2019-09-06 15:02] LABS: ALB/GLOB Ratio 0.6 RATIO (0.9-2.4); AST(SGOT) 24 U/L (15-37); Alanine Aminotransfer ALT/SGPT 15 U/L (13-56); Alkaline Phosphatase 111 U/L (45-117); Anion Gap 9 (5-15); BUN 21 mg/dL (7-18); BUN/Creat Ratio 10.8 RATIO (10-20); Calcium,Total 8.7 mg/dL (8.5-10.1); Chloride 106 mmol/L (98-107); Creatinine, Serum 1.95 mg/dL (0.55-1.02); EST Glomerular Filtration Rate 26 mL/min (>60); Est Glom Filt Rate - Afr Amer 32 mL/min (>60); Ferritin 103 ng/mL (8-252); Globulin 3.3 g/dL (2.2-4.2); Glucose 102 mg/dL (74-106); Iron 102 ug/dL (50-170); Iron Binding Capacity,Total 249 ug/dL (250-450); LDH 218 U/L (84-246); Phosphorus 3.6 mg/dL (2.5-4.9); Potassium 3.3 mmol/L (3.5-5.1); Protein, Total 5.3 g/dL (6.4-8.2); Sodium Level 139 mmol/L (136-145)
[2019-09-07 16:50] LABS: Erythropoietin 13.6 mIU/mL (2.6-18.5)
== END ==
PROVIDERS: Internal Medicine Medical Oncology; PCP Family Medicine Geriatric Medicine; Referring Provider Internal Medicine Nephrology; Visit Provider Internal Medicine Nephrology
DX: N18.3 Chronic kidney disease, stage 3 (moderate) (principal); N17.9 Acute kidney failure, unspecified; R80.8 Other proteinuria; D63.8 Anemia in other chronic diseases classified elsewhere
CPT/HCPCS: 80053; 82607; 82668; 82728; 82746; 83540; 83550; 83615; 84100; 85025

== ENCOUNTER → 2019-09-11 11:33 | Outpatient (CLI) | payer MEDICARE, SELFPAY ==
[2019-09-11 12:57] LABS: Thyroid Stim Hormone (TSH) 2.53 uIU/mL (0.358-3.74)
== END ==
PROVIDERS: Family Provider Family Medicine Geriatric Medicine; PCP Family Medicine Geriatric Medicine; Visit Provider Family Medicine Geriatric Medicine
DX: E03.9 Hypothyroidism, unspecified (principal)
CPT/HCPCS: 36415; 84443

== ENCOUNTER → 2019-09-24 15:22 | Outpatient (CLI) | payer MEDICARE, SELFPAY ==
[2019-09-24 16:07] LABS: Anion Gap 7 (5-15); BUN 23 mg/dL (7-18); CRP < 2.90 mg/L (0.0-3.0); Calcium,Total 8.6 mg/dL (8.5-10.1); Chloride 103 mmol/L (98-107); Creatinine, Serum 2.29 mg/dL (0.55-1.02); EST Glomerular Filtration Rate 22 mL/min (>60); Est Glom Filt Rate - Afr Amer 27 mL/min (>60); Glucose 93 mg/dL (74-106); Potassium 3.3 mmol/L (3.5-5.1); Sodium Level 137 mmol/L (136-145); Uric Acid 2.6 mg/dL (2.6-6.0)
[2019-09-24 16:30] LABS: Absolute Lymphocyte Count 2.06 X10^3/uL (0.83-4.51); Absolute Neutrophil Count 4.6 X10^3/uL (2.0-7.7); Basophil# 0.05 X10^3/uL; Basophil% 0.7 % (0-1); Eosinophil# 0.07 X10^3/uL; Eosinophils% 0.9 % (0-5); Hematocrit 29.3 % (37-47); Hemoglobin 9.4 g/dL (12.0-15.0); Lymphocyte # 2.06 X10^3/ul (4.0); Lymphocyte % 27.5 % (19-41); Mean Corp Hgb Conc 32.1 g/dL (32-36); Mean Corpuscular Hgb 31.6 pg (27.0-32.0); Mean Corpuscular Volume 98.7 fL (81-99); Mean Platelet Vol. 12.5 fl (6.2-12.0); Monocyte# 0.69 X10^3/uL; Monocyte% 9.2 % (0-10); NRBC Flagged by Analyzer 0 % (0-5); Neutrophil # 4.59 X10^3/uL (2.7-7.7); Neutrophil % 61.3 % (47-70); Platelet Count 203 K/mm3 (150-450); RBC Distribution Width CV 14.4 % (11.6-14.6); RBC Distribution Width SD 51.8 fl (35.1-43.9); Red Blood Count 2.97 M/mm3 (4.2-5.4); White Blood Count 7.5 K/mm3 (4.4-11.0)
[2019-09-24 17:15] LABS: Erythrocyte Sedimentation Rate 69 mm/hr (0-30)
== END ==
PROVIDERS: PCP Family Medicine Geriatric Medicine; Visit Provider Family Medicine Geriatric Medicine
DX: M10.9 Gout, unspecified (principal)
CPT/HCPCS: 36415; 80048; 84550; 85025; 85652; 86140

== ENCOUNTER → 2019-09-24 15:35 | Outpatient (CLI) | payer MEDICARE, SELFPAY ==
--- NOTE | 2019-09-24 15:36 | VDLE_ITS ---
Reason For Study: Edema RIGHT LEFT GSV is normal. GSV is normal. CFV is compressible, spontaneous, phasic, CFV is compressible, spontaneous, phasic, competent and demonstrates normal competent, and demonstrates normal augmentation. augmentation. FV is compressible, spontaneous, phasic, FV is compressible, spontaneous, phasic, competent and demonstrates normal competent and demonstrates normal augmentation. augmentation. POP V is compressible, spontaneous, phasic, POP V is compressible, spontaneous, phasic, competent and demonstrates normal competent and demonstrates normal augmentation. augmentation. T/P Trunk is compressible. T/P Trunk is compressible. PTV is compressible. PTV is compressible. RT PerV is compressible. LT PerV is compressible. Procedure Exam performed in department. A preliminary report was called and/or faxed to [facility]. Interpretation Summary Deep veins of the lower extremities are bilaterally patent and compressible segmentally. There is no evidence of deep vein thrombosis on either side. Valvular competence appears intact within the proximal deep venous systems bilaterally. The great saphenous veins appear bilaterally patent and compressible segmentally. Ordering Physician: Joe Alvarado Referring Physician: Joe Alvarado Chi Performed By: Sharon Bello RVT
--- NOTE | 2019-09-24 15:37 | VDUE_ITS ---
Reason For Study: Edema Right Proximal Left Proximal Right jugular vein is spontaneous, widely Left jugular vein is spontaneous, widely patent, phasic, with no intraluminal patent, phasic, with no intraluminal echogenicity noted. echogenicity noted. Right subclavian vein is spontaneous, widely Left subclavian vein is spontaneous, widely patent, phasic, with no intraluminal patent, phasic, with no intraluminal echogenicity noted. echogenicity noted. Right Lower Arm Left Arm Right radial vein is compressible. Left axillary vein is spontaneous, patent, Right ulnar vein is compressible. phasic, competent, compressible and Right Arm demonstrates augmentation. Right axillary vein is spontaneous, patent, Left brachial vein is compressible. phasic, competent, compressible and Left cephalic vein is compressible. demonstrates augmentation. Left basilic vein is compressible. Right brachial vein is compressible. Left Lower Arm Right cephalic vein is compressible. Left radial vein is compressible. Right basilic vein is compressible. Left ulnar vein is compressible. Patient Safety Prelim to [facility]. Interpretation Summary Deep veins of the upper extremities are bilaterally patent and compressible segmentally. There is no evidence of deep vein thrombosis on either side. The superficial veins of the upper extremities, the basilic and cephalic veins, are patent and compressible bilaterally. There is no evidence of superficial thrombophlebitis on either side involving the veins imaged. Ordering Physician: Joe Alvarado Referring Physician: Joe Alvarado Chi Performed By: Sharon Bello RVT ?
== END ==
PROVIDERS: PCP Family Medicine Geriatric Medicine; Referring Provider Family Medicine Geriatric Medicine; Visit Provider Family Medicine Geriatric Medicine
DX: R60.0 Localized edema (principal); M10.9 Gout, unspecified
CPT/HCPCS: 36415; 80048; 84550; 85025; 85652; 86140; 93970

== ENCOUNTER → 2019-10-05 10:07 | Outpatient (CLI) | payer MEDICARE, SELFPAY ==
[2019-10-05 13:06] LABS: Anion Gap 7 (5-15); BUN 22 mg/dL (7-18); BUN/Creat Ratio 9.4 RATIO (10-20); Chloride 111 mmol/L (98-107); Creatinine, Serum 2.34 mg/dL (0.55-1.02); EST Glomerular Filtration Rate 21 mL/min (>60); Est Glom Filt Rate - Afr Amer 26 mL/min (>60); Glucose 99 mg/dL (74-106); Potassium 4.8 mmol/L (3.5-5.1); Sodium Level 140 mmol/L (136-145)
== END ==
PROVIDERS: PCP Family Medicine Geriatric Medicine; Referring Provider Family Medicine Geriatric Medicine; Visit Provider Family Medicine Geriatric Medicine
DX: E87.6 Hypokalemia (principal)
CPT/HCPCS: 36415; 80048

== ENCOUNTER → 2019-10-29 10:06 | Outpatient (CLI) | payer MEDICARE, SELFPAY ==
[2019-10-29 10:34] LABS: Hematocrit 29.4 % (37-47); Hemoglobin 9.3 g/dL (12.0-15.0); Mean Corp Hgb Conc 31.6 g/dL (32-36); Mean Corpuscular Hgb 31.7 pg (27.0-32.0); Mean Corpuscular Volume 100.3 fL (81-99); Mean Platelet Vol. 11.5 fl (6.2-12.0); Platelet Count 242 K/mm3 (150-450); RBC Distribution Width CV 14.2 % (11.6-14.6); RBC Distribution Width SD 51.8 fl (35.1-43.9); Red Blood Count 2.93 M/mm3 (4.2-5.4); White Blood Count 6.7 K/mm3 (4.4-11.0)
[2019-10-29 10:45] LABS: Protein, Urine (Random) 343.6 mg/dL (<11.9); Protein:Creat Ratio 9066 mg/g CRE (0-200)
[2019-10-29 10:53] LABS: Albumin, Serum 2.4 g/dL (3.2-5.0); BUN 29 mg/dL (7-18); Calcium,Total 9.2 mg/dL (8.5-10.1); Chloride 109 mmol/L (98-107); Creatinine, Serum 2.41 mg/dL (0.55-1.02); EST Glomerular Filtration Rate 21 mL/min (>60); Est Glom Filt Rate - Afr Amer 25 mL/min (>60); Glucose 100 mg/dL (74-106); Phosphorus 4.6 mg/dL (2.5-4.9); Potassium 4.6 mmol/L (3.5-5.1); Sodium Level 138 mmol/L (136-145)
[2019-10-29 11:11] LABS: PTHIN 97.1 pg/mL (18.4-80.1)
== END ==
PROVIDERS: PCP Family Medicine Geriatric Medicine; Referring Provider Internal Medicine Nephrology; Visit Provider Internal Medicine Nephrology
DX: N18.3 Chronic kidney disease, stage 3 (moderate) (principal); R80.8 Other proteinuria; D63.8 Anemia in other chronic diseases classified elsewhere
CPT/HCPCS: 36415; 80069; 82570; 83970; 84156; 85027

== ENCOUNTER → 2019-11-23 09:49 | Outpatient (CLI) | payer MEDICARE, SELFPAY ==
[2019-11-23 10:40] LABS: Absolute Neutrophil Count 3.5 X10^3/uL (2.0-7.7); Basophil# 0.05 X10^3/uL; Basophil% 0.8 % (0-1); Eosinophil# 0.15 X10^3/uL; Eosinophils% 2.3 % (0-5); Hematocrit 27.9 % (37-47); Lymphocyte % 33.8 % (19-41); Mean Corp Hgb Conc 32.3 g/dL (32-36); Mean Corpuscular Hgb 31.8 pg (27.0-32.0); Mean Corpuscular Volume 98.6 fL (81-99); Mean Platelet Vol. 12.2 fl (6.2-12.0); Monocyte# 0.56 X10^3/uL; Monocyte% 8.6 % (0-10); NRBC Flagged by Analyzer 0 % (0-5); Neutrophil # 3.53 X10^3/uL (2.7-7.7); Neutrophil % 54.3 % (47-70); Platelet Count 230 K/mm3 (150-450); Red Blood Count 2.83 M/mm3 (4.2-5.4); White Blood Count 6.5 K/mm3 (4.4-11.0)
[2019-11-23 11:10] LABS: Vitamin B12 452 pg/mL (211-911)
[2019-11-23 11:12] LABS: ALB/GLOB Ratio 0.8 RATIO (0.9-2.4); AST(SGOT) 24 U/L (15-37); Alanine Aminotransfer ALT/SGPT 15 U/L (13-56); Albumin, Serum 2.4 g/dL (3.2-5.0); Alkaline Phosphatase 113 U/L (45-117); Anion Gap 8 (5-15); BUN 29 mg/dL (7-18); BUN/Creat Ratio 13.6 RATIO (10-20); Calcium,Total 8.8 mg/dL (8.5-10.1); Chloride 109 mmol/L (98-107); Creatinine, Serum 2.13 mg/dL (0.55-1.02); EST Glomerular Filtration Rate 24 mL/min (>60); Est Glom Filt Rate - Afr Amer 29 mL/min (>60); Glucose 102 mg/dL (74-106); LDH 185 U/L (84-246); Magnesium 2.3 mg/dL (1.6-2.6); Protein, Total 5.4 g/dL (6.4-8.2); Sodium Level 140 mmol/L (136-145); Uric Acid 2.4 mg/dL (2.6-6.0)
[2019-11-23 11:23] LABS: Ferritin 58 ng/mL (8-252); Iron 71 ug/dL (50-170); Iron Binding Capacity,Total 297 ug/dL (250-450); PERCENT IRON SATURATION 23.9 % (15.0-55.0)
== END ==
PROVIDERS: Internal Medicine Medical Oncology; PCP Family Medicine Geriatric Medicine; Referring Provider Family Medicine Geriatric Medicine; Visit Provider Family Medicine Geriatric Medicine
DX: E55.9 Vitamin D deficiency, unspecified (principal); E83.49 Other disorders of magnesium metabolism; I10 Essential (primary) hypertension; M10.9 Gout, unspecified; R91.1 Solitary pulmonary nodule; Z85.118 Personal history of other malignant neoplasm of bronchus and lung; D64.9 Anemia, unspecified
CPT/HCPCS: 36415; 80053; 82306; 82607; 82728; 82746; 83540; 83550; 83615; 83735; 84550; 85025

== ENCOUNTER → 2019-12-03 08:04 | Outpatient (CLI) | payer MEDICARE, SELFPAY ==
--- NOTE | 2019-12-03 08:05 | CT_ITS ---
STUDY: CT CHEST WITHOUT CONTRAST REASON FOR EXAM: Female, 79 years old. LUNG NODULE F/U, PREV SMOKER, 40 YR SMOKER, COPD, CKD STAGE 4, HTN, LUNG CA-LLL REMOVED, CHEMO AND RAD TX, UTERINE CA, SURG-total left hip replacement, hysterectomy, choelcystectomy, appendectomy RADIATION DOSAGE (If Supplied By Facility): CTDIvol = ( 7.5 ) mGy, DLP = ( 272.45 ) mGycm TECHNIQUE: Transaxial imaging was performed without the administration of intravenous contrast material. Multiplanar coronal and sagittal images were reformatted. Individualized dose optimization techniques were used for this CT. COMPARISON: Comparison is made with prior study dated July 02, 2019 and May 08, 2019. FINDINGS: Mild degree of emphysematous changes. Stable mild scarring at the lung apices bilaterally. Minimal increased linear markings at the left lung base suggestive of linear scarring. Pleural thickening along the medial aspect of the left lung base. There are calcifications of the coronary arteries. Normal mediastinum. Normal hilar regions. Normal unenhanced pulmonary arteries. There is atherosclerotic calcification of the aortic arch and the major branches arising from the arch with tortuosity and elongation of the aortic arch and descending thoracic aorta. There are degenerative changes of the thoracic spine. Punctate calcification in the posterior upper pole calyx of the right kidney. CT/Chest without Contrast IMPRESSION: Emphysematous changes. No suspicious nodule is seen at this time. Electronically Signed: Xander Medina, at 8:59 EDT , Service support ,
== END ==
PROVIDERS: PCP Family Medicine Geriatric Medicine; Referring Provider Internal Medicine Medical Oncology; Visit Provider Internal Medicine Medical Oncology
DX: R91.1 Solitary pulmonary nodule (principal); C34.31 Malignant neoplasm of lower lobe, right bronchus or lung
CPT/HCPCS: 71250

== ENCOUNTER → 2019-12-27 15:19 | Outpatient (CLI) | payer MEDICARE, SELFPAY ==
[2019-12-06 11:11] VITALS: BMI 24.0
--- NOTE | 2019-12-27 15:50 | RAD_ITS ---
STUDY: X-RAY - ABDOMEN/PELVIS REASON FOR EXAM: Female, 79 years old. fecal impaction TECHNIQUE: AP supine and upright views of the abdomen and pelvis. COMPARISON: None. FINDINGS: Normal visualized lung bases. There is an unremarkable bowel gas pattern. No dilated loops of bowel. There is abundant stool There is no demonstrated free abdominal air. There are vascular calcifications. There is left hip replacement. There are diffuse degenerative changes of the visualized lumbar spine. RAD/Abd Inc Decub and/or Erect IMPRESSION: No obstruction. Abundant stool. Electronically Signed: Nain Summers MD at 9:40 EDT , Service support ,
[2019-12-27 17:18] LABS: Absolute Lymphocyte Count 1.49 X10^3/uL (0.83-4.51); Basophil# 0.04 X10^3/uL; Basophil% 0.7 % (0-1); Eosinophil# 0.02 X10^3/uL; Eosinophils% 0.3 % (0-5); Hematocrit 25.8 % (37-47); Hemoglobin 8.4 g/dL (12.0-15.0); Lymphocyte # 1.49 X10^3/ul (4.0); Lymphocyte % 24.3 % (19-41); Mean Corp Hgb Conc 32.6 g/dL (32-36); Mean Corpuscular Hgb 32.3 pg (27.0-32.0); Mean Corpuscular Volume 99.2 fL (81-99); Mean Platelet Vol. 12.3 fl (6.2-12.0); Monocyte# 0.58 X10^3/uL; Monocyte% 9.4 % (0-10); NRBC Flagged by Analyzer 0 % (0-5); Neutrophil % 65.1 % (47-70); Platelet Count 227 K/mm3 (150-450); RBC Distribution Width CV 14.3 % (11.6-14.6); RBC Distribution Width SD 51.2 fl (35.1-43.9); White Blood Count 6.1 K/mm3 (4.4-11.0)
[2019-12-27 17:58] LABS: Anion Gap 9 (5-15); BUN 42 mg/dL (7-18); BUN/Creat Ratio 15.2 RATIO (10-20); Calcium,Total 8.4 mg/dL (8.5-10.1); Chloride 112 mmol/L (98-107); Creatinine, Serum 2.77 mg/dL (0.55-1.02); EST Glomerular Filtration Rate 18 mL/min (>60); Est Glom Filt Rate - Afr Amer 21 mL/min (>60); Glucose 87 mg/dL (74-106); Potassium 4.5 mmol/L (3.5-5.1); Sodium Level 139 mmol/L (136-145)
== END ==
PROVIDERS: PCP Family Medicine Geriatric Medicine; Visit Provider Family Medicine Geriatric Medicine
DX: N18.4 Chronic kidney disease, stage 4 (severe) (principal)
CPT/HCPCS: 36415; 74019; 80048; 85025

== ENCOUNTER → 2020-01-02 12:18 | Outpatient (CLI) | payer MEDICARE, SELFPAY ==
[2019-12-06 11:11] VITALS: BMI 24.0
--- NOTE | 2020-01-02 14:54 | PFTCOMP ---
COMPLETE PULMONARY FUNCTION TEST INTERPRETATION Brief HPI: Patient is a 79 year old female, currently under the care of Dr. Alvarado, who presents to [facility] for complete pulmonary function tests secondary to diagnosis of dyspnea. Respiratory therapist reports good effort and reproducible results. Interpretation: Forced expiration spirometry shows a mild large airways obstructive ventilatory defect with an FEV1 of 95% predicted. There is no significant bronchodilator response by strict ATS criteria. Spirograms are of good quality and plateau slowly, indicating slowly emptying areas of the lungs. The respiratory flow volume loop shows decreased expiratory flow rates at all lung volumes consistent with airway obstruction. Lung volumes by body plethysmography show a normal total lung capacity at 4.12 L, 99% predicted. All other lung volumes are within normal limits. Diffusion capacity by carbon monoxide is decreased at 49% predicted. The airway resistance is normal. Compared to study completed on 11/12/2014, there is been a significant reduction diffusion capacity by 28%. Impression: Irreversible mild large airways obstructive ventilatory defect with an asymmetric reduction in diffusion capacity and significant worsening compared to 2015.
== END ==
PROVIDERS: PCP Family Medicine Geriatric Medicine; Referring Provider Family Medicine Geriatric Medicine; Visit Provider Family Medicine Geriatric Medicine
DX: R06.02 Shortness of breath (principal)
CPT/HCPCS: 94060; 94726; 94729

== ENCOUNTER 2020-01-25 17:56 | Emergency (ER) | payer MEDICARE, SELFPAY ==
[2020-01-18 10:47] VITALS: BMI 24.0
[2020-01-25 17:57] VITALS: BP 180/59; PULSE 54; RESP 16; TEMP 36.6; O2SAT 100; BMI 24.4
[2020-01-25 19:34] VITALS: BP 180/59; PULSE 54; RESP 16; TEMP 36.6; O2SAT 100
[2020-01-25] MEDS: 0.9% Normal Saline 1,000 ML 999 ML IV (19:36)
[2020-01-25 20:05] LABS: Absolute Lymphocyte Count 0.98 X10^3/uL (0.83-4.51); Absolute Neutrophil Count 5.6 X10^3/uL (2.0-7.7); Basophil# 0.01 X10^3/uL; Basophil% 0.1 % (0-1); Eosinophil# 0.02 X10^3/uL; Eosinophils% 0.3 % (0-5); Hematocrit 26.9 % (37-47); Hemoglobin 8.7 g/dL (12.0-15.0); Lymphocyte # 0.98 X10^3/ul (4.0); Lymphocyte % 13.1 % (19-41); Mean Corp Hgb Conc 32.3 g/dL (32-36); Mean Corpuscular Volume 98.9 fL (81-99); Mean Platelet Vol. 12.7 fl (6.2-12.0); Monocyte# 0.83 X10^3/uL; Monocyte% 11.1 % (0-10); NRBC Flagged by Analyzer 0 % (0-5); Neutrophil % 75.1 % (47-70); Platelet Count 218 K/mm3 (150-450); RBC Distribution Width SD 53.5 fl (35.1-43.9); Red Blood Count 2.72 M/mm3 (4.2-5.4); White Blood Count 7.5 K/mm3 (4.4-11.0)
[2020-01-25 20:33] LABS: ALB/GLOB Ratio 0.6 RATIO (0.9-2.4); AST(SGOT) 21 U/L (15-37); Alanine Aminotransfer ALT/SGPT 22 U/L (13-56); Alkaline Phosphatase 86 U/L (45-117); Anion Gap 7 (5-15); BUN 54 mg/dL (7-18); BUN/Creat Ratio 15.8 RATIO (10-20); Calcium,Total 8.1 mg/dL (8.5-10.1); Chloride 112 mmol/L (98-107); Creatinine, Serum 3.42 mg/dL (0.55-1.02); EST Glomerular Filtration Rate 14 mL/min (>60); Est Glom Filt Rate - Afr Amer 17 mL/min (>60); Estimated Creatinine Clearance 9.89 ml/min; Globulin 3.2 g/dL (2.2-4.2); Glucose 97 mg/dL (74-106); Magnesium 1.4 mg/dL (1.6-2.6); Potassium 4.3 mmol/L (3.5-5.1); Protein, Total 5.2 g/dL (6.4-8.2); Sodium Level 138 mmol/L (136-145)
[2020-01-25 20:34] VITALS: BP 233/91; PULSE 93; RESP 14; O2SAT 96
--- NOTE | 2020-01-25 20:35 | ED.DCSUM_ITS ---
History of Present Illness Chief Complaint: Diarrhea Informant: Patient Narrative: Patient is a 79-year-old female who presents to the emergency department for diarrhea. Her symptoms have been present over the past 4 days. She states that she has been having 3-4 episodes of loose runny yellow bowel movements per day. She denies any significant abdominal pain with this. No fevers or chills. She denies any known sick contacts with similar symptoms. He of antibiotic use or travel. No history of C. difficile infection. She denies any urinary symptoms. She denies any lightheadedness, chest pain or shortness of breath. She does feel like she is dehydrated. She denies any black tarry stools. She has not had any nausea or vomiting. She denies ever experiencing this before in the past. No known aggravating or relieving factors. Past Medical History - Allergies and Home Meds Allergies/Adverse Reactions: Allergies adhesive tape Allergy (Verified 12/06/19 11:07) blisters Primary Care Physician: Joe Alvarado Chi, MD [Primary Care Provider] - 2 Days Prior records reviewed: Yes Past Medical History: - - CKD, history of lung cancer, anemia Surgical History: cholecystectomy, hysterectomy, tonsillectomy, oophorectomy, lower lobectomy Smoking Status: Former smoker Drugs: None - Family History Maternal Family History: Family History (Last Reviewed 01/18/20 @ 10:47 by Brenda Baig) Brother CAD (coronary artery disease) Grandmother CAD (coronary artery disease) CVA (cerebral vascular accident) Father Cancer Family History: Reports: No pertinent history Review of Systems All systems negative except as indicated General: Denies: Chills, Fever, Sweats Eyes: Denies: Visual changes - bilaterally, Diplopia ENT: Denies: Rhinorrhea, Sore throat Cardiovascular: Denies: Chest pain, Palpitations Respiratory: Denies: Dyspnea, Cough, Dyspnea on exertion Gastrointestinal: Reports: Diarrhea. Denies: Abdominal pain, Nausea, Vomiting, Melena, Hematochezia Genitourinary: Denies: Dysuria, Hematuria, Frequency Musculoskeletal: Denies: Back pain, Extremity Pain Skin: Denies: Rash, Wounds Neurological: Denies: Headache, Weakness, Numbness Physical Exam Vital Signs/Narrative: Vital Signs Temp Pulse Resp BP Pulse Ox 01/25/20 20:34 93 14 233/91 H 96 01/25/20 19:34 97.8 F 54 L 16 180/59 H 100 01/25/20 17:57 97.8 F 54 L 16 180/59 H 100 Inital Vital Signs reviewed: Yes General: Well nourished, Well developed, No Acute Distress Head: Normocephalic, Atraumatic Eyes: Perrl, EOMI ENT: Moist mucous membranes, No rhinorrhea Neck: Supple, Nontender Cardiovascular: Regular rate, Regular rhythm, No murmurs Respiratory: No distress, CTA bilaterally, Chest nontender Abdomen: Soft, Nontender, Nondistended, Normal bowel sounds. Negative for: Guarding, Rebound tenderness Rectal: Deferred Back: Nontender, Normal Inspection Extremities: Nontender, No edema Skin: Normal color, No rash Neurological: Alert, Oriented x3, Cranial nerves II-XII grossly intact, Normal Strength, Normal Sensation Psychological: Normal affect, Normal Mood Diagnostic/Tx/Re-eval - Medical Decision Making Patient presents the emergency department for diarrhea. She has no other systemic symptoms along with this. Vital signs within normal limits upon arrival. Physical exam is benign without any abdominal pain. She has been af ebrile. Basic lab work obtained did show a slight increase in her creatinine. She was given 1 L of normal saline here in the emergency department. Her hemoglobin is low but is close to her baseline. She states that she is aware of this and is following with her doctor for this. If it drops below 7 she gets the transfusions. She was able to get up and walk around the department without any issues. She does feel comfortable going home at this time. Will discharge home in stable condition. She needs to follow-up with her PCP for repeat lab draw. Warning signs and symptoms for which to return to the emerge department including worsening diarrhea, lightheadedness, chest pain or shortness of breath or developing any fever/chills were reviewed. She understands and is agreeable with this plan. ED Disposition - Plan for ED Patient: Disposition: Home or Assisted Living Diagnosis: Diarrhea, Dehydration Instructions: ED Vomiting and Diarrhea Nonspecific Adult Referrals: Joe Alvarado Chi, MD [Primary Care Provider] - 2 Days
[2020-01-25 20:37] LABS: Bacteria 0 SEEN /hpf (None Seen); Mucous, Urine 0 SEEN /hpf (<or=2+); Red Blood Cells-Urine 0 SEEN /hpf (0-5)
[2020-01-25 20:49] LABS: Color, Urine Straw (Yellow); Glucose, Dipstick 100 mg/dl (Normal); Ketone-Dipstick Negative (Negative); Leukocyte Esterase-Dipstick Negative /ul (Negative); Nitrite-Dipstick Negative (Negative); Occult Blood-Urine 10 /ul (Negative); Protein-Dipstick 500 mg/dl (Negative); Urine Bilirubin Dipstick Negative (Negative); Urine Clarity Clear (Clear); Urine Urobilinogen Normal (Normal); Urine pH 6.5 (5.0 - 8.0)
[2020-01-25 21:08] LABS: Squamous Epithelial Cells - UA 0-5 SEEN /hpf (5-10)
[2020-01-25 21:09] LABS: Renal Epithelial Cells 0-5 SEEN /hpf (0-5); White Blood Cells 0-5 SEEN /hpf (0-5)
[2020-01-25 22:18] VITALS: BP 151/91; PULSE 98; RESP 20; O2SAT 98
== END 2020-01-25 22:33 | disposition home or self-care (01) ==
PROVIDERS: Emergency Provider Emergency Medicine; PCP Family Medicine Geriatric Medicine
DX: R19.7 Diarrhea, unspecified (principal); E86.0 Dehydration; D64.9 Anemia, unspecified; N18.9 Chronic kidney disease, unspecified; Z85.118 Personal history of other malignant neoplasm of bronchus and lung; Z79.899 Other long term (current) drug therapy; Z87.891 Personal history of nicotine dependence
CPT/HCPCS: 80053; 81001; 83735; 85025; 96360; 99283; J7030; A4216

== ENCOUNTER → 2020-01-30 10:04 | Outpatient (CLI) | payer MEDICARE, SELFPAY ==
[2020-01-25 17:57] VITALS: BMI 24.4
[2020-01-30 10:55] LABS: Hematocrit 27.6 % (37-47); Hemoglobin 8.6 g/dL (12.0-15.0); Mean Corp Hgb Conc 31.2 g/dL (32-36); Mean Corpuscular Hgb 31.7 pg (27.0-32.0); Mean Corpuscular Volume 101.8 fL (81-99); Mean Platelet Vol. 12.3 fl (6.2-12.0); Platelet Count 220 K/mm3 (150-450); RBC Distribution Width CV 15.6 % (11.6-14.6); Red Blood Count 2.71 M/mm3 (4.2-5.4); White Blood Count 16.7 K/mm3 (4.4-11.0)
[2020-01-30 11:18] LABS: Protein, Urine (Random) 1297.4 mg/dL (<11.9); Protein:Creat Ratio 17322 mg/g CRE (0-200)
[2020-01-30 11:22] LABS: AST(SGOT) 24 U/L (15-37); Alanine Aminotransfer ALT/SGPT 24 U/L (13-56); Albumin, Serum 1.9 g/dL (3.2-5.0); Alkaline Phosphatase 99 U/L (45-117); Anion Gap 9 (5-15); BUN 43 mg/dL (7-18); BUN/Creat Ratio 12.5 RATIO (10-20); Bilirubin, Direct 0.07 mg/dL (0.00-0.30); Chloride 113 mmol/L (98-107); Cholesterol 279 mg/dL (200); Creatinine, Serum 3.44 mg/dL (0.55-1.02); EST Glomerular Filtration Rate 14 mL/min (>60); Est Glom Filt Rate - Afr Amer 17 mL/min (>60); Globulin 3.5 g/dL (2.2-4.2); Glucose 102 mg/dL (74-106); High Density Lipoprotein 100 mg/dL; Phosphorus 3.8 mg/dL (2.5-4.9); Potassium 5.1 mmol/L (3.5-5.1); Protein, Total 5.4 g/dL (6.4-8.2); Sodium Level 139 mmol/L (136-145); Triglycerides 142 mg/dL; Very Low Density Lipoprotein 28 mg/dL (5-40)
== END ==
PROVIDERS: PCP Family Medicine Geriatric Medicine; Referring Provider Internal Medicine Nephrology; Visit Provider Internal Medicine Nephrology
DX: N18.3 Chronic kidney disease, stage 3 (moderate) (principal); R80.8 Other proteinuria; D63.8 Anemia in other chronic diseases classified elsewhere; E78.5 Hyperlipidemia, unspecified
CPT/HCPCS: 36415; 80048; 80061; 80076; 82570; 84100; 84156; 85027

== ENCOUNTER → 2020-02-07 11:53 | Outpatient (CLI) | payer MEDICARE, SELFPAY ==
[2020-01-25 17:57] VITALS: BMI 24.4
[2020-02-07 14:19] LABS: Albumin, Serum 1.9 g/dL (3.2-5.0); BUN 43 mg/dL (7-18); BUN/Creat Ratio 13.9 RATIO (10-20); Chloride 114 mmol/L (98-107); Creatinine, Serum 3.09 mg/dL (0.55-1.02); EST Glomerular Filtration Rate 16 mL/min (>60); Est Glom Filt Rate - Afr Amer 19 mL/min (>60); Glucose 90 mg/dL (74-106); Phosphorus 4.3 mg/dL (2.5-4.9); Potassium 4.7 mmol/L (3.5-5.1); Sodium Level 139 mmol/L (136-145)
== END ==
PROVIDERS: PCP Family Medicine Geriatric Medicine; Referring Provider Internal Medicine Nephrology; Visit Provider Internal Medicine Nephrology
DX: N18.4 Chronic kidney disease, stage 4 (severe) (principal)
CPT/HCPCS: 36415; 80069; 87493

== ENCOUNTER → 2020-02-09 11:32 | Outpatient (CLI) | payer MEDICARE, SELFPAY ==
[2020-01-25 17:57] VITALS: BMI 24.4
[2020-02-09 12:14] LABS: Creat.Clear Total Volume 1025 mL; Creatinine Clearance 7 ml/min (100-200); Creatinine Serum Creat 3.1 mg/dL (0.6-1.0); Creatinine Urine 31.2 mg/dL (NO RANGE EST.); EST Glomerular Filtration Rate 16 mL/min (>60); Est Glom Filt Rate - Afr Amer 19 mL/min (>60)
[2020-02-09 12:19] LABS: 24HR. UA Prot. Total Volume 1025 mL
== END ==
PROVIDERS: PCP Family Medicine Geriatric Medicine; Referring Provider Internal Medicine Nephrology; Visit Provider Internal Medicine Nephrology
DX: N18.4 Chronic kidney disease, stage 4 (severe) (principal)
CPT/HCPCS: 82575; 84156

== ENCOUNTER → 2020-02-15 08:42 | Outpatient (CLI) | payer MEDICARE, SELFPAY ==
[2020-01-25 17:57] VITALS: BMI 24.4
[2020-02-13 11:01] VITALS: BMI 25.2
--- NOTE | 2020-02-15 08:48 | VDUE_ITS ---
Reason For Study: Chronic kidney disease stage 4 Right Arm Left Arm Right Cephalic Vein at the wrist measures Left Cephalic Vein at the wrist measures 0.16 x cm. 0.12 x 0.13 cm. Right Cephalic Vein in the forearm measures Left Cephalic Vein in the forearm measures 0.09 x 0.09 cm. 0.15 x 0.14 cm. Right Cephalic Vein below antecub measures Left Cephalic Vein below antecub measures 0.13 x 0.14 cm. 0.15 x 0.16 cm. Right Cephalic Vein above antecub measures Left Cephalic Vein above antecub measures 0.15 x 0.15 cm. 0.23 x 0.23 cm. Right Cephalic Vein mid bicep measures 0.24 Left Cephalic Vein at mid bicep measures x 0.25 cm. 0.21 x 0.21 cm. Right mid bicep branch, 0.15 x 0.15 cm. Left Cephalic Vein at the shoulder measures Right Cephalic Vein at the shoulder measures 0.21 x 0.22 cm. 0.21 x 0.23 cm. Basilic vein at origin measures 0.25 x 0.26 Right Basilic Vein at the origin measures cm. 0.28 x 0.28 cm. Basilic vein at bicep measures 0.21 x 0.20 Right Basilic Vein mid bicep measures 0.16 x cm. 0.18 cm. Basilic vein above antecub measures 0.18 x Right Basilic Vein above antecub measures 0.19 cm. 0.15 x 0.15 cm. Left Brachial artery measures 0.35 x 0.40 cm Right Brachial artery measures 0.30 x 0.30 with a velocity of 106.8 cm/sec. cm with a velocity of 63 cm/sec. Left Radial artery measures 0.19 x 0.19 cm Right Radial artery measures 0.14 x 0.14 cm with a velocity of 75.4 cm/sec. with a velocity of 30.9 cm/sec. Interpretation Summary Patent and compressible bilateral upper extremity cephalic and basilic veins however dimensions are noted to be diminutive bilaterally. Small though patent bilateral radial arteries. Normal diameter and flow bilateral brachial arteries Ordering Physician: Rashmi Whittington Referring Physician: Joe Alvarado Chi Performed By: Sharon Bello RVT ?
== END ==
PROVIDERS: PCP Family Medicine Geriatric Medicine; Referring Provider Internal Medicine Nephrology; Visit Provider Internal Medicine Nephrology
DX: Z01.818 Encounter for other preprocedural examination (principal); N18.4 Chronic kidney disease, stage 4 (severe)
CPT/HCPCS: 93970; 93985

== ENCOUNTER → 2020-02-18 10:00 | Outpatient (CLI) | payer MEDICARE, SELFPAY ==
[2020-02-13 11:01] VITALS: BMI 25.2
[2020-02-18 12:34] LABS: Albumin, Serum 1.7 g/dL (3.2-5.0); BUN 44 mg/dL (7-18); BUN/Creat Ratio 11.5 RATIO (10-20); Calcium,Total 7.9 mg/dL (8.5-10.1); Chloride 110 mmol/L (98-107); Creatinine, Serum 3.84 mg/dL (0.55-1.02); EST Glomerular Filtration Rate 12 mL/min (>60); Est Glom Filt Rate - Afr Amer 15 mL/min (>60); Glucose 94 mg/dL (74-106); Phosphorus 4.5 mg/dL (2.5-4.9); Potassium 3.8 mmol/L (3.5-5.1); Sodium Level 138 mmol/L (136-145)
== END ==
PROVIDERS: PCP Family Medicine Geriatric Medicine; Referring Provider Internal Medicine Nephrology; Visit Provider Internal Medicine Nephrology
DX: N18.4 Chronic kidney disease, stage 4 (severe) (principal)
CPT/HCPCS: 36415; 80069

== ENCOUNTER → 2020-02-21 10:46 | Outpatient (CLI) | payer MEDICARE, SELFPAY ==
[2020-02-19 15:30] VITALS: BMI 25.3
[2020-02-21 13:32] LABS: Hepatitis B Surface Antigen Non-Reactive (Nonreactive)
== END ==
PROVIDERS: PCP Family Medicine Geriatric Medicine; Visit Provider Internal Medicine Nephrology
DX: N18.6 End stage renal disease (principal)
CPT/HCPCS: 36415; 87340

== ENCOUNTER 2020-02-22 09:19 | Day surgery (SDC) | payer MEDICARE, SELFPAY ==
[2020-02-19 13:03] VITALS: BMI 25.4
[2020-02-19 15:30] VITALS: BMI 25.3
[2020-02-20 17:03] LABS: Hematocrit 25.7 % (37-47); Hemoglobin 8.4 g/dL (12.0-15.0); Mean Corp Hgb Conc 32.7 g/dL (32-36); Mean Corpuscular Hgb 32.3 pg (27.0-32.0); Mean Corpuscular Volume 98.8 fL (81-99); Mean Platelet Vol. 12.4 fl (6.2-12.0); Platelet Count 278 K/mm3 (150-450); RBC Distribution Width CV 15.7 % (11.6-14.6); RBC Distribution Width SD 56.7 fl (35.1-43.9); White Blood Count 8.1 K/mm3 (4.4-11.0)
[2020-02-20 17:26] LABS: Anion Gap 9 (5-15); BUN 42 mg/dL (7-18); BUN/Creat Ratio 10.9 RATIO (10-20); Calcium,Total 8.1 mg/dL (8.5-10.1); Chloride 109 mmol/L (98-107); Creatinine, Serum 3.84 mg/dL (0.55-1.02); EST Glomerular Filtration Rate 12 mL/min (>60); Est Glom Filt Rate - Afr Amer 15 mL/min (>60); Glucose 84 mg/dL (74-106); Potassium 3.6 mmol/L (3.5-5.1); Sodium Level 136 mmol/L (136-145)
[2020-02-22 09:42] VITALS: BP 162/54; PULSE 84; RESP 16; TEMP 36.2; O2SAT 98; BMI 24.9
[2020-02-22] MEDS: 0.9% Normal Saline 1,000 ML 30 ML IV (09:55)
--- NOTE | 2020-02-22 10:21 | PCM.HP.BLA ---
Problem List (1) Chronic progressive renal failure, stage 4 (severe) Status: Chronic History and Physical Date of Admission: 02/22/20 Intake Visit Reasons: PVD [place] Consult/ Chest catheter [facility] 02/14 Chief Complaint: F/u for Lung cancer and chronic anemia. Allergies adhesive tape Allergy (Verified 02/19/20 13:04) blisters Medications Allopurinol [Zyloprim] 300 mg PO DAILY 10/11/14 [History Confirmed 02/19/20] Famotidine [Pepcid] 20 mg PO QHS 10/11/14 [History Confirmed 02/19/20] albuterol sulfate 90 mcg/actuation aerosol inhaler 1 puff INHALATION Q6H PRN 04/05/18 [History Confirmed 02/13/20] aspirin 81 mg tablet,delayed release 81 mg PO DAILY 05/03/19 [History Confirmed 02/19/20] Levothyroxine [Synthroid] 75 mcg PO TUTHSA 07/05/19 [History Confirmed 02/19/20] Diltiazem HCl 60 mg PO BID 07/16/19 [History Confirmed 02/19/20] Levothyroxine [Synthroid] 50 mcg PO SUMOWEFR 12/06/19 [History Confirmed 02/19/20] Potassium Chloride [K-Dur] 20 meq PO DAILY 12/06/19 [History Confirmed 02/19/20] budesonide-formoterol HFA 160 mcg-4.5 mcg/actuation aerosol inhaler 2 puff INHALATION BID 01/18/20 [History Confirmed 02/19/20] hydrocodone 5 mg-acetaminophen 325 mg tablet 0.25 tab PO QHS PRN tab 01/18/20 [History Confirmed 02/19/20] Furosemide [Lasix] 20 mg PO DAILY 02/13/20 [History Confirmed 02/19/20] [facility] Medical History (Updated 02/19/20 @ 13:[address] Nathan Zapata MD) Chronic progressive renal failure, stage 4 (severe) (Chronic) Scoliosis (Chronic) Chronic renal failure, stage 4 (severe) (Chronic) Infantile idiopathic scoliosis (Acute) Segmental and somatic dysfunction of lumbar region (Acute) Segmental and somatic dysfunction of thoracic region (Acute) Segmental and somatic dysfunction of cervical region (Acute) Other intervertebral disc degeneration, lumbar region (Acute) Anemia (Chronic) Hypoalbuminemia (Chronic) Blood creatinine increased compared with prior measurement (Acute) History of lung cancer (Chronic) Lung nodule < 6cm on CT (Resolved) Bilateral carotid artery stenosis (Acute) Multiple thyroid nodules (Acute) Lung cancer (Chronic) COPD (chronic obstructive pulmonary disease) (Chronic) Premature ventricular beat (Chronic) PAC (premature atrial contraction) (Chronic) LVH (left ventricular hypertrophy) (Chronic) Hypomagnesemia (Chronic) Bradycardia (Chronic) Orthostatic hypotension (Chronic) Hypertension (Chronic) Hypothyroidism (Chronic) Renal insufficiency (Chronic) Hyponatremia (Chronic) Macrocytic anemia (Chronic) Hyperlipidemia (Chronic) Social History (Updated 02/19/20 @ 13:[address] Nathan Zapata MD) Smoking Status: Former smoker pack-years: 35 how long ago did patient quit smokin years ago alcohol intake: former year quit: 2014 substance use type: does not use caffeine: Yes (occasional) HPI HPI HPI: YAMIL MELGOZA, is a 79 F who presents to the office today for surgical consultation regarding dialysis access. The patient is accompanied by roommate. By the patient and roommate's report the patient has had rapid deterioration in the last 2 to 3 weeks. Markedly increased shortness of breath. Fluid accumulation. As of February 15, 2020 as noted below she had vein mapping. Bilateral upper extremity cephalic and basilic veins are marginal. The patient however has significant swelling of her left upper extremity. The patient sleeps on her left side and she was instructed by Dr. Nicola Thurston that perhaps it is a mechanical feature of her lying on her left side. As of February 13, 2020 her white blood cell count was 7.7 with a hemoglobin 8.5 hematocrit 25.6 platelet count 246,000. Sed rate was 71. BUN is 47 creatinine 3.56 with a GFR of 13. Albumin is only 1.9. TSH is 6.34. TIBC is 233 which is low. T4 direct is 0.84 which is low normal. The patient is followed by Dr. Lauri Gomez for extracranial carotid artery occlusive disease. She is felt to have less than 50% stenosis of bilateral internal carotids. She was recently seen by Dr. Gomez and no intervention was recommended. Her history is notable for remote small cell carcinoma the lung. Hypothyroidism hyperlipidemia and anemia of chronic disease. Chronic obstructive airways disease. Stage IV chronic renal failure. Proteinuria. History of previous tobacco use. She has had a previous thorascopic partial lobectomy of the lung. The patient is referred by Dr. Rashmi Whittington for surgical consultation regarding dialysis access. Initially I believe it was for consideration of an AV fistula but at this point the patient's acute deterioration is requiring tunneled dialysis catheters. A written copy of my surgical consult and recommendations will be returned to her. [facility] [address] [place] [address] Saphenous Vein Mapping, Bilat 02/15/20 0912 MR#: [id number] Name:YAMIL MELGOZA [facility] #:[id number] : 1940 79From:Nathan Zapata MD Attending Dr: Dr. Rashmi Whittington, DOStatus: YUNIOR KATEI Ordering Dr: Rashmi Whittington DODate: 02/15/20 Location:CVSSex:FC Admitted: Reason For Study: Chronic kidney disease stage 4 Right Arm Left Arm Right Cephalic Vein at the wrist measures Left Cephalic Vein at the wrist measures 0.16 x cm. 0.12 x 0.13 cm. Right Cephalic Vein in the forearm measures Left Cephalic Vein in the forearm measures 0.09 x 0.09 cm. 0.15 x 0.14 cm. Right Cephalic Vein below antecub measures Left Cephalic Vein below antecub measures 0.13 x 0.14 cm. 0.15 x 0.16 cm. Right Cephalic Vein above antecub measures Left Cephalic Vein above antecub measures 0.15 x 0.15 cm. 0.23 x 0.23 cm. Right Cephalic Vein mid bicep measures 0.24 Left Cephalic Vein at mid bicep measures x 0.25 cm. 0.21 x 0.21 cm. Right mid bicep branch, 0.15 x 0.15 cm. Left Cephalic Vein at the shoulder measures Right Cephalic Vein at the shoulder measures 0.21 x 0.22 cm. 0.21 x 0.23 cm. Basilic vein at origin measures 0.25 x 0.26 Right Basilic Vein at the origin measures cm. 0.28 x 0.28 cm. Basilic vein at bicep measures 0.21 x 0.20 Right Basilic Vein mid bicep measures 0.16 x cm. 0.18 cm. Basilic vein above antecub measures 0.18 x Right Basilic Vein above antecub measures 0.19 cm. 0.15 x 0.15 cm. Left Brachial artery measures 0.35 x 0.40 cm Right Brachial artery measures 0.30 x 0.30 with a velocity of 106.8 cm/sec. cm with a velocity of 63 cm/sec. Left Radial artery measures 0.19 x 0.19 cm Right Radial artery measures 0.14 x 0.14 cm with a velocity of 75.4 cm/sec. with a velocity of 30.9 cm/sec. Interpretation Summary Patent and compressible bilateral upper extremity cephalic and basilic veins however dimensions are noted to be diminutive bilaterally. Small though patent bilateral radial arteries. Normal diameter and flow bilateral brachial arteries Ordering Physician: Rashmi Whittington Referring Physician: Joe Alvarado Chi Performed By: Sharon Bello RVT ? 02/15/20 1400 Date Nathan Zapata MD HPI HPI HPI: YAMIL MELGOZA, is a 79 F who presents to the office today for Exam Const General: cooperative, frail appearing Nutritional Appearance: average body habitus Orientation: alert, awake Other: Patient is in a wheelchair. She appears tired and fatigued. HENMT Head: normal to inspection Resp Effort & Inspection: normal respiratory effort Auscultation: clear to auscultation bilaterally Cardio Rate: regular rate Other: Bilateral carotids are 3+. I do not detect a bruit GI Palpation: soft Musc Other: Mild cervical kyphosis Neuro Cognition: normal cognition Extrem Other: Significant left upper extremity pitting edema throughout. Significant bilateral lower extremity swelling worse on the right than the left. Right upper extremity appears to be devoid of swelling. Right brachial pulse is 2+. Right radial pulse very difficult to palpate. Psych Affect: normal affect Assessment & Plan Problems 1. Chronic progressive renal failure, stage 4 (severe) N18.4 Plan Stage IV chronic renal failure with acute patient deterioration. I recommend to her a tunneled right internal jugular dialysis catheter and I described technique, benefit, risk and alternatives. We will urgently try to find operating room time to proceed. I do not believe that she appears well enough to proceed with fistula creation and this would delay my ability to get the catheters in. Once some of her edema is improved then I would potentially consider a right upper arm stage I brachiobasilic AV fistula. I definitively do not recommend any fistula creation of the left extremity already because of the significant swelling of that extremity. She has had an opportunity to ask and have questions answered. We will schedule and intervene as soon as feasible. Cc: Dr. Rashmi Whittington and Dr. Joe Zapata M.D., F.A.C.S. Plan Detail Goals Decrease pain and spasm Barriers DDD Prolonged reading/computer work Coding Level of Care Code 60941 Diagnoses Chronic progressive renal failure, stage 4 (severe) N18.4 I have re-examined the patient. There are no clinical changes since date of exam. Procedure Criteria COVID Risk Discussion: Patient was had with the patient regarding the presence of COVID-19. She is an urgent need of placement of tunneled dialysis catheters. She is aware of benefit risk complications and alternatives. The [facility] is reporting a low local incidence. Nathan Zapata M.D., F.A.C.S.
--- NOTE | 2020-02-22 10:22 | PCM.DC.GS ---
Discharge Diet: Renal Diet Discharge Activity: May Drive - May drive in 1 to 2 days pending comfort, May Not Shower Lifting Restrictions: 10 pounds for 3 days Call your doctor if you observe: Fever of 101 or Higher Suture Line Care: Avoid Pulling/Pushing, Avoid Pinching/Bending Additional Dressing/Incision Instructions:: Catheter dressing changes are usually accomplished at the dialysis center under the direction of staff. We will need to have office follow-up when you are deemed ready to pursue fistula creation Allergies/Adverse Reactions: Allergies adhesive tape Allergy (Verified 02/22/20 09:30) blisters Medications to take at Discharge Allopurinol [Zyloprim] 300 mg PO DAILY 10/11/14 Famotidine [Pepcid] 20 mg PO QHS 10/11/14 albuterol sulfate 90 mcg/actuation aerosol inhaler 1 puff INHALATION Q6H PRN 04/05/18 aspirin 81 mg tablet,delayed release 81 mg PO DAILY 05/03/19 Levothyroxine [Synthroid] 75 mcg PO TUTHSA 07/05/19 Diltiazem HCl 60 mg PO BID 07/16/19 Levothyroxine [Synthroid] 50 mcg PO SUMOWEFR 12/06/19 Potassium Chloride [K-Dur] 20 meq PO DAILY 12/06/19 budesonide-formoterol HFA 160 mcg-4.5 mcg/actuation aerosol inhaler 2 puff INHALATION BID 01/18/20 hydrocodone 5 mg-acetaminophen 325 mg tablet 0.25 tab PO QHS PRN tab 01/18/20 Furosemide [Lasix] 20 mg PO DAILY 02/13/20 Iron,Carbonyl [Iron Chews] 15 mg PO DAILY 02/20/20 Primary Care Physician: Joe Alvarado Chi, MD [Primary Care Provider] - Test Results: Test results from this visit will be discussed in further detail at your follow-up appointment, if applicable. Please Follow Up With: Nathan Zapata MD - [phone] When: Call to make an appointment to be seen as noted above
[2020-02-22] MEDS: Cefazolin 2 GM in 0.9% Normal Saline 100 ML IV (12:00)
[2020-02-22] MEDS: Bupivacaine Mpf 0.5% 30 ML VIAL (12:14)
[2020-02-22] MEDS: Heparin 10,000 UNITS/10 ML Vial 10000 UNITS (12:20)
--- NOTE | 2020-02-22 12:25 | OP.PCM_ITS ---
Problem List (1) Chronic progressive renal failure, stage 4 (severe) Status: Chronic Report of Operation Date of Procedure: 02/22/20 Pre-Operative Diagnosis: Stage V chronic renal failure Post-Operative Diagnosis: Same Surgery/Procedure Performed:: Right internal jugular tunneled hemodialysis catheter placement. 19 cm pre-curved palindrome and. Reference #[id number]. Lot #[id number] Description of Surgical Findings:: Timeout and informed consent was obtained. 79-year-old female was taken to the operating placed by the table underwent monitored anesthesia care. Ancef 2 g given intravenously preoperatively. The right neck was sterilely prepped and draped. Ultrasound was used to identify the right internal jugular vein. 1% lidocaine mixed 50-50 with 0.5% Marcaine was used as a local anesthetic. Throughout the procedure total 20 cc was used. Under ultrasound guidance a micropuncture needle was inserted into the right internal jugular vein followed by Seldinger wire advancement. Then local was instilled down upon the right chest wall. An exit site was selected. The 19 cm pre-curved palindrome catheter was tunneled from the chest to the neck site. Then the sheath dilator was placed over the micropuncture wire and then removed and an 035 J-wire was inserted. Fluoroscopy guided this positioning. Serial dilatation was performed over the J-wire. Then the sheath dilator was inserted. The wire and dilator were removed. The catheter advanced through the sheath. The sheath was split. The catheter was positioned at the SVC atrial junction. Good curvilinear position. It aspirated easily. It was flushed with heparinized saline per channel and then 2-1/2 cc of heparin per channel. It was secured to skin with interrupted 3-0 nylon. The neck site was closed interrupted 5-0 Vicryl subdermal stitch. Steri-Strip Telfa OpSite dressing applied. Silver impregnated dressing applied at the exit site. Sponge and instrument and needle counts were reported to the surgeon to be correct. Blood loss was minimal. She tolerated the procedure well and was taken to the recovery area in satisfactory addition with stat portable chest x- ray is pending. Specimens none. Drains none. Blood loss minimal. Nathan Zapata M.D., F.A.C.S. Type of Anesthesia:: Local MAC Anesthesiologist: Main Nascimento
[2020-02-22 12:34] VITALS: BP 162/54; BP 164/50; PULSE 88; RESP 18; TEMP 36.1; O2SAT 95
[2020-02-22 12:40] VITALS: BP 162/54; BP 180/66; PULSE 86; RESP 18; O2SAT 96
--- NOTE | 2020-02-22 12:40 | RAD_ITS ---
STUDY: X-RAY CHEST REASON FOR EXAM: Female, 79 years old. POST LINE PLACEMENT TECHNIQUE: Dialysis catheter placement. COMPARISON: Comparison is made with prior study dated 05/10/2012. FINDINGS: A right-sided double-lumen dialysis catheter has been placed. The tip is at the junction of the superior vena cava and right atrium. Pleural-parenchymal changes are seen at the left lung base. There is blunting of the right costophrenic angle. Normal size heart. Normal mediastinum and katerina. Normal visualized pulmonary arteries. There is atherosclerotic calcification of the aortic arch with tortuosity. There are diffuse degenerative changes of the visualized thoracic spine. Normal visualized ribs, clavicles, and shoulders. There is no demonstrated abnormality of the visualized soft tissue structures of the upper abdomen. RAD/CXR for Line Placement IMPRESSION: The tip of the double lumen dialysis catheter is at the junction of the superior vena cava and right atrium. Pleural parenchymal changes at the left lung base. Electronically Signed: Xander Medina, at 13:12 EDT , Service support ,
[2020-02-22 12:45] VITALS: BP 162/54; BP 178/57; PULSE 89; RESP 18; O2SAT 95
[2020-02-22 12:50] VITALS: BP 162/54; BP 178/77; PULSE 83; RESP 18; TEMP 36.1; O2SAT 95
[2020-02-22 13:56] VITALS: BP 162/54; BP 165/56; PULSE 68; RESP 16; TEMP 37.2; O2SAT 95
== END 2020-02-22 14:15 | disposition home or self-care (01) ==
LOC: SDC 09:22 → AC 09:23
PROVIDERS: Anesthesiology; PCP Family Medicine Geriatric Medicine; Referring Provider Surgery; Visit Provider Surgery
PROC: (CPT 36558; principal; 2020-02-22 11:15)
DX: I12.9 Hypertensive chronic kidney disease with stage 1 through stage 4 chronic kidney disease, or unspecified chronic kidney disease (principal); N18.4 Chronic kidney disease, stage 4 (severe); D64.9 Anemia, unspecified; Z11.59 Encounter for screening for other viral diseases; M41.9 Scoliosis, unspecified; J44.9 Chronic obstructive pulmonary disease, unspecified; E03.9 Hypothyroidism, unspecified; E78.00 Pure hypercholesterolemia, unspecified; I25.10 Atherosclerotic heart disease of native coronary artery without angina pectoris; G25.81 Restless legs syndrome; K58.0 Irritable bowel syndrome with diarrhea; K21.9 Gastro-esophageal reflux disease without esophagitis; F41.9 Anxiety disorder, unspecified; Z78.0 Asymptomatic menopausal state; Z85.118 Personal history of other malignant neoplasm of bronchus and lung; Z79.82 Long term (current) use of aspirin; Z79.899 Other long term (current) drug therapy; Z87.891 Personal history of nicotine dependence
CPT/HCPCS: 00532; 36558; 77001; 36415; 71045; 76000; 80048; 85027; 87635; 93005; 94799; C1750; U0003

== ENCOUNTER → 2020-03-14 09:33 | Outpatient (CLI) | payer MEDICARE, MEDICAID, SELFPAY ==
[2020-02-22 09:42] VITALS: BMI 24.9
--- NOTE | 2020-03-14 09:35 | RAD_ITS ---
STUDY: X-RAY - ABDOMEN/PELVIS REASON FOR EXAM: Female, 79 years old. NAUSEA, DIARRHEA AND CONSTIPATION PER PATIENT. PAIN IN ABDOMEN. FECAL IMPACTION OF COLON. TECHNIQUE: AP supine and upright views of the abdomen and pelvis. COMPARISON: None. FINDINGS: Small left pleural effusion. There is an unremarkable bowel gas pattern. There is no demonstrated free abdominal air. The visualized liver, spleen and kidneys are grossly normal in size and morphology. Normal soft tissue structures. There are diffuse degenerative changes of the visualized lumbar spine. RAD/Abd Inc Decub and/or Erect IMPRESSION: Small left pleural effusion. Electronically Signed: Tapan Flores, at 10:14 EDT Tel , Service support ,
[2020-03-14 11:02] LABS: Absolute Lymphocyte Count 1.26 X10^3/uL (0.83-4.51); Absolute Neutrophil Count 9.8 X10^3/uL (2.0-7.7); Basophil# 0.03 X10^3/uL; Basophil% 0.2 % (0-1); Eosinophil# 0.01 X10^3/uL; Eosinophils% 0.1 % (0-5); Hematocrit 30.4 % (37-47); Hemoglobin 9.4 g/dL (12.0-15.0); Lymphocyte # 1.26 X10^3/ul (4.0); Lymphocyte % 10.2 % (19-41); Mean Corp Hgb Conc 30.9 g/dL (32-36); Mean Corpuscular Hgb 34.1 pg (27.0-32.0); Mean Corpuscular Volume 110.1 fL (81-99); Mean Platelet Vol. 12.6 fl (6.2-12.0); Monocyte# 1.18 X10^3/uL; Monocyte% 9.6 % (0-10); NRBC Flagged by Analyzer 0.3 % (0-5); Neutrophil # 9.75 X10^3/uL (2.7-7.7); Neutrophil % 79.3 % (47-70); POSITIVE MORPHOLOGY YES; Platelet Count 258 K/mm3 (150-450); RBC Distribution Width CV 17.8 % (11.6-14.6); RBC Distribution Width SD 69.5 fl (35.1-43.9); Red Blood Count 2.76 M/mm3 (4.2-5.4); White Blood Count 12.3 K/mm3 (4.4-11.0)
[2020-03-14 11:08] LABS: Differential Indicated SCAN CRITERIA MET
[2020-03-14 11:13] LABS: ALB/GLOB Ratio 0.5 RATIO (0.9-2.4); AST(SGOT) 38 U/L (15-37); Alanine Aminotransfer ALT/SGPT 22 U/L (13-56); Albumin, Serum 1.5 g/dL (3.2-5.0); Alkaline Phosphatase 114 U/L (45-117); Anion Gap 3 (5-15); BUN 8 mg/dL (7-18); BUN/Creat Ratio 4.1 RATIO (10-20); Calcium,Total 7.9 mg/dL (8.5-10.1); Chloride 95 mmol/L (98-107); Creatinine, Serum 1.97 mg/dL (0.55-1.02); EST Glomerular Filtration Rate 26 mL/min (>60); Est Glom Filt Rate - Afr Amer 32 mL/min (>60); Globulin 2.9 g/dL (2.2-4.2); Glucose 99 mg/dL (74-106); Magnesium 1.7 mg/dL (1.6-2.6); Potassium 3.9 mmol/L (3.5-5.1); Protein, Total 4.4 g/dL (6.4-8.2); Sodium Level 135 mmol/L (136-145)
[2020-03-14 11:33] LABS: Anisocytosis 2+; Hypochromasia 1+; Macrocytosis 2+
== END ==
PROVIDERS: PCP Family Medicine Geriatric Medicine; Referring Provider Family Medicine Geriatric Medicine; Visit Provider Family Medicine Geriatric Medicine
DX: K56.41 Fecal impaction (principal); R25.9 Unspecified abnormal involuntary movements; N39.0 Urinary tract infection, site not specified; R53.83 Other fatigue
CPT/HCPCS: 36415; 74019; 80053; 83735; 85025; 87086; 87088

== ENCOUNTER 2020-03-23 05:49 | Inpatient (IN) | payer MEDICARE, MEDICAID, SELFPAY ==
[2020-03-19 15:10] VITALS: BMI 24.9
[2020-03-23] VITALS (60 sets, daily range): BP systolic 62–166; BP diastolic 38–85; PULSE 71–117; RESP 14–33; TEMP 30.3–36.4; O2SAT 86–100; BMI 22.1; BMI 22.0
--- NOTE | 2020-03-23 05:54 | CT_ITS ---
STUDY: CT BRAIN WITHOUT CONTRAST REASON FOR EXAM: Female, 79 years old. UNRESPONSIVE, LOW BS, DIALYSIS PATIENT RADIATION DOSAGE (If Supplied By Facility): CTDIvol = ( 44.99 ) mGy, DLP = ( 796.11 ) mGycm TECHNIQUE: Transaxial CT imaging of the brain was performed without administration of intravenous contrast material. Individualized dose optimization techniques were used for this CT. COMPARISON: No relevant priors. FINDINGS: Normal soft tissue structures. Normal calvarium. There is mild cerebral atrophy with widening of the extra-axial spaces and ventricular dilatation. There are areas of decreased attenuation within the white matter tracts of the supratentorial brain, consistent with microvascular disease changes. Normal basal ganglia and thalami. Normal brainstem. There is mild cerebellar atrophy. There is atherosclerotic calcification of the vertebral and cavernous carotid arteries. There is no intracranial hemorrhage. There are no findings of an acute ischemic infarction. Normal visualized paranasal sinuses. CT/Brain/Head without Contrast IMPRESSION: Chronic involutional changes of the brain. No demonstrated acute intracranial process. Electronically Signed: Jose R Noonan MD at 6:27 EDT , Service support ,
--- NOTE | 2020-03-23 05:55 | EKG12_ITS ---
Test Reason : DYSRHYTHMIA Blood Pressure : / mmHG Vent. Rate : 072 BPM Atrial Rate : 072 BPM P-R Int : 158 ms QRS Dur : 090 ms QT Int : 488 ms P-R-T Axes : 028 049 101 degrees QTc Int : 534 ms Sinus rhythm with Premature atrial complexes Nonspecific T wave abnormality Prolonged QT Abnormal ECG Confirmed by KIMMIE WHITE, KIMBERLY ([id number]), non linear editor CINDY PURI ([id number]) on 03/27/2020 11:33:05 AM Referred By: NICKY Confirmed By:KIMBERLY BURKS MD
--- NOTE | 2020-03-23 05:55 | RAD_ITS ---
STUDY: X-RAY CHEST REASON FOR EXAM: Female, 79 years old. UNRESPONSIVE TECHNIQUE: Single AP portable view of the chest. Patient is rotated to the left. COMPARISON: Chest x-ray 02/22/2020. FINDINGS: There is a double-lumen right internal jugular central venous catheter with its tip overlying the superior vena cava. There is a small right pleural effusion. There is apparent leftward shift of the heart and mediastinum which is probably an artifact of patient rotation. Volume loss in the left lung cannot be excluded. There is opacification of the left mid and lower lung escudero, which may be due to pleural effusion, atelectasis, and/or pneumonia. There is borderline cardiomegaly. Normal mediastinum and katerina. Normal visualized pulmonary arteries. There is atherosclerotic calcification of the aortic arch. Normal visualized thoracic spine. Normal visualized ribs, clavicles, and shoulders. There is no demonstrated abnormality of the visualized soft tissue structures of the upper abdomen. RAD/Chest 1 View (Portable) IMPRESSION: Opacification of the left mid and lower lung escudero, consistent with pleural effusion and overlying atelectasis or infiltration in the left lower lobe. Small right pleural effusion. Central venous catheter in place. Borderline heart size. Electronically Signed: Jose R Noonan MD at 6:57 EDT , Service support ,
[2020-03-23 06:08] LABS: Absolute Lymphocyte Count 0.76 X10^3/uL (0.83-4.51); Absolute Neutrophil Count 24.6 X10^3/uL (2.0-7.7); Basophil# 0.04 X10^3/uL; Basophil% 0.1 % (0-1); Eosinophils% 0.4 % (0-5); Hematocrit 31.7 % (37-47); Hemoglobin 10.5 g/dL (12.0-15.0); Lymphocyte # 0.76 X10^3/ul (4.0); Lymphocyte % 2.8 % (19-41); Mean Corp Hgb Conc 33.1 g/dL (32-36); Mean Corpuscular Hgb 34.8 pg (27.0-32.0); Mean Platelet Vol. 14.2 fl (6.2-12.0); Monocyte# 0.97 X10^3/uL; Monocyte% 3.6 % (0-10); NRBC Flagged by Analyzer 0.7 % (0-5); Neutrophil # 24.61 X10^3/uL (2.7-7.7); Neutrophil % 91.8 % (47-70); POSITIVE DIFFERENTIAL YES; POSITIVE MORPHOLOGY YES; Platelet Count 104 K/mm3 (150-450); RBC Distribution Width CV 17.9 % (11.6-14.6); RBC Distribution Width SD 67.9 fl (35.1-43.9); Red Blood Count 3.02 M/mm3 (4.2-5.4); White Blood Count 26.8 K/mm3 (4.4-11.0)
--- NOTE | 2020-03-23 06:15 | ED.DCSUM_ITS ---
History of Present Illness Chief Complaint: Unresponsive Informant: Friend Narrative: Patient presents via EMS unresponsive. She lives with a friend. Friend went to check on her this morning and found her lying on the floor, cold and unresponsive. Patient is a diabetic and EMS noted her blood sugar to be 24. She was given an amp of D50. Pulse ox was only 50% on room air initially. She had poor respiratory incentive and [id number] was used to oxygenate her in route. On arrival to the emergency room medics note patient was breathing with stronger breath and increasing her respiratory rate. Repeat blood sugar for squad was 197. - Past Medical History (1) Bilateral carotid artery stenosis Status: Chronic (2) Anemia Status: Chronic (3) COPD (chronic obstructive pulmonary disease) Status: Chronic (4) Chronic renal failure, stage 4 (severe) Status: Chronic (5) History of lung cancer Status: Chronic (6) Hyperlipidemia Status: Chronic (7) Hypertension Status: Chronic (8) Hypothyroidism Status: Chronic Past Medical History - Allergies and Home Meds Allergies/Adverse Reactions: Allergies adhesive tape Allergy (Verified 03/23/20 06:28) blisters Primary Care Physician: Joe Alvarado Chi, MD [Primary Care Provider] - Prior records reviewed: Yes Surgical History: cholecystectomy, hysterectomy, tonsillectomy, oophorectomy, lower lobectomy Lives: Friends Smoking Status: Former smoker - Family History Maternal Family History: Family History (Last Reviewed 03/20/20 @ 16:44 by PA. LUIS ANGEL Don) Brother CAD (coronary artery disease) Grandmother CAD (coronary artery disease) CVA (cerebral vascular accident) Father Cancer Family History: Reports: No pertinent history Review of Systems ROS: Unable to Obtain Physical Exam Vital Signs/Narrative: Vital Signs Temp Pulse Resp BP Pulse Ox 03/23/20 05:51 86.5 F L 74 21 H 135/57 H 93 Inital Vital Signs reviewed: Yes General: Well nourished Head: Normocephalic, Atraumatic ENT: Moist mucous membranes Neck: Supple Cardiovascular: Regular rate, Regular rhythm Respiratory: No distress, CTA bilaterally Abdomen: Soft, Nontender Skin: Pallor - Skin slightly pale and cool to the touch. Neurological: - - Patient unresponsive this time. She does not withdrawal to pain to the extremities. Diagnostic/Tx/Re-eval Impressions Brain CT 03/23/20 05:54 IMPRESSION: Chronic involutional changes of the brain. No demonstrated acute intracranial process. Electronically Signed: Jose R Noonan MD at 6:27 EDT , Service support , Chest X-Ray 03/23/20 05:55 IMPRESSION: Opacification of the left mid and lower lung [place], consistent with pleural effusion and overlying atelectasis or infiltration in the left lower lobe. Small right pleural effusion. Central venous catheter in place. Borderline heart size. Electronically Signed: Jose R Noonan MD at 6:57 EDT , Service support , Abdomen/Pelvis CT 03/23/20 06:50 IMPRESSION: Volume overload with anasarca and large bilateral pleural effusions. Electronically Signed: Royer Garcia MD at 7:48 EDT Tel , Service support , 03/23/20 05:54 Brain/Head without Contrast [CT] Stat 03/23/20 05:55 Chest 1 View (Portable) [RAD] Stat 03/23/20 06:50 Abdomen/Pelvis without Cont [CT] Stat Laboratory Results 03/23/20 03/23/20 03/23/20 05:55 05:55 05:55 WBC 26.8 H RBC 3.02 L Hgb 10.5 L Hct 31.7 L MCV 105.0 H MCH 34.8 H MCHC 33.1 RDW Std Deviation 67.9 H RDW Coeff of Elaine 17.9 H Plt Count 104 L MPV 14.2 H Immature Gran % (Auto) 1.300 H Neut % (Auto) 91.8 H Lymph % (Auto) 2.8 L [place] % (Auto) 3.6 Eos % (Auto) 0.4 Baso % (Auto) 0.1 Absolute Neuts (auto) 24.6 H Absolute Lymphs (auto) 0.76 L Nucleated RBC % 0.7 Differential Comment SCANNED Polychromasia RARE Anisocytosis 1+ Macrocytosis 1+ Schistocytes RARE PT 21.1 H INR 1.9 APTT 90.9 H* Sodium 138 Potassium 4.3 Chloride 100 Carbon Dioxide 25.0 Anion Gap 13 BUN 9 Creatinine 1.77 H Estim Creat Clear Calc 22.02 Est GFR (MDRD) Af Amer 36 L Est GFR (MDRD) Non-Af 30 L BUN/Creatinine Ratio 5.1 L Glucose 158 H Calcium 7.5 L Total Bilirubin 0.60 Direct Bilirubin 0.30 AST 138 H ALT 54 Alkaline Phosphatase 145 H Troponin I 0.157 H Total Protein 3.7 L Albumin 1.2 L Globulin 2.5 TSH Urine Color Urine Clarity Urine pH Ur Specific [place] Urine Protein Urine Glucose (UA) Urine Ketones Urine Occult Blood Urine Nitrite Urine Bilirubin Urine Urobilinogen Ur Leukocyte Esterase Urine RBC Urine WBC Ur Squamous Epith Cells Urine Bacteria Urine Mucus POC Glucose 03/23/20 03/23/20 03/23/20 05:55 06:13 06:15 WBC RBC Hgb Hct MCV MCH MCHC RDW Std Deviation RDW Coeff of Elaine Plt Count MPV Immature Gran % (Auto) Neut % (Auto) Lymph % (Auto) [place] % (Auto) Eos % (Auto) Baso % (Auto) Absolute Neuts (auto) Absolute Lymphs (auto) Nucleated RBC % Differential Comment Polychromasia Anisocytosis Macrocytosis Schistocytes PT INR APTT Sodium Potassium Chloride Carbon Dioxide Anion Gap BUN Creatinine Estim Creat Clear Calc Est GFR (MDRD) Af Amer Est GFR (MDRD) Non-Af BUN/Creatinine Ratio Glucose Calcium Total Bilirubin Direct Bilirubin AST ALT Alkaline Phosphatase Troponin I Total Protein Albumin Globulin TSH 3.43 Urine Color Yellow Urine Clarity Clear Urine pH 8.0 Ur Specific [place] 1.010 Urine Protein 500 H Urine Glucose (UA) 50 H Urine Ketones 5 H Urine Occult Blood 25 H Urine Nitrite Negative Urine Bilirubin Negative Urine Urobilinogen Normal Ur Leukocyte Esterase 25 H Urine RBC 0-5 SEEN Urine WBC 0-5 SEEN Ur Squamous Epith Cells 0-5 SEEN Urine Bacteria 1+ Urine Mucus 0 SEEN POC Glucose 133 H 03/23/20 07:23 WBC RBC Hgb Hct MCV MCH MCHC RDW Std Deviation RDW Coeff of Elaine Plt Count MPV Immature Gran % (Auto) Neut % (Auto) Lymph % (Auto) [place] % (Auto) Eos % (Auto) Baso % (Auto) Absolute Neuts (auto) Absolute Lymphs (auto) Nucleated RBC % Differential Comment Polychromasia Anisocytosis Macrocytosis Schistocytes PT INR APTT Sodium Potassium Chloride Carbon Dioxide Anion Gap BUN Creatinine Estim Creat Clear Calc Est GFR (MDRD) Af Amer Est GFR (MDRD) Non-Af BUN/Creatinine Ratio Glucose Calcium Total Bilirubin Direct Bilirubin AST ALT Alkaline Phosphatase Troponin I Total Protein Albumin Globulin TSH Urine Color Urine Clarity Urine pH Ur Specific [place] Urine Protein Urine Glucose (UA) Urine Ketones Urine Occult Blood Urine Nitrite Urine Bilirubin Urine Urobilinogen Ur Leukocyte Esterase Urine RBC Urine WBC Ur Squamous Epith Cells Urine Bacteria Urine Mucus POC Glucose 156 H - EKG Initial EKG Interpretation: Sinus Rhythm - Sinus at 72 with PACs. Diffuse T wave flattening. - Medical Decision Making Patient been given an amp of D50 with EMS. Repeat blood sugar here showed that her sugar and her rate dropped 60 points so she was given an additional half amp of D50. Bear hugger and warm blankets were placed as patient was hypothermic. As patient's body temperature increased she became more alert. This time she is awake, alert, answering questions. White blood cell count is significantly elevated. She has been complaining of lower abdominal pain lately so therefore was sent for a CT scan of the abdomen and pelvis. This reveals evidence of anasarca and bilateral pleural effusions. No obvious acute infection is noted. Patient will be discussed with hospitalist for admission and further evaluation. - Critical Care Time Critical care time (excluding procedures): 30-74 minutes ED Disposition - Plan for ED Patient: Disposition: Acute Care Hospital [facility] Diagnosis: Hypothermia, Hypoglycemia Referrals: Joe Alvarado Chi, MD [Primary Care Provider] -
[2020-03-23] MEDS: Dextrose 50%-Water 25 GM/50 ML DISP.SYRIN IV ×3 (06:19→20:10)
[2020-03-23 06:21] LABS: Bedside Glucose 133 mg/dL (70-110)
[2020-03-23 06:23] LABS: AST(SGOT) 138 U/L (15-37); Alanine Aminotransfer ALT/SGPT 54 U/L (13-56); Albumin, Serum 1.2 g/dL (3.2-5.0); Alkaline Phosphatase 145 U/L (45-117); Anion Gap 13 (5-15); BUN 9 mg/dL (7-18); BUN/Creat Ratio 5.1 RATIO (10-20); Calcium,Total 7.5 mg/dL (8.5-10.1); Chloride 100 mmol/L (98-107); Creatinine, Serum 1.77 mg/dL (0.55-1.02); EST Glomerular Filtration Rate 30 mL/min (>60); Est Glom Filt Rate - Afr Amer 36 mL/min (>60); Estimated Creatinine Clearance 22.02 ml/min; Globulin 2.5 g/dL (2.2-4.2); Glucose 158 mg/dL (74-106); Potassium 4.3 mmol/L (3.5-5.1); Protein, Total 3.7 g/dL (6.4-8.2); Sodium Level 138 mmol/L (136-145)
[2020-03-23 06:31] LABS: Differential Indicated SCAN CRITERIA MET
[2020-03-23 06:33] LABS: International Normalized Ratio 1.9; Prothrombin Time (Protime)PT. 21.1 SECONDS (11.7-14.9)
[2020-03-23 06:36] LABS: Partial Thromboplast Time 90.9 Seconds (24.1-36.2)
[2020-03-23 06:37] LABS: Thyroid Stim Hormone (TSH) 3.43 uIU/mL (0.358-3.74)
[2020-03-23 06:46] LABS: Anisocytosis 1+; Differential Comment SCANNED; Macrocytosis 1+; Schistocytes RARE
[2020-03-23 06:47] LABS: Polychromasia RARE
--- NOTE | 2020-03-23 06:50 | CT_ITS ---
STUDY: CT ABDOMEN AND PELVIS WITHOUT CONTRAST REASON FOR EXAM: Female, 79 years old. ABD PAIN, FOUND UNRESPONSIVE BY ROOM MATE, BLOOD SUGAR=24, SURG-total left hip replacement, hysterectomy, choelcystectomy, appendectomy, left lower lobe lobectomy, HX-LUNG CA, UTERINE CA, COPD, HTN, STAGE 4 CRF ON DIALYSIS RADIATION DOSAGE (If Supplied By Facility): CTDIvol = ( 13.47 ) mGy, DLP = ( 674.74 ) mGycm TECHNIQUE: Transaxial images were obtained from the dome of the diaphragm to the symphysis pubis without oral contrast, and without intravenous contrast. Sagittal and coronal images were reconstructed. Individualized dose optimization techniques were used for this CT. COMPARISON: 05/08/2019 FINDINGS: Large bilateral pleural effusions with bibasilar atelectasis. The visualized portions of the heart are within normal limits. Edema of the subcutaneous fat consistent with anasarca. Normal liver. There is non-visualization of the gallbladder, which may be secondary to either contraction or a prior cholecystectomy. Normal spleen. Normal pancreas. Normal bilateral adrenal glands. Normal right kidney. Normal left kidney. Normal visualized stomach. Normal small intestine. There are multiple colonic diverticula consistent with diverticulosis. The appendix is visualized and appears normal. Normal abdominal aorta. Normal inferior vena cava. Normal retroperitoneum. Porter catheter within the collapsed bladder. Normal abdominal wall. Status post left hip arthroplasty which produces streak artifact obscures the pelvis. CT/Abdomen/Pelvis without Cont IMPRESSION: Volume overload with anasarca and large bilateral pleural effusions. Electronically Signed: Royer Garcia MD at 7:48 EDT Tel , Service support ,
[2020-03-23 07:08] LABS: Mucous, Urine 0 SEEN /hpf (<or=2+)
[2020-03-23 07:15] LABS: Color, Urine Yellow (Yellow); Glucose, Dipstick 50 mg/dl (Normal); Ketone-Dipstick 5 mg/dl (Negative); Leukocyte Esterase-Dipstick 25 /ul (Negative); Nitrite-Dipstick Negative (Negative); Occult Blood-Urine 25 /ul (Negative); Protein-Dipstick 500 mg/dl (Negative); Urine Bilirubin Dipstick Negative (Negative); Urine Clarity Clear (Clear); Urine Urobilinogen Normal (Normal)
[2020-03-23 07:19] LABS: Bacteria 1+ /hpf (None Seen); Red Blood Cells-Urine 0-5 SEEN /hpf (0-5); Squamous Epithelial Cells - UA 0-5 SEEN /hpf (5-10); White Blood Cells 0-5 SEEN /hpf (0-5)
[2020-03-23 07:31] LABS: Bedside Glucose 156 mg/dL (70-110)
[2020-03-23 07:59] LABS: Partial Thromboplast Time 88.3 Seconds (24.1-36.2)
--- NOTE | 2020-03-23 08:05 | HP.PCM_ITS ---
History of Present Illness Date of Admission: 03/23/20 Chief Complaint: hypothermia, unresponsiveness The patient is a 79 year old F with a very extensive past medical history as outlined. Patient was admitted through the ED on 03/23/2020 after being found unresponsive on the floor by housemate. Friend could not tell how long she had been out on the floor for. Patient says she remembers getting up to go to the bathroom and then passing out but she could not give the exact time. Past medical history includes CAD with a history of hypertension, COPD and ESRD on hemodialysis. She started hemodialysis about 4 weeks ago. She also has a history of lung cancer status post left lower lobectomy. Patient had dialysis yesterday but cannot say how long she had dialysis for or how much was taken off and states she is noticed dysregulation of her blood pressure with dialysis. She denied any fever, any chills, any nausea, any vomiting or diarrhea and does remember having any particular symptoms before she passed out. Patient is not on home oxygen. When EMS arrived, she was found to be hypoglycemic with blood sugar of 24. She was given ED 50 ampoule. She was also found to be hypothermic and on admission in the ED, her temperature was noted to be 88.3 Fahrenheit. However at that time she had started coming around and was able to talk to the medical team. Patient was found to be hypoxemic and tachypneic, with heart rate been 26 on admission and was around 29 at time I reviewed her. She was initially on 4 L of oxygen in the ED. On arrival in the floor, patient was noted to be hypotensive with blood pressure of 89/49, temperature, up to around 93 Fahrenheit once bear hugger had been put on. Chemistry showed creatinine of 1.77. Lactic acid done was 11.2. Initial troponin was 0.157 and trended up to a peak of 0.182. CBC showed hemoglobin of 10.5 with WBC of 26.8 and platelets of 104. On arrival in the ED, she was complaining of abdominal pain so CT of the abdomen and pelvis done showed volume overload with anasarca and large bilateral pleural effusions. CXR showed opacification of the left mid and lower lung escudero, consistent with pleural effusion and underlying atelectasis or infiltartion in the left lower lobe, with a small right pleural effusion and central venous catheter in place. She is being admitted to be managed for severe sepsis probable pneumonia, hypothermia and hypoglycemia develop fluid overload and acute hypoxic respiratory insufficiency. [] Past Medical History Past Medical History (Chronic Problems): Chronic Problems (Last Reviewed 03/20/20 @ 16:44 by LUIS ANGEL. LUIS ANGEL Don) Chronic progressive renal failure, stage 4 (severe) (Chronic) Hx of cholecystectomy (Chronic) History of left hip replacement (Chronic) Scoliosis (Chronic) History of hysterectomy (Chronic) History of lobectomy of lung (Chronic) LLL History of cataract surgery (Chronic) Chronic renal failure, stage 4 (severe) (Chronic) Anemia (Chronic) Hypoalbuminemia (Chronic) History of lung cancer (Chronic) Bilateral carotid artery stenosis (Chronic) Lung cancer (Chronic) COPD (chronic obstructive pulmonary disease) (Chronic) Premature ventricular beat (Chronic) PAC (premature atrial contraction) (Chronic) LVH (left ventricular hypertrophy) (Chronic) Hypomagnesemia (Chronic) Bradycardia (Chronic) Orthostatic hypotension (Chronic) Hypertension (Chronic) Hypothyroidism (Chronic) Renal insufficiency (Chronic) Hyponatremia (Chronic) Macrocytic anemia (Chronic) Hyperlipidemia (Chronic) Medical History: Medical History (Last Reviewed 03/20/20 @ 16:44 by LUIS ANGEL. LUIS ANGEL Don) Chronic progressive renal failure, stage 4 (severe) (Chronic) N18.4 Scoliosis (Chronic) M41.9 Chronic renal failure, stage 4 (severe) (Chronic) N18.4 Infantile idiopathic scoliosis (Acute) M41.00 Segmental and somatic dysfunction of lumbar region (Acute) M99.03 Segmental and somatic dysfunction of thoracic region (Acute) M99.02 Segmental and somatic dysfunction of cervical region (Acute) M99.01 Other intervertebral disc degeneration, lumbar region (Acute) M51.36 Anemia (Chronic) D64.9 Hypoalbuminemia (Chronic) E88.09 Blood creatinine increased compared with prior measurement (Acute) R79.89 History of lung cancer (Chronic) Z85.118 Lung nodule < 6cm on CT (Resolved) R91.1 Bilateral carotid artery stenosis (Chronic) I65.23 Multiple thyroid nodules (Acute) E04.2 Lung cancer (Chronic) C34.90 COPD (chronic obstructive pulmonary disease) (Chronic) J44.9 Premature ventricular beat (Chronic) I49.3 PAC (premature atrial contraction) (Chronic) I49.1 LVH (left ventricular hypertrophy) (Chronic) I51.7 Hypomagnesemia (Chronic) E83.42 Bradycardia (Chronic) R00.1 Orthostatic hypotension (Chronic) I95.1 Hypertension (Chronic) I10 Hypothyroidism (Chronic) E03.9 Renal insufficiency (Chronic) N28.9 Hyponatremia (Chronic) E87.1 Macrocytic anemia (Chronic) D53.9 Hyperlipidemia (Chronic) E78.5 Allergies adhesive tape Allergy (Verified 03/23/20 06:28) blisters Home Medications: Ambulatory Orders Medication Instructions Recorded Allopurinol [Zyloprim] 300 mg PO DAILY 10/11/14 Famotidine [Pepcid] 20 mg PO QHS 10/11/14 albuterol sulfate 90 mcg/actuation 1 puff INHALATION Q6H PRN 04/05/18 aerosol inhaler Levothyroxine [Synthroid] 75 mcg PO TUTHSA 07/05/19 Levothyroxine [Synthroid] 50 mcg PO SUMOWEFR 12/06/19 Potassium Chloride [K-Dur] 20 meq PO DAILY 12/06/19 budesonide-formoterol HFA 160 2 puff INHALATION BID 01/18/20 mcg-4.5 mcg/actuation aerosol inhaler hydrocodone 5 mg-acetaminophen 325 0.25 tab PO QHS PRN tab 01/18/20 mg tablet diltiazem HCl 120 mg 120 mg PO DAILY #30 cap 03/19/20 capsule,extended release 24 hr ergocalciferol (vitamin D2) 1,250 1 ea PO QMONTH 03/19/20 mcg (50,000 unit) capsule furosemide 20 mg tablet 40 mg PO DAILY tab 03/19/20 ondansetron HCl 4 mg tablet 1 tab PO PRN PRN 03/19/20 Surgical History: Surgical History (Last Reviewed 03/20/20 @ 16:44 by PA. LUIS ANGEL Don) Hx of cholecystectomy (Chronic) Z98.890, Z90.49 History of left hip replacement (Chronic) Z96.642 History of hysterectomy (Chronic) Z98.890, Z90.710 History of lobectomy of lung (Chronic) Z98.890, Z90.2 LLL History of cataract surgery (Chronic) Z98.49 Status post biopsy of thyroid gland (Acute) Onset Date: ~07/2018 Z98.890 Surgical History: cholecystectomy, hysterectomy, tonsillectomy, oophorectomy, lower lobectomy Psychiatric History: No pertinent psych hx Lives: Friends Smoking Status: Never smoker Alcohol: None Drugs: None - *Family History Maternal Family History: Family History (Last Reviewed 03/20/20 @ 16:44 by LUIS ANGEL Pedersen) Brother CAD (coronary artery disease) Grandmother CAD (coronary artery disease) CVA (cerebral vascular accident) Father Cancer History Items: No pertinent history Review of Systems Constitutional: Reports: Weakness. Denies: Chills, Fever, Malaise, Weight Drake e Eyes: Denies: Blurred vision HEENT: Denies: Head Aches, Sinus Congestion, Sinus Drainage Cardiovascular: Denies: Chest Pain, Palpitations Respiratory: Denies: Cough, Shortness of Breath, Shortness of breath at rest, Shortness of breath upon exertion, Sputum production Gastrointestinal: Reports: Abdominal Pain. Denies: Diarrhea, Nausea, Vomiting Genitourinary: Denies: Dysuria Musculoskeletal: Denies: Joint Pain, Joint Tenderness Skin: Denies: Rash, Wounds Neurological: Denies: Numbness, Tingling, Focal weakness Psychiatric: Denies: Anxiety, Depression, Homicidal Ideations, Suicidal Ideations Hematologic/ Lymphatic: Denies: Easy Bruising, Easy Bleeding VTE Information - Inpt Only VTE Present on Admission: No VTE Pharm Prophylaxis ordered?: Yes Patient Problems: Active and Suspected Problems (Last Reviewed 03/20/20 @ 16:44 by LUIS ANGEL Pedersen) Hypothermia (Acute) Hypoglycemia (Acute) - Physical Exam Vitals/I&O's: Vital Signs Temp Pulse Resp BP Pulse Ox 88 F L 76 16 120/46 L 96 03/23/20 06:20 03/23/20 07:00 03/23/20 06:20 03/23/20 07:00 03/23/20 07:00 Oxygen Flow Rate (L/min) 4 Oxygen Delivery Method Nasal Cannula Weight: 124 lb 12.506 oz Body Mass Index (BMI) 22.1 Finger Stick Blood Glucose 156 General: Alert, Oriented x3, Cooperative, Lethargic HEENT: Atraumatic, PERRLA, EOMI, Normocephalic Oral: Dry Mucosa Neck: Supple, No JVD, Negative Carotid Bruits Lungs: - - decreased breath sounds bibasally, no wheezes or crackles. Cardiovascular: Regular rate, Regular Rhythm, Normal S1, Normal S2, No murmurs Abdomen: Bowel Sounds Present, Soft, Non Tender, Non-Distended, No Hepato- splenomegaly Extremities: No edema, Capillary Refill Less than 3 Seconds Skin: No rashes, No breakdown Musculoskeletal: No Tenderness to Palpation of Joints or Extremities, - - dialysis catheter in chest Lymphatic: No Cervical, Supraclavicular, or Inguinal Adenopathy Neurological: Cranial nerves II-XII grossly intact, Neuro grossly intact, Motor Exam 5/5 strength throughout Psych/Mental Status: Normal Affect, Appropriate, Alert and oriented to time, place, person, mood and affect Laboratory Results 03/23/20 05:55: WBC 26.8 H, RBC 3.02 L, Hgb 10.5 L, Hct 31.7 L, MCV 105.0 H, MCH 34.8 H, MCHC 33.1, RDW Std Deviation 67.9 H, RDW Coeff of Elaine 17.9 H, Plt Count 104 L, MPV 14.2 H, Immature Gran % (Auto) 1.300 H, Neut % (Auto) 91.8 H, Lymph % (Auto) 2.8 L, [place] % (Auto) 3.6, Eos % (Auto) 0.4, Baso % (Auto) 0.1, Absolute Neuts (auto) 24.6 H, Absolute Lymphs (auto) 0.76 L, Nucleated RBC % 0.7, Differential Comment SCANNED, Polychromasia RARE, Anisocytosis 1+, Macrocytosis 1+, Schistocytes RARE 03/23/20 05:55: PT 21.1 H, INR 1.9, APTT 90.9 H* 03/23/20 05:55: Sodium 138, Potassium 4.3, Chloride 100, Carbon Dioxide 25.0, Anion Gap 13, BUN 9, Creatinine 1.77 H, Estim Creat Clear Calc 22.02, Est GFR (MDRD) Af Amer 36 L, Est GFR (MDRD) Non-Af 30 L, BUN/Creatinine Ratio 5.1 L, Glucose 158 H, Calcium 7.5 L, Total Bilirubin 0.60, Direct Bilirubin 0.30, AST 138 H, ALT 54, Alkaline Phosphatase 145 H, Troponin I 0.157 H, Total Protein 3.7 L, Albumin 1.2 L, Globulin 2.5 03/23/20 05:55: TSH 3.43 03/23/20 06:13: Urine Color Yellow, Urine Clarity Clear, Urine pH 8.0, Ur Specific [place] 1.010, Urine Protein 500 H, Urine Glucose (UA) 50 H, Urine Ketones 5 H, Urine Occult Blood 25 H, Urine Nitrite Negative, Urine Bilirubin Negative, Urine Urobilinogen Normal, Ur Leukocyte Esterase 25 H, Urine RBC 0-5 SEEN, Urine WBC 0-5 SEEN, Ur Squamous Epith Cells 0-5 SEEN, Urine Bacteria 1+, Urine Mucus 0 SEEN 03/23/20 06:15: POC Glucose 133 H 03/23/20 07:23: POC Glucose 156 H 03/23/20 07:30: APTT 88.3 H Diagnostic Data Brain CT 03/23/20 05:54 IMPRESSION: Chronic involutional changes of the brain. No demonstrated acute intracranial process. Electronically Signed: Jose R Noonan MD at 6:27 EDT , Service support , Chest X-Ray 03/23/20 05:55 IMPRESSION: Opacification of the left mid and lower lung escudero, consistent with pleural effusion and overlying atelectasis or infiltration in the left lower lobe. Small right pleural effusion. Central venous catheter in place. Borderline heart size. Electronically Signed: Jose R Noonan MD at 6:57 EDT , Service support , Abdomen/Pelvis CT 03/23/20 06:50 IMPRESSION: Volume overload with anasarca and large bilateral pleural effusions. Electronically Signed: Royer Garcia MD at 7:48 EDT Tel , Service support , Assessment/Plan All Active Problems (Last Reviewed 03/20/20 @ 16:44 by PA. LUIS ANGEL Don) Hypothermia (Acute) Hypoglycemia (Acute) Status post biopsy of thyroid gland (Acute ~07/2018) Infantile idiopathic scoliosis (Acute) Segmental and somatic dysfunction of lumbar region (Acute) Segmental and somatic dysfunction of thoracic region (Acute) Segmental and somatic dysfunction of cervical region (Acute) Other intervertebral disc degeneration, lumbar region (Acute) Blood creatinine increased compared with prior measurement (Acute) Lung nodule < 6cm on CT (Resolved) Multiple thyroid nodules (Acute) History of lung cancer (Resolved) Near syncope (Resolved) 79 y/o admitted after being found unresponsive on the floor. # Severe sepsis * SIRS criteria- 4/4( tachycardia, tachypnea, hypothermia and leucocytosis) * lactic acid is also 11.2 * blood cultures obtained. * started on IV vancomycin and IV zosyn * being cautiously hydrated with IVF o/a of history of ESRD on HD * critical care on board * # Hypoglycemia * Patient's blood sugar was 34 on admission. She is on D5 water and still having recurrent hypoglycemia. On IV D50 ampule PRN. * Patient denies taking any new medication recently and is not diabetic. * Accu-Cheks every 2 hourly. * # Acute hypoxic respiratory insufficiency * Likely due to pneumonia and fluid overload. * Chest x-ray showed opacification of the left mid and lower lung escudero consistent with pleural effusion and overlying atelectasis or infiltrate in the left lower lobe with small right pleural effusion. * Titrate oxygen to maintain saturation above 90%. Patient started on IV vancomycin and IV Zosyn. * On breathing treatments with bronchodilators. #ESRD * Started hemodialysis 4 weeks ago. Last dialysis was yesterday. Cannot say exactly how much fluid was taken off but states she is experience blood pressure instability with dialysis. * Hospitalist to discuss with the thin film technician about possible ultrafiltration to help with fluid overload. However per discussion with machine icer, critical case of the viewpoint that we should hold off with any form of dialysis for now due to patient's tenuous blood pressure as blood pressure was in the 80s and 90s since admission. * nephrology on board # indeterminate troponins * initial troponin was 0.146 and trended up slightly to 0.182. EKG showed no acute ST changes. * This is likely due to sepsis and demand ischemia * patient has no complaints about chest pain. * will trend for now. * 2D echo ordered. * 2D echo from April 2019 showed hypertrophic cardiomyopathy with apical hypertrophic CMP and severe concentric left ventricular hypertrophy with left ventricular systolic function being normal and estimated EF of 65% with stage I diastolic function and no regional wall motion abnormalities seen. Pulmonary artery systolic pressure was 34 mmHg # Hypothyroidism * TSH was 3.43. Will continue with Synthroid. #Hypertrophic cardiomyopathy. * Hold Cardizem and furosemide on account of hypotension. DVT prophylaxis: Lovenox renally dosed Code status: full code * Patient counseled extensively about different types of CODE STATUS including full code, DNR CCA and DNR CCA. * Patient elects to be full code. * Total [id number] time 17 minutes. 17:50 Hospitalist paged at 1680 on account of patient complaining that her throat felt swollen and numb and she was feeling short of breath was receiving IV Zosyn. IV Zosyn immediately discontinued by nurse. Patient's total signs were stable at that time. Stat order given for IV Solu-Medrol 120 mg x 1 and IV Benadryl 50 mg x 1. Rapid response was subsequently called because patient suddenly started gagging and was short of breath as well as wheezing. Per discussion with nurse, IV line seem to have infiltrated and so they were not sure whether patient actually received the Benadryl and Solu-Medrol that she was given. Upon review at this point, patient was alert but lethargic with audible wheezing and rasping. Tongue did not appear swollen. Patient was not able to communicate verbally and blood pressure kept dropping down to the 60s and subsequently to the 30s systolic. Oxygen saturation also dropped to the 70s despite her oxygen being increased to about 10 L. Decision was made to emergently intubate patient. Indication for intubation: Acute hypoxic respiratory failure, due to sepsis, and probable allergic reaction to Zosyn. Induction of sedation: 20 mg of IV etomidate was used. Patient was preoxygenated with 100% FiO2 with Ambu bag prior to procedure. Patient was given 20 mg of IV etomidate and via direct laryngoscopy, vallecula and epiglottis were visualized. 7.5 mm endotracheal tube was inserted under direct visualization and colorimetric change was noticed. ET tube was secured in a entry via auscultation was equal on both sides of the lung. ET tube was secured at 23cm at lip. due to patient's BP dropping to the 60s systolic, with MAP <65, decision was made to emergently insert a central line. Indication: Hemodynamic monitoring and IV access to administer vasopressor support Site: right internal jugular vein. Patient was placed in a dependent position appropriate for central line placement. Patient's right neck area was prepped and draped in sterile fashion. 1% lidocaine was used to anesthetize the surrounding skin area. A triple-lumen internal jugular catheter was introduced into the internal jugular vein using the Seldinger technique and under ultrasound guidance. Catheter was threaded smoothly over the guidewire and appropriate blood return was obtained. Each lumen of the catheter was evacuated of air and flushed with sterile saline and the catheter was secured in place using dressing. Patient tolerated procedure well. Chest x-ray was obtained to assess for appropriate placement. Patient was sedated with propofol and fentanyl and started on Tani-Synephrine for blood pressure support.` IV Zosyn discontinued. Will start patient on IV cefepime continue IV vancomycin. Inpatient E&M: 94300 Init Hosp L3 Procedures: 52611 Advncd Care Plan 30 Min - insertion of emergency airway- [id number]; insertion of nontunnel CV cath-[id number]
[2020-03-23] MEDS: fentaNYL 100 MCG/2 ML Ampul 25 MCG IV (08:17)
--- NOTE | 2020-03-23 08:58 | ED.RN ---
report given to lili alston icu
--- NOTE | 2020-03-23 09:11 | PCM.CON.CC ---
Reason for Consult Date of Consultation: 03/23/20 Reason for Consultation: Acute hypoxemic respiratory insufficiency History of Present Illness: The patient is a 79-year-old female, with a history as outlined below, who presented to the emergency department on March 23 after being found unresponsive by a friend, whom she lives with. The patient does have a history of nonobstructive coronary artery disease along with a history of hypertension, COPD and end-stage renal disease on hemodialysis. The patient's medical history is also significant for primary lung adenocarcinoma status post left lower lobectomy. She currently follows with Dr. El of oncology. The patient has been on dialysis now for approximately 4 weeks. She does report that she oftentimes experiences blood pressure dysregulation with dialysis. She does report decreased p.o. intake over the course of the last month as well. She does have some abdominal discomfort due to increasing abdominal girth secondary to ascites. She denies the presence of a cough. She does not regularly utilize supplemental oxygen at her baseline. On presentation to the emergency department, the patient was noted to be hypothermic with a temperature of 88.3 ?F. She was, nevertheless, hemodynamically stable. The patient was tachypneic and hypoxemic, requiring 4 L/min via nasal cannula. Laboratory evaluation revealed an elevated white blood cell count to 27,000. Head CT revealed only chronic involutional changes of the brain. Chest x-ray revealed a probable small right pleural effusion along with possible left effusion and/or infiltration. CT abdomen/pelvis subsequently revealed large bilateral pleural effusions with compressive atelectasis. Edema was noted in the subcutaneous fat consistent with anasarca. In the emergency department, the patient was given an amp of D50 and placed on a Karie hugger. She was subsequently admitted to the medical intensive care unit for further management. Past Medical History Past Medical History (Chronic Problems): Chronic Problems (Last Reviewed 03/20/20 @ 16:44 by LUIS ANGEL. LUIS ANGEL Don) Chronic progressive renal failure, stage 4 (severe) (Chronic) Hx of cholecystectomy (Chronic) History of left hip replacement (Chronic) Scoliosis (Chronic) History of hysterectomy (Chronic) History of lobectomy of lung (Chronic) LLL History of cataract surgery (Chronic) Chronic renal failure, stage 4 (severe) (Chronic) Anemia (Chronic) Hypoalbuminemia (Chronic) History of lung cancer (Chronic) Bilateral carotid artery stenosis (Chronic) Lung cancer (Chronic) COPD (chronic obstructive pulmonary disease) (Chronic) Premature ventricular beat (Chronic) PAC (premature atrial contraction) (Chronic) LVH (left ventricular hypertrophy) (Chronic) Hypomagnesemia (Chronic) Bradycardia (Chronic) Orthostatic hypotension (Chronic) Hypertension (Chronic) Hypothyroidism (Chronic) Renal insufficiency (Chronic) Hyponatremia (Chronic) Macrocytic anemia (Chronic) Hyperlipidemia (Chronic) Medical History: Medical History (Last Reviewed 03/20/20 @ 16:44 by PA. LUIS ANGEL Don) Chronic progressive renal failure, stage 4 (severe) (Chronic) N18.4 Scoliosis (Chronic) M41.9 Chronic renal failure, stage 4 (severe) (Chronic) N18.4 Infantile idiopathic scoliosis (Acute) M41.00 Segmental and somatic dysfunction of lumbar region (Acute) M99.03 Segmental and somatic dysfunction of thoracic region (Acute) M99.02 Segmental and somatic dysfunction of cervical region (Acute) M99.01 Other intervertebral disc degeneration, lumbar region (Acute) M51.36 Anemia (Chronic) D64.9 Hypoalbuminemia (Chronic) E88.09 Blood creatinine increased compared with prior measurement (Acute) R79.89 History of lung cancer (Chronic) Z85.118 Lung nodule < 6cm on CT (Resolved) R91.1 Bilateral carotid artery stenosis (Chronic) I65.23 Multiple thyroid nodules (Acute) E04.2 Lung cancer (Chronic) C34.90 COPD (chronic obstructive pulmonary disease) (Chronic) J44.9 Premature ventricular beat (Chronic) I49.3 PAC (premature atrial contraction) (Chronic) I49.1 LVH (left ventricular hypertrophy) (Chronic) I51.7 Hypomagnesemia (Chronic) E83.42 Bradycardia (Chronic) R00.1 Orthostatic hypotension (Chronic) I95.1 Hypertension (Chronic) I10 Hypothyroidism (Chronic) E03.9 Renal insufficiency (Chronic) N28.9 Hyponatremia (Chronic) E87.1 Macrocytic anemia (Chronic) D53.9 Hyperlipidemia (Chronic) E78.5 Allergies adhesive tape Allergy (Verified 03/23/20 06:28) blisters Home Medications: Ambulatory Orders Medication Instructions Recorded Allopurinol [Zyloprim] 300 mg PO DAILY 10/11/14 Famotidine [Pepcid] 20 mg PO QHS 10/11/14 albuterol sulfate 90 mcg/actuation 1 puff INHALATION Q6H PRN 04/05/18 aerosol inhaler Levothyroxine [Synthroid] 75 mcg PO TUTHSA 07/05/19 Levothyroxine [Synthroid] 50 mcg PO SUMOWEFR 12/06/19 Potassium Chloride [K-Dur] 20 meq PO DAILY 12/06/19 budesonide-formoterol HFA 160 2 puff INHALATION BID 01/18/20 mcg-4.5 mcg/actuation aerosol inhaler hydrocodone 5 mg-acetaminophen 325 0.25 tab PO QHS PRN tab 01/18/20 mg tablet diltiazem HCl 120 mg 120 mg PO DAILY #30 cap 03/19/20 capsule,extended release 24 hr ergocalciferol (vitamin D2) 1,250 1 ea PO QMONTH 03/19/20 mcg (50,000 unit) capsule furosemide 20 mg tablet 40 mg PO DAILY tab 03/19/20 ondansetron HCl 4 mg tablet 1 tab PO PRN PRN 03/19/20 Surgical History: Surgical History (Last Reviewed 03/20/20 @ 16:44 by LUIS ANGEL Pedersen) Hx of cholecystectomy (Chronic) Z98.890, Z90.49 History of left hip replacement (Chronic) Z96.642 History of hysterectomy (Chronic) Z98.890, Z90.710 History of lobectomy of lung (Chronic) Z98.890, Z90.2 LLL History of cataract surgery (Chronic) Z98.49 Status post biopsy of thyroid gland (Acute) Onset Date: ~07/2018 Z98.890 Surgical History: cholecystectomy, hysterectomy, tonsillectomy, oophorectomy, lower lobectomy Lives: Friends Smoking Status: Never smoker - *Family History Maternal Family History: Family History (Last Reviewed 03/20/20 @ 16:44 by LUIS ANGEL Pedersen) Brother CAD (coronary artery disease) Grandmother CAD (coronary artery disease) CVA (cerebral vascular accident) Father Cancer History Items: No pertinent history Review of Systems Constitutional: Reports: Weakness, Fatigue Eyes: Denies: Blurred vision, Double vision HEENT: Denies: Head Aches, Sinus Congestion, Sinus Drainage Cardiovascular: Reports: Edema. Denies: Chest Pain, Palpitations Respiratory: Denies: Cough, Shortness of breath at rest, Sputum production Gastrointestinal: Reports: Abdominal Pain, Diarrhea. Denies: Nausea, Vomiting Genitourinary: Denies: Dysuria Musculoskeletal: Denies: Joint Pain, Joint Tenderness Skin: Denies: Rash, Wounds Neurological: Denies: Numbness, Tingling, Focal weakness Psychiatric: Denies: Anxiety, Depression, Homicidal Ideations, Suicidal Ideations Hematologic/ Lymphatic: Reports: Anemia Patient Problems: Active and Suspected Problems (Last Reviewed 03/20/20 @ 16:44 by PA. LUIS ANGEL Don) Hypothermia (Acute) Hypoglycemia (Acute) Objective: The patient's most recent lab work, culture data and imaging studies have all been personally reviewed. - Physical Exam Vitals/I&O's: Vital Signs Temp Pulse Resp BP Pulse Ox 91.7 F L 77 21 H 105/66 97 03/23/20 08:53 03/23/20 08:53 03/23/20 08:53 03/23/20 08:53 03/23/20 08:53 Oxygen Flow Rate (L/min) 4 Oxygen Delivery Method Nasal Cannula Weight: 124 lb 12.506 oz Body Mass Index (BMI) 22.1 Finger Stick Blood Glucose 156 General: Alert, No apparent distress, - - Pale in appearance HEENT: Atraumatic, PERRLA, Normocephalic Oral: Dry Mucosa Neck: Supple, No Nodes, Trachea Midline Lungs: Diminished, - - Speaking in full sentences. No accessory muscle use. Cardiovascular: Regular rate, Regular Rhythm Abdomen: Bowel Sounds Present, Soft, Distended, Tender Extremities: No clubbing, No cyanosis, Cool, Edema Skin: No breakdown Musculoskeletal: No Tenderness to Palpation of Joints or Extremities Lymphatic: No Cervical, Supraclavicular, or Inguinal Adenopathy Neurological: Cranial nerves II-XII grossly intact, Neuro grossly intact Psych/Mental Status: Flat Affect Labs (Last 48 Hours) 03/23/20 03/23/20 03/23/20 05:55 05:55 05:55 WBC 26.8 H RBC 3.02 L Hgb 10.5 L Hct 31.7 L MCV 105.0 H MCH 34.8 H MCHC 33.1 RDW Std Deviation 67.9 H RDW Coeff of Elaine 17.9 H Plt Count 104 L MPV 14.2 H Immature Gran % (Auto) 1.300 H Neut % (Auto) 91.8 H Lymph % (Auto) 2.8 L [place] % (Auto) 3.6 Eos % (Auto) 0.4 Baso % (Auto) 0.1 Absolute Neuts (auto) 24.6 H Absolute Lymphs (auto) 0.76 L Nucleated RBC % 0.7 Differential Comment SCANNED Polychromasia RARE Anisocytosis 1+ Macrocytosis 1+ Schistocytes RARE PT 21.1 H INR 1.9 APTT 90.9 H* Sodium 138 Potassium 4.3 Chloride 100 Carbon Dioxide 25.0 Anion Gap 13 BUN 9 Creatinine 1.77 H Estim Creat Clear Calc 22.02 Est GFR (MDRD) Af Amer 36 L Est GFR (MDRD) Non-Af 30 L BUN/Creatinine Ratio 5.1 L Glucose 158 H Calcium 7.5 L Total Bilirubin 0.60 Direct Bilirubin 0.30 AST 138 H ALT 54 Alkaline Phosphatase 145 H Troponin I 0.157 H Total Protein 3.7 L Albumin 1.2 L Globulin 2.5 TSH Urine Color Urine Clarity Urine pH Ur Specific [place] Urine Protein Urine Glucose (UA) Urine Ketones Urine Occult Blood Urine Nitrite Urine Bilirubin Urine Urobilinogen Ur Leukocyte Esterase Urine RBC Urine WBC Ur Squamous Epith Cells Urine Bacteria Urine Mucus POC Glucose 03/23/20 03/23/20 03/23/20 05:55 06:13 06:15 WBC RBC Hgb Hct MCV MCH MCHC RDW Std Deviation RDW Coeff of Elaine Plt Count MPV Immature Gran % (Auto) Neut % (Auto) Lymph % (Auto) [place] % (Auto) Eos % (Auto) Baso % (Auto) Absolute Neuts (auto) Absolute Lymphs (auto) Nucleated RBC % Differential Comment Polychromasia Anisocytosis Macrocytosis Schistocytes PT INR APTT Sodium Potassium Chloride Carbon Dioxide Anion Gap BUN Creatinine Estim Creat Clear Calc Est GFR (MDRD) Af Amer Est GFR (MDRD) Non-Af BUN/Creatinine Ratio Glucose Calcium Total Bilirubin Direct Bilirubin AST ALT Alkaline Phosphatase Troponin I Total Protein Albumin Globulin TSH 3.43 Urine Color Yellow Urine Clarity Clear Urine pH 8.0 Ur Specific [place] 1.010 Urine Protein 500 H Urine Glucose (UA) 50 H Urine Ketones 5 H Urine Occult Blood 25 H Urine Nitrite Negative Urine Bilirubin Negative Urine Urobilinogen Normal Ur Leukocyte Esterase 25 H Urine RBC 0-5 SEEN Urine WBC 0-5 SEEN Ur Squamous Epith Cells 0-5 SEEN Urine Bacteria 1+ Urine Mucus 0 SEEN POC Glucose 133 H 03/23/20 03/23/20 07:23 07:30 WBC RBC Hgb Hct MCV MCH MCHC RDW Std Deviation RDW Coeff of Elaine Plt Count MPV Immature Gran % (Auto) Neut % (Auto) Lymph % (Auto) [place] % (Auto) Eos % (Auto) Baso % (Auto) Absolute Neuts (auto) Absolute Lymphs (auto) Nucleated RBC % Differential Comment Polychromasia Anisocytosis Macrocytosis Schistocytes PT INR APTT 88.3 H Sodium Potassium Chloride Carbon Dioxide Anion Gap BUN Creatinine Estim Creat Clear Calc Est GFR (MDRD) Af Amer Est GFR (MDRD) Non-Af BUN/Creatinine Ratio Glucose Calcium Total Bilirubin Direct Bilirubin AST ALT Alkaline Phosphatase Troponin I Total Protein Albumin Globulin TSH Urine Color Urine Clarity Urine pH Ur Specific [place] Urine Protein Urine Glucose (UA) Urine Ketones Urine Occult Blood Urine Nitrite Urine Bilirubin Urine Urobilinogen Ur Leukocyte Esterase Urine RBC Urine WBC Ur Squamous Epith Cells Urine Bacteria Urine Mucus POC Glucose 156 H Clinical Impression(s) from Imaging Studies Brain CT 03/23/20 05:54 IMPRESSION: Chronic involutional changes of the brain. No demonstrated acute intracranial process. Electronically Signed: Jose R Noonan MD at 6:27 EDT , Service support , Chest X-Ray 03/23/20 05:55 IMPRESSION: Opacification of the left mid and lower lung [place], consistent with pleural effusion and overlying atelectasis or infiltration in the left lower lobe. Small right pleural effusion. Central venous catheter in place. Borderline heart size. Electronically Signed: Jose R Noonan MD at 6:57 EDT , Service support , Abdomen/Pelvis CT 03/23/20 06:50 IMPRESSION: Volume overload with anasarca and large bilateral pleural effusions. Electronically Signed: Royer Garcia MD at 7:48 EDT Tel , Service support , Current Medications Sodium Chloride () 250 mls @ 15 mls/hr IV .[id number] PRN PRN Reason: Saline Flush Sodium Chloride () 250 mls @ 15 mls/hr IV .[id number] PRN PRN Reason: Additional IVPB Infusion Sodium Chloride () 10 - 40 ml IV UD PRN PRN Reason: SALINE FLUSH Assessment/Plan Active and Suspected Problems (Last Reviewed 03/20/20 @ 16:44 by PA. LUIS ANGEL Don) Hypothermia (Acute) Hypoglycemia (Acute) RECOMMENDATIONS: 1. Start dextrose containing supplemental IV fluids. 2. Check lactate level. 3. Obtain blood and urine cultures. 4. Continue patient on bear hugger until euthermic. 5. Start empiric antimicrobials, pending infectious work-up. 6. Nephrology consultation to assist with hemodialysis needs. 7. Wean supplemental oxygen to maintain saturations at or above 90%. IMPRESSIONS: 1. Encephalopathy Most likely metabolic in nature with presenting hypoglycemia noted. The patient does report decreased p.o. intake over the course of the last 4 weeks. TSH appears to be within normal limits. She does not appear to be on any diabetic medications on an outpatient basis. Mentation appears to have improved with dextrose supplementation. CT head was unremarkable. We will continue to monitor clinically. 2. Possible sepsis The patient initially presented with vital sign derangements including hypothermia, tachypnea, elevated white blood cell count, hypoglycemia and altered mentation. Although there is no readily identifiable source of infection on chest imaging, I cannot discount the possibility of other potential sources of infection including blood borne or urinary tract. Therefore, I am going to place the patient empirically on antimicrobials. She will receive some supplemental IV fluid hydration. However, I would avoid giving her the full sepsis fluid volume, given her underlying end-stage renal disease, hypoalbuminemia and diastolic dysfunction. Blood and urine cultures will be obtained. We will plan to check a lactate as well. 3. Acute hypoxemic respiratory insufficiency Appears to be secondary to bilateral pleural effusions, likely secondary to hypervolemia in the setting of end-stage renal disease. She may require eventual thoracentesis if this fluid cannot be mobilized via dialysis. Continue to wean supplemental oxygen to maintain saturations at or above 90%. 4. End-stage renal disease on hemodialysis Nephrology consultation to assist with ongoing hemodialysis needs. 5. History of coronary artery disease/hypertension/COPD/lung CA/hypothyroidism Complicates care, management, recovery and prognosis. Continue bronchodilator therapy as ordered. Continue Synthroid as ordered. This note was generated with [employer] dictation software. It may contain incorrect words, spelling, and punctuation that were not noted in checking the note before signing. Inpatient E&M: 33444 Init Hosp L3
[2020-03-23 09:26] LABS: Bedside Glucose 105 mg/dL (70-110)
[2020-03-23] MEDS: Lactated Ringers 1,000 ML 999 ML IV (10:25)
[2020-03-23] MEDS: Heparin 10,000 UNITS/10 ML Vial 1000 UNITS IV (10:25)
[2020-03-23 11:08] LABS: Lactic Acid 11.2 mmol/L (0.4-1.9)
[2020-03-23] MEDS: Dext 5%-0.45% NS 1,000 ML 100 ML IV ×2 (11:20→18:30)
[2020-03-23 11:49] LABS: M R Staph aureus DNA By PCR Negative (Negative); Probe Check PASS; Specimen Processing Control PASS
--- NOTE | 2020-03-23 12:28 | PCM.RX.CS ---
Consult Pharmacy has been consulted to manage selected antiobiotic: Vancomycin Type of Consult: New start Labs: Sodium 138 mmol/L (136-145) 03/23/20 05:55 Potassium 4.3 mmol/L (3.5-5.1) 03/23/20 05:55 Chloride 100 mmol/L (98-107) 03/23/20 05:55 Carbon Dioxide 25.0 mmol/L (21.0-32.0) 03/23/20 05:55 Anion Gap 13 (5-15) 03/23/20 05:55 BUN 9 mg/dL (7-18) 03/23/20 05:55 Creatinine 1.77 mg/dL (0.55-1.02) H 03/23/20 05:55 Est GFR (MDRD) Af Amer 36 mL/min (>60) L 03/23/20 05:55 Est GFR (MDRD) Non-Af 30 mL/min (>60) L 03/23/20 05:55 BUN/Creatinine Ratio 5.1 RATIO (10-20) L 03/23/20 05:55 Glucose 158 mg/dL (74-106) H 03/23/20 05:55 Weight used for dosin kg Estimated Creatinine Clearance: 22 Goal Trough: 15-20 mcg/mL Pharmacy Plan for Drug Dosing: Initial dose 1500mg IV, 500mg IV q24h to follow with trough prior to 3rd dose per policy. Pharmacy Service will continue to monitor and adjust dosing as required. Follow-Up Labs: Trough Vancomycin - 03/25 @ 1130
[2020-03-23 13:06] LABS: Bedside Glucose 34 mg/dL (70-110)
[2020-03-23 14:26] LABS: Reflex Lactate? Y
[2020-03-23 14:51] LABS: Bedside Glucose 127 mg/dL (70-110)
[2020-03-23 15:23] LABS: Lactic Acid 11.4 mmol/L (0.4-1.9)
--- NOTE | 2020-03-23 15:45 | NURSING ---
Call light answered, pt reports tongue being numb. Upon assessment, tongue and cheeks appear swollen. Lungs sounds clear throughout, no stridor or wheezing noted. Pt able to speak but is slurred. SpO2 97% 2L n/c. Dr. Livingston notified, Benadryl and Solumedrol IV ordered.
[2020-03-23] MEDS: DiphenhydrAMINE 50 MG/ML Syringe IV ×2 (15:58→16:15)
[2020-03-23] MEDS: MethylPREDNISolone 125 MG/2 ML Vial IV ×2 (15:58→16:15)
--- NOTE | 2020-03-23 16:10 | NURSING ---
FORMULA MAKER called d/t pt decreased O2 and increased swelling to face, neck and tongue.
--- NOTE | 2020-03-23 16:14 | NURSING ---
Dr Livingston in room. Epi-pen injection given LT thigh by ROSA Kenny.
--- NOTE | 2020-03-23 16:20 | NURSING ---
Pt intubated. Etomidate IV given. 7.5 ET, 23 @LL placed without difficulty by Dr. Livingston. RT at bedside to initiate ventilator. Pt then draped and prepped for Central Line. RIJ placed per Dr. Livingston. OG placed by this nurse. CXR and KUB ordered.
--- NOTE | 2020-03-23 16:29 | RAD_ITS ---
STUDY: X-RAY CHEST REASON FOR EXAM: Female, 79 years old. ETT PLACEMENT TECHNIQUE: Single AP portable view of the chest. COMPARISON: Same day, 6:15 AM. FINDINGS: Endotracheal tube terminates 4.2 cm above the lisy. Nasogastric tube terminates in the upper stomach. No other changes since earlier today. Electronically Signed: Roger Fields MD at 18:31 EDT , Service support , RAD/Chest 1 View (Portable)
[2020-03-23] MEDS: Propofol 10MG/Ml 1,000 MG/100 ML Bottle 3.4 MG CONT INF (16:50)
--- NOTE | 2020-03-23 17:00 | RAD_ITS ---
STUDY: X-RAY - ABDOMEN/PELVIS REASON FOR EXAM: Female, 79 years old. NG PLACEMENT TECHNIQUE: Single AP view of the abdomen / pelvis. COMPARISON: None. FINDINGS: Limited views through the lower chest show atelectasis or infiltrate with pleural effusion in the left lung base. A nasogastric tube terminates in the mid stomach. Grossly normal visualized bowel gas pattern. Normal soft tissue structures. Normal visualized osseous structures. RAD/Abdomen Single View IMPRESSION: A nasogastric tube terminates in the mid stomach. Electronically Signed: Roger Fields MD at 18:29 EDT , Service support ,
--- NOTE | 2020-03-23 17:10 | NURSING ---
FORENSIC PHOTOGRAPHER called for increased swelling to face, neck and tongue. Pulse ox decreased to 92%.
[2020-03-23 17:50] LABS: Base Excess -6 mmol/L (-2 to +2); Bicarbonate 17.5 mmol/L (22-26); Blood Gas Specimen Type ART; FI02 100; Mode AC; O2 Delivery Device ET Tube; PO2 99 mmHG (75-100); SITE R Fem; SO2 98 % (95-99); Total Carbon Dioxide 18 mmol/L; Vt 450; pCO2 23.7 mmHg (35-45); pH 7.48 (7.35-7.45)
[2020-03-23 18:10] LABS: CPK Total, Creatine Kinase 190 U/L (26-192); Triglycerides 389 mg/dL
[2020-03-23] MEDS: Budesonide Respules 0.5 MG/2 ML AMPUL.NEB. INHALATION (18:49)
[2020-03-23] MEDS: Albuterol 2.5 MG/3 ML VIAL.NEB. INHALATION (18:49)
[2020-03-23 20:16] LABS: Bedside Glucose 21 mg/dL (70-110)
[2020-03-23 20:36] LABS: Bedside Glucose 95 mg/dL (70-110)
[2020-03-23] MEDS: Chlorhexidine 15 ML PO (21:00)
[2020-03-23 21:11] LABS: Bedside Glucose 77 mg/dL (70-110)
[2020-03-23] MEDS: Dextrose 10%-Water 250 ML 50 ML IV (21:23)
[2020-03-23 22:00] LABS: Bedside Glucose 63 mg/dL (70-110)
[2020-03-23 22:55] LABS: Bedside Glucose 76 mg/dL (70-110)
[2020-03-24] VITALS (35 sets, daily range): BP systolic 79–146; BP diastolic 53–89; PULSE 70–123; RESP 12–16; TEMP 2.7–37.1; O2SAT 92–100; BMI 23.8
[2020-03-24] MEDS: Dextrose 50%-Water 25 GM/50 ML DISP.SYRIN IV (00:03)
[2020-03-24 00:41] LABS: Bedside Glucose 30 mg/dL (70-110)
[2020-03-24] MEDS: Hydrocortisone Sod Succinate 100 MG/2 ML Vial 50 MG IV ×2 (00:52→05:01)
[2020-03-24] MEDS: 0.9% Saline Lock 10 ML Syringe IV ×2 (00:54→05:02)
[2020-03-24 00:55] LABS: Bedside Glucose 125 mg/dL (70-110)
[2020-03-24] MEDS: Dextrose 10%-Water 250 ML 75 ML IV ×3 (01:39→08:30)
[2020-03-24 02:00] LABS: Bedside Glucose 103 mg/dL (70-110)
[2020-03-24 02:56] LABS: Bedside Glucose 118 mg/dL (70-110)
[2020-03-24 03:51] LABS: Bedside Glucose 109 mg/dL (70-110)
[2020-03-24 03:56] LABS: Allen Test Positive; Base Excess -17 mmol/L (-2 to +2); Bicarbonate 10.3 mmol/L (22-26); Blood Gas Specimen Type ART; FI02 50; Mode AC; O2 Delivery Device Adult Vent; PO2 103 mmHG (75-100); SITE R Radial; SO2 97 % (95-99); Total Carbon Dioxide 11 mmol/L; Vt 450; pCO2 22.8 mmHg (35-45); pH 7.26 (7.35-7.45)
--- NOTE | 2020-03-24 04:04 | CPS ---
Unable to obtain pulse ox reading with ventilator check. ABG was obtained per RN request to assess oxygenation. Pulse ox probe replaced and repositioned multiple times without reading being picked up.
[2020-03-24 04:26] LABS: Absolute Lymphocyte Count 0.82 X10^3/uL (0.83-4.51); Basophil# 0.12 X10^3/uL; Basophil% 0.4 % (0-1); Eosinophil# 0.13 X10^3/uL; Eosinophils% 0.4 % (0-5); Hematocrit 33.7 % (37-47); Hemoglobin 10.8 g/dL (12.0-15.0); Lymphocyte # 0.82 X10^3/ul (4.0); Lymphocyte % 2.8 % (19-41); Mean Corpuscular Volume 112.3 fL (81-99); Monocyte# 1.65 X10^3/uL; Monocyte% 5.6 % (0-10); NRBC Flagged by Analyzer 2.4 % (0-5); Neutrophil # 26.04 X10^3/uL (2.7-7.7); Neutrophil % 88.8 % (47-70); POSITIVE COUNT YES; POSITIVE DIFFERENTIAL YES; POSITIVE MORPHOLOGY YES; Platelet Count 84 K/mm3 (150-450); RBC Distribution Width CV 18.7 % (11.6-14.6); RBC Distribution Width SD 76.6 fl (35.1-43.9); White Blood Count 29.4 K/mm3 (4.4-11.0)
[2020-03-24 04:30] LABS: Differential Indicated SCAN CRITERIA MET
[2020-03-24 04:34] LABS: Anion Gap 17 (5-15); BUN 11 mg/dL (7-18); BUN/Creat Ratio 5.2 RATIO (10-20); Calcium,Total 7.3 mg/dL (8.5-10.1); Chloride 103 mmol/L (98-107); Creatinine, Serum 2.12 mg/dL (0.55-1.02); EST Glomerular Filtration Rate 24 mL/min (>60); Est Glom Filt Rate - Afr Amer 29 mL/min (>60); Estimated Creatinine Clearance 18.38 ml/min; Glucose 141 mg/dL (74-106); Potassium 5.3 mmol/L (3.5-5.1); Sodium Level 135 mmol/L (136-145)
[2020-03-24 04:50] LABS: Differential Comment SCANNED
--- NOTE | 2020-03-24 04:54 | PCM.HOSP.N ---
Hospitalist Note Seen and examined about midnight The patient is critically sick with hypotension, unresponsive, intubated on minimal sedation 1 L fentanyl on vasopressor. Earlier the patient was admitted in ICU with hypothermia and unresponsiveness found on the floor. She has multiple comorbidities including coronary artery disease, COPD, ESRD on hemodialysis, that is started 4 weeks ago with history of lung cancer status post left lower lobectomy. As per nursing staff, patient also had tongue swelling and oral swelling after IV Zosyn possible allergic/angioedema therefore was intubated In ICU, she has right IJ triple-lumen catheter that was inserted early on day of admission and was intubated by hospitalist. Physical exam General: Unconscious and unresponsive HEENT: Atraumatic, PERRLA, normocephalic, pupils bilateral constricted with minimal response with light Oral: ET and OG tube Neck: Right IJ triple-lumen catheter. Dialysis permacath over right subclavian vein. Supple, No JVD, Negative Carotid Bruits Lungs: Air entry diminished in bilateral lung bases. On vent support. No spontaneous breathing no crepitation/rhonchi Cardiovascular: Heart sounds muffled. Regular rate. Regular Rhythm, No murmurs Abdomen: Bowel Sounds hypoactive, Soft, Non Tender, Non-Distended. OG tube 650 mL gastric aspirate : No renal angle tenderness. No suprapubic tenderness. Porter catheter no urine output Extremities: Bilateral leg edema, Capillary Refill Less than 3 Seconds Skin: No rashes, No breakdown Musculoskeletal: No Tenderness to Palpation of Joints or Extremities Neurological: Unresponsive. Only on fentanyl drip. Neuro exam unobtainable Overnight, the patient was followed Patient continued to drop blood pressure therefore started on second vasopressor, vasopressin was started along with hydrocortisone 50 mg IV every 6 hourly. Senior Peoplesoft Developer was notified Chest x-ray was improved examined and shows tip of triple-lumen catheter at the junction of right IJ and brachiocephalic vein. Nurses again called me in the morning that patient is not doing good. She is unresponsive even on low fentanyl drip. No propofol drip. Blood pressure, map 59 even to maximum vasopressor therefore IV phenylephrine infusion is started. Senior Peoplesoft Developer and director commercial sales Dr. Whittington was called Labs were reviewed. Leukocytosis 30,000 with left shift. ABG 7.26/23/103/11 on 50% FiO2/450/14, breathing on ventilator. Bicarb in BMP 15, anion gap 17, potassium 5.3 suggestive of high anion gap metabolic acidosis with respiratory alkalosis Started on 2 bicarb 50 M EQ each IV push and then 150 mEq in D5W at 100 mL/h as per director commercial sales recommendation. Next to kin, Mrs. Mensah, the patient's friend was called and updated about the clinical status and poor prognosis. I advised her to come early in the morning and make decision about further care after discussion with medical team and family members. Total time of the visit including total time spent in counseling or coordination of care, (more than 50% of the total time, spent in obtaining medical information from nurses and other ancillary care providers), discussion with consultants, review of labs and imaging is 30 minutes. Inpatient E&M: 69433 Subs Hosp L2
[2020-03-24] MEDS: Sodium Bicarbonate 8.4% 50 ML Syringe 50 MEQ IV ×2 (04:57→05:23)
[2020-03-24 05:31] LABS: Bedside Glucose 86 mg/dL (70-110)
--- NOTE | 2020-03-24 06:09 | PCM.CONS.R ---
Consultation - Renal 03/24/20 PCP/ Referring MD: Requesting physician: [] Primary care physician: Dr. Joe Alvarado MD Reason for Consultation:: esrd hd tts, fluid overload - History of Present Illness History of Present Illness: The patient is a 79 year old cachectic, severely malnourished F with ESRD on HD TTS last hemodialysis on Tuesday as outpt admitted via ED on 03/23/2020 after being found unresponsive on the floor by housemate. She was found to be hypoglycemic with BS 24, hypothermic with T 88.3 F and hypotensive started on pressors and intubated for respiratory distress. WBC was elevated at 26.8 started on iv antibx with blood cultures pending. WBC elevated at 29K today. Lactic acid level 11.2 on admit. She has biopsy proven chronic glomerulosclerosis, arterionephrosclerosis. She started hemodialysis February 25 with TDC for anasarca with chronic nausea, anorexia. She has dependent edema chronically and target weight has been challenged with continued fluid removal on dialysis as tolerated. She has hypoalbuminemia, iron deficiency anemia that has improved with iv iron and CHIDI with dialysis treatments. She has nausea with dialysis on zofran, complained of abdominal cramps and nausea on PPI and carafate at home prior to admission. She remains hypotensive requiring multiple pressors, intubated in ICU, unresponsive on vent. She was set up for dialysis yesterday for anasarca, large pleural effusion but treatment was held due to continued hypotension after discussion with CCM and hospitalist. She has lactic acidosis, metabolic acidosis with pH 7.2 today started on bicarbonate drip. Potassium 5.3 today. Spoke with hospitalist this morning about starting bicarbonate drip and CCM about trial hemodialysis to correct acidosis and hyperkalemia. Past medical history includes CAD, hypertension, COPD with history of heavy smoking, and history of lung cancer status post left lower lobectomy. On admit, CT of the abdomen and pelvis showed anasarca and large bilateral pleural effusions. CXR showed opacification of the left mid and lower lung escudero, consistent with pleural effusion and underlying atelectasis or infiltartion in the left lower lobe, with a small right pleural effusion and central venous catheter in place. - Allergies Allergies: Allergies adhesive tape Allergy (Verified 03/23/20 06:28) blisters piperacillin [From Zosyn] Allergy (Verified 03/23/20 20:38) Anaphylaxis tazobactam [From Zosyn] Allergy (Verified 03/23/20 20:38) Anaphylaxis - Current Medications Current Medications: Current Medications Acetaminophen (Tylenol) 650 mg PO Q6H PRN PRN PRN Reason: Pain Score 1-10/10 Albuterol Sulfate (Ventolin Aerosols) 2.5 mg INHALATION Q6H PRN PRN Reason: SOB/WHEEZE Albuterol Sulfate (Ventolin Aerosols) 2.5 mg INHALATION Q6HWA.RT [facility] Last Admin: 03/23/20 18:49 Dose: 2.5 mg Documented by: Allopurinol (Zyloprim) 300 mg PO DAILY [facility] Last Admin: 03/23/20 11:41 Dose: Not Given Documented by: Budesonide (Pulmicort Aerosol) 0.5 mg INHALATION Q12H.RT [facility] Last Admin: 03/23/20 18:49 Dose: 0.5 mg Documented by: Chlorhexidine Gluconate () 15 ml PO BID [facility] Last Admin: 03/23/20 21:00 Dose: 15 ml Documented by: Dextrose (D50w Syringe) 0 gm IV X1 PRN; Protocol PRN Reason: Hypoglycemia Last Admin: 03/24/20 00:03 Dose: 25 gm Documented by: Glucagon () 1 mg IM .X1 PRN PRN Reason: Hypoglycemia Hydrocortisone Sodium Succinate (Solu-Cortef) 50 mg IV Q6 [facility] Last Admin: 03/24/20 05:01 Dose: 50 mg Documented by: Sodium Chloride () 250 mls @ 15 mls/hr IV .[id number] PRN PRN Reason: Saline Flush Sodium Chloride () 250 mls @ 15 mls/hr IV .[id number] PRN PRN Reason: Additional IVPB Infusion Vancomycin IV Pharmacy to Dose (1 ea/ Sodium Chloride) 500 mls @ 250 mls/hr IV X1 PRN; Protocol PRN Reason: Rx to Dose Sodium Chloride () 250 mls @ 15 mls/hr IV .[id number] PRN PRN Reason: Saline Flush Sodium Chloride () 250 mls @ 15 mls/hr IV .[id number] PRN PRN Reason: Additional IVPB Infusion Vancomycin HCl () 500 mg in 100 mls @ 100 mls/hr IV Q24H [facility] Norepinephrine Bitartrate 8 mg (/ Sodium Chloride) 250 mls @ 9.375 mls/hr CONT INF .[id number] [facility]; Protocol Last Titration: 03/24/20 05:00 Dose: 30 mcg/min, 56.3 mls/hr Documented by: Propofol (Diprivan) 1,000 mg in 100 mls @ 3.384 mls/hr CONT INF .Q12H [facility]; Protocol Last Titration: 03/24/20 05:00 Dose: 0 mcg/kg/min, 0 mls/hr Documented by: Fentanyl Citrate 1,000 mcg/ (Sodium Chloride) 100 mls @ 5 mls/hr CONT INF .Q20H [facility]; Protocol Last Titration: 03/24/20 05:00 Dose: 75 mcg/hr, 7.5 mls/hr Documented by: Pantoprazole Sodium 40 mg/ (Sodium Chloride) 110 mls @ 330 mls/hr IV Q12 [facility] Last Infusion: 03/23/20 21:05 Dose: Infused Documented by: Cefepime HCl 1 gm/ Sodium (Chloride) 50 mls @ 100 mls/hr IV Q8 [facility] Last Infusion: 03/24/20 05:43 Dose: Infused Documented by: Dextrose (Dextrose 10%-Water) 250 mls @ 75 mls/hr IV .Q3H20M [facility] Last Admin: 03/24/20 04:59 Dose: 75 mls/hr Documented by: Vasopressin 20 units/ Sodium (Chloride) 25 mls @ 3 mls/hr IV .[id number] [facility] Last Admin: 03/24/20 00:39 Dose: 0.04 units/min, 3 mls/hr Documented by: Phenylephrine HCl 10 mg/ (Sodium Chloride) 250 mls @ 15 mls/hr CONT INF .[id number] [facility]; Protocol Last Titration: 03/24/20 05:45 Dose: 10 mcg/min, 15 mls/hr Documented by: Sodium Bicarbonate 150 meq/ (Dextrose) 1,150 mls @ 100 mls/hr IV .[id number] [facility] Last Admin: 03/24/20 05:05 Dose: 100 mls/hr Documented by: Levothyroxine Sodium (Synthroid) 50 mcg PO SuMoWeFr@1700 [facility] Last Admin: 03/23/20 17:30 Dose: Not Given Documented by: Levothyroxine Sodium (Synthroid) 75 mcg PO TuThSa@0600 [facility] Nitroglycerin (Nitrostat) 0.4 mg SUBLINGUAL Q5M PRN PRN Reason: CARDIAC/CHEST PAIN Ondansetron HCl (Zofran) 4 mg IV Q8H PRN PRN PRN Reason: NAUSEA/VOMITING Potassium Chloride (K-Dur) 20 meq PO DAILYCM [facility]AMES Sodium Chloride () 10 - 40 ml IV UD PRN PRN Reason: SALINE FLUSH Last Admin: 03/24/20 05:02 Dose: 10 ml Documented by: Sodium Chloride () 10 - 40 ml IV UD PRN PRN Reason: SALINE FLUSH - Past Medical History Past Medical History (Chronic Problems): Chronic Problems (Last Reviewed 03/20/20 @ 16:44 by LUIS ANGEL Pedersen) Chronic progressive renal failure, stage 4 (severe) (Chronic) Hx of cholecystectomy (Chronic) History of left hip replacement (Chronic) Scoliosis (Chronic) History of hysterectomy (Chronic) History of lobectomy of lung (Chronic) LLL History of cataract surgery (Chronic) Chronic renal failure, stage 4 (severe) (Chronic) Anemia (Chronic) Hypoalbuminemia (Chronic) History of lung cancer (Chronic) Bilateral carotid artery stenosis (Chronic) Lung cancer (Chronic) COPD (chronic obstructive pulmonary disease) (Chronic) Premature ventricular beat (Chronic) PAC (premature atrial contraction) (Chronic) LVH (left ventricular hypertrophy) (Chronic) Hypomagnesemia (Chronic) Bradycardia (Chronic) Orthostatic hypotension (Chronic) Hypertension (Chronic) Hypothyroidism (Chronic) Renal insufficiency (Chronic) Hyponatremia (Chronic) Macrocytic anemia (Chronic) Hyperlipidemia (Chronic) - Past Surgical History Surgical History: cholecystectomy, hysterectomy, tonsillectomy, oophorectomy, lower lobectomy - Social History Smoking Status: Never smoker Alcohol: None Drugs: None - Family History Maternal Family History: Family History (Last Reviewed 03/20/20 @ 16:44 by LUIS ANGEL Pedersen) Brother CAD (coronary artery disease) Grandmother CAD (coronary artery disease) CVA (cerebral vascular accident) Father Cancer Review of Systems Constitutional: Reports: Anorexia, Weakness, -. Denies: Chills, Fever Respiratory: Reports: Shortness of Breath Gastrointestinal: Reports: Abdominal Pain, Constipation, Nausea, Vomiting Skin: Denies: Rash Psychiatric: Reports: Anxiety, Depression Hematologic/ Lymphatic: Reports: Anemia. Denies: Hx of blood clot Patient Problems: Active and Suspected Problems (Last Reviewed 03/20/20 @ 16:44 by PA. LUIS ANGEL Don) Hypothermia (Acute) Hypoglycemia (Acute) - Physical Exam Vitals/I&O's: Vital Signs Temp Pulse Resp BP Pulse Ox 98.6 F 107 H 14 140/71 H 100 03/24/20 05:45 03/24/20 05:45 03/24/20 05:45 03/24/20 05:45 03/24/20 02:30 Oxygen Flow Rate (L/min) 2 Oxygen Delivery Method Mechanical Ventilator Weight: 61.1 kg Body Mass Index (BMI) 22.0 Finger Stick Blood Glucose 156 Intake and Output for Last 24 Hours 03/22/20 03/23/20 03/24/20 23:59 23:59 23:59 Intake Total 3767.70 / 3791.78 905.63 / 905.63 Output Total 655 / 705 75 / 75 Balance 3112.70 / 3086.78 830.63 / 830.63 General: - - sedate on vent, unresponsive. Chart reviewed HEENT: - - tongue dusky, protruding Lungs: Clear to auscultation, - - on vent Cardiovascular: Tachycardic Abdomen: Non Tender, Non-Distended, Bowel Sounds Not Present Extremities: Cool - lower extremities, Diminished Peripheral Pulses, Edema - upper and lower extrem bilat Skin: No rashes Musculoskeletal: Muscle Wasting Psych/Mental Status: - - sedate on vent Microbiology Past 72 Hours 03/23/20 18:05 Gastric Fluid/Contents Gastric Occult Blood - Final Occult Blood Positive Laboratory Results 03/23/20 05:55: WBC 26.8 H, RBC 3.02 L, Hgb 10.5 L, Hct 31.7 L, MCV 105.0 H, MCH 34.8 H, MCHC 33.1, RDW Std Deviation 67.9 H, RDW Coeff of Elaine 17.9 H, Plt Count 104 L, MPV 14.2 H, Immature Gran % (Auto) 1.300 H, Neut % (Auto) 91.8 H, Lymph % (Auto) 2.8 L, [place] % (Auto) 3.6, Eos % (Auto) 0.4, Baso % (Auto) 0.1, Absolute Neuts (auto) 24.6 H, Absolute Lymphs (auto) 0.76 L, Nucleated RBC % 0.7, Differential Comment SCANNED, Polychromasia RARE, Anisocytosis 1+, Macrocytosis 1+, Schistocytes RARE 03/23/20 05:55: PT 21.1 H, INR 1.9, APTT 90.9 H* 03/23/20 05:55: Sodium 138, Potassium 4.3, Chloride 100, Carbon Dioxide 25.0, Anion Gap 13, BUN 9, Creatinine 1.77 H, Estim Creat Clear Calc 22.02, Est GFR (MDRD) Af Amer 36 L, Est GFR (MDRD) Non-Af 30 L, BUN/Creatinine Ratio 5.1 L, Glucose 158 H, Calcium 7.5 L, Total Bilirubin 0.60, Direct Bilirubin 0.30, AST 138 H, ALT 54, Alkaline Phosphatase 145 H, Troponin I 0.157 H, Total Protein 3.7 L, Albumin 1.2 L, Globulin 2.5 03/23/20 05:55: TSH 3.43 03/23/20 06:13: Urine Color Yellow, Urine Clarity Clear, Urine pH 8.0, Ur Specific [place] 1.010, Urine Protein 500 H, Urine Glucose (UA) 50 H, Urine Ketones 5 H, Urine Occult Blood 25 H, Urine Nitrite Negative, Urine Bilirubin Negative, Urine Urobilinogen Normal, Ur Leukocyte Esterase 25 H, Urine RBC 0-5 SEEN, Urine WBC 0-5 SEEN, Ur Squamous Epith Cells 0-5 SEEN, Urine Bacteria 1+, Urine Mucus 0 SEEN 03/23/20 06:15: POC Glucose 133 H 03/23/20 07:23: POC Glucose 156 H 03/23/20 07:30: APTT 88.3 H 03/23/20 09:18: POC Glucose 105 03/23/20 10:15: Lactic Acid 11.2 H* 03/23/20 10:15: MRSA (PCR) Negative 03/23/20 10:15: Troponin I 0.146 H 03/23/20 12:41: POC Glucose 34 L* 03/23/20 12:45: Troponin I 0.182 H 03/23/20 12:45: Total Creatine Kinase 190, Triglycerides 389 H 03/23/20 14:40: Lactic Acid 11.4 H* 03/23/20 14:41: POC Glucose 127 H 03/23/20 17:44: Specimen Type ART, Sample Site R Fem, pH 7.48 H, Bicarbonate Actual 17.5 L, Total CO2 18, Base Excess -6 L, O2 Saturation 98, O2 % 100, ABG pCO2 23.7 L, ABG pO2 99, Respiration Rate 14.0000, O2 Delivery Device ET Tube, Vent Mode AC, Tidal Volume 450 03/23/20 20:08: POC Glucose 21 L* 03/23/20 20:28: POC Glucose 95 03/23/20 21:04: POC Glucose 77 03/23/20 21:54: POC Glucose 63 L 03/23/20 22:51: POC Glucose 76 03/23/20 23:59: POC Glucose 30 L* 03/24/20 00:47: POC Glucose 125 H 03/24/20 01:54: POC Glucose 103 03/24/20 02:53: POC Glucose 118 H 03/24/20 03:44: POC Glucose 109 03/24/20 03:48: Specimen Type ART, Sample Site R Radial, pH 7.26 L, Bicarbonate Actual 10.3 L, Total CO2 11, Base Excess -17 L, O2 Saturation 97, O2 % 50, ABG pCO2 22.8 L, ABG pO2 103 H, [place] Test Positive, Respiration Rate 14.0000, O2 Delivery Device Adult Vent, Vent Mode AC, Tidal Volume 450 03/24/20 03:55: WBC 29.4 H, RBC 3.00 L, Hgb 10.8 L, Hct 33.7 L, MCV 112.3 H D, MCH 36.0 H, MCHC 32.0, RDW Std Deviation 76.6 H, RDW Coeff of Elaine 18.7 H, Plt Count 84 L, MPV 0.0 L, Immature Gran % (Auto) 2.000 H, Neut % (Auto) 88.8 H, Lymph % (Auto) 2.8 L, [place] % (Auto) 5.6, Eos % (Auto) 0.4, Baso % (Auto) 0.4, Absolute Neuts (auto) 26.0 H, Absolute Lymphs (auto) 0.82 L, Nucleated RBC % 2.4, Differential Comment SCANNED, Diff Path Review November03/24/20 03:55: Sodium 135 L, Potassium 5.3 H, Chloride 103, Carbon Dioxide 15.0 L, Anion Gap 17 H, BUN 11, Creatinine 2.12 H, Estim Creat Clear Calc 18.38, Est GFR (MDRD) Af Amer 29 L, Est GFR (MDRD) Non-Af 24 L, BUN/Creatinine Ratio 5.2 L, Glucose 141 H, Calcium 7.3 L 03/24/20 05:27: POC Glucose 86 Clinical Impression(s) from Imaging Studies Chest X-Ray 03/23/20 05:55 IMPRESSION: Opacification of the left mid and lower lung escudero, consistent with pleural effusion and overlying atelectasis or infiltration in the left lower lobe. Small right pleural effusion. Central venous catheter in place. Borderline heart size. Electronically Signed: Jose R Noonan MD at 6:57 EDT , Service support , Abdomen/Pelvis CT 03/23/20 06:50 IMPRESSION: Volume overload with anasarca and large bilateral pleural effusions. Electronically Signed: Royer Garcia MD at 7:48 EDT Tel , Service support , Chest X-Ray 03/23/20 16:29 KUB X-Ray 03/23/20 17:00 IMPRESSION: A nasogastric tube terminates in the mid stomach. Electronically Signed: Roger Fields MD at 18:29 EDT , Service support , Current Medications Acetaminophen (Tylenol) 650 mg PO Q6H PRN PRN PRN Reason: Pain Score 1-10/10 Albuterol Sulfate (Ventolin Aerosols) 2.5 mg INHALATION Q6H PRN PRN Reason: SOB/WHEEZE Albuterol Sulfate (Ventolin Aerosols) 2.5 mg INHALATION Q6HWA.RT [facility] Last Admin: 03/23/20 18:49 Dose: 2.5 mg Documented by: Allopurinol (Zyloprim) 300 mg PO DAILY [facility] Last Admin: 03/23/20 11:41 Dose: Not Given Documented by: Budesonide (Pulmicort Aerosol) 0.5 mg INHALATION Q12H.RT [facility] Last Admin: 03/23/20 18:49 Dose: 0.5 mg Documented by: Chlorhexidine Gluconate () 15 ml PO BID [facility] Last Admin: 03/23/20 21:00 Dose: 15 ml Documented by: Dextrose (D50w Syringe) 0 gm IV X1 PRN; Protocol PRN Reason: Hypoglycemia Last Admin: 03/24/20 00:03 Dose: 25 gm Documented by: Glucagon () 1 mg IM .X1 PRN PRN Reason: Hypoglycemia Hydrocortisone Sodium Succinate (Solu-Cortef) 50 mg IV Q6 [facility] Last Admin: 03/24/20 05:01 Dose: 50 mg Documented by: Sodium Chloride () 250 mls @ 15 mls/hr IV .[id number] PRN PRN Reason: Saline Flush Sodium Chloride () 250 mls @ 15 mls/hr IV .[id number] PRN PRN Reason: Additional IVPB Infusion Vancomycin IV Pharmacy to Dose (1 ea/ Sodium Chloride) 500 mls @ 250 mls/hr IV X1 PRN; Protocol PRN Reason: Rx to Dose Sodium Chloride () 250 mls @ 15 mls/hr IV .[id number] PRN PRN Reason: Saline Flush Sodium Chloride () 250 mls @ 15 mls/hr IV .[id number] PRN PRN Reason: Additional IVPB Infusion Vancomycin HCl () 500 mg in 100 mls @ 100 mls/hr IV Q24H [facility] Norepinephrine Bitartrate 8 mg (/ Sodium Chloride) 250 mls @ 9.375 mls/hr CONT INF .[id number] [facility]; Protocol Last Titration: 03/24/20 05:00 Dose: 30 mcg/min, 56.3 mls/hr Documented by: Propofol (Diprivan) 1,000 mg in 100 mls @ 3.384 mls/hr CONT INF .Q12H [facility]; Protocol Last Titration: 03/24/20 05:00 Dose: 0 mcg/kg/min, 0 mls/hr Documented by: Fentanyl Citrate 1,000 mcg/ (Sodium Chloride) 100 mls @ 5 mls/hr CONT INF .Q20H [facility]; Protocol Last Titration: 03/24/20 05:00 Dose: 75 mcg/hr, 7.5 mls/hr Documented by: Pantoprazole Sodium 40 mg/ (Sodium Chloride) 110 mls @ 330 mls/hr IV Q12 [facility] Last Infusion: 03/23/20 21:05 Dose: Infused Documented by: Cefepime HCl 1 gm/ Sodium (Chloride) 50 mls @ 100 mls/hr IV Q8 [facility] Last Infusion: 03/24/20 05:43 Dose: Infused Documented by: Dextrose (Dextrose 10%-Water) 250 mls @ 75 mls/hr IV .Q3H20M [facility] Last Admin: 03/24/20 04:59 Dose: 75 mls/hr Documented by: Vasopressin 20 units/ Sodium (Chloride) 25 mls @ 3 mls/hr IV .Q8H20M [facility] Last Admin: 03/24/20 00:39 Dose: 0.04 units/min, 3 mls/hr Documented by: Phenylephrine HCl 10 mg/ (Sodium Chloride) 250 mls @ 15 mls/hr CONT INF .[id number] [facility]; Protocol Last Titration: 03/24/20 05:45 Dose: 10 mcg/min, 15 mls/hr Documented by: Sodium Bicarbonate 150 meq/ (Dextrose) 1,150 mls @ 100 mls/hr IV .[id number] [facility] Last Admin: 03/24/20 05:05 Dose: 100 mls/hr Documented by: Levothyroxine Sodium (Synthroid) 50 mcg PO SuMoWeFr@1700 [facility] Last Admin: 03/23/20 17:30 Dose: Not Given Documented by: Levothyroxine Sodium (Synthroid) 75 mcg PO TuThSa@0600 [facility] Nitroglycerin (Nitrostat) 0.4 mg SUBLINGUAL Q5M PRN PRN Reason: CARDIAC/CHEST PAIN Ondansetron HCl (Zofran) 4 mg IV Q8H PRN PRN PRN Reason: NAUSEA/VOMITING Potassium Chloride (K-Dur) 20 meq PO DAILYCM [facility] Sodium Chloride () 10 - 40 ml IV UD PRN PRN Reason: SALINE FLUSH Last Admin: 03/24/20 05:02 Dose: 10 ml Documented by: Sodium Chloride () 10 - 40 ml IV UD PRN PRN Reason: SALINE FLUSH Assessment/Plan All Active Problems (Last Reviewed 03/20/20 @ 16:44 by PA. LUIS ANGEL Don) Hypothermia (Acute) Hypoglycemia (Acute) Status post biopsy of thyroid gland (Acute ~07/2018) Infantile idiopathic scoliosis (Acute) Segmental and somatic dysfunction of lumbar region (Acute) Segmental and somatic dysfunction of thoracic region (Acute) Segmental and somatic dysfunction of cervical region (Acute) Other intervertebral disc degeneration, lumbar region (Acute) Blood creatinine increased compared with prior measurement (Acute) Lung nodule < 6cm on CT (Resolved) Multiple thyroid nodules (Acute) History of lung cancer (Resolved) Near syncope (Resolved) 1. ESRD due to chronic glomerulosclerosis on HD TTS. Last dialysis on Tuesday prior to admission. Consider hemodialysis today to correct electrolyte abnormality as tolerated. Remains on multiple pressors. DW CCM 2. Acute respiratory failure on vent. pulm/CCM mgmt 3. Septic shock on multiple pressors. Leukocytosis persists. Continue iv antibx renal dosed. Await blood cx. Check COVID 4. Acute metabolic acidosis with Lactic acidosis. Started on bicarbonate drip. 5. Acute Hyperkalemia due to metabolic acidosis, renal failure. 6. Altered mental status with hypoglycemia 7. Anasarca, severe hypoalbuminemia 8. COPD 9. Hx tobacco use 10. Hx lung cancer s/p lobectomy
[2020-03-24 06:21] LABS: Bedside Glucose 167 mg/dL (70-110)
[2020-03-24] MEDS: TITRATION PARAMETER CHANGE 1 EACH IV (07:09)
[2020-03-24 07:20] LABS: Bedside Glucose 31 mg/dL (70-110)
[2020-03-24 07:20] LABS: Bedside Glucose 34 mg/dL (70-110)
[2020-03-24 07:36] LABS: Lactic Acid 15.1 mmol/L (0.4-1.9)
--- NOTE | 2020-03-24 07:40 | PCM.PN.INT ---
Subjective: Patient received Zosyn yesterday and reportedly had tongue swelling requiring intubation. Overnight, patient has had continued decompensation requiring initiation of Levophed, stress dose steroids, vasopressin and recently Tani-Synephrine. Patient is unresponsive on my exam with cool extremities. General: Confused, Disoriented, Lethargic, Non-Cooperative, - - 4+ anasarca. Appears older than stated age HEENT: Atraumatic, PERRLA, EOMI, Normocephalic, - - Tongue swelling with ecchymosis on the distal tip. Oral: No Gingival or Mucosal Lesions/ Ulcerations, Dry Mucosa Neck: Supple, No JVD, No Nodes, Trachea Midline Lungs: No rhonchi, No wheeze, Diminished, Rales, - - Symmetric expansion. Cardiovascular: Normal S1, Normal S2, No murmurs, No rub noted, No Gallop, Tachycardic, - - Dialysis catheter noted in the right chest. Abdomen: Bowel Sounds Present, Soft, Non Tender, Non-Distended, Obese Extremities: No clubbing, Cyanosis - Fingertips, Edema - 4+ anasarca Skin: No breakdown Musculoskeletal: No Tenderness to Palpation of Joints or Extremities Lymphatic: No Cervical, Supraclavicular, or Inguinal Adenopathy Neurological: - - Pupillary reflexes noted. Little spontaneous movement noted. Does withdrawal to painful stimulus Psych/Mental Status: Flat Affect Vital Signs Temp Pulse Resp BP Pulse Ox 36.9 C 111 H 14 128/87 H 100 03/24/20 07:00 03/24/20 07:00 03/24/20 07:00 03/24/20 07:00 03/24/20 02:30 Oxygen Flow Rate (L/min) 2 Oxygen Delivery Method Mechanical Ventilator Weight: 61.1 kg Body Mass Index (BMI) 22.0 Finger Stick Blood Glucose 156 Intake and Output for Last 24 Hours 03/22/20 03/23/20 03/24/20 23:59 23:59 23:59 Intake Total 3767.70 / 3791.78 1071.38 / 1071.38 Output Total 655 / 705 75 / 75 Balance 3112.70 / 3086.78 996.38 / 996.38 Labs (Last 48 Hours) 03/23/20 03/23/20 03/23/20 05:55 05:55 05:55 WBC 26.8 H RBC 3.02 L Hgb 10.5 L Hct 31.7 L MCV 105.0 H MCH 34.8 H MCHC 33.1 RDW Std Deviation 67.9 H RDW Coeff of Elaine 17.9 H Plt Count 104 L MPV 14.2 H Immature Gran % (Auto) 1.300 H Neut % (Auto) 91.8 H Lymph % (Auto) 2.8 L Day % (Auto) 3.6 Eos % (Auto) 0.4 Baso % (Auto) 0.1 Absolute Neuts (auto) 24.6 H Absolute Lymphs (auto) 0.76 L Nucleated RBC % 0.7 Differential Comment SCANNED Diff Path Review Polychromasia RARE Anisocytosis 1+ Macrocytosis 1+ Schistocytes RARE PT 21.1 H INR 1.9 APTT 90.9 H* Specimen Type Sample Site pH Bicarbonate Actual Total CO2 Base Excess O2 Saturation O2 % ABG pCO2 ABG pO2 [place] Test Respiration Rate O2 Delivery Device Vent Mode Tidal Volume Sodium 138 Potassium 4.3 Chloride 100 Carbon Dioxide 25.0 Anion Gap 13 BUN 9 Creatinine 1.77 H Estim Creat Clear Calc 22.02 Est GFR (MDRD) Af Amer 36 L Est GFR (MDRD) Non-Af 30 L BUN/Creatinine Ratio 5.1 L Glucose 158 H Lactic Acid Calcium 7.5 L Total Bilirubin 0.60 Direct Bilirubin 0.30 AST 138 H ALT 54 Alkaline Phosphatase 145 H Total Creatine Kinase Troponin I 0.157 H Total Protein 3.7 L Albumin 1.2 L Globulin 2.5 Triglycerides TSH Urine Color Urine Clarity Urine pH Ur Specific [place] Urine Protein Urine Glucose (UA) Urine Ketones Urine Occult Blood Urine Nitrite Urine Bilirubin Urine Urobilinogen Ur Leukocyte Esterase Urine RBC Urine WBC Ur Squamous Epith Cells Urine Bacteria Urine Mucus MRSA (PCR) POC Glucose 03/23/20 03/23/20 03/23/20 05:55 06:13 06:15 WBC RBC Hgb Hct MCV MCH MCHC RDW Std Deviation RDW Coeff of Elaine Plt Count MPV Immature Gran % (Auto) Neut % (Auto) Lymph % (Auto) Day % (Auto) Eos % (Auto) Baso % (Auto) Absolute Neuts (auto) Absolute Lymphs (auto) Nucleated RBC % Differential Comment Diff Path Review Polychromasia Anisocytosis Macrocytosis Schistocytes PT INR APTT Specimen Type Sample Site pH Bicarbonate Actual Total CO2 Base Excess O2 Saturation O2 % ABG pCO2 ABG pO2 [place] Test Respiration Rate O2 Delivery Device Vent Mode Tidal Volume Sodium Potassium Chloride Carbon Dioxide Anion Gap BUN Creatinine Estim Creat Clear Calc Est GFR (MDRD) Af Amer Est GFR (MDRD) Non-Af BUN/Creatinine Ratio Glucose Lactic Acid Calcium Total Bilirubin Direct Bilirubin AST ALT Alkaline Phosphatase Total Creatine Kinase Troponin I Total Protein Albumin Globulin Triglycerides TSH 3.43 Urine Color Yellow Urine Clarity Clear Urine pH 8.0 Ur Specific [place] 1.010 Urine Protein 500 H Urine Glucose (UA) 50 H Urine Ketones 5 H Urine Occult Blood 25 H Urine Nitrite Negative Urine Bilirubin Negative Urine Urobilinogen Normal Ur Leukocyte Esterase 25 H Urine RBC 0-5 SEEN Urine WBC 0-5 SEEN Ur Squamous Epith Cells 0-5 SEEN Urine Bacteria 1+ Urine Mucus 0 SEEN MRSA (PCR) POC Glucose 133 H 03/23/20 03/23/20 03/23/20 07:23 07:30 09:18 WBC RBC Hgb Hct MCV MCH MCHC RDW Std Deviation RDW Coeff of [place] Plt Count MPV Immature Gran % (Auto) Neut % (Auto) Lymph % (Auto) Day % (Auto) Eos % (Auto) Baso % (Auto) Absolute Neuts (auto) Absolute Lymphs (auto) Nucleated RBC % Differential Comment Diff Path Review Polychromasia Anisocytosis Macrocytosis Schistocytes PT INR APTT 88.3 H Specimen Type Sample Site pH Bicarbonate Actual Total CO2 Base Excess O2 Saturation O2 % ABG pCO2 ABG pO2 [place] Test Respiration Rate O2 Delivery Device Vent Mode Tidal Volume Sodium Potassium Chloride Carbon Dioxide Anion Gap BUN Creatinine Estim Creat Clear Calc Est GFR (MDRD) Af Amer Est GFR (MDRD) Non-Af BUN/Creatinine Ratio Glucose Lactic Acid Calcium Total Bilirubin Direct Bilirubin AST ALT Alkaline Phosphatase Total Creatine Kinase Troponin I Total Protein Albumin Globulin Triglycerides TSH Urine Color Urine Clarity Urine pH Ur Specific [place] Urine Protein Urine Glucose (UA) Urine Ketones Urine Occult Blood Urine Nitrite Urine Bilirubin Urine Urobilinogen Ur Leukocyte Esterase Urine RBC Urine WBC Ur Squamous Epith Cells Urine Bacteria Urine Mucus MRSA (PCR) POC Glucose 156 H 105 03/23/20 03/23/20 03/23/20 10:15 10:15 10:15 WBC RBC Hgb Hct MCV MCH MCHC RDW Std Deviation RDW Coeff of [place] Plt Count MPV Immature Gran % (Auto) Neut % (Auto) Lymph % (Auto) Day % (Auto) Eos % (Auto) Baso % (Auto) Absolute Neuts (auto) Absolute Lymphs (auto) Nucleated RBC % Differential Comment Diff Path Review Polychromasia Anisocytosis Macrocytosis Schistocytes PT INR APTT Specimen Type Sample Site pH Bicarbonate Actual Total CO2 Base Excess O2 Saturation O2 % ABG pCO2 ABG pO2 [place] Test Respiration Rate O2 Delivery Device Vent Mode Tidal Volume Sodium Potassium Chloride Carbon Dioxide Anion Gap BUN Creatinine Estim Creat Clear Calc Est GFR (MDRD) Af Amer Est GFR (MDRD) Non-Af BUN/Creatinine Ratio Glucose Lactic Acid 11.2 H* Calcium Total Bilirubin Direct Bilirubin AST ALT Alkaline Phosphatase Total Creatine Kinase Troponin I 0.146 H Total Protein Albumin Globulin Triglycerides TSH Urine Color Urine Clarity Urine pH Ur Specific [place] Urine Protein Urine Glucose (UA) Urine Ketones Urine Occult Blood Urine Nitrite Urine Bilirubin Urine Urobilinogen Ur Leukocyte Esterase Urine RBC Urine WBC Ur Squamous Epith Cells Urine Bacteria Urine Mucus MRSA (PCR) Negative POC Glucose 03/23/20 03/23/20 03/23/20 12:41 12:41 12:45 WBC RBC Hgb Hct MCV MCH MCHC RDW Std Deviation RDW Coeff of [place] Plt Count MPV Immature Gran % (Auto) Neut % (Auto) Lymph % (Auto) Day % (Auto) Eos % (Auto) Baso % (Auto) Absolute Neuts (auto) Absolute Lymphs (auto) Nucleated RBC % Differential Comment Diff Path Review Polychromasia Anisocytosis Macrocytosis Schistocytes PT INR APTT Specimen Type Sample Site pH Bicarbonate Actual Total CO2 Base Excess O2 Saturation O2 % ABG pCO2 ABG pO2 [place] Test Respiration Rate O2 Delivery Device Vent Mode Tidal Volume Sodium Potassium Chloride Carbon Dioxide Anion Gap BUN Creatinine Estim Creat Clear Calc Est GFR (MDRD) Af Amer Est GFR (MDRD) Non-Af BUN/Creatinine Ratio Glucose Lactic Acid Calcium Total Bilirubin Direct Bilirubin AST ALT Alkaline Phosphatase Total Creatine Kinase Troponin I 0.182 H Total Protein Albumin Globulin Triglycerides TSH Urine Color Urine Clarity Urine pH Ur Specific [place] Urine Protein Urine Glucose (UA) Urine Ketones Urine Occult Blood Urine Nitrite Urine Bilirubin Urine Urobilinogen Ur Leukocyte Esterase Urine RBC Urine WBC Ur Squamous Epith Cells Urine Bacteria Urine Mucus MRSA (PCR) POC Glucose 34 L* 34 L* 03/23/20 03/23/20 03/23/20 12:45 12:52 14:40 WBC RBC Hgb Hct MCV MCH MCHC RDW Std Deviation RDW Coeff of [place] Plt Count MPV Immature Gran % (Auto) Neut % (Auto) Lymph % (Auto) Day % (Auto) Eos % (Auto) Baso % (Auto) Absolute Neuts (auto) Absolute Lymphs (auto) Nucleated RBC % Differential Comment Diff Path Review Polychromasia Anisocytosis Macrocytosis Schistocytes PT INR APTT Specimen Type Sample Site pH Bicarbonate Actual Total CO2 Base Excess O2 Saturation O2 % ABG pCO2 ABG pO2 [place] Test Respiration Rate O2 Delivery Device Vent Mode Tidal Volume Sodium Potassium Chloride Carbon Dioxide Anion Gap BUN Creatinine Estim Creat Clear Calc Est GFR (MDRD) Af Amer Est GFR (MDRD) Non-Af BUN/Creatinine Ratio Glucose Lactic Acid 11.4 H* Calcium Total Bilirubin Direct Bilirubin AST ALT Alkaline Phosphatase Total Creatine Kinase 190 Troponin I Total Protein Albumin Globulin Triglycerides 389 H TSH Urine Color Urine Clarity Urine pH Ur Specific [place] Urine Protein Urine Glucose (UA) Urine Ketones Urine Occult Blood Urine Nitrite Urine Bilirubin Urine Urobilinogen Ur Leukocyte Esterase Urine RBC Urine WBC Ur Squamous Epith Cells Urine Bacteria Urine Mucus MRSA (PCR) POC Glucose 31 L* 03/23/20 03/23/20 03/23/20 14:41 17:44 20:08 WBC RBC Hgb Hct MCV MCH MCHC RDW Std Deviation RDW Coeff of [place] Plt Count MPV Immature Gran % (Auto) Neut % (Auto) Lymph % (Auto) Day % (Auto) Eos % (Auto) Baso % (Auto) Absolute Neuts (auto) Absolute Lymphs (auto) Nucleated RBC % Differential Comment Diff Path Review Polychromasia Anisocytosis Macrocytosis Schistocytes PT INR APTT Specimen Type ART Sample Site R Fem pH 7.48 H Bicarbonate Actual 17.5 L Total CO2 18 Base Excess -6 L O2 Saturation 98 O2 % 100 ABG pCO2 23.7 L ABG pO2 99 [place] Test Respiration Rate 14.0000 O2 Delivery Device ET Tube Vent Mode AC Tidal Volume 450 Sodium Potassium Chloride Carbon Dioxide Anion Gap BUN Creatinine Estim Creat Clear Calc Est GFR (MDRD) Af Amer Est GFR (MDRD) Non-Af BUN/Creatinine Ratio Glucose Lactic Acid Calcium Total Bilirubin Direct Bilirubin AST ALT Alkaline Phosphatase Total Creatine Kinase Troponin I Total Protein Albumin Globulin Triglycerides TSH Urine Color Urine Clarity Urine pH Ur Specific [place] Urine Protein Urine Glucose (UA) Urine Ketones Urine Occult Blood Urine Nitrite Urine Bilirubin Urine Urobilinogen Ur Leukocyte Esterase Urine RBC Urine WBC Ur Squamous Epith Cells Urine Bacteria Urine Mucus MRSA (PCR) POC Glucose 127 H 21 L* 03/23/20 03/23/20 03/23/20 20:28 21:04 21:54 WBC RBC Hgb Hct MCV MCH MCHC RDW Std Deviation RDW Coeff of [place] Plt Count MPV Immature Gran % (Auto) Neut % (Auto) Lymph % (Auto) Day % (Auto) Eos % (Auto) Baso % (Auto) Absolute Neuts (auto) Absolute Lymphs (auto) Nucleated RBC % Differential Comment Diff Path Review Polychromasia Anisocytosis Macrocytosis Schistocytes PT INR APTT Specimen Type Sample Site pH Bicarbonate Actual Total CO2 Base Excess O2 Saturation O2 % ABG pCO2 ABG pO2 [place] Test Respiration Rate O2 Delivery Device Vent Mode Tidal Volume Sodium Potassium Chloride Carbon Dioxide Anion Gap BUN Creatinine Estim Creat Clear Calc Est GFR (MDRD) Af Amer Est GFR (MDRD) Non-Af BUN/Creatinine Ratio Glucose Lactic Acid Calcium Total Bilirubin Direct Bilirubin AST ALT Alkaline Phosphatase Total Creatine Kinase Troponin I Total Protein Albumin Globulin Triglycerides TSH Urine Color Urine Clarity Urine pH Ur Specific [place] Urine Protein Urine Glucose (UA) Urine Ketones Urine Occult Blood Urine Nitrite Urine Bilirubin Urine Urobilinogen Ur Leukocyte Esterase Urine RBC Urine WBC Ur Squamous Epith Cells Urine Bacteria Urine Mucus MRSA (PCR) POC Glucose 95 77 63 L 03/23/20 03/23/20 03/24/20 22:51 23:59 00:47 WBC RBC Hgb Hct MCV MCH MCHC RDW Std Deviation RDW Coeff of [place] Plt Count MPV Immature Gran % (Auto) Neut % (Auto) Lymph % (Auto) Day % (Auto) Eos % (Auto) Baso % (Auto) Absolute Neuts (auto) Absolute Lymphs (auto) Nucleated RBC % Differential Comment Diff Path Review Polychromasia Anisocytosis Macrocytosis Schistocytes PT INR APTT Specimen Type Sample Site pH Bicarbonate Actual Total CO2 Base Excess O2 Saturation O2 % ABG pCO2 ABG pO2 [place] Test Respiration Rate O2 Delivery Device Vent Mode Tidal Volume Sodium Potassium Chloride Carbon Dioxide Anion Gap BUN Creatinine Estim Creat Clear Calc Est GFR (MDRD) Af Amer Est GFR (MDRD) Non-Af BUN/Creatinine Ratio Glucose Lactic Acid Calcium Total Bilirubin Direct Bilirubin AST ALT Alkaline Phosphatase Total Creatine Kinase Troponin I Total Protein Albumin Globulin Triglycerides TSH Urine Color Urine Clarity Urine pH Ur Specific [place] Urine Protein Urine Glucose (UA) Urine Ketones Urine Occult Blood Urine Nitrite Urine Bilirubin Urine Urobilinogen Ur Leukocyte Esterase Urine RBC Urine WBC Ur Squamous Epith Cells Urine Bacteria Urine Mucus MRSA (PCR) POC Glucose 76 30 L* 125 H 03/24/20 03/24/20 03/24/20 01:54 02:53 03:44 WBC RBC Hgb Hct MCV MCH MCHC RDW Std Deviation RDW Coeff of [place] Plt Count MPV Immature Gran % (Auto) Neut % (Auto) Lymph % (Auto) Day % (Auto) Eos % (Auto) Baso % (Auto) Absolute Neuts (auto) Absolute Lymphs (auto) Nucleated RBC % Differential Comment Diff Path Review Polychromasia Anisocytosis Macrocytosis Schistocytes PT INR APTT Specimen Type Sample Site pH Bicarbonate Actual Total CO2 Base Excess O2 Saturation O2 % ABG pCO2 ABG pO2 [place] Test Respiration Rate O2 Delivery Device Vent Mode Tidal Volume Sodium Potassium Chloride Carbon Dioxide Anion Gap BUN Creatinine Estim Creat Clear Calc Est GFR (MDRD) Af Amer Est GFR (MDRD) Non-Af BUN/Creatinine Ratio Glucose Lactic Acid Calcium Total Bilirubin Direct Bilirubin AST ALT Alkaline Phosphatase Total Creatine Kinase Troponin I Total Protein Albumin Globulin Triglycerides TSH Urine Color Urine Clarity Urine pH Ur Specific [place] Urine Protein Urine Glucose (UA) Urine Ketones Urine Occult Blood Urine Nitrite Urine Bilirubin Urine Urobilinogen Ur Leukocyte Esterase Urine RBC Urine WBC Ur Squamous Epith Cells Urine Bacteria Urine Mucus MRSA (PCR) POC Glucose 103 118 H 109 03/24/20 03/24/20 03/24/20 03:48 03:55 03:55 WBC 29.4 H RBC 3.00 L Hgb 10.8 L Hct 33.7 L MCV 112.3 H D MCH 36.0 H MCHC 32.0 RDW Std Deviation 76.6 H RDW Coeff of Elaine 18.7 H Plt Count 84 L MPV 0.0 L Immature Gran % (Auto) 2.000 H Neut % (Auto) 88.8 H Lymph % (Auto) 2.8 L Day % (Auto) 5.6 Eos % (Auto) 0.4 Baso % (Auto) 0.4 Absolute Neuts (auto) 26.0 H Absolute Lymphs (auto) 0.82 L Nucleated RBC % 2.4 Differential Comment SCANNED Diff Path Review May foll Polychromasia Anisocytosis Macrocytosis Schistocytes PT INR APTT Specimen Type ART Sample Site R Radial pH 7.26 L Bicarbonate Actual 10.3 L Total CO2 11 Base Excess -17 L O2 Saturation 97 O2 % 50 ABG pCO2 22.8 L ABG pO2 103 H [place] Test Positive Respiration Rate 14.0000 O2 Delivery Device Adult Vent Vent Mode AC Tidal Volume 450 Sodium 135 L Potassium 5.3 H Chloride 103 Carbon Dioxide 15.0 L Anion Gap 17 H BUN 11 Creatinine 2.12 H Estim Creat Clear Calc 18.38 Est GFR (MDRD) Af Amer 29 L Est GFR (MDRD) Non-Af 24 L BUN/Creatinine Ratio 5.2 L Glucose 141 H Lactic Acid Calcium 7.3 L Total Bilirubin Direct Bilirubin AST ALT Alkaline Phosphatase Total Creatine Kinase Troponin I Total Protein Albumin Globulin Triglycerides TSH Urine Color Urine Clarity Urine pH Ur Specific [place] Urine Protein Urine Glucose (UA) Urine Ketones Urine Occult Blood Urine Nitrite Urine Bilirubin Urine Urobilinogen Ur Leukocyte Esterase Urine RBC Urine WBC Ur Squamous Epith Cells Urine Bacteria Urine Mucus MRSA (PCR) POC Glucose 03/24/20 03/24/20 03/24/20 05:27 06:15 06:17 WBC RBC Hgb Hct MCV MCH MCHC RDW Std Deviation RDW Coeff of [place] Plt Count MPV Immature Gran % (Auto) Neut % (Auto) Lymph % (Auto) Day % (Auto) Eos % (Auto) Baso % (Auto) Absolute Neuts (auto) Absolute Lymphs (auto) Nucleated RBC % Differential Comment Diff Path Review Polychromasia Anisocytosis Macrocytosis Schistocytes PT INR APTT Specimen Type Sample Site pH Bicarbonate Actual Total CO2 Base Excess O2 Saturation O2 % ABG pCO2 ABG pO2 [place] Test Respiration Rate O2 Delivery Device Vent Mode Tidal Volume Sodium Potassium Chloride Carbon Dioxide Anion Gap BUN Creatinine Estim Creat Clear Calc Est GFR (MDRD) Af Amer Est GFR (MDRD) Non-Af BUN/Creatinine Ratio Glucose Lactic Acid 15.1 H* Calcium Total Bilirubin Direct Bilirubin AST ALT Alkaline Phosphatase Total Creatine Kinase Troponin I Total Protein Albumin Globulin Triglycerides TSH Urine Color Urine Clarity Urine pH Ur Specific [place] Urine Protein Urine Glucose (UA) Urine Ketones Urine Occult Blood Urine Nitrite Urine Bilirubin Urine Urobilinogen Ur Leukocyte Esterase Urine RBC Urine WBC Ur Squamous Epith Cells Urine Bacteria Urine Mucus MRSA (PCR) POC Glucose 86 167 H Microbiology 03/23/20 18:05 Gastric Fluid/Contents Gastric Occult Blood - Final Occult Blood Positive Clinical Impression(s) from Imaging Studies Abdomen/Pelvis CT 03/23/20 06:50 IMPRESSION: Volume overload with anasarca and large bilateral pleural effusions. Electronically Signed: Royer Garcia MD at 7:48 EDT Tel , Service support , Chest X-Ray 03/23/20 16:29 KUB X-Ray 03/23/20 17:00 IMPRESSION: A nasogastric tube terminates in the mid stomach. Electronically Signed: Roger Fields MD at 18:29 EDT , Service support , Medical Necessity - Tobacco Use Smoking Status: Never smoker Tobacco Use: Non-smoker Assessment/Plan All Active Problems (Last Reviewed 03/20/20 @ 16:44 by PA. LUIS ANGEL Don) Hypothermia (Acute) Hypoglycemia (Acute) Status post biopsy of thyroid gland (Acute ~07/2018) Infantile idiopathic scoliosis (Acute) Segmental and somatic dysfunction of lumbar region (Acute) Segmental and somatic dysfunction of thoracic region (Acute) Segmental and somatic dysfunction of cervical region (Acute) Other intervertebral disc degeneration, lumbar region (Acute) Blood creatinine increased compared with prior measurement (Acute) Lung nodule < 6cm on CT (Resolved) Multiple thyroid nodules (Acute) History of lung cancer (Resolved) Near syncope (Resolved) RECOMMENDATIONS: 1. Continue Levophed, Tani-Synephrine, vasopressin to maintain map greater than 65 2. Continue empiric antibiotics 3. Await blood and urine cultures. 4. Continue patient on bear hugger until euthermic. 5. Start empiric antimicrobials, pending infectious work-up. 6. Nephrology consultation to assist with hemodialysis needs. 7. Wean supplemental oxygen to maintain saturations at or above 90%. IMPRESSIONS: 1. Metabolic encephalopathy Most likely metabolic in nature with presenting hypoglycemia noted. The patient does report decreased p.o. intake over the course of the last 4 weeks. TSH appears to be within normal limits. She does not appear to be on any diabetic medications on an outpatient basis. Mentation appears to have improved with dextrose supplementation. CT head was unremarkable. We will continue to monitor clinically. 2. Probable gram-negative septic shock The patient initially presented with vital sign derangements including hypothermia, tachypnea, elevated white blood cell count, hypoglycemia and altered mentation. Patient possibly had an anaphylactic reaction to Zosyn versus gram-negative sepsis with cardiovascular collapse. Patient requiring significant interventions to maintain appropriate blood pressure at this time. This may be secondary to refractory shock. Patient likely with a large amount of extravasation secondary to low albumin at baseline. 3. Acute hypoxemic respiratory failure Appears to be secondary to bilateral pleural effusions, likely secondary to hypervolemia in the setting of end-stage renal disease. She may require eventual thoracentesis if this fluid cannot be mobilized via dialysis. Clinical suspicion for the development of a combination of pulmonary edema and lung infiltrate at this juncture. Peak airway pressures are not suggestive of an obstructive lung disease at this time. Likely okay to make bronchodilators PRN. Continue to wean supplemental oxygen to maintain saturations at or above 90%. 4. End-stage renal disease on hemodialysis Nephrology consultation to assist with ongoing hemodialysis needs. Patient currently on bicarbonate drip secondary to acidosis. However, this is exacerbating fluid status. May attempt hemodialysis today without volume removal. 5. History of coronary artery disease/hypertension/COPD/lung CA/hypothyroidism Complicates care, management, recovery and prognosis. Continue bronchodilator therapy as ordered. Continue Synthroid as ordered. Addendum 8:43 AM Discussed with patient's POA for approximately 10 minutes. She was updated on patient's current status and after review and answering of questions has requested that the patient be made DNR comfort care only. Patient's POA understands that she will likely not survive with supportive devices but states these are her wishes. POA and living will paperwork was verified. Arrangements will be made. TIME: 60 minutes of critical care time spent addressing patient's septic shock, respiratory failure, ESRD, review of all data and collaboration with care team. (6 AM to 8 AM) [id number]: [id number] Critical care first hour
[2020-03-24 08:15] LABS: Bedside Glucose 199 mg/dL (70-110)
[2020-03-24] MEDS: Chlorhexidine 15 ML PO (08:33)
--- NOTE | 2020-03-24 08:58 | PCM.NTREPORT ---
Nutrition Therapy Report - History Nutrition Services has been consulted to:: Manage enteral nutrition Current diet / nutrition support order:: NPO - Anthropometric Measurements Height:: 5 ft 3 in Weight:: 61.1 kg Body Mass Index (BMI):: 23.8 - Relevant Labs Relevant Labs:: WBC 29.4 K/mm3 (4.4-11.0) H 03/24/20 03:55 RBC 3.00 M/mm3 (4.2-5.4) L 03/24/20 03:55 Hgb 10.8 g/dL (12.0-15.0) L 03/24/20 03:55 Hct 33.7 % (37-47) L 03/24/20 03:55 MCV 112.3 fL (81-99) H D 03/24/20 03:55 MCH 36.0 pg (27.0-32.0) H 03/24/20 03:55 RDW Std Deviation 76.6 fl (35.1-43.9) H 03/24/20 03:55 RDW Coeff of Elaine 18.7 % (11.6-14.6) H 03/24/20 03:55 Plt Count 84 K/mm3 (150-450) L 03/24/20 03:55 MPV 0.0 fl (6.2-12.0) L 03/24/20 03:55 Immature Gran % (Auto) 2.000 % (0.0-0.9) H 03/24/20 03:55 Neut % (Auto) 88.8 % (47-70) H 03/24/20 03:55 Lymph % (Auto) 2.8 % (19-41) L 03/24/20 03:55 Absolute Neuts (auto) 26.0 X10^3/uL (2.0-7.7) H 03/24/20 03:55 Absolute Lymphs (auto) 0.82 X10^3/uL (0.83-4.51) L 03/24/20 03:55 PT 21.1 SECONDS (11.7-14.9) H 03/23/20 05:55 APTT 88.3 Seconds (24.1-36.2) H 03/23/20 07:30 Sodium 135 mmol/L (136-145) L 03/24/20 03:55 Potassium 5.3 mmol/L (3.5-5.1) H 03/24/20 03:55 Carbon Dioxide 15.0 mmol/L (21.0-32.0) L 03/24/20 03:55 Anion Gap 17 (5-15) H 03/24/20 03:55 Creatinine 2.12 mg/dL (0.55-1.02) H 03/24/20 03:55 Est GFR (MDRD) Af Amer 29 mL/min (>60) L 03/24/20 03:55 Est GFR (MDRD) Non-Af 24 mL/min (>60) L 03/24/20 03:55 BUN/Creatinine Ratio 5.2 RATIO (10-20) L 03/24/20 03:55 Glucose 141 mg/dL (74-106) H 03/24/20 03:55 Lactic Acid 15.1 mmol/L (0.4-1.9) H* 03/24/20 06:15 Calcium 7.3 mg/dL (8.5-10.1) L 03/24/20 03:55 AST 138 U/L (15-37) H 03/23/20 05:55 Alkaline Phosphatase 145 U/L (45-117) H 03/23/20 05:55 Troponin I 0.182 ng/mL (<0.045) H 03/23/20 12:45 Total Protein 3.7 g/dL (6.4-8.2) L 03/23/20 05:55 Albumin 1.2 g/dL (3.2-5.0) L 03/23/20 05:55 Triglycerides 389 mg/dL (-199) H 03/23/20 12:45 - Assessment Food / Nutrition-Related History:: Pt sedated and on vent. OG to low wall suction. Failed SAT/SBT this am. Renal general diet ordered - will change to NPO d/t on vent. Wt increase of 4.7 kg since last review - likely d/t IV fluids and edema (+1 pitting BLE/nonpitting facial/tongue, 2+ pitting R arm, 3+ pitting L arm) - anticipate wt loss as fluid status improves. Followed by nephrology. New meds: Pulmicort, Cefepime, Chlorohexidine gluconate, Fentanyl, Solucortef, Norepinephrine, Pantoprazole, Phenylephride, Propofol, Sodium Bicarb. [ End ] - Nutrition Diagnosis Problem / Etiology / Signs & Symptoms (PES):: Res with inadequate oral nutrition r/t requiring ventilation support AEB NPO status. [ End ] Evidence of Malnutrition Exists:: No - Nutrition Intervention Nutrition Prescription:: [id number] sue; 65-75 gm pro/day - Food / Nutrient Delivery Interventions Summary of nutrition intervention:: Will d/c general Renal diet and make NPO d/t on vent. Rec enteral nutrition support while on vent - rec Vital AF 1.2 at goal rate 60 cc/hr with 100 cc H2O flush every 4 hours to provide ~ 1728 sue/ 108 gm pro/ 1767 cc free water/day. Would start tf at 20 cc/hr and increase every 20 cc/hr as pt tolerates until goal rate achieved. When medically able, rec po SOFIE to General Renal diet. [ End ]. [ End ]. [ End ] Nutrition support ordered as / adjusted to:: . Rec enteral nutrition support while on vent - rec Vital AF 1.2 at goal rate 60 cc/hr with 100 cc H2O flush every 4 hours to provide ~ 1728 sue/ 108 gm pro/ 1767 cc free water/day. Would start tf at 20 cc/hr and increase every 20 cc/hr as pt tolerates until goal rate achieved. . [ End ] Nutrition education provided?: No - MNT Monitoring Further MNT monitoring and evaluation required?: Yes MNT Follow-up in:: 1-2 days - if questions/concerns, please call RD/LD at [phone]
--- NOTE | 2020-03-24 09:08 | NURSING ---
extubated , poa @ bedside,iv fluids discontinued
[2020-03-24 09:43] LABS: Pathologist Review Reviewed
[2020-03-24 10:22] LABS: Reflex Lactate? Y
--- NOTE | 2020-03-24 12:48 | PCM.DEATH ---
Preliminary Cause of Sepsis secondary to possibly community-acquired pneumonia Date of Admission: 03/23/20 Date of : 03/24/20 - Principle Diagnosis Sepsis secondary to community-acquired pneumonia Acute hypoxic respiratory insufficiency Hypoglycemia ESRD Hypothyroidism Hypertrophic cardiomyopathy Allergic reaction to Zosyn Hospital Course 79-year-old female presents to the hospital with metabolic encephalopathy and what appeared to be sepsis with possible septic shock secondary to community-acquired pneumonia. Blood cultures were obtained and she was started on broad-spectrum antibiotics including Zosyn and vancomycin. On her first day of admission it appeared that she developed anaphylactic reaction to Zosyn and the Zosyn was discontinued and she was transitioned to cefepime however she had acute hypoxic respiratory failure possibly from the allergic reaction, and therefore she was emergently intubated and had a central line placed. Her blood pressures declined and she required to be on 3 vasopressors as well as IV steroids, IV fluids. The power of corporate associate attorney was called and she presented to the hospital this morning and after discussion with the quality assurance assessor, she felt that the Ms. Finn would not want these heroic measures and changed her to comfort care only. She was terminally extubated this morning and at 0928 on 03/24/2020. Inpatient E&M: [id number] Disch Hosp
== END 2020-03-24 09:28 | DRG 871 ==
LOC: ED 07:51 → ICU 08:55
PROVIDERS: Internal Medicine Critical Care Medicine; Internal Medicine Nephrology; Admitting Provider Student in an Organized Health Care Education/Training Program; Emergency Provider Emergency Medicine; PCP Family Medicine Geriatric Medicine; Visit Provider Family Medicine
DX: A41.50 Gram-negative sepsis, unspecified (principal); R65.21 Severe sepsis with septic shock; N18.6 End stage renal disease; J18.9 Pneumonia, unspecified organism; J96.01 Acute respiratory failure with hypoxia; G93.41 Metabolic encephalopathy; E43 Unspecified severe protein-calorie malnutrition; I42.2 Other hypertrophic cardiomyopathy; T88.6XXA Anaphylactic reaction due to adverse effect of correct drug or medicament properly administered, initial encounter; J44.0 Chronic obstructive pulmonary disease with (acute) lower respiratory infection; I12.0 Hypertensive chronic kidney disease with stage 5 chronic kidney disease or end stage renal disease; E87.2 Acidosis; T36.0X5A Adverse effect of penicillins, initial encounter; Y92.9 Unspecified place or not applicable; E11.649 Type 2 diabetes mellitus with hypoglycemia without coma; E11.22 Type 2 diabetes mellitus with diabetic chronic kidney disease; E03.9 Hypothyroidism, unspecified; I65.23 Occlusion and stenosis of bilateral carotid arteries; I25.10 Atherosclerotic heart disease of native coronary artery without angina pectoris; E83.42 Hypomagnesemia; M41.00 Infantile idiopathic scoliosis, site unspecified; M99.03 Segmental and somatic dysfunction of lumbar region; M99.02 Segmental and somatic dysfunction of thoracic region; M99.01 Segmental and somatic dysfunction of cervical region; M51.36 Other intervertebral disc degeneration, lumbar region; D50.9 Iron deficiency anemia, unspecified; E87.5 Hyperkalemia; Z95.828 Presence of other vascular implants and grafts; Z99.2 Dependence on renal dialysis; Z85.118 Personal history of other malignant neoplasm of bronchus and lung; Z87.891 Personal history of nicotine dependence; Z90.2 Acquired absence of lung [part of]; Z90.49 Acquired absence of other specified parts of digestive tract; Z79.899 Other long term (current) drug therapy; T68.XXXA Hypothermia, initial encounter; Z68.23 Body mass index [BMI] 23.0-23.9, adult
CPT/HCPCS: 31500; 36415; 36600; 51702; 70450; 71045; 74018; 74176; 80048; 80076; 81001; 82271; 82550; 82803; 82962; 83605; 84443; 84478; 84484; 85025; 85610; 85730; 87040; 87641; 93005; 94002; 94003; 94640; 97802; 99251; 99285; J7030; J7040; J7050; J7120; A4216; C1751; G0463; J3010; J3490; J7799